=== PATIENT | female | born 1940 | race Caucasian/White ===

== ENCOUNTER 2016-05-18 11:29 | Inpatient (IN) | payer OTHER ==
[~2016-05-18] VITALS: Ht 152.4 cm; Wt 52.6 kg
--- NOTE | 2016-05-18 11:49 | NUR ---
74 Y/O FEMALE C/O SHORTNESS OF BREATH SINCE MONDAY; NO RELIEF WITH INHALERS USED AT HOME. PT REPORTS "TERRIBLE HACKING COUGH" WITH "A LOT OF PHLEGM". STATES PHLEGM IS CLEAR. PREFERS TO BE SITTING STRAIGHT UP ON BED. SAT 92% RA, PLACED ON 2L WITH INCREASED TO 99% HR 114-120 - STATES SHE JUST USED HER PROAIR PRIOR TO COMING TO ED. DENIES CHANGES IN APPETITE. DENIES FEVERS.
[2016-05-18] MEDS ORDERED: SPIRIVA RESPIMAT4 GM INH (11:50)
[2016-05-18] MEDS ORDERED: PROAIR HFA8.5 GM INH (11:51)
[2016-05-18] MEDS ORDERED: LISINOPRIL20 M1 PO (11:51)
[2016-05-18 12:05] LABS: ABSOLUTE BASOPHIL COUNT 0 /CUMM (0.0-0.2); ABSOLUTE EOSINOPHIL COUNT 0.3 /CUMM (0.0-0.7); ABSOLUTE GRANULOCYTE CT 3.9 /CUMM (1.4-6.5); ABSOLUTE LYMPH COUNT 0.8 /CUMM (1.2-3.4); ABSOLUTE MONOCYTE COUNT 0.3 /CUMM (0.10-0.60); BASOPHIL % 0.9 % (0.0-2.0); EOSINOPHIL % 5.4 % (0-5); HEMATOCRIT 43.4 % (37-47); MEAN CORPUSCULAR HGB 28.8 PG (27.0-31.0); MEAN CORPUSCULAR VOLUME 87.1 FL (81.0-99.0); MEAN PLATELET VOLUME 7.1 FL (7.4-10.4); PLATELET COUNT 341 /CUMM (130-400); RBC DISTRIBUTION WIDTH 12.4 % (11.5-14.5); RED BLOOD CELL CT 4.99 /CUMM (4.20-5.40); WHITE BLOOD CELL COUNT 5.4 /CUMM (4.8-10.8)
--- NOTE | 2016-05-18 12:37 | NUR ---
DR CARLTON INTO EVAL MED WITH SOLU MEDROL PER JUN. QUICK FLU SENT
--- NOTE | 2016-05-18 12:45 | NUR ---
RESP THERAPIST MATIAS AT BEDSIDE AT THIS TIME.
--- NOTE | 2016-05-18 13:23 | NUR ---
PT TO RAD VIA STRETCHER AT THIS TIME
--- NOTE | 2016-05-18 13:59 | NUR ---
BACK FROM RADIOLOGY RT CALLED FOR ALBUTEROL TX
--- NOTE | 2016-05-18 13:59 | ED DYSPNEA/ASTHMA COMPLAINT ---
History of Present Illness General Chief Complaint: Dyspnea (COPD, CHF, Other) Stated Complaint: SOB Source: patient, family, old records Exam Limitations: no limitations Vital Signs & Intake/Output Vital Signs & Intake/Output Vital Signs Date Time Temp Pulse Resp B/P Pulse O2 O2 Flow FiO2 Ox Delivery Rate 05/18 1510 123 18 118/70 95 Nasal 2.0L Cannula 05/18 1438 133 20 140/89 95 Nasal 2.0L Cannula 05/18 1420 95 Nasal 2.0L Cannula 05/18 1240 95 Nasal 2.0L Cannula 05/18 1149 92 Room Air 05/18 1144 96.7 114 22 177/90 92 Room Air Allergies Coded Allergies: No Known Allergies (05/18/16) Reconcile Medications Albuterol Sulfate (Proair Hfa) 90 MCG HFA.AER.AD 2 PUFF INH DAILY NEEDED SOB (Reported) Lisinopril 20 MG TABLET 20 MG PO DAILY HTN (Reported) Tiotropium [place] (Spiriva Respimat) 2.5 MCG/ACTUATION MIST.INHAL 2 PUF INH DAILY SOB (Reported) Triage Note: 74 Y/O FEMALE C/O SHORTNESS OF BREATH SINCE MONDAY; NO RELIEF WITH INHALERS USED AT HOME. PT REPORTS "TERRIBLE HACKING COUGH" WITH "A LOT OF PHLEGM". STATES PHLEGM IS CLEAR. PREFERS TO BE SITTING STRAIGHT UP ON BED. SAT 92% RA, PLACED ON 2L WITH INCREASED TO 99% HR 114-120 - STATES SHE JUST USED HER PROAIR PRIOR TO COMING TO ED. DENIES CHANGES IN APPETITE. DENIES FEVERS. Triage Nurses Notes Reviewed? yes Onset: 3 weeks Duration: day(s): (5), continues in ED, getting worse Timing: recent history Severity: severe Activities at Onset: activity Prior Episodes/Possible Cause: occasional episodes Modifying Factors: Improves With: rest. Worsens With: movement. Associated Symptoms: cough, lightheadedness, wheezing, weakness LMP (ages 10-50): post menopausal : No Patient currently breastfeeds: No HPI: Three weeks prior to admission patient complains of cough shortness of breath placed on antibiotics with improvement started on Breo. 5 days prior to admission patient developed recurrent productive cough of clear sputum with progressive shortness of breath dyspnea on exertion unable to perform normal activities of daily life. She denies fever chills chest pain headache dysuria rash bleeding nausea vomiting diarrhea. Past History Travel History Traveled to [place] past 21 day No Medical History Any Pertinent Medical History? 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 No Review of Systems Review of Systems Constitutional: Reports: see HPI, malaise, weakness. EENTM: Reports: no symptoms. Respiratory: Reports: see HPI, cough, short of breath. Cardiovascular: Reports: no symptoms. GI: Reports: no symptoms. Genitourinary: Reports: no symptoms. Musculoskeletal: Reports: no symptoms. Skin: Reports: no symptoms. Neurological/Psychological: Reports: no symptoms. Hematologic/Endocrine: Reports: no symptoms. Immunologic/Allergic: Reports: no symptoms. All Other Systems: Reviewed and Negative Physical Exam Physical Exam General Appearance: well developed/nourished, alert, awake, anxious, moderate distress, thin Head: atraumatic, normal appearance Eyes: Bilateral: normal appearance, PERRL, EOMI. Ears, Nose, Throat: normal pharynx, normal ENT inspection Neck: normal inspection, supple, full range of motion, no midline tenderness Respiratory: chest non-tender, quiet respiration, accessory muscle use, wheezing Cardiovascular: regular rate/rhythm, normal peripheral pulses, norml femoral pulses equa Peripheral Pulses: 4+ carotid (R), 4+ carotid (L) Gastrointestinal: normal bowel sounds, soft, non-tender, no organomegaly Extremities: normal inspection, normal capillary refill Neurologic/Psych: no motor/sensory deficits, awake, alert, oriented x 3, normal gait, normal mood/affect Skin: intact, normal color, warm/dry Lymphatic: no anterior cervical roly Core Measures ACS in differential dx? No Severe Sepsis Present: No Septic Shock Present: No Progress Differential Diagnosis: asthma, bronchitis, CHF, COPD, pneumonia Plan of Care: Orders Procedure Date/time Status Regular Diet 05/19 D Active Patient Data 05/18 1445 Active OXYGEN SETUP (GEN) 05/18 1438 Active Saline Lock 05/18 1438 Active Admit to inpatient 05/18 1438 Active Vital Signs 05/18 1438 Active Activity/Ambulation 05/18 1438 Active Code Status 05/18 1438 Active AEROSOL (GEN) 05/18 1420 Complete AEROSOL (GEN) 05/18 1239 Complete Add-on Test (ER Only) 05/18 1222 Active RAPID VIRAL INFLUENZA A 05/18 1222 Complete TROPONIN LEVEL 05/18 1152 Complete MAGNESIUM 05/18 1152 Complete B-TYPE NATRIURETIC PEP (BNP) 05/18 1152 Complete COMPREHENSIVE METABOLIC PANEL 05/18 1151 Complete CBC WITHOUT DIFFERENTIAL 05/18 1151 Complete Intake & Output 05/18 1149 Active EKG 05/18 1130 Active Laboratory Tests 05/18/16 1152: Anion Gap 9, Estimated GFR > 60, BUN/Creatinine Ratio 21.7, Glucose 109 H, Calcium 9.6, Magnesium 2.2, Total Bilirubin 0.6, AST 23, ALT 23, Alkaline Phosphatase 82, Troponin I < 0.01, Cgy-E-Cwrziqyckrt Pept 70.4, Total Protein 7.8, Albumin 4.5, Globulin 3.3, Albumin/Globulin Ratio 1.4, CBC w Diff NO MAN DIFF REQ, RBC 4.99, MCV 87.1, MCH 28.8, RDW 12.4, MPV 7.1 L, Gran % 73.0, Lymphocytes % 15.5 L, Monocytes % 5.2, Eosinophils % 5.4 H, Basophils % 0.9, Absolute Granulocytes 3.9, Absolute Lymphocytes 0.8 L, Absolute Monocytes 0.3, Absolute Eosinophils 0.3, Absolute Basophils 0, PUBS MCHC 33.0 Diagnostic Imaging: Viewed by Me: Radiology Read. Discussed w/RAD: Radiology Read. CXR Impression: no acute abnormality, no infiltrates Initial ED EKG: normal axis, normal intervals, normal QRS complex, normal sinus rhythm, no ST T wave changes Rhythm Strip: normal sinus rhythm Comments: Patient unable to ambulate without oxygen desaturation with recurrent coughing and shortness of breath Departure Departure Time of Disposition: 1500 Disposition: STILL A PATIENT Condition: Stable Clinical Impression Primary Impression: Decompensated COPD with exacerbation (chronic obstructive pulmonary disease ) Referrals: MINAL ACEVEDO,JOSE LUIS Valentin (PCP/Family) Departure Forms: Customer Survey General Discharge Information Admission Note Spoke With: TYLER BRADY MD Documentation of Exam: Documentation of any treatments & extenuating circumstances including Concerns Regarding Discharge (functional status, medication knowledge or non-compliance, living conditions, etc.) that warrant an admission rather than observation: Supplemental oxygen serial beta agonist nebs pulmonary evaluation medication adjustment continuing care discharge planning Critical Care Note Critical Care Note Critical Care Time: non-applicable
--- NOTE | 2016-05-18 14:18 | NUR ---
MD CARLTON INTO RE EVAL
--- NOTE | 2016-05-18 14:20 | RADIOLOGY REPORT ---
EXAMINATION: XR CHEST CLINICAL INFORMATION: Cough for one week in a 75-year-old female patient. COMPARISON: None. TECHNIQUE: PA and lateral views of the chest were obtained. FINDINGS: Flattened hemidiaphragms and increase in the retrosternal airspace would indicate that this patient has COPD. The heart is not enlarged. Pulmonary vascularity is normal. Definite emphysematous changes involve both upper lobes worse on the right than left. There is no pleural effusion. No consolidation or atelectasis is seen. There is mild bilateral apical pleural thickening. The regional skeletal structures are normal. IMPRESSION: Emphysema. No pneumonia.
--- NOTE | 2016-05-18 14:36 | NUR ---
PT AMBULATORY INTO HALLWAY FROM ROOM 12 TO POD 2 DOC BOX. SAT 90% RA DECREASED TO 89%. PT DENIES FEELING SOB HOWEVER APPEARED SOB. ONCE BACK IN ROOM, PREFERRING TO TRIPOD AT EDGE OF BED. PT COUGHING. OXYGEN REPLACED AND PT IMPROVED AFTER A FEW MINUTES. MD CARLTON IN ROOM DISCUSSING POSSIBLE ADMISSION TO HOSPITAL
--- NOTE | 2016-05-18 14:43 | NUR ---
LUNCH ORDERED PER PT REQUEST (BEEF BARELY SOUP AND BROWNIE) DIET ORDER IN. SPOKE WITH TIM.
--- NOTE | 2016-05-18 15:02 | NUR ---
PT REQUESTING TO USE BATHROOM. DECLINES COMMODE IN ROOM TAKEN TO BATHROOM VIA W/C AND THEN BACK TO ROOM. SAT 90% WHEN O2 REPLACED. SLOWLY IMPROVING PT DENIES COMPLAINTS.
--- NOTE | 2016-05-18 16:24 | History & Physical ---
MEREDITH GARCIA 05/18/16 1618: General Information and HPI MD Statement: I have seen and personally examined DYLAN RIVER and documented this H&P. The patient is a 75 year old F who presented with a patient stated chief complaint of [cough]. Source of Information: patient, old records Exam Limitations: no limitations History of Present Illness: 75 year old lady with PMH of COPD/emphesyma, intermittent right sided sciatica ( on advil), with chief complaint of coughing and shortness of breath on exertion for about 4 days. She reports having very severe coughing, white phlegm production and shortness of breath on exertion since Monday without any fever, chills, chest pain, headache, dizziness, nausea, vomiting, changes in urinary or bowel habits. She denies any recent travel, sick contacts, change in her medication. Patient received flu shot this year. Patient also tried mucinex and Robitussin to alleiviate her cough with moderate success. Patient desaturated to 89% on room air in ED. Patient is a former smoker who quit more than 20 years ago. Allergies/Medications Allergies: Coded Allergies: No Known Allergies (05/18/16) Home Med list Albuterol Sulfate (Proair Hfa) 90 MCG HFA.AER.AD 2 PUFF INH DAILY NEEDED SOB (Reported) Lisinopril 20 MG TABLET 20 MG PO DAILY HTN (Reported) Tiotropium [place] (Spiriva Respimat) 2.5 MCG/ACTUATION MIST.INHAL 2 PUF INH DAILY SOB (Reported) Compliance With Home Meds: GOOD Past History Travel History Traveled to [place] past 21 day No Medical History Neurological: NONE EENT: NONE Cardiovascular: hypertension Respiratory: emphysema Gastrointestinal: NONE Hepatic: NONE Renal: NONE Musculoskeletal: NONE Psychiatric: NONE Endocrine: NONE Blood Disorders: NONE Cancer(s): 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 Exam & Diagnostic Data Last 24 Hrs of Vital Signs/I&O Vital Signs Date Time Temp Pulse Resp B/P Pulse O2 O2 Flow FiO2 Ox Delivery Rate 05/18 1510 123 18 118/70 95 Nasal 2.0L Cannula 05/18 1438 133 20 140/89 95 Nasal 2.0L Cannula 05/18 1420 95 Nasal 2.0L Cannula 05/18 1240 95 Nasal 2.0L Cannula 05/18 1149 92 Room Air 05/18 1144 96.7 114 22 177/90 92 Room Air Intake & Output 05/18 1600 05/18 0800 05/18 0000 Intake Total Output Total Balance Patient 116 lb Weight Physical Exam General Appearance Alert, Oriented X3, Cooperative, No Acute Distress Cardiovascular Normal S1, Normal S2, tachycardia Lungs decreased breath sounds with exp wheezing Abdomen Normal Bowel Sounds, Soft, No Tenderness Neurological Normal Gait, Normal Speech, Strength at 5/5 X4 Ext Extremities No Clubbing, No Cyanosis, No Edema Diagnostic Data EKG Results 100, sinus tachy, no comparison ekg, no acute st t changes Assessment/Plan Assessment: 75 year old lady with PMH of COPD/emphesyma, intermittent right sided sciatica ( on advil), with chief complaint of coughing and shortness of breath on exertion for about 4 days. She reports having very severe coughing, white phlegm production and shortness of breath on exertion since Monday without any fever, chills, chest pain, headache, dizziness, nausea, vomiting, changes in urinary or bowel habits. She denies any recent travel, sick contacts, change Vital signs on admission showed tachycardia, stable BP, 95% O2 saturation on 2 L oxygen. BEP, CBC were unremarkable, rapid flu was negative. CXR: Emphysema no pneumonia Assessment and plan COPD exacerbation * Admit the patient to general floor * Keep O2 saturation over 92% * TRC nebs * IV Solu-Medrol 40 mg every 8 hours * IV azithromycin 500 mg dailyfor 3-5 days * Check urine Legionella and strep, sputum culture * No blood culture for now * Tylenol for pain * Pulmonology consult was placed with Ap Goins MD Tachycardia and hypertension * Continue lisinopril * EKG showed sinus tachycardia(possible due to albuterol treatment), we will check another EKG * If patient still remains tachycardic, we can evaluate with the d-dimer and CTA to rule out PE DVT prophylaxis mechanical and Lovenox, full code, Tylenol for pain, heart healthy diet As Ranked By This Provider Problem List: 1. Decompensated COPD with exacerbation (chronic obstructive pulmonary disease ) Core Measures/Miscellaneous Acute Coronary Syndrome ACS Diagnosis: No Cerebrovascular Accident CVA/TIA Diagnosis: No Congestive Heart Failure CHF Diagnosis: No Venous Thromboembolism VTE Risk Factors: Age > 40 VTE Prophylaxis Ordered Inpt: Mech & Pharm No Mech VTE prophylaxis d/t: No contraindications No VTE Pharm Prophylaxis d/t: No contraindications VTE Diagnosis: No VTE Type: NONE VTE Confirmed by (Test): NONE Severe Sepsis Severe Sepsis Present: No Septic Shock Septic Shock Present: No Miscellaneous Documentation Attending Case Discussed With: KERRY GALAVIZ MD Primary Care Physician: JOSE LUIS FONTAINE MD Patient sees these Specialists dr goins Level of Patient Care: General Medicine TYLER BRADY MD 05/18/16 2103: Attending MD Review Statement Attending Statement Attending MD Statement: examined this patient, discuss w/resident/PA/OPHTHALMIC SURGICAL ASSISTANT, agreed w/resident/PA/OPHTHALMIC SURGICAL ASSISTANT, discussed with family, reviewed EMR data (avail), reviewed images, amended to note Attending Assessment/Plan: The patient is a 75 yo female with h/o COPD & HTN presents in the [facility] with c/o 4 day h/o cough and dyspnea. Cough is productive of clear sputum. No fever, chills, chest pain, or other significant symptoms. States may have begun with some nasal congestion (?allergies). In the ED the patient felt better post aerosol and IV Medrol. Physical Exam: VS: T 96.7, P 114, BP 177/90-118/70, R 22, PO 92% RA/95% 2L HEENT: eyes- PERRLA, EOMI akua- moist mucosa, no lesions Chest: diffuse severely diminished breath sounds with mild expiratory wheezing Cor: tachy, reg, nl S1, S2 w/o murm Abd: BS+, soft, NT, - masses or HSM Ext: no edema, pulses 2+ Neuro: alert & oriented x 3, non-focal Labs/Tests- as above Impression/Plan: #COPD Exacerbation- 4 day h/o symptoms. No fever/sputum to suggest infection. Patient suspects household allergies as trigger. Plan: Admit to medical floor. Close respiratory monitoring- nasal oxygen. Aerosol/IV Solumedrol/Zithromax as per COPD pathway. Pulmonary Consult- Dr. Goins. #HTN- BP initially elevated and decreased post treatment. Plan: Continue Lisinopril. Follow BP. #Tachycardia- sinus tach on EKG. Most likely secondary to dyspnea and albuterol side effect (increase in HR post 2 aerosol Rx). Plan: CTPA as per pulmonary note. Will follow.
--- NOTE | 2016-05-18 17:15 | Admission Certification ---
Admission Certification Certification Statement - As attending physician, I certify that at the time of - admission, based on clinical presentation, severity of - symptoms, need for further diagnostic testing and - therapeutic interventions, and risk of adverse outcomes - without in-hospital treatment, in my clinical assessment, - this patient requires an acute hospital stay for a minimum - of two nights or longer. I have also considered psychsocial - factors such as support system, advanced age, financial - issues, cognitive issues, and failed out-patient treatments, - past re-admission history, safety of patient, and lack of - compliance as applicable. Specific rationale supporting this admission is: The patient presents with dyspnea and acute COPD exacerbation. Requires admission for IV solumedrol, aerosol, Zithromax. Pulmonary consultation Dr. Mccallum. Oxygen support and close respiratory monitoring.
--- NOTE | 2016-05-18 18:26 | NUR ---
IV DRESSING CHANGED, BIOPATCH APPLIED AROUND INSERTION SITE FOR COMFORT. CONTINUES TO FLUSH WELL AND +BLOOD RETURN
--- NOTE | 2016-05-18 18:52 | Cons- Pulmonary ---
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 She is not on chronic steroids and never been intubated She reports having very severe coughing, white phlegm production and shortness of breath on exertion since Monday without any fever, chills, chest pain, headache, dizziness, nausea, vomiting, changes in urinary or bowel habits. She denies any recent travel, sick contacts, change in her medication. Patient received flu shot this year. Patient also tried mucinex and Robitussin to alleiviate her cough with moderate success. Patient desaturated to 89% on room air in ED. Patient is a former smoker who quit more than 20 years ago. Allergies/Medications Allergies: Coded Allergies: No Known Allergies (05/18/16) Home Med List: Albuterol Sulfate (Proair Hfa) 90 MCG HFA.AER.AD 2 PUFF INH DAILY NEEDED SOB (Reported) Lisinopril 20 MG TABLET 20 MG PO DAILY HTN (Reported) Tiotropium [place] (Spiriva Respimat) 2.5 MCG/ACTUATION MIST.INHAL 2 PUF INH DAILY SOB (Reported) Review of Systems Review of Systems Constitutional: Reports: see HPI. 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 Surgical History Surgical History: non-contributory Psychosocial History Smoking Status: Former Smoker ETOH Use: occasional use Illicit Drug Use: denies illicit drug use Exam & Diagnostic Data Last 24 Hrs of Vital Signs/I&O Vital Signs Date Time Temp Pulse Resp B/P Pulse O2 O2 Flow FiO2 Ox Delivery Rate 05/18 1742 117 18 133/59 94 Nasal 2.0L Cannula 05/18 1510 123 18 118/70 95 Nasal 2.0L Cannula 05/18 1438 133 20 140/89 95 Nasal 2.0L Cannula 05/18 1420 95 Nasal 2.0L Cannula 05/18 1240 95 Nasal 2.0L Cannula 05/18 1149 92 Room Air 05/18 1144 96.7 114 22 177/90 92 Room Air Intake & Output 05/18 1600 05/18 0800 05/18 0000 Intake Total Output Total Balance Patient 116 lb Weight Last 48 Hrs of Labs/Carlos: Laboratory Tests 05/18/16 1152: Anion Gap 9, Estimated GFR > 60, BUN/Creatinine Ratio 21.7, Glucose 109 H, Calcium 9.6, Magnesium 2.2, Total Bilirubin 0.6, AST 23, ALT 23, Alkaline Phosphatase 82, Troponin I < 0.01, Xmh-[id number]-Qfwbwlyjmlo Pept 70.4, Total Protein 7.8, Albumin 4.5, Globulin 3.3, Albumin/Globulin Ratio 1.4, CBC w Diff NO MAN DIFF REQ, RBC 4.99, MCV 87.1, MCH 28.8, RDW 12.4, MPV 7.1 L, Gran % 73.0, Lymphocytes % 15.5 L, Monocytes % 5.2, Eosinophils % 5.4 H, Basophils % 0.9, Absolute Granulocytes 3.9, Absolute Lymphocytes 0.8 L, Absolute Monocytes 0.3, Absolute Eosinophils 0.3, Absolute Basophils 0, PUBS MCHC 33.0 Assessment/Plan Impression/Plan: Physical Exam General Appearance Alert, Oriented X3, Cooperative, No Acute Distress Cardiovascular Normal S1, Normal S2, tachycardia Lungs decreased breath sounds with exp wheezing, improved since she recevied nebs Abdomen Normal Bowel Sounds, Soft, No Tenderness Neurological Normal Gait, Normal Speech, Strength at 5/5 X4 Ext Extremities No Clubbing, No Cyanosis, No Edema Significant data Chest x-ray unremarkable. Bone density done recently showed osteopenia. Blood work was unremarkable. Baseline bicarbonate is 29. White count was 5.4 with no significant left shift. IMPRESSION This is a lady with advanced emphysema with COPD, cachexia with FEV1 less than 50%, on and off, sciatica, hypertension, osteopenia, now comes in with increasing cough, wheezing, yellow and green sputum production. Issues include * Acute COPD exacerbation. * As patient's exam is unremarkable. Rule out other causes of shortness of breath including pulmonary embolism - patient would benefit from a CTA * COPD cachexia. * Hypertension. * Chronic low back pain. * Significant osteopenia. RECOMMENDATION * Start her on by mouth prednisone 40 mg from tomorrow. * Switch antibiotics to by mouth ceftin 500 bid * Sputum culture. * Please order a CTA of the chest to rule out PE and to help evaluate the lung and to rule out malignancy. * Check vitamin D, total level. We will follow closely Consult Acknowledgment - Thank you for your consult request.
--- NOTE | 2016-05-18 19:30 | NUR ---
PT STATES IV SITE #1 LAC IS NOW PAINFUL AGAIN. IV SITE APPEARS SLIGHTLY INFILTRATED AND IV UNABLE TO FLUSH. IV REMOVED, PT STATES PAIN IS NOW BETTER BUT STILL PRESENT. ICE PACK APPLIED TO AREA. NEW IV INSERTED INTO RIGHT FOREARM. PT STATES IV SITE #2 IS NOT PAINFUL OR IRRITATING AT THIS TIME
--- NOTE | 2016-05-18 20:01 | NUR ---
BED ASSIGNED [phone]
--- NOTE | 2016-05-18 20:23 | NUR ---
PT TAKEN TO CT VIA WHEELCHAIR. TRANSPORT BOOKED FROM CT TO [facility]
--- NOTE | 2016-05-18 21:03 | CT SCAN REPORT ---
EXAMINATION: CT ANGIOGRAM OF THE CHEST WITH AND WITHOUT CONTRAST (CT PULMONARY ANGIOGRAM FOR PE) CLINICAL INFORMATION: Shortness of breath. Evaluate for pulmonary embolism. COMPARISON: No pertinent prior studies are available for comparison. TECHNIQUE: Prior to contrast administration, noncontrast localization images were obtained. Subsequently, multidetector volumetric imaging was performed from the thoracic inlet to below the diaphragms following the administration of 95 mL Optiray 350 intravenous contrast. No contrast reaction reported. Sagittal, coronal, and MIP oblique sagittal reformatted images were obtained on the CT workstation, uploaded to PACS, and reviewed. Total exam dose-length product 231 mGy-cm. FINDINGS: QUALITY OF STUDY/CONTRAST BOLUS: Adequate contrast opacification of the pulmonary arterial vasculature. PULMONARY ARTERIES: No evidence of pulmonary embolism to the level of the subsegmental pulmonary arteries. No large central pulmonary emboli. THORACIC AORTA: Normal caliber of the thoracic aorta without aneurysm or dissection. LUNG: Evaluation of the lung parenchyma is notable for severe bilateral centrilobular emphysema, with a bilateral upper lobe predominance. Mucus impaction is identified within several bronchioles within the bilateral upper lobes as well as the right lower lobe. No suspicious pulmonary nodules or masses are identified. There is biapical pleural parenchymal scarring and thickening. The central airways are patent, without endobronchial obstructing lesions. PLEURA: No pleural effusion or pneumothorax. MEDIASTINUM: Normal heart size, without significant pericardial effusion. Subcentimeter mediastinal lymph nodes, visualized measuring up to 0.7 cm in short axis dimension within the aortopulmonary window. No significant hilar or axillary adenopathy. No evidence of septal bowing or right heart strain. CHEST WALL/AXILLA: No axillary or internal mammary lymphadenopathy. OSSEOUS STRUCTURES: No acute osseous abnormality. Normal alignment of the imaged thoracolumbar spine. Partially visualized moderate degenerative changes of the lower thoracic spine. UPPER ABDOMEN: No acute findings within the upper abdomen. Incidental note is made of a small nodule is adjacent to the hepatic dome measuring 1.0 x 1.5 cm. No reflux of contrast into the hepatic veins to suggest elevated right heart pressures. IMPRESSION: 1. Adequate contrast opacification of the pulmonary arterial vasculature, without evidence of pulmonary embolism. 2. Severe bilateral centrilobular emphysema, with a bilateral upper lobe predominance. Mucus impaction is identified within several bronchioles within the bilateral upper lobes as well as the right lower lobe. No airspace consolidation to suggest infection. VTE: No evidence of pulmonary embolism.
[2016-05-18 22:12] VITALS: BP 150/78
--- NOTE | 2016-05-19 05:58 | PN- Housestaff ---
SOPHIE CHATMAN 05/19/16 0557: Subjective Follow-up For: 1. COPD exacerbation Complaints: no complaints Subjective: Ms Lynn has been comfortable. She complains of cough, which is productive. No fever overnight, and vitals were stable. She was seen by Dr. Mccallum last night. During the day, blood pressure remained on the lower side, and she was given normal saline. Review of Systems Constitutional: Reports: see HPI. Objective Last 24 Hrs of Vital Signs/I&O Vital Signs Date Time Temp Pulse Resp B/P Pulse O2 O2 Flow FiO2 Ox Delivery Rate 05/19 0245 95 05/19 0000 96 Nasal 3.0L Cannula 05/18 2213 Nasal 3.0L Cannula 05/18 2211 97.9 131 20 150/78 96 Nasal 3.0L Cannula 05/18 2012 97.2 105 24 127/61 93 Nasal Cannula 05/18 1742 117 18 133/59 94 Nasal 2.0L Cannula 05/18 1510 123 18 118/70 95 Nasal 2.0L Cannula 05/18 1438 133 20 140/89 95 Nasal 2.0L Cannula 05/18 1420 95 Nasal 2.0L Cannula 05/18 1240 95 Nasal 2.0L Cannula 05/18 1149 92 Room Air 05/18 1144 96.7 114 22 177/90 92 Room Air Intake & Output 05/19 0800 05/19 0000 05/18 1600 Intake Total 120 Output Total Balance 120 Intake, Oral 120 Patient 116 lb 116 lb Weight Physical Exam General Appearance: No Acute Distress Skin: No Breakdown HEENT: PERRLA, EOMI Neck: Supple, No JVD, No thryomegaly Lymphatic: Cervical nl Cardiovascular: Regular Rate, Normal S1, Normal S2 Lungs: Low air entry b/l expiratory wheezes Abdomen: Normal Bowel Sounds, Soft, No Tenderness, No Hepatospenomegaly Neurological: Normal Speech, Strength at 5/5 X4 Ext, Normal Tone, Sensation Intact, Cranial Nerves 3-12 NL Extremities: No Clubbing, No Cyanosis, No Edema Current Medications: Current Medications Sig/Denice Start time Last Medication Dose Route Stop Time Status Admin Acetaminophen 650 MG Q6P PRN 05/18 1630 AC PO Albuterol Sulfate 3 ML ONCE ONE 05/18 1245 DC 05/18 INH 05/18 1246 1419 Albuterol Sulfate 3 ML ONCE ONE 05/18 1230 DC 05/18 INH 05/18 1231 1238 Azithromycin 500 MG DAILY 05/18 1630 DC 05/18 Dextrose/Water 250 ML IV 1717 Cefuroxime Sodium 500 MG Q12 05/180 AC 05/18 PO 2155 Enoxaparin Sodium 40 MG DAILY 05/19 1000 AC SC Guaifenesin 10 ML Q4P PRN 05/18 1630 AC 05/18 PO 2144 Ipratropium Warren 2.5 ML ONCE ONE 05/18 1230 DC 05/18 INH 05/18 1231 1238 Lactobacillus 1 CAP ONCE ONE 05/18 2199 DC Acidophilus PO 05/18 220 Lisinopril 20 MG DAILY 05/19 1000 AC PO Methylprednisolone 0 .STK-MED ONE 05/19 1234 DC .ROUTE Methylprednisolone 40 MG Q8 05/19 0600 DC IV Methylprednisolone 125 MG ONCE ONE 05/18 1230 DC 05/18 IV 05/18 1231 1237 Prednisone 40 MG ONCE ONE 05/19 1000 AC PO 05/19 1001 Last 24 Hrs of Lab/Carlos Results Last 24 Hrs of Labs/Mics: Laboratory Tests 05/18/16 1855: D-Dimer Cancelled 05/18/16 1152: Anion Gap 9, Estimated GFR > 60, BUN/Creatinine Ratio 21.7, Glucose 109 H, Calcium 9.6, Magnesium 2.2, Total Bilirubin 0.6, AST 23, ALT 23, Alkaline Phosphatase 82, Troponin I < 0.01, Xza-M-Mptntldkkgf Pept 70.4, Total Protein 7.8, Albumin 4.5, Globulin 3.3, Albumin/Globulin Ratio 1.4, 25-OH Vitamin D Total 5.3 L, CBC w Diff NO MAN DIFF REQ, RBC 4.99, MCV 87.1, MCH 28.8, RDW 12.4 , MPV 7.1 L, Gran % 73.0, Lymphocytes % 15.5 L, Monocytes % 5.2, Eosinophils % 5.4 H, Basophils % 0.9, Absolute Granulocytes 3.9, Absolute Lymphocytes 0.8 L, Absolute Monocytes 0.3, Absolute Eosinophils 0.3, Absolute Basophils 0, PUBS MCHC 33.0 Microbiology 05/18 1626 URINE ROUT: Legionella Antigen - COLB 05/18 1626 URINE ROUT: Streptococcus pneumoniae Antigen (M - COLB 05/18 1626 LOWER RESP: Respiratory Culture - COLB 05/18 1626 LOWER RESP: Gram Stain - COLB Assessment/Plan Assessment: She is an older woman w/ a PMH of COPD(not on home oxygen) is being evaluated for shortness of breath and cough. At the time of admission, temperature 96.7, pulse rate 114-113, respiratory rate 18, blood pressure 140/89, 92% nasal cannula on 2 L. Lab findings indicated WBC 5.4, hemoglobin 14.3, hematocrit 43.4, platelet count 341, chest x-ray showed emphysema with no evidence of pneumonia. CT abdomen- No evidence of pulmonary embolism.Mucus impaction is identified within several bronchioles within the bilateral upper lobes as well as the right lower lobe. Differential diagnoses: #1 COPD exacerbation Below is the problem list and plan: #1 shortness of breath, cough-the patient has been started on IV Solu-Medrol. Changed to by mouth prednisone in the a.m. Patient has been started on the unit AT 500 mg by mouth twice a day. Ap Mccallum MD advising. TR nebs. Oxygen as tolerated. Mucomyst. Often is seen for cough. #2 abnormal blood pressure-lisinopril has been discontinued. Restarting the a.m., after blood pressure is more stable. NS 1000ml 1. Reassess. Reason unclear at this time. #3 history of C. difficile-since the patient is on antibiotic, watch closely. Probiotic every day, although daytime is not medically. #4 low vitamin D- replenished with vitamin D. Continue the dose of 1000 international units vitamin D. #5 tachycardia-reason is unclear at this time. Continue to monitor closely. Cardiology evaluation if continues to remain elevated. CT negative for PE. Problem List: 1. Decompensated COPD with exacerbation (chronic obstructive pulmonary disease ) Pain Ratin Pain Location: back Pain Goal: Pain 4 or less Pain Plan: tylenol prb Tomorrow's Labs & Rationales: No labs necessary KINGSTON BOWERS MD 05/19/16 1555: Attending MD Review Statement Attending Statement Attending MD Statement: examined this patient, discuss w/resident/PA/SYSTEM DEVELOPMENT MANAGER, agreed w/resident/PA/SYSTEM DEVELOPMENT MANAGER, reviewed EMR data (avail) Attending Assessment/Plan: Continue Solumedrol taper, nebulizers, follow pulmoanry recommendations. If improving may consider discharge tomorrow.
[2016-05-19 06:38] VITALS: BP 130/70
[2016-05-19 07:50] LABS: ABSOLUTE BASOPHIL COUNT 0 /CUMM (0.0-0.2); ABSOLUTE EOSINOPHIL COUNT 0 /CUMM (0.0-0.7); ABSOLUTE GRANULOCYTE CT 5.5 /CUMM (1.4-6.5); ABSOLUTE LYMPH COUNT 0.9 /CUMM (1.2-3.4); ABSOLUTE MONOCYTE COUNT 0.5 /CUMM (0.10-0.60); BASOPHIL % 0.2 % (0.0-2.0); EOSINOPHIL % 0.1 % (0-5); HEMATOCRIT 40.8 % (37-47); MEAN CORPUSCULAR HGB 29.1 PG (27.0-31.0); MEAN CORPUSCULAR HGB CONC 33.4 G/DL (33.0-37.0); MEAN CORPUSCULAR VOLUME 87.2 FL (81.0-99.0); MEAN PLATELET VOLUME 7.7 FL (7.4-10.4); PLATELET COUNT 336 /CUMM (130-400); RBC DISTRIBUTION WIDTH 12.7 % (11.5-14.5); RED BLOOD CELL CT 4.67 /CUMM (4.20-5.40)
[2016-05-19 10:22] VITALS: BP 94/50
--- NOTE | 2016-05-19 10:31 | PN- Pulmonary ---
Subjective HPI/Critical Care Issues: Ms Lynn has been comfortable. She complains of cough, which is productive. No fever overnight, and vitals were stable. Review of Systems Constitutional: Reports: see HPI. Objective Current Medications: Current Medications Sig/Denice Start time Last Medication Dose Route Stop Time Status Admin Acetaminophen 650 MG Q6P PRN 05/18 1630 AC PO Albuterol Sulfate 3 ML Q4H PRN 05/19 1030 AC 05/19 INH 1018 Albuterol Sulfate 3 ML ONCE ONE 05/18 1245 DC 05/18 INH 05/18 1246 1419 Albuterol Sulfate 3 ML ONCE ONE 05/18 1230 DC 05/18 INH 05/18 1231 1238 Azithromycin 500 MG DAILY 05/18 1630 DC 05/18 Dextrose/Water 250 ML IV 1717 Cefuroxime Sodium 500 MG Q12 05/18 2200 AC 05/19 PO 1011 Cholecalciferol 1,000 IU DAILY 05/19 1000 AC 05/19 PO 1011 Enoxaparin Sodium 40 MG DAILY 05/19 1000 AC 05/19 SC 1013 Ergocalciferol 50,000 IU ONCE ONE 05/19 1000 DC PO 05/19 1001 Guaifenesin 10 ML Q4P PRN 05/18 1630 AC 05/19 PO 0627 Ipratropium Velpen 2.5 ML ONCE ONE 05/18 1230 DC 05/18 INH 05/18 1231 1238 Lactobacillus 1 CAP ONCE ONE 05/18 2200 DC 05/19 Acidophilus PO 05/18 220 0627 Lisinopril 20 MG DAILY 05/19 1000 AC PO Methylprednisolone 0 .STK-MED ONE 05/19 1234 DC .ROUTE Methylprednisolone 40 MG Q12 05/19 1000 AC 05/19 IV 1012 Methylprednisolone 40 MG Q8 05/19 0600 DC IV Methylprednisolone 125 MG ONCE ONE 05/18 1230 DC 05/18 IV 05/18 1231 1237 Prednisone 40 MG ONCE ONE 05/19 1000 CAN PO 05/19 1001 Vital Signs & I&O Last 24 Hrs of Vitals and I&O: Vital Signs Date Time Temp Pulse Resp B/P Pulse O2 O2 Flow FiO2 Ox Delivery Rate 05/19 1022 102 94/50 05/19 1021 94 Nasal 2.0L Cannula 05/19 0936 Nasal 3.0L Cannula 05/19 0638 97.8 111 20 130/70 92 Nasal 3.0L Cannula 05/19 0245 95 05/19 0000 96 Nasal 3.0L Cannula 05/18 2214 Nasal 3.0L Cannula 05/18 221 97.9 131 20 150/78 96 Nasal 3.0L Cannula 05/18 2012 97.2 105 24 127/61 93 Nasal Cannula 05/18 1742 117 18 133/59 94 Nasal 2.0L Cannula 05/18 1510 123 18 118/70 95 Nasal 2.0L Cannula 05/18 1438 133 20 140/89 95 Nasal 2.0L Cannula 05/18 1420 95 Nasal 2.0L Cannula 05/18 1240 95 Nasal 2.0L Cannula 05/18 1149 92 Room Air 05/18 1144 96.7 114 22 177/90 92 Room Air Intake & Output 05/19 1600 05/19 0800 05/19 0000 Intake Total 120 120 Output Total 300 Balance -300 120 120 Intake, Oral 120 120 Output, Urine 300 Patient 116 lb Weight Impression/Plan Impression/Plan Impression/Plan: Physical Exam General Appearance Alert, Oriented X3, Cooperative, No Acute Distress Cardiovascular Normal S1, Normal S2, tachycardia Lungs decreased breath sounds with exp wheezing, improved since she recevied nebs Abdomen Normal Bowel Sounds, Soft, No Tenderness Neurological Normal Gait, Normal Speech, Strength at 5/5 X4 Ext Extremities No Clubbing, No Cyanosis, No Edema Significant data CT CHEST IMPRESSION: 1. Adequate contrast opacification of the pulmonary arterial vasculature, without evidence of pulmonary embolism. 2. Severe bilateral centrilobular emphysema, with a bilateral upper lobe predominance. Mucus impaction is identified within several bronchioles within the bilateral upper lobes as well as the right lower lobe. No airspace consolidation to suggest infection. VTE: No evidence of pulmonary embolism. DICTATED BY: NATHANIEL ACEVEDO,ALANIS DATE/TIME DICTATED:05/18/162040 Chest x-ray unremarkable. Bone density done recently showed osteopenia. Blood work was unremarkable. Baseline bicarbonate is 29. White count was 5.4 with no significant left shift. IMPRESSION This is a lady with advanced emphysema with COPD, cachexia with FEV1 less than 50%, on and off, sciatica, hypertension, osteopenia, now comes in with increasing cough, wheezing, yellow and green sputum production. Issues include * Acute COPD exacerbation. with mucoid impaction of most of her airways * COPD cachexia. * Hypertension. * Chronic low back pain. * Significant osteopenia. RECOMMENDATION * Start her on by mouth prednisone 40 mg from tomorrow. * Switch antibiotics to by mouth ceftin 500 bid * Sputum culture. * Order mucomyst bid through neb for three doses only if tolerate will follow closely
[2016-05-19 12:43] VITALS: BP 92/50
[2016-05-19 14:43] VITALS: BP 102/60
--- NOTE | 2016-05-19 16:56 | Patient Discharge Instructions ---
Discharge Instructions General Discharge Information You were seen/treated for: 1 COPD exacerbation Watch for these problems: #1 shortness of breath, chest pain, fever #2 lightheadedness or dizziness. Special Instructions: #1 please follow up with primary care provider within 1-2 weeks of discharge. #2 please follow up with tafe registrar within 1-2 weeks of discharge. #3 please take your medications as prescribed #4 Please talk your PCP about low vitamin D levels, and discuss about continuaiton of Vitamin D 13719 IU dose once weekly, for 8 wks. #5. Please let your PCP know, if you develop any diarrhea. Acute Coronary Syndrome Inclusion Criteria At DC or during hospital stay patient has or had the following: ACS DIAGNOSIS No Discharge Core Measures Meds if any: Prescribed or Continued at Discharge Meds if any: NOT Prescribed or Continued at Discharge Congestive Heart Failure Inclusion Criteria At DC or during hospital stay patient has or had the following: CHF DIAGNOSIS No Discharge Core Measures Meds if any: Prescribed or Continued at Discharge Meds if any: NOT Prescribed or Continued at Discharge Cerebrovascular accident Inclusion Criteria At DC or during hospital stay patient has or had the following: CVA/TIA Diagnosis No Discharge Core Measures Meds if any: Prescribed or Continued at Discharge Meds if any: NOT Prescribed or Continued at Discharge Venous thromboembolism Inclusion Criteria VTE Diagnosis No VTE Type NONE VTE Confirmed by (Test) NONE Discharge Core Measures - Per Current guidelines, there needs to be overlap - treatment for the first 5 days of Warfarin therapy. - If discharged on Warfarin prior to 5 days of - overlap therapy, the patient will need to be - assessed for post discharge needs including - *Post discharge parental anticoagulation - *Warfarin and/or parental anticoagulation education - *Follow up date to check INR post discharge At least 5 days overlap therapy as Inpatient No Meds if any: Prescribed or Continued at Discharge Note: Overlap Therapy is Warfarin and Anticoagulant Meds if any: NOT Prescribed or Continued at Discharge
[2016-05-19] MEDS ORDERED: CEFUROXIME250 M1 PO (16:58)
[2016-05-19 21:40] VITALS: BP 102/58
[2016-05-20 06:37] VITALS: BP 110/62
--- NOTE | 2016-05-20 07:18 | PN- Housestaff ---
Subjective Follow-up For: 1. COPD EXACERBATION Subjective: Ms Lynn was compared to this morning. The cough improved compared to yesterday. Vitals were stable overnight. She was afebrile overnight. Currently oxygen saturation in the range of 93-96% on 1 L oxygen. The nurse attempted at tapering oxygen, and oxygen saturation dropped from 93% to 90% on room air; and the patient was symptomatic. Review of Systems Constitutional: Reports: see HPI. Objective Last 24 Hrs of Vital Signs/I&O Vital Signs Date Time Temp Pulse Resp B/P Pulse O2 O2 Flow FiO2 Ox Delivery Rate 05/20 0637 97.5 96 20 110/62 95 05/20 0000 95 Nasal 1.0L Cannula 05/19 2140 97.7 74 20 102/58 95 Nasal Cannula 05/19 1856 94 Nasal 1.0L Cannula 05/19 1600 96 Nasal 2.0L Cannula 05/19 1443 97.8 110 18 102/60 95 Nasal 2.0L Cannula 05/19 1243 92/50 05/19 1022 102 94/50 05/19 1021 94 Nasal 2.0L Cannula 05/19 1000 94/50 05/19 0936 Nasal 3.0L Cannula 05/19 0800 Nasal 2.0L Cannula Intake & Output 05/20 0800 05/20 0000 05/19 1600 Intake Total 740 740 800 Output Total 300 Balance 740 740 500 Intake, IV 500 500 Intake, Oral 240 240 800 Output, Urine 300 Physical Exam General Appearance: No Acute Distress Other Physical Findings: General Exam: AAOx3, No acute distress, Skin: No rashes, no breakdown HEENT: PERRLA, EOMI Neck: Supple, No JVD No cervical lymphadenopathy CVS: Reg Rate, Normal S1,S2, No MGR Resp: Normal air entry, bilateral wheezes. Abdomen: Soft, No tenderness, Normal Bowel Sounds Neuro: Normal Speech, Strength 5/5 b/l x 4 extremities, Sensation intact, CN III -XII NL, Reflexes 2+ Extremities: No cyanosis, pedal edema Current Medications: Current Medications Sig/Denice Start time Last Medication Dose Route Stop Time Status Admin Acetaminophen 650 MG Q6P PRN 05/18 1630 AC PO Acetylcysteine 2 ML BID 05/19 2199 AC 05/19 INH 05/20 2200 1856 Albuterol Sulfate 3 ML BID 05/19 2199 AC 05/19 INH 1856 Albuterol Sulfate 3 ML Q4H PRN 05/19 1030 AC 05/19 INH 1018 Cefuroxime Sodium 500 MG Q12 05/18 2200 AC 05/19 PO 2130 Cholecalciferol 1,000 IU DAILY 05/19 1000 AC 05/19 PO 1011 Enoxaparin Sodium 40 MG DAILY 05/19 1000 AC 05/19 SC 1013 Ergocalciferol 50,000 IU ONCE ONE 05/19 1000 DC 05/19 PO 05/19 1001 1208 Guaifenesin 10 ML .STK-MED ONE 05/19 1205 DC PO 05/19 1206 Guaifenesin 10 ML Q4P PRN 05/18 1630 AC 05/19 PO 1208 Guaifenesin/Codeine 10 ML ONCE ONE 05/19 2245 DC 05/19 Phosphate PO 05/19 2246 2255 Lactobacillus 1 CAP DAILY 05/20 1000 AC Acidophilus PO Lisinopril 20 MG DAILY 05/19 1000 DC PO Methylprednisolone 0 .STK-MED ONE 05/19 1234 DC .ROUTE Methylprednisolone 40 MG Q12 05/19 1000 DC 05/19 IV 2130 Patient Medication 1 ED .STK-MED ONE 05/19 1336 DC Teaching ED 05/19 1337 Prednisone 40 MG DAILY 05/20 1000 UNVr PO Prednisone 40 MG ONCE ONE 05/19 1000 CAN PO 05/19 1001 Sodium Chloride 1,000 ML ONCE ONE 05/19 1315 DC 05/19 IV 05/19 2314 1407 Last 24 Hrs of Lab/Carlos Results Last 24 Hrs of Labs/Mics: Microbiology 05/19 919 URINE ROUT: Legionella Antigen - COMP 05/19 919 URINE ROUT: Streptococcus pneumoniae Antigen (M - COMP 05/19 919 LOWER RESP: Respiratory Culture - RES 05/19 919 LOWER RESP: Gram Stain - RES Assessment/Plan Assessment: She is an older woman w/ a PMH of COPD(not on home oxygen) is being evaluated for shortness of breath and cough. Differential diagnoses: #1 COPD exacerbation Below is the problem list and plan: #1 shortness of breath, currently on by mouth prednisone. Cefuroxime 500 mg by mouth twice a day D2 . Ap Mccallum MD advising. TRC nebs. Oxygen as tolerated. Mucomyst. Guafenasin as needed. Acetylcysteine-mucolytic. Ambulatory sats to be obtained, to ascertain, if she would require any home oxygen. #2 abnormal blood pressure-Since the BP was low, lisinopril was held yesterday. Currently stable. Continue home dose of antibiotics. Restarted Lisinopril 20 mg daily. #3 history of C. difficile-since the patient is on antibiotic, watch closely. Probiotic every day, although the data is in adequate, and for probiotic use and recurrence of C. difficile. #4 low vitamin D- replenished with vitamin D. Continue the dose of 1000 international units vitamin D. #5 Tachycardia-reason is unclear at this time. Continue to monitor closely. Cardiology evaluation if continues to remain elevated. CT negative for PE. Problem List: 1. Decompensated COPD with exacerbation (chronic obstructive pulmonary disease ) Pain Ratin Pain Location: None Pain Goal: Pain 4 or less Pain Plan: Tylenol when necessary Tomorrow's Labs & Rationales: no labs necessary
[2016-05-20] MEDS ORDERED: CEFUROXIME250 M1 PO (08:48)
[2016-05-20] MEDS ORDERED: PREDNISONE10 M2 PO ×2 (08:48→10:26)
[2016-05-20] MEDS ORDERED: ALBUTEROL2.5 MG/0.5 INH/SOL ×2 (08:49→13:13)
[2016-05-20] MEDS ORDERED: ALBUTEROL1.25 MG/1 INH/SOL (08:50)
[2016-05-20] MEDS ORDERED: CEFUROXIME500 MG PO (10:25)
--- NOTE | 2016-05-20 12:52 | PN- Pulmonary ---
Subjective HPI/Critical Care Issues: Ms Lynn was compared to this morning. The cough improved compared to yesterday. Vitals were stable overnight. She was afebrile overnight. Currently oxygen saturation in the range of 93-96% on 1 L oxygen. The nurse attempted at tapering oxygen, and oxygen saturation dropped from 93% to 90% on room air; and the patient was symptomatic. Review of Systems Constitutional: Reports: see HPI. Objective Current Medications: Current Medications Sig/Denice Start time Last Medication Dose Route Stop Time Status Admin Acetaminophen 650 MG Q6P PRN 05/18 1630 AC PO Acetylcysteine 2 ML BID 05/19 2200 AC 05/20 INH 05/20 2201 1053 Albuterol Sulfate 3 ML BID 05/19 2200 AC 05/20 INH 1053 Albuterol Sulfate 3 ML Q4H PRN 05/19 1030 AC 05/19 INH 1018 Cefuroxime Sodium 500 MG Q12 05/18 2200 AC 05/20 PO 0931 Cholecalciferol 1,000 IU DAILY 05/19 1000 AC 05/20 PO 0931 Enoxaparin Sodium 40 MG DAILY 05/19 1000 AC 05/19 SC 1013 Guaifenesin 10 ML Q4P PRN 05/18 1630 AC 05/19 PO 1208 Guaifenesin/Codeine 10 ML ONCE ONE 05/19 2245 DC 05/19 Phosphate PO 05/19 2246 2255 Lactobacillus 1 CAP DAILY 05/20 1000 AC 05/20 Acidophilus PO 0931 Lisinopril 20 MG DAILY 05/20 1100 AC 05/20 PO 1133 Lisinopril 20 MG DAILY 05/19 1000 DC PO Methylprednisolone 40 MG Q12 05/19 1000 DC 05/19 IV 2130 Patient Medication 1 ED .STK-MED ONE 05/19 1336 DC Teaching ED 05/19 1337 Prednisone 40 MG DAILY 05/20 1000 AC 05/20 PO 0934 Sodium Chloride 1,000 ML ONCE ONE 05/19 1315 DC 05/19 IV 05/19 2314 1407 Vital Signs & I&O Last 24 Hrs of Vitals and I&O: Vital Signs Date Time Temp Pulse Resp B/P Pulse O2 O2 Flow FiO2 Ox Delivery Rate 05/20 1133 125 110/62 05/20 0800 Nasal 1.0L Cannula 05/20 0637 97.5 96 20 110/62 95 05/20 0000 95 Nasal 1.0L Cannula 05/19 2140 97.7 74 20 102/58 95 Nasal Cannula 05/19 1856 94 Nasal 1.0L Cannula 05/19 1600 96 Nasal 2.0L Cannula 05/19 1443 97.8 110 18 102/60 95 Nasal 2.0L Cannula Intake & Output 05/20 1600 05/20 0800 05/20 0000 Intake Total 740 740 Output Total Balance 740 740 Intake, IV 500 500 Intake, Oral 240 240 Impression/Plan Impression/Plan Impression/Plan: Physical Exam General Appearance Alert, Oriented X3, Cooperative, No Acute Distress Cardiovascular Normal S1, Normal S2, tachycardia Lungs decreased breath sounds with exp wheezing, improved since she recevied nebs Abdomen Normal Bowel Sounds, Soft, No Tenderness Neurological Normal Gait, Normal Speech, Strength at 5/5 X4 Ext Extremities No Clubbing, No Cyanosis, No Edema Significant data CT CHEST IMPRESSION: 1. Adequate contrast opacification of the pulmonary arterial vasculature, without evidence of pulmonary embolism. 2. Severe bilateral centrilobular emphysema, with a bilateral upper lobe predominance. Mucus impaction is identified within several bronchioles within the bilateral upper lobes as well as the right lower lobe. No airspace consolidation to suggest infection. VTE: No evidence of pulmonary embolism. DICTATED BY: NATHANIEL ACEVEDO,ALANIS DATE/TIME DICTATED:05/18/162040 Chest x-ray unremarkable. Bone density done recently showed osteopenia. Blood work was unremarkable. Baseline bicarbonate is 29. White count was 5.4 with no significant left shift. IMPRESSION This is a lady with advanced emphysema with COPD, cachexia with FEV1 less than 50%, on and off, sciatica, hypertension, osteopenia, now comes in with increasing cough, wheezing, yellow and green sputum production. Issues include * Acute COPD exacerbation. with mucoid impaction of most of her airways improving * COPD cachexia. * Hypertension. * Chronic low back pain. * Significant osteopenia. RECOMMENDATION * Prednisone 40 mg for five days * Ceftin 500 bid * Wean oxygen OK to dc soon with oxygen if she needs it Pt would need a nebulizer machine with albuterol 2.5 vials tid prn DC on spiriva, symbicort 160 2 puff bid, and proair 2 puff q4 prn will follow closely
--- NOTE | 2016-05-20 12:57 | NUR ---
WHEN SITTING ON RA, PT REMAINED 90-93%. WHEN AMBULATING DOWN THE BRUNNER AND BACK TO ROOM ON RA, PT DROPPED BETWEEN 87-89%. PT DENIES CHEST PAIN AND DIZZINESS. DID STATES SOME SHORT OF BREATH ON EXERTION BUT FELT BETTER THAN PREVIOUS TIMES AMBULATING. PT STATED "I TEND TO HAVE TROUBLE BREATHING WHEN I GET NERVOUS OR ANXIOUS. KNOWING I NEED OXYGEN MAKES ME NERVOUS WHICH IS PROBABLY WHY MY NUMBERS ARE DROPPING". WILL ATTEMPT AGAIN AT A LATER TIME. 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
[2016-05-20] MEDS ORDERED: SYMBICORT 16010.2 GM INH (13:13)
[2016-05-20] MEDS ORDERED: PREDNISONE20 M1 PO (13:16)
[2016-05-20 14:10] VITALS: BP 130/60
--- NOTE | 2016-05-20 15:03 | Discharge Summary ---
Visit Information Visit Dates Admission Date: 05/18/16 Discharge Date: 05/20/2016 Hospital Course Course Attending Physician: KINGSTON BOWERS MD Primary Care Physician: JOSE LUIS FONTAINE MD Consulting Request: Consulting Specialty: Pulmonary Disease Hospital Course: Ms Lynn is a 75 yr old woman w/ a PMH of COPD-FEV1 less than 50% (not on home oxygen) came in to [facility] for evaluation of worsening shortness of breath and cough. At the time of admission, T 96.7, NV range 114-113, respiratory rate 18, blood pressure 140/89, 92% nasal cannula on 2 L. Lab findings indicated WBC 5.4, hemoglobin 14.3, hematocrit 43.4, platelet count 341. Chest x-ray showed emphysema with no evidence of pneumonia. And, lower respiratory cultures-revealed growth of mixed pauline. Strep pneumo urinary antigen and legionella urinary antigen-negative. CT abdomen showed no evidence of pulmonary embolism. Mucus impaction was identified within several bronchioles within the bilateral upper lobes as well as the right lower lobe. Differential diagnoses: #1 COPD exacerbation. Below is the problem list and plan: #1 shortness of breath, cough-the patient was started on IV Solu-Medrol, which was transitioned to by mouth prednisone subsequently. Also was treated with, cefuroxime 500 milligrams by mouth twice a day. During the stay in the hospital , she required 3 L of oxygen initially which was tapered down to 1 L , while oxygen saturation ranged in between 93-95%. Upon ambulation, her oxygen saturation dropped to around 87-88% after which, an arrangement was made for her to be discharged on home oxygen. Also was treated with short-acting beta agonist, acetylcysteine (inhalation). She was discharged home with the recommendation to start Symbicort, and long-acting anticholinergic inhaler. Since she was started on an antibiotic, she was advised to report any episodes of diarrhea as soon as possible. Has a history of C. difficile in the past. Probiotic as an outpatient. Dr. Marcelle Mccallum MD was advising. #2 low vitamin D- vitamin D 5.3, she was given one-time dose of vitamin D 50,000 international units. She was discharged with the recommendation to discuss with the primary care provider for continuation of vitamin D x weekly dose for a total of 8 weeks and reassess accordingly. #3 tachycardia-she remained tachycardic during the stay in the hospital. Reason unclear. CTA chest did not reveal any evidence of venous thromboembolism. If she remained tachycardic, in the next few weeks, she might require cardiology evaluation and/or thyroid function. Allergies: Coded Allergies: No Known Allergies (05/18/16) Pertinent Lab Results: RAD - XRY-CHEST XRAY, PA AND LATERAL 05/18/16 / 1415 Emphysema. No pneumonia. CAT - CTA CHEST-PULMONARY EMBOLISM 05/18/16-191 1. Adequate contrast opacification of the pulmonary arterial vasculature, without evidence of pulmonary embolism. 2. Severe bilateral centrilobular emphysema, with a bilateral upper lobe predominance. Mucus impaction is identified within several bronchioles within the bilateral upper lobes as well as the right lower lobe. No airspace consolidation to suggest infection. VTE: No evidence of pulmonary embolism. SOURCE: LOWER RESP ENTR: 05/19/16-[address]: MINAL ACEVEDO,JOSE LUIS Valentin [facility]: [facility] ORDERED: LOWER RESPIRATO Procedure Result > GRAM STAIN Final 05/19/16-1156 WHITE BLOOD CELLS MANY GRAM POSITIVE COCCI FEW > LOWER RESPIRATORY CULTURE Preliminary 05/20/16-0909 Mixed pauline after 1 day -- Disposition Summary Disposition Principal Diagnosis: COPD exacerbation Additional Diagnosis: Hypertension Discharge Disposition: home or self care Discharge Instructions General Discharge Information Code Status: Full Code Patient's Diet: Heart healthy diet Patient's Activity: As tolerated Follow-Up Instructions/Appts: #1 please follow up with her primary care provider within the week of discharge. #2 please follow up with her electrical and instrumentation manager within the week of discharge. #3 please discuss with your electrical and instrumentation manager/primary care provider about continuation of oxygen. #4 please take your medications as prescribed. Medications at Discharge Discharge Medications: Continue taking these medications: Tiotropium [place] (Spiriva Respimat) 2.5 MCG/ACTUATION MIST.INHAL 2 Puff Inhale through mouth DAILY Qty = 12 Comments: NOT GIVEN Lisinopril (Lisinopril) 20 MG TABLET 20 Milligram ORAL DAILY Qty = 90 Comments: Last Taken: 05/20/16 Time: 1100 Albuterol Sulfate (Proair Hfa) 90 MCG HFA.AER.AD 2 PUFF Inhale through mouth EVERY 4-6 HOURS NEEDED as needed for COPD Qty = 8 Comments: NOT GIVEN Start taking the following new medications: Cefuroxime Axetil (Cefuroxime) 500 MG TABLET 1 Tablet ORAL TWICE DAILY Days = 4 No Refills Comments: Last Taken: 05/20/16 Time: 0930 Albuterol Sulfate (Albuterol Sulfate) 2.5 MG/0.5 ML VIAL.NEB 1 Vial Inhale Solution THREE TIMES DAILY as needed for COPD Qty = 60 No Refills Comments: Last Taken: 05/20/16 Time: 1000 Budesonide/Formoterol Fumarate (Symbicort 160-4.5 Mcg Inhaler) 160 MCG-4.5 MCG/ ACTUATION HFA.AER.AD 2 Puff Inhale through mouth TWICE DAILY Qty = 1 No Refills Comments: NOT GIVEN Prednisone (Prednisone) 20 MG TABLET 2 Tablet ORAL DAILY Days = 4 No Refills Comments: Last Taken: 05/20/16 Time: 0930 Copies To: MINAL ACEVEDO,JOSE LUIS Valentin; KEYANNA ACEVEDO,MARCELLE Allen Attending MD Review Statement Documenting Attending: ELISSA ACEVEDO,KINGSTON
--- NOTE | 2016-05-20 15:39 | NUR ---
AT REST ON RA, PT 93%. WHEN AMBULATING IN HALLWAY ON RA, DROPPED TO 87%. AT REST ON 1LNC, 94-96%. ON 1LNC WHEN AMBULATING, DROPPED TO 91%. NOTIFIED PROFESSOR OF INDUSTRIAL TECHNOLOGY AND STAFF TOXICOLOGIST.
== END 2016-05-20 16:10 | DRG 191 ==
LOC: ENRESERVDT → ENRESERVTM → ERH 11:29 → ENPENDDIS 14:38 → 2NA 14:38 → ERHI 14:38 → 2NA 20:27
PROVIDERS: Emergency Medicine; Internal Medicine; ADMIT Internal Medicine
DX: J44.1 Chronic obstructive pulmonary disease with (acute) exacerbation (principal); R64 Cachexia; Z68.22 Body mass index [BMI] 22.0-22.9, adult; M85.80 Other specified disorders of bone density and structure, unspecified site; I10 Essential (primary) hypertension
CPT/HCPCS: 2NASP; 36415; 82436; 87070; 87449; 87450; 87804; 87804-59; 93005; 93010; 96374; J0456; J1650; J2920; J2930; J7060; J7608

== ENCOUNTER 2016-08-16 20:02 | Inpatient (IN) | payer OTHER ==
[~2016-08-16] VITALS: Ht 152.4 cm; Wt 53.5 kg
[~2016-08-16 20:02] MED LIST: ALBUTEROL1.25 MG/1 INH/SOL; ALBUTEROL2.5 MG/0.5 INH/SOL; CEFUROXIME250 M1 PO; CEFUROXIME500 MG PO; LISINOPRIL20 M1 PO; PREDNISONE10 M2 PO; PREDNISONE20 M1 PO; PROAIR HFA8.5 GM INH; SPIRIVA RESPIMAT4 GM INH; SYMBICORT 16010.2 GM INH
--- NOTE | 2016-08-16 20:16 | NUR ---
PT TO TRIAGE WITH C/O DISPNEA AND PRODUCTIVE COUGH SINCE MONDAY. PT SEEN HER PCP AND WAS ON PREDNISONE AND ANTIBIOTIC SINCE. PT USES O2 AT NIGHT AT HOME, AND FOR LAST FEW DAYS PT HAS BEEN USING O2 DURING DAY DUE TO SOB. O2SAT 95% ON 02 NC 1L IN TRIAGE. PT AFEBRILE. HX OF EMPHYSEMA,HTN.
--- NOTE | 2016-08-16 20:30 | NUR ---
AT BEDSIDE TO EVAL PT AT THIS TIME.
--- NOTE | 2016-08-16 20:41 | ED DYSPNEA/ASTHMA COMPLAINT ---
History of Present Illness General Chief Complaint: Dyspnea (COPD, CHF, Other) Stated Complaint: DIFF BREATHING PER PT SPO2 95% AT SEROLOGY TECHNICIAN Source: patient, family, old records Exam Limitations: no limitations Vital Signs & Intake/Output Vital Signs & Intake/Output Vital Signs Date Time Temp Pulse Resp B/P B/P Pulse O2 O2 Flow FiO2 Mean Ox Delivery Rate 08/17 2115 95 Nasal 2.5L Cannula 08/16 2113 95 Nasal 2.0L Cannula 08/16 2014 98.9 108 18 125/78 95 Nasal 1.0L Cannula Allergies Coded Allergies: cefuroxime (BLOTCHES BUT ALSO TOOK WITH PREDNISONE UNSURE WHICH ONE 08/16/16) CAUSED THE REACTION prednisone (BLOTCHES ALSO TOOK WITH CEFUROXIME, UNSURE WHICH CAUSED REAC ) Reconcile Medications Albuterol Sulfate (Proair Hfa) 90 MCG HFA.AER.AD 2 PUFF INH Q4-6 PRN PRN COPD (Reported) Albuterol Sulfate 2.5 MG/0.5 ML VIAL.NEB 1 Vial INH/HINA TID PRN COPD Budesonide/Formoterol Fumarate (Symbicort 160-4.5 Mcg Inhaler) 160 MCG-4.5 MCG/ ACTUATION HFA.AER.AD 2 PUF INH BID copd Calcium Carbonate/Vitamin D3 (Caltrate 600 + D Soft Chew Tab) (Unknown Strength) TAB.CHEW (Unknown Dose) PO DAILY SUPPLEMENT (Reported) Cefuroxime Axetil (Cefuroxime) 250 MG TABLET 1 TAB PO BID ANTIBIOTIC ( Reported) Cholecalciferol (Vitamin D3) (Vitamin D) 2,000 UNIT TABLET 1 TAB PO DAILY SUPPLEMENT (Reported) Lactobacillus Acidophilus (Probiotic) (Unknown Strength) CAPSULE (Unknown Dose ) PO DAILY PROBIOTIC (Reported) Lisinopril 20 MG TABLET 20 MG PO DAILY HTN (Reported) Prednisone 20 MG TABLET 1 TAB PO BID STEROID (Reported) Tiotropium [place] (Spiriva Respimat) 2.5 MCG/ACTUATION MIST.INHAL 2 PUF INH DAILY SOB (Reported) Triage Note: PT TO TRIAGE WITH C/O DISPNEA AND PRODUCTIVE COUGH SINCE MONDAY. PT SEEN HER PCP AND WAS ON PREDNISONE AND ANTIBIOTIC SINCE. PT USES O2 AT NIGHT AT HOME, AND FOR LAST FEW DAYS PT HAS BEEN USING O2 DURING DAY DUE TO SOB. O2SAT 95% ON NC 1L IN TRIAGE. PT AFEBRILE. HX OF EMPHYSEMA,HTN. Triage Nurses Notes Reviewed? yes HPI: Patient has COPD and uses oxygen at night. Starting on Monday she started having an increasing cough with green sputum as well as chills and increasing difficulty breathing. Patient began using her oxygen all day and started prednisone as well as cefuroxime. On Monday she noticed that she broke out in a painful rash across her chest after taking the cefuroxime. The rash lasted approximately one hour and then one way. Same thing happened again Monday night and then with yesterday morning's dose. Patient finally called her primary care physician who told her to stop the cefuroxime. Since then patient has been having increasing difficulty breathing and dyspnea on exertion. Patient denies any orthopnea. She states that she gets chest tightness when she gets short of breath. She continues to have chills and anorexia. No fevers. Patient has failed outpatient antibiotics and steroids. Past History Travel History Traveled to [place] past 21 day No Medical History Any Pertinent Medical History? 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 No Review of Systems Review of Systems Constitutional: Reports: no symptoms. EENTM: Reports: no symptoms. Respiratory: Reports: see HPI, cough, short of breath, sputum production, wheezing. Cardiovascular: Reports: see HPI, chest pain. GI: Reports: no symptoms. Genitourinary: Reports: no symptoms. Musculoskeletal: Reports: no symptoms. Skin: Reports: see HPI, rash. Neurological/Psychological: Reports: no symptoms. Hematologic/Endocrine: Reports: no symptoms. Immunologic/Allergic: Reports: no symptoms. All Other Systems: Reviewed and Negative Physical Exam Physical Exam General Appearance: well developed/nourished, alert, awake, anxious, moderate distress Head: atraumatic, normal appearance Eyes: Bilateral: PERRL, EOMI. Ears, Nose, Throat: normal pharynx, normal ENT inspection, hearing grossly normal Neck: normal inspection, supple, full range of motion Respiratory: decreased breath sounds, rhonchi, wheezing, respiratory distress Cardiovascular: regular rate/rhythm, normal peripheral pulses Gastrointestinal: normal bowel sounds, soft, non-tender Extremities: normal inspection, normal capillary refill, normal range of motion, no edema Neurologic/Psych: no motor/sensory deficits, awake, alert, oriented x 3, normal mood/affect Skin: intact, normal color, warm/dry Lymphatic: no anterior cervical roly Core Measures ACS in differential dx? No Severe Sepsis Present: No Septic Shock Present: No Progress Differential Diagnosis: bronchitis, COPD, pulmonary embolism, pneumonia, pneumothorax Plan of Care: Orders Procedure Date/time Status Telemetry/Hide Inspector And Sorter 08/17 2039 Active BLOOD CULTURE 08/17 2039 Active TROPONIN LEVEL 08/17 2039 Complete COMPREHENSIVE METABOLIC PANEL 08/17 2039 Complete CBC WITHOUT DIFFERENTIAL 08/17 2039 Complete EKG 08/17 2039 Active Laboratory Tests 08/16/16 2100: Anion Gap 14, Estimated GFR > 60, BUN/Creatinine Ratio 24.3, Glucose 108 H, Calcium 9.8, Total Bilirubin 0.5, AST 35, ALT 42, Alkaline Phosphatase 69, Troponin I < 0.01, Total Protein 7.6, Albumin 4.4, Globulin 3.2, Albumin/ Globulin Ratio 1.4, CBC w Diff NO MAN DIFF REQ, RBC 5.04, MCV 87.2, MCH 28.6, RDW 13.1, MPV 7.8, Gran % 51.5, Lymphocytes % 34.4, Monocytes % 11.7 H, Eosinophils % 0.6, Basophils % 1.8, Absolute Granulocytes 3.8, Absolute Lymphocytes 2.6, Absolute Monocytes 0.9 H, Absolute Eosinophils 0, Absolute Basophils 0.1, PUBS MCHC 32.8 L Microbiology 08/16 2104 BLOOD: Blood Culture - RECD 08/16 2104 BLOOD: Blood Culture - RECD Diagnostic Imaging: Viewed by Me: Radiology Read. Discussed w/RAD: Radiology Read. CXR Impression: PATIENT: DYLAN RIVER PRESENT AGE: 75 PATIENT ACCOUNT NO: [id number] : 42 LOCATION: [facility] ORDERING PHYSICIAN: RAOUL JUAREZ MD SERVICE DATE: 08/16/16 EXAM TYPE: RAD - XRY- PORTABLE CHEST XRAY EXAMINATION: XR PORTABLE CHEST CLINICAL INFORMATION: Shortness of breath. COMPARISON: Chest x-ray 05/18/[address] chest 05/18/2016 TECHNIQUE: Portable frontal view of the chest was obtained. 9:29 PM FINDINGS: Severe emphysematous hyperinflation of lungs. No acute infiltrate. No pulmonary vascular congestion or pleural effusion. No pneumothorax. Heart size is normal. Cardiac and mediastinal contours are normal. IMPRESSION: Marked emphysematous changes of lung. No acute abnormality of the chest. DICTATED BY: JOSE LUIS MONTES DE OCA MD DATE/TIME DICTATED:08/16/162146 TURNING MACHINE SET UP OPERATOR:CODY DATE/TIME TRANSCRIBED:08/16/162146 CONFIDENTIAL, DO NOT COPY WITHOUT APPROPRIATE AUTHORIZATION. <Electronically signed in Other Vendor System> SIGNED BY: JOSE LUIS MONTES DE OCA MD 08/16/162152 Initial ED EKG: SINUS TACHYCARDIA WITH NONSPECIFIC st-t CHANGES Prior EKG: unchanged Rhythm Strip: sinus tachycardia Departure Departure Disposition: STILL A PATIENT Condition: Guarded Clinical Impression Primary Impression: COPD exacerbation ) Referrals: JOSE LUIS FONTAINE MD (PCP/Family) Departure Forms: Customer Survey General Discharge Information Admission Note Spoke With: FLO MAN MD Documentation of Exam: Documentation of any treatments & extenuating circumstances including Concerns Regarding Discharge (functional status, medication knowledge or non-compliance, living conditions, etc.) that warrant an admission rather than observation: [ Patient has failed outpatient treatment. Patient will be admitted for IV antibiotics, IV steroids and pulmonary consultation. Patient is having increased oxygen demand.] Critical Care Note Critical Care Note Critical Care Time: non-applicable
--- NOTE | 2016-08-16 21:02 | NUR ---
RESP CALLED FOR TX
--- NOTE | 2016-08-16 21:08 | NUR ---
BLOOD CULTURE #1 DONE
--- NOTE | 2016-08-16 21:15 | NUR ---
IV ESTABLISHED #22 IN RFA. SOLUMEDROL GIVEN PER EMAR. PT TOLERATED WELL. RESP AT BEDSIDE FOR TX.
--- NOTE | 2016-08-16 21:17 | NUR ---
LABS AND BLOOD CULTURES WALKED OVER TO LAB BY [facility] JOVANNA SINCE TUBE SYSTEM IS DOWN.
[2016-08-16 21:24] LABS: ABSOLUTE BASOPHIL COUNT 0.1 /CUMM (0.0-0.2); ABSOLUTE EOSINOPHIL COUNT 0 /CUMM (0.0-0.7); ABSOLUTE GRANULOCYTE CT 3.8 /CUMM (1.4-6.5); ABSOLUTE LYMPH COUNT 2.6 /CUMM (1.2-3.4); ABSOLUTE MONOCYTE COUNT 0.9 /CUMM (0.10-0.60); BASOPHIL % 1.8 % (0.0-2.0); EOSINOPHIL % 0.6 % (0-5); GRANULOCYTE % 51.5 % (42.2-75.2); MEAN CORPUSCULAR HGB 28.6 PG (27.0-31.0); MEAN CORPUSCULAR HGB CONC 32.8 G/DL (33.0-37.0); MEAN CORPUSCULAR VOLUME 87.2 FL (81.0-99.0); MEAN PLATELET VOLUME 7.8 FL (7.4-10.4); PLATELET COUNT 399 /CUMM (130-400); RBC DISTRIBUTION WIDTH 13.1 % (11.5-14.5); RED BLOOD CELL CT 5.04 /CUMM (4.20-5.40); WHITE BLOOD CELL COUNT 7.4 /CUMM (4.8-10.8)
--- NOTE | 2016-08-16 21:29 | NUR ---
PORTABLE CXRAY BEING DONE AT BEDSIDE AT THIS TIME.
[2016-08-16] MEDS ORDERED: CEFUROXIME250 M1 PO (21:32)
[2016-08-16] MEDS ORDERED: PREDNISONE20 M1 PO (21:33)
[2016-08-16] MEDS ORDERED: CALTRATE 600 +1 EAC1 PO (21:36)
[2016-08-16] MEDS ORDERED: PROBIOTIC1 EACH PO (21:36)
[2016-08-16] MEDS ORDERED: VITAMIN D2000 UNI1 PO (21:36)
--- NOTE | 2016-08-16 21:53 | RADIOLOGY REPORT ---
EXAMINATION: XR PORTABLE CHEST CLINICAL INFORMATION: Shortness of breath. COMPARISON: Chest x-ray 05/18/[address] chest 05/18/2016 TECHNIQUE: Portable frontal view of the chest was obtained. 9:29 PM FINDINGS: Severe emphysematous hyperinflation of lungs. No acute infiltrate. No pulmonary vascular congestion or pleural effusion. No pneumothorax. Heart size is normal. Cardiac and mediastinal contours are normal. IMPRESSION: Marked emphysematous changes of lung. No acute abnormality of the chest.
--- NOTE | 2016-08-16 22:45 | NUR ---
CLEOCIN 600MG/4ML IN 50ML D5W STARTED, RUNNING AT 108ML/HR
--- NOTE | 2016-08-16 22:50 | NUR ---
HOUSE STAFF AT BEDSIDE
--- NOTE | 2016-08-16 23:03 | NUR ---
PT HAS BED ASSIGNMENT 211-1
--- NOTE | 2016-08-16 23:18 | NUR ---
REPORT GIVEN TO SELMA CROCKETT 2NB
--- NOTE | 2016-08-16 23:26 | History & Physical ---
ANNIA CAMILO 08/16/16 6175: General Information and HPI MD Statement: I have seen and personally examined DYLAN RIVER and documented this H&P. The patient is a 75 year old F who presented with a patient stated chief complaint of shortness of breath. Source of Information: patient Exam Limitations: no limitations History of Present Illness: This is a 75-year-old lady with past medical history significant for COPD on home oxygen during nighttime 1 L, former smoker quitted 20 years ago, hypertension, C. difficile, chronic back pain, severe osteopenia Presented to the [facility] emergency department with chief complaint of shortness of breath for 5 days. Patient reported ongoing shortness of breath, cough, green colored sputum production, chills for a week. Patient states that she contacted her primary care doctor with wheezing and increased dyspnea, cough on Monday, she was prescribed prednisone and cefuroxime. She used cefuroxime for twice however she breaks out into a minor rash on her chest which alleviates by itself within 1 hour. She couldn't get much relief from steroids or antibiotics. Also states she normally uses 1 L oxygen while sleeping however since Monday she has felt the need to use oxygen all the time. she denied any fever at home. Denies any orthopnea, paroxysmal nocturnal dyspnea. She states that her son was sick at home. She denies any travel history. She denies any fevers, chest pain, racing of heart, nausea, vomiting, abdominal pain, headache, weakness or sensory changes. Off note she quitted smoking 20 years ago. She denies any alcohol intake. Denies illicit drug abuse. Allergies/Medications Allergies: Coded Allergies: cefuroxime (BLOTCHES BUT ALSO TOOK WITH PREDNISONE UNSURE WHICH ONE 08/16/16) CAUSED THE REACTION prednisone (BLOTCHES ALSO TOOK WITH CEFUROXIME, UNSURE WHICH CAUSED REAC ) Home Med list Albuterol Sulfate (Proair Hfa) 90 MCG HFA.AER.AD 2 PUFF INH Q4-6 PRN PRN COPD (Reported) Albuterol Sulfate 2.5 MG/0.5 ML VIAL.NEB 1 Vial INH/HINA TID PRN COPD Budesonide/Formoterol Fumarate (Symbicort 160-4.5 Mcg Inhaler) 160 MCG-4.5 MCG/ ACTUATION HFA.AER.AD 2 PUF INH BID copd Calcium Carbonate/Vitamin D3 (Caltrate 600 + D Soft Chew Tab) (Unknown Strength) TAB.CHEW (Unknown Dose) PO DAILY SUPPLEMENT (Reported) Cholecalciferol (Vitamin D3) (Vitamin D) 2,000 UNIT TABLET 1 TAB PO DAILY SUPPLEMENT (Reported) Lactobacillus Acidophilus (Probiotic) (Unknown Strength) CAPSULE (Unknown Dose ) PO DAILY PROBIOTIC (Reported) Lisinopril 20 MG TABLET 20 MG PO DAILY HTN (Reported) Tiotropium [place] (Spiriva Respimat) 2.5 MCG/ACTUATION MIST.INHAL 2 PUF INH DAILY SOB (Reported) Compliance With Home Meds: GOOD Past History Travel History Traveled to [place] past 21 day No Medical History Neurological: NONE EENT: NONE Cardiovascular: hypertension Respiratory: emphysema Gastrointestinal: C DIFF Hepatic: NONE Renal: NONE Musculoskeletal: NONE Psychiatric: NONE Endocrine: NONE Blood Disorders: NONE Cancer(s): NONE ORNAMENT 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 Denies: fever, malaise, weakness, unexplained weight loss. EENTM: Denies: no symptoms. Cardiovascular: Denies: chest pain, edema, orthopena, palpitations, peripheral edema, syncope. Respiratory: Reports: cough, short of breath, sputum production, wheezing. Denies: hemoptysis, orthopnea. GI: Denies: abdominal pain, constipation, diarrhea, nausea, bloody stool, vomiting. Genitourinary: Denies: frequency, urgency. Musculoskeletal: Reports: back pain. Denies: joint pain. Neurological/Psychological: Denies: anxiety, confusion, depressed, dementia, emotional problems, headache, numbness, tingling, tremors. Exam & Diagnostic Data Last 24 Hrs of Vital Signs/I&O Vital Signs Date Time Temp Pulse Resp B/P B/P Pulse O2 O2 Flow FiO2 Mean Ox Delivery Rate 08/17 0100 93 Nasal 3.0L Cannula 08/17 0014 97.9 107 20 134/60 94 Nasal 2.0L Cannula 08/17 0000 93 Nasal 3.0L Cannula 08/160 96.7 101 20 114/60 93 Nasal 2.0L Cannula 08/17 2115 95 Nasal 2.5L Cannula 08/16 2113 95 Nasal 2.0L Cannula 08/16 2014 98.9 108 18 125/78 95 Nasal 1.0L Cannula Intake & Output 08/17 0800 08/17 0000 08/16 1600 Intake Total 0 Output Total Balance 0 Intake, Oral 0 Patient 53.524 kg 53.524 kg Weight Weight Reported by Patient Reported by Patient Measurement Method Physical Exam General Appearance Alert, Oriented X3, Cooperative, No Acute Distress Skin No Rashes, No Breakdown HEENT Atraumatic, PERRLA, EOMI, Mucous Membr. moist/pink Neck Supple, No JVD Lymphatic Axillary nl, Cervical nl Cardiovascular Regular Rate, Normal S1, Normal S2, No Murmurs Lungs dec air entry, wheezes Abdomen Normal Bowel Sounds, Soft, No Tenderness, No Hepatospenomegaly Neurological Normal Speech, Strength at 5/5 X4 Ext, Normal Tone, Sensation Intact, Cranial Nerves 3-12 NL, Reflexes 2+ Extremities No Clubbing, No Cyanosis, No Edema Vascular Normal Pulses, Pulses Symmetrical Last 24 Hrs of Labs/Carlos: Laboratory Tests 08/16/16 2100: Anion Gap 14, Estimated GFR > 60, BUN/Creatinine Ratio 24.3, Glucose 108 H, Calcium 9.8, Total Bilirubin 0.5, AST 35, ALT 42, Alkaline Phosphatase 69, Troponin I < 0.01, Total Protein 7.6, Albumin 4.4, Globulin 3.2, Albumin/ Globulin Ratio 1.4, CBC w Diff NO MAN DIFF REQ, RBC 5.04, MCV 87.2, MCH 28.6, RDW 13.1, MPV 7.8, Gran % 51.5, Lymphocytes % 34.4, Monocytes % 11.7 H, Eosinophils % 0.6, Basophils % 1.8, Absolute Granulocytes 3.8, Absolute Lymphocytes 2.6, Absolute Monocytes 0.9 H, Absolute Eosinophils 0, Absolute Basophils 0.1, PUBS MCHC 32.8 L Microbiology 08/17 0115 NASOPHARYN: Influenza Virus A & B Rapid Smear - COMP 08/16 2356 URINE ROUT: Legionella Antigen - ORD 08/16 2356 URINE ROUT: Streptococcus pneumoniae Antigen (M - ORD 08/16 2356 URINE ROUT: Urine Culture - ORD 08/16 2356 LOWER RESP: Respiratory Culture - ORD 08/16 2356 LOWER RESP: Gram Stain - ORD 08/16 2104 BLOOD: Blood Culture - RECD 08/16 2104 BLOOD: Blood Culture - RECD Assessment/Plan Assessment: This is a 75-year-old lady with past medical history significant for COPD on home oxygen during nighttime 1 L, former smoker quitted 20 years ago, hypertension, C. difficile, chronic back pain, severe osteopenia Presented to the [facility] emergency department with chief complaint of shortness of breath for 5 days. Patient reported ongoing shortness of breath, cough, green colored sputum production, chills for a week. Patient states that she contacted her primary care doctor with wheezing and increased dyspnea, cough on Monday, she was prescribed prednisone and cefuroxime. She used cefuroxime for twice however she breaks out into a minor rash on her chest which alleviates by itself within 1 hour. She couldn't get much relief from steroids or antibiotics. Vitals on admission-afebrile, heart rate 108, respiratory rate 18, blood pressure 125/78, saturating at 95 on 1 L. Pertinent labs on admission-CBC and BEP with normal. Chest x-ray shows marked emphysematous changes, and no acute abnormalities EKG, rate 115, TN 160, QRS 86, QTC 426, sinus tachycardia, right axis deviation Problem list 1. COPD exacerbation 2. Tachycardia 3. Hypertension 4. Chronic back pain 5. Severe osteopenia COPD exacerbation Patient presented with worsening cough, green colored sputum production, difficulty breathing, increased use of oxygen.. She couldn't improve outpatient treatment with steroids. She received cefuroxime as an outpatient however she couldn't use it because of rash. Chest x-ray suggestive of marked emphysematous changes from COPD. Afebrile with normal WBC count. wheezes and chest tightness were noticed on examination * Admitted to general medical floor for further management of COPD * Monitor vitals closely every shift * Maintain oxygen saturation above 90% * Provide supplemental oxygen if necessary * Pancultures * Start IV Solu-Medrol 40 mg every 8 hours * IV azithromycin for 5 days * Total respiratory care * Continue nebulizer and inhaler therapy * consult retail advertising executive the morning sinus tachycardia EKG showed sinus tachycardia, rate 115, regular, no acute ST-T wave changes. We'll monitor closely for now Hypertension Continue lisinopril Chronic back pain Tylenol for mild pain Ibuprofen for moderate pain Percocet for severe pain Full code Heart healthy diet DVT prophylaxis subcutaneous heparin Pain pathway As Ranked By This Provider Problem List: 1. Decompensated COPD with exacerbation (chronic obstructive pulmonary disease ) Core Measures/Miscellaneous Acute Coronary Syndrome ACS Diagnosis: No Cerebrovascular Accident CVA/TIA Diagnosis: No Congestive Heart Failure CHF Diagnosis: No Venous Thromboembolism VTE Risk Factors: Acute medical illness, Age > 40 No [facility] VTE prophylaxis d/t: No contraindications No VTE Pharm Prophylaxis d/t: No contraindications VTE Diagnosis: No VTE Type: NONE VTE Confirmed by (Test): NONE Severe Sepsis Severe Sepsis Present: No Septic Shock Septic Shock Present: No Miscellaneous Documentation Attending Case Discussed With: FLO MAN MD Primary Care Physician: JOSE LUIS FONTAINE MD Patient sees these Specialists retail advertising executive Level of Patient Care: General Medicine MARIAN MARY MD 08/16/16 2352: Resident Review Statement Resident Statement: examined this patient, discussed with internal controls analyst Other Findings: This is a 75-year-old lady whose medical issues include hypertension, nocturnal oxygen use secondary to COPD, former smoker over 20 years ago presents to the emergency room with a chief complaint of dyspnea. Patient states that she contacted her retail advertising executive Dr. Mccallum with a complaint of wheezing and increased dyspnea and cough on Monday who prescribed prednisone and cefuroxime. Every time she uses a cefuroxime she breaks out into a minor rash which alleviates by itself within an hour. Patient also states that she normally uses 2 L oxygen while sleeping however since Monday she has felt the need to use the oxygen at all times. She also complains of some yellowish sputum however no fevers or chills; complains of severe dyspnea. At present she is comfortably resting in her hospital bed and is free of dyspnea chest pain or any other symptoms. She states that her son was sick at home and she may have caught something from him. Physical exam- vital signs are stable, heart, neuro, abdominal exam is benign, lung exam is positive for diffuse wheezing bilaterally, decreased air entry, rhonchi Chest x-ray shows marked emphysematous changes, and no acute abnormalities Labs are stable EKG, rate 115, TN 160, QRS 86, QTC 426, sinus tachycardia, right axis deviation Assessment- 1. COPD exacerbation 2. Tachycardia, likely albuterol induced 3. Hypertension Plan- - general medicine admission - Vitals per protocol - Panculture - IV Solu-Medrol 40 every 8 - IV azithromycin for 5 days - Pulmonary consult in the morning - TRC evaluation, continue nebulizer and inhaler therapy - Pain pathway - DVT prophylaxis with subcutaneous heparin - Heart healthy diet - Full code MAGDA ACEVEDO, [facility] 08/17/16 0606: Attending MD Review Statement Attending Statement Attending MD Statement: examined this patient, discuss w/resident/PA/DOUGHNUT ICER, agreed w/resident/PA/DOUGHNUT ICER Attending Assessment/Plan: 75 yo F with h/o COPD (FEV1 < 50%) on nocturnal 1L O2, HTN, osteopenia, low back pain, last admitted for COPD exacerbation Apr 2016, follows with Dr. Mccallum, presents for evaluation worsening ALEXANDER, cough productive of yellow phlegm and chills. She was prescribed Cefuroxime and prednisone by her PCP on Monday, however developed erythema to her chest/ hands unclear if this was secondary to cefuroxime or prednisone so she stopped taking both meds on Monday. She has been using her O2 RTC with increased use of inhalers. She is an ex-smoker, quit 20 yrs ago, never intubated. Sick contacts (Son). Vitals: afebrile, tachycardic, BP 125/78, sats 95% on 2.5L. Chest b/l diffuse expiratory wheeze++, reduced air entry, rhonchi+. Labs unremarkable. CXR: marked emphysematous changes of lung. EKG: Sinus tachycardia. 1. Acute on chronic hypoxic respiratory failure, COPD exacerbation, failed outpatient therapy. GM admit, TRC nebs, sputum culture, IV steroids, IV azithromycin, Pulm consult. Maintain O2 sats > 92%. Add mucinex BID. 2. Tachycardia on unclear etiology (was present during most recent admission). Check TSH and free T4. ?Albuterol induced. PE seems less likely. DVT ppx Lovenox. Full code.
--- NOTE | 2016-08-16 23:50 | Admission Certification ---
Admission Certification Certification Statement - As attending physician, I certify that at the time of - admission, based on clinical presentation, severity of - symptoms, need for further diagnostic testing and - therapeutic interventions, and risk of adverse outcomes - without in-hospital treatment, in my clinical assessment, - this patient requires an acute hospital stay for a minimum - of two nights or longer. I have also considered psychsocial - factors such as support system, advanced age, financial - issues, cognitive issues, and failed out-patient treatments, - past re-admission history, safety of patient, and lack of - compliance as applicable. Specific rationale supporting this admission is: Acute on chronic hypoxic respiratory failure, COPD exacerbation, failed outpatient therapy.
[2016-08-17 00:14] VITALS: BP 134/60
[2016-08-17 06:52] VITALS: BP 122/86
--- NOTE | 2016-08-17 10:43 | PN- Housestaff ---
MARQUISE ACEVEDO,LIANA 08/17/16 1043: Subjective Follow-up For: COPD exacerbation Subjective: Saw patient at bedside this a.m. She was ambulating freely throughout the room with nasal cannula. A stated she felt much better than yesterday. Patient stated that she wanted to leave today, however given her pulmonary exam she will likely require 1 more day of IV steroids. Review of Systems Constitutional: Denies: chills, fever, weakness. EENTM: Reports: no symptoms. Cardiovascular: Reports: no symptoms. Respiratory: Reports: no symptoms. Gastrointestinal: Reports: no symptoms. Genitourinary: Reports: no symptoms. Musculoskeletal: Reports: no symptoms. Skin: Reports: no symptoms. Objective Last 24 Hrs of Vital Signs/I&O Vital Signs Date Time Temp Pulse Resp B/P B/P Pulse O2 O2 Flow FiO2 Mean Ox Delivery Rate 08/17 1402 Nasal 3.0L Cannula 08/17 1401 96 Nasal 3.0L Cannula 08/17 0940 112 130/58 08/17 0800 Nasal 3.0L Cannula 08/17 0652 98.1 111 20 122/86 96 Nasal 2.0L Cannula 08/17 0100 93 Nasal 3.0L Cannula 08/17 0014 97.9 107 20 134/60 94 Nasal 2.0L Cannula 08/17 0000 93 Nasal 3.0L Cannula 08/16 2300 96.7 101 20 114/60 93 Nasal 2.0L Cannula 08/166 95 Nasal 2.5L Cannula 08/16 2113 95 Nasal 2.0L Cannula 08/16 2014 98.9 108 18 125/78 95 Nasal 1.0L Cannula Intake & Output 08/17 1600 08/17 0800 08/17 0000 Intake Total 100 0 Output Total 200 Balance -100 0 Intake, Oral 100 0 Output, Urine 200 Patient 53.524 kg 53.524 kg Weight Weight Reported by Patient Reported by Patient Measurement Method Physical Exam General Appearance: Alert, Oriented X3, Cooperative, No Acute Distress Skin: No Significant Lesion HEENT: Atraumatic, PERRLA, EOMI, Mucous Membr. moist/pink Neck: Supple Cardiovascular: Normal S1, Normal S2, No Murmurs, tachycardic Lungs: patient has bilateral decreased breath sounds. Cannot appreciate any wheezes. No crackles. Abdomen: Soft, No Tenderness Current Medications: Current Medications Sig/Denice Start time Last Medication Dose Route Stop Time Status Admin Acetaminophen 650 MG Q6P PRN 08/16 234 AC PO Albuterol Sulfate 3 ML Q6 08/17 1357 AC INH Albuterol Sulfate 2 PUF Q4-6 PRN PRN 08/16 2345 AC INH Albuterol Sulfate 3 ML ONCE ONE 08/16 2044 DC 08/16 INH 08/16 Azithromycin 500 MG DAILY 08/17 1000 AC 08/17 Sodium Chloride 250 ML IV 0933 Budesonide/ 2 PUF BID 08/16 2356 AC 08/17 Formoterol Fumarate INH 0933 Clindamycin 600 MG ONCE ONE 08/16 2044 DC 08/16 Dextrose/Water 50 ML IV 08/16 2113 224 Guaifenesin 600 MG Q12 08/17 1000 AC 08/17 PO 0934 Heparin Sodium 5,000 UNIT Q8 08/17 0600 AC (Porcine) SC Ibuprofen 600 MG Q6P PRN 08/16 234 AC PO Ipratropium [place] 2.5 ML Q6P PRN 08/17 1400 AC INH Ipratropium [place] 2.5 ML ONCE ONE 08/16 2044 DC 08/16 INH 08/16 2045 210 Lactobacillus 1 CAP BID 08/17 1021 AC Acidophilus PO Lisinopril 20 MG DAILY 08/17 1000 AC 08/17 PO 0940 Methylprednisolone 40 MG Q12 08/17 1000 AC 08/17 IV 08/22 1001 0933 Methylprednisolone 40 MG Q8 08/17 0600 DC 08/17 IV 08/20 2201 0545 Methylprednisolone 0 .STK-MED ONE 08/16 2106 DC .ROUTE Methylprednisolone 125 MG ONCE ONE 08/16 2044 DC 08/16 IV 08/16 2045 211 Oxycodone/ 1 TAB Q6P PRN 08/16 2345 AC Acetaminophen PO Patient Medication 1 ED .STK-MED ONE 08/17 1409 DC Teaching ED 08/17 1410 Tiotropium [place] 1 PUF DAILY 08/17 1000 AC 08/17 INH 0934 Last 24 Hrs of Lab/Carlos Results Last 24 Hrs of Labs/Mics: Laboratory Tests 08/17/16 0640: TSH 0.486, Free T4 1.58 08/17/16 0635: Urine Color YEL, Urine Clarity CLEAR, Urine pH 7.0, Ur Specific [place] 1.020, Urine Protein NEG, Urine Ketones NEG, Urine Nitrite NEG, Urine Bilirubin NEG, Urine Urobilinogen 0.2, Ur Leukocyte Esterase NEG, Ur Microscopic EXAM NOT REQUIRED, Urine Hemoglobin NEG, Urine Glucose NEG 08/16/16 2100: Anion Gap 14, Estimated GFR > 60, BUN/Creatinine Ratio 24.3, Glucose 108 H, Calcium 9.8, Total Bilirubin 0.5, AST 35, ALT 42, Alkaline Phosphatase 69, Troponin I < 0.01, Total Protein 7.6, Albumin 4.4, Globulin 3.2, Albumin/ Globulin Ratio 1.4, CBC w Diff NO MAN DIFF REQ, RBC 5.04, MCV 87.2, MCH 28.6, RDW 13.1, MPV 7.8, Gran % 51.5, Lymphocytes % 34.4, Monocytes % 11.7 H, Eosinophils % 0.6, Basophils % 1.8, Absolute Granulocytes 3.8, Absolute Lymphocytes 2.6, Absolute Monocytes 0.9 H, Absolute Eosinophils 0, Absolute Basophils 0.1, PUBS MCHC 32.8 L Microbiology 08/17 634 URINE ROUT: Legionella Antigen - RES 08/17 634 URINE ROUT: Streptococcus pneumoniae Antigen (M - RES 08/17 634 URINE ROUT: Urine Culture - RES 08/17 011 NASOPHARYN: Influenza Virus A & B Rapid Smear - COMP 08/16 2356 LOWER RESP: Respiratory Culture - COLB 08/16 2356 LOWER RESP: Gram Stain - COLB 08/16 2104 BLOOD: Blood Culture - RES 08/16 2104 BLOOD: Blood Culture - RES Assessment/Plan Assessment: This is a 75-year-old female with past medical history significant for COPD on nocturnal home oxygen of 1 L, former smoker, quit 20 years ago, hypertension, osteopenia, remote history of C. difficile, who comes in for chief complaint of shortness of breath. During admission, vital significant for tachycardia (108), respiratory rate of 18, BP 125/78, saturating 95 on 1 L O2. Chest x-ray shows marked emphysematous changes, and no acute abnormalities EKG, rate 115, UT 160, QRS 86, QTC 426, sinus tachycardia, right axis deviation PLAN 1. COPD exacerbation: She sees Dr. Mccallum on the outpatient basis. She states that she was placed on cefuroxime and steroid taper on Monday. However secondary to the rash she discontinued both medications by Monday. Her shortness of breath continued to get worse now with green colored sputum and increased use of oxygen. Currently requires 1 L nasal cannula at all time. Admission chest x-ray suggestive of chronic of emphysematous changes. She is afebrile with normal WBC count. This AM her pulmonary exam is notably much improved with decreased wheezes but with notably decreased air movment. * Maintain oxygen saturation above 92% * F/U Pancultures * Start IV Solu-Medrol 40 mg every 12 hrs * Con't azithromycin for 5 days. * Total respiratory care * F/U coconut cooker on outpt basis. 2. sinus tachycardia: Chronic and stable. EKG showed sinus tachycardia, rate 115 , regular, no acute ST-T wave changes. She is noted to have similar presentation during previous hospitalization. Pt states that her baseline is around 100 or 100 bpm at home. Thyroid Function tests within normal limits. * We'll monitor closely for now 3. Hypertension: Chronic and stable. * Continue lisinopril 4. Chronic back pain: Chronic and stable. * Tylenol for mild pain * Ibuprofen for moderate pain * Percocet for severe pain Full code Heart healthy diet DVT prophylaxis subcutaneous heparin Pain pathway Problem List: 1. Decompensated COPD with exacerbation (chronic obstructive pulmonary disease ) Pain Ratin Pain Location: none Pain Goal: Remain pain free Pain Plan: none Tomorrow's Labs & Rationales: cbc DVT/Prophylaxis: pharmacological MICHAEL WELLS 08/17/16 1208: Attending MD Review Statement Attending Statement Attending MD Statement: examined this patient, discuss w/resident/PA/COLLAR STAY FUSER TENDER, agreed w/resident/PA/COLLAR STAY FUSER TENDER, discussed with family, reviewed EMR data (avail), discussed with nursing, discussed with case mgmt, reviewed images, amended to note Attending Assessment/Plan: Acute on chronic hypoxic respiratory failure, COPD exacerbation, failed outpatient therapy. GM admit, TRC nebs, sputum culture, IV steroids, IV azithromycin, Maintain O2 sats > 92%. Patient clinically improved but still using accessory muscles+, requiring increased oxygen supplementation, monitor closely. f/u o/p coconut cooker. Dr Mccallum.
--- NOTE | 2016-08-17 10:47 | NUR ---
NSG NOTE: PATIENT PRESENTS SOB AFTER AMBULATING TO BATHRROM; ALSO EXPERIENCED NAUSEA BUT HAS SUBSIDED; O2 SAT 96% ON 3LNC; PATIENT REMAINS ON 3L; TEXT PAGED DR. CHEATHAM #[id number] TO MAKE AWARE; WILL CONT TO MONITOR
[2016-08-17] MEDS ORDERED: PREDNISONE10 M2 PO (14:56)
[2016-08-17] MEDS ORDERED: ZITHROMAX250 M2 PO (14:57)
--- NOTE | 2016-08-17 14:58 | Patient Discharge Instructions ---
Discharge Instructions General Discharge Information You were seen/treated for: COPD EXACERBATION Special Instructions: PLEASE F/U WITH YOUR PCP IN 1 WEEK OF DISCHARGE Acute Coronary Syndrome Inclusion Criteria At DC or during hospital stay patient has or had the following: ACS DIAGNOSIS No Discharge Core Measures Meds if any: Prescribed or Continued at Discharge Meds if any: NOT Prescribed or Continued at Discharge Congestive Heart Failure Inclusion Criteria At DC or during hospital stay patient has or had the following: CHF DIAGNOSIS No Discharge Core Measures Meds if any: Prescribed or Continued at Discharge Meds if any: NOT Prescribed or Continued at Discharge Cerebrovascular accident Inclusion Criteria At DC or during hospital stay patient has or had the following: CVA/TIA Diagnosis No Discharge Core Measures Meds if any: Prescribed or Continued at Discharge Meds if any: NOT Prescribed or Continued at Discharge Venous thromboembolism Inclusion Criteria VTE Diagnosis No VTE Type NONE VTE Confirmed by (Test) NONE Discharge Core Measures - Per Current guidelines, there needs to be overlap - treatment for the first 5 days of Warfarin therapy. - If discharged on Warfarin prior to 5 days of - overlap therapy, the patient will need to be - assessed for post discharge needs including - *Post discharge parental anticoagulation - *Warfarin and/or parental anticoagulation education - *Follow up date to check INR post discharge At least 5 days overlap therapy as Inpatient No Meds if any: Prescribed or Continued at Discharge Note: Overlap Therapy is Warfarin and Anticoagulant Meds if any: NOT Prescribed or Continued at Discharge
[2016-08-17 15:09] VITALS: BP 134/60
[2016-08-17 22:24] VITALS: BP 102/60
[2016-08-18 06:25] VITALS: BP 118/64
[2016-08-18 08:44] LABS: ABSOLUTE BASOPHIL COUNT 0 /CUMM (0.0-0.2); ABSOLUTE EOSINOPHIL COUNT 0 /CUMM (0.0-0.7); ABSOLUTE GRANULOCYTE CT 6.2 /CUMM (1.4-6.5); ABSOLUTE MONOCYTE COUNT 0.4 /CUMM (0.10-0.60); BASOPHIL % 0 % (0.0-2.0); EOSINOPHIL % 0 % (0-5); MEAN CORPUSCULAR HGB 28.9 PG (27.0-31.0); RBC DISTRIBUTION WIDTH 13.1 % (11.5-14.5); RED BLOOD CELL CT 4.24 /CUMM (4.20-5.40); WHITE BLOOD CELL COUNT 7.4 /CUMM (4.8-10.8)
--- NOTE | 2016-08-18 09:02 | PN- Housestaff ---
MARQUISE ACEVEDO,LIANA 08/18/16 0853: Subjective Follow-up For: COPD exacerbation Subjective: saw pt at bedside this am. She stated that she did felt very well. She was on 1L NC. She stated she felt at baseline adn wanted to be dc. Review of Systems Constitutional: Denies: chills, fever, weakness. EENTM: Reports: no symptoms. Cardiovascular: Denies: chest pain, palpitations. Respiratory: Denies: cough, short of breath, sputum production. Gastrointestinal: Denies: diarrhea. Genitourinary: Reports: no symptoms. Musculoskeletal: Reports: no symptoms. Objective Last 24 Hrs of Vital Signs/I&O Vital Signs Date Time Temp Pulse Resp B/P B/P Pulse O2 O2 Flow FiO2 Mean Ox Delivery Rate 08/18 0625 97.7 94 18 118/64 96 Nasal 3.0L Cannula 08/18 0000 Nasal 3.0L Cannula 08/17 2224 98.3 94 20 102/60 96 Nasal 3.0L Cannula 08/17 1600 95 Nasal 3.0L Cannula 08/17 1509 97.2 114 20 134/60 96 Nasal 3.0L Cannula 08/17 1402 Nasal 3.0L Cannula 08/17 1401 96 Nasal 3.0L Cannula 08/17 0940 112 130/58 Intake & Output 08/18 1600 08/18 0800 08/18 0000 Intake Total 240 600 Output Total Balance 240 600 Intake, Oral 240 600 Physical Exam General Appearance: Alert, Oriented X3, Cooperative, No Acute Distress Skin: No Significant Lesion HEENT: Atraumatic, PERRLA, EOMI, Mucous Membr. moist/pink Neck: Supple Cardiovascular: Regular Rate, Normal S1, Normal S2, No Murmurs Lungs: decreased air movement, no wheezes or rhonchi Abdomen: Soft, No Tenderness Neurological: Normal Speech Current Medications: Current Medications Sig/Denice Start time Last Medication Dose Route Stop Time Status Admin Acetaminophen 650 MG Q6P PRN 08/16 2345 AC PO Albuterol Sulfate 3 ML Q6 08/17 1357 AC INH Albuterol Sulfate 2 PUF Q4-6 PRN PRN 08/16 2345 AC INH Azithromycin 500 MG DAILY 08/17 1000 AC 08/17 Sodium Chloride 250 ML IV 0933 Budesonide/ 2 PUF BID 08/16 2356 AC 08/17 Formoterol Fumarate INH 2133 Guaifenesin 600 MG Q12 08/17 1000 AC 08/17 PO 2133 Heparin Sodium 5,000 UNIT Q8 08/17 0600 AC (Porcine) SC Ibuprofen 600 MG Q6P PRN 08/16 2345 AC PO Ipratropium [place] 2.5 ML Q6 08/17 1800 AC INH Ipratropium [place] 2.5 ML Q6P PRN 08/17 1400 DC INH Lactobacillus 1 CAP BID 08/17 1021 AC 08/17 Acidophilus PO 213 Lisinopril 20 MG DAILY 08/17 1000 AC 08/17 PO 0940 Methylprednisolone 40 MG Q12 08/17 1000 DC 08/17 IV 08/22 1001 2133 Oxycodone/ 1 TAB Q6P PRN 08/16 2345 AC Acetaminophen PO Patient Medication 1 ED .STK-MED ONE 08/17 1409 DC Teaching ED 08/17 1410 Prednisone 40 MG DAILY 08/18 1000 AC PO Tiotropium [place] 1 PUF DAILY 08/17 1000 AC 08/17 INH 0934 Last 24 Hrs of Lab/Carlos Results Last 24 Hrs of Labs/Mics: Laboratory Tests 08/18/16 0615: CBC w Diff Pending, WBC Pending, RBC Pending, Hgb Pending, Hct Pending, MCV Pending, MCH Pending, RDW Pending, Plt Count Pending, MPV Pending, PUBS MCHC Pending Microbiology 08/17 1250 LOWER RESP: Respiratory Culture - RES 08/17 1250 LOWER RESP: Gram Stain - RES Assessment/Plan Assessment: This is a 75-year-old female with past medical history significant for COPD on nocturnal home oxygen of 1 L, former smoker, quit 20 years ago, hypertension, osteopenia, remote history of C. difficile, who comes in for chief complaint of shortness of breath. During admission, vital significant for tachycardia (108), respiratory rate of 18, BP 125/78, saturating 95 on 1 L O2. PLAN 1. COPD exacerbation: She sees Dr. Mccallum on the outpatient basis. She is still currently on 1 L nasal cannula at all time. She is afebrile with normal WBC count. This AM her pulmonary exam is improved with no wheezes but she still has decreased air movment, but better than yesterday. * Maintain oxygen saturation above 92%--> Removed her off NC today satting 94; respiratory exam worse than yesterday. Will con't monitor one more day. * F/U Pancultures-NGTD * Will switch from IV Solu-Medrol 40 mg every 12--> PO steroid taper starting today * Con't azithromycin for 5 days. * Total respiratory care * F/U residence counselor on outpt basis. 2. Sinus tachycardia: Chronic and stable. She is noted to have similar presentation during previous hospitalization. Pt states that her baseline is around 100 or 100 bpm at home. Thyroid Function tests within normal limits. * We'll monitor closely for now 3. Hypertension: Chronic and stable. * Continue lisinopril 4. Chronic back pain: Chronic and stable. * Tylenol for mild pain * Ibuprofen for moderate pain * Percocet for severe pain Full code Heart healthy diet DVT prophylaxis subcutaneous heparin Pain pathway Problem List: 1. Decompensated COPD with exacerbation (chronic obstructive pulmonary disease ) Pain Ratin Pain Location: NONE Pain Goal: Pain 4 or less Pain Plan: none Tomorrow's Labs & Rationales: NONE MICHAEL WELLS 08/18/16 1334: Attending MD Review Statement Attending Statement Attending MD Statement: examined this patient, discuss w/resident/PA/PHOTOGRAPHY COORDINATOR, agreed w/resident/PA/PHOTOGRAPHY COORDINATOR, discussed with family, reviewed EMR data (avail), discussed with nursing, discussed with case mgmt, reviewed images, amended to note Attending Assessment/Plan: Acute on chronic hypoxic respiratory failure, COPD exacerbation, failed outpatient therapy. GM admit, TRC nebs, sputum culture, taper to steroids, c/w azithromycin, Maintain O2 sats > 92%. Patient clinically improved, Patient stable for discharge. f/u o/p residence counselor. Dr Mccallum.
[2016-08-18 09:25] LABS: ABSOLUTE LYMPH COUNT 0.8 /CUMM (1.2-3.4); MEAN CORPUSCULAR HGB CONC 33.1 G/DL (33.0-37.0); MEAN CORPUSCULAR VOLUME 87.4 FL (81.0-99.0); MEAN PLATELET VOLUME 7.5 FL (7.4-10.4); PLATELET COUNT 331 /CUMM (130-400)
[2016-08-18 09:39] LABS: GRANULOCYTE % 83.5 % (42.2-75.2); HEMATOCRIT 37.1 % (37-47)
[2016-08-18 09:42] VITALS: BP 132/76
--- NOTE | 2016-08-22 14:50 | Discharge Summary ---
Visit Information Visit Dates Admission Date: 08/16/16 Discharge Date: 08/18/16 Hospital Course Course Attending Physician: PRISCILLA ACEVEDO,MICHAEL Primary Care Physician: MINAL ACEVEDO,JOSE LUIS Valentin Hospital Course: This is a 75-year-old female with past medical history significant for COPD on nocturnal home oxygen of 1 L, former smoker, quit 20 years ago, hypertension, osteopenia, remote history of C. difficile, who comes in for chief complaint of shortness of breath. During admission, vital significant for tachycardia (108), respiratory rate of 18, BP 125/78, saturating 95 on 1 L O2. PLAN 1. COPD exacerbation: She sees Dr. Mccallum on the outpatient basis. She is still currently on 1 L nasal cannula at all time. She is afebrile with normal WBC count. Pt's pulm exam was improved on discharge but she still required 1l home o2 at ALL time which is different from her usual nocturnal need. * F/U Pancultures-NGTD * PO steroid taper * Con't azithromycin for 5 days. * F/U contact worker lithography on outpt basis. 2. Sinus tachycardia: Chronic and stable. She is noted to have similar presentation during previous hospitalization. Pt states that her baseline is around 100 or 100 bpm at home. * Thyroid Function tests within normal limits. * Con't monitor out pt and consider cardiology input on outpatient basis 3. Hypertension: Chronic and stable. * Continue lisinopril 4. Chronic back pain: Chronic and stable. * Tylenol for mild pain * Ibuprofen for moderate pain * Percocet for severe pain Full code Heart healthy diet DVT prophylaxis subcutaneous heparin Allergies: Coded Allergies: cefuroxime (BLOTCHES BUT ALSO TOOK WITH PREDNISONE UNSURE WHICH ONE 08/16/16) CAUSED THE REACTION Disposition Summary Disposition Principal Diagnosis: COPD exacerbation Additional Diagnosis: Tachycardia Discharge Disposition: home or self care Discharge Instructions General Discharge Information Code Status: Full Code Patient's Diet: as tolerated Patient's Activity: as tolerated Follow-Up Instructions/Appts: see above Medications at Discharge Discharge Medications: Continue taking these medications: Tiotropium [place] (Spiriva Respimat) 2.5 MCG/ACTUATION MIST.INHAL 2 Puff Inhale through mouth DAILY Qty = 12 Comments: Last Taken: 08/18/16 Time: 930 AM Lisinopril (Lisinopril) 20 MG TABLET 20 Milligram ORAL DAILY Qty = 90 Comments: Last Taken: 08/18/16 Time: 930 AM Albuterol Sulfate (Proair Hfa) 90 MCG HFA.AER.AD 2 PUFF Inhale through mouth EVERY 4-6 HOURS NEEDED as needed for COPD Qty = 8 Comments: NOT GIVEN Albuterol Sulfate (Albuterol Sulfate) 2.5 MG/0.5 ML VIAL.NEB 1 Vial Inhale Solution THREE TIMES DAILY as needed for COPD Qty = 60 Comments: Last Taken: 05/20/16 Time: 1000 Budesonide/Formoterol Fumarate (Symbicort 160-4.5 Mcg Inhaler) 160 MCG-4.5 MCG/ ACTUATION HFA.AER.AD 2 Puff Inhale through mouth TWICE DAILY Qty = 1 Comments: Last Taken: 08/18/16 Time: 930 AM Cholecalciferol (Vitamin D3) (Vitamin D) 2,000 UNIT TABLET 1 Tablet ORAL DAILY Comments: NOT GIVEN IN HOSPITAL Calcium Carbonate/Vitamin D3 (Caltrate 600 + D Soft Chew Tab) (Unknown Strength) TAB.CHEW Unknown Dose ORAL DAILY Comments: NOT GIVEN IN HOSPITAL Lactobacillus Acidophilus (Probiotic) (Unknown Strength) CAPSULE 1 Capsule ORAL DAILY Qty = 30 Comments: Last Taken: 08/18/16 Time: 930 AM Start taking the following new medications: Prednisone (Prednisone) 10 MG TABLET 40 Milligram ORAL DAILY Qty = 5 No Refills Comments: Last Taken: 08/18/16 Time: 930 AM Azithromycin (Zithromax) 250 MG TABLET 250 Milligram ORAL DAILY Qty = 3 No Refills Instructions: 2 the first day followed by 1 for days 2-5 Comments: Last Taken: 08/18/16 Time: 1200 Copies To: MINAL ACEVEDO,JOSE LUIS Valentin
== END 2016-08-18 13:52 | DRG 190 ==
LOC: ERH 20:02 → 2NB 21:59 → ERHI 21:59 → ENRESERV 22:54 → 2NB 23:43 → ENPENDDIS 08-18 10:42 → 2NB 08-18 13:52
PROVIDERS: Emergency Medicine; Student in an Organized Health Care Education/Training Program; ADMIT Student in an Organized Health Care Education/Training Program
DX: J44.1 Chronic obstructive pulmonary disease with (acute) exacerbation (principal); J96.21 Acute and chronic respiratory failure with hypoxia; Z99.81 Dependence on supplemental oxygen; Z87.891 Personal history of nicotine dependence; I10 Essential (primary) hypertension; M85.80 Other specified disorders of bone density and structure, unspecified site; R00.0 Tachycardia, unspecified
CPT/HCPCS: 2NBP; 81003; 87040; 87070; 87086; 87449; 87450; 87804; 87804-59; 93005; 93010; 96374; J0456; J1644; J2920; J2930; J3490; J7040

== ENCOUNTER 2016-08-22 22:43 | Emergency (ER) | payer OTHER ==
[~2016-08-22] VITALS: Ht 152.4 cm; Wt 52.6 kg
[~2016-08-22 22:43] MED LIST changes: +CALTRATE 600 +1 EAC1 PO; +PROBIOTIC1 EACH PO; +VITAMIN D2000 UNI1 PO; +ZITHROMAX250 M2 PO
--- NOTE | 2016-08-22 22:52 | ED NECK/BACK PAIN COMPLAINT ---
History of Present Illness General Chief Complaint: General Adult Stated Complaint: BACK PAIN Source: patient, family, old records Exam Limitations: no limitations Vital Signs & Intake/Output Vital Signs & Intake/Output Vital Signs Date Time Temp Pulse Resp B/P B/P Pulse O2 O2 Flow FiO2 Mean Ox Delivery Rate 08/23 0127 98.7 89 18 109/54 98 Room Air 08/22 2314 100.4 103 20 119/54 93 Room Air ED Intake and Output 08/23 0000 08/22 1200 Intake Total Output Total Balance Patient 116 lb Weight Allergies Coded Allergies: cefuroxime (BLOTCHES BUT ALSO TOOK WITH PREDNISONE UNSURE WHICH ONE 08/16/16) CAUSED THE REACTION Reconcile Medications Albuterol Sulfate (Proair Hfa) 90 MCG HFA.AER.AD 2 PUFF INH Q4-6 PRN PRN COPD (Reported) Albuterol Sulfate 2.5 MG/0.5 ML VIAL.NEB 1 Vial INH/HINA TID PRN COPD Budesonide/Formoterol Fumarate (Symbicort 160-4.5 Mcg Inhaler) 160 MCG-4.5 MCG/ ACTUATION HFA.AER.AD 2 PUF INH BID copd Calcium Carbonate/Vitamin D3 (Caltrate 600 + D Soft Chew Tab) (Unknown Strength) TAB.CHEW (Unknown Dose) PO DAILY SUPPLEMENT (Reported) Cholecalciferol (Vitamin D3) (Vitamin D) 2,000 UNIT TABLET 1 TAB PO DAILY SUPPLEMENT (Reported) Hydrocodone/Acetaminophen (Vicodin 5-300 MG Tablet) 5 MG-300 MG TABLET 1 TAB PO BID PAIN TEN...[id number] Lactobacillus Acidophilus (Probiotic) (Unknown Strength) CAPSULE 1 CAP PO DAILY PROBIOTIC (Reported) Lisinopril 20 MG TABLET 20 MG PO DAILY HTN (Reported) Prednisone 10 MG TABLET 40 MG PO DAILY COPD Tiotropium [place] (Spiriva Respimat) 2.5 MCG/ACTUATION MIST.INHAL 2 PUF INH DAILY SOB (Reported) Triage Nurses Notes Reviewed? yes Onset: Gradual Duration: hour(s): Timing: recent history Quality/Severity: moderate Location: lumbar spine Radiation: none Context: "I felt really tight back pain and now it's getting better." Method of Injury: unknown Loss of Consciousness: no loss of consciousness Modifying Factors: rest Associated Symptoms: nausea, increased bowel movements. HPI: 75 yo woman h/o copd, recently hospitalized for exacerbation, presents with lower back pain, nausea, and increased bowel movements. "It wasn' t diarrhea really... but I did go 8 times today." She notes that she completed her antibiotics yesterday. She notes, "My back pain really grabbed me... like a tightness really low down on my back... but now it is feeling better." She notes mild nausea, without vomiting, fever, chills. She is otherwise well, without dysuria, chest pain, dyspnea. Past History Travel History Traveled to [place] past 21 day No Medical History Any Pertinent Medical History? see below for history Neurological: NONE EENT: NONE Cardiovascular: hypertension Respiratory: COPD, emphysema Gastrointestinal: colitis, C DIFF Hepatic: NONE Renal: NONE Musculoskeletal: NONE Psychiatric: NONE Endocrine: NONE Blood Disorders: NONE Cancer(s): NONE DIGITAL COMMUNICATIONS MANAGER/Reproductive: NONE History of MRSA: No History of VRE: No History of CDIFF: No Influenza Vaccine: 01/23/16 Surgical History Surgical History: none Psychosocial History Who do you live with Son Services at Home Oxygen What is your primary language German Family History Hx Contributory? No Review of Systems Review of Systems Constitutional: Reports: no symptoms. Eyes: Reports: no symptoms. Ears, Nose, Throat, Mouth: Reports: no symptoms. Respiratory: Reports: no symptoms. Cardiovascular: Reports: no symptoms. Gastrointestinal/Abdominal: Reports: no symptoms. Musculoskeletal: Reports: no symptoms. Skin: Reports: no symptoms. Neurological/Psychological: Reports: no symptoms. All Other Systems: Reviewed and Negative Physical Exam Physical Exam General Appearance: well developed/nourished, mild distress Head: atraumatic Eyes: Bilateral: normal appearance. Ears, Nose, Throat, Mouth: hearing grossly normal Neck: normal inspection, supple, full range of motion, normal alignment Respiratory: normal breath sounds Cardiovascular: regular rate/rhythm Gastrointestinal: soft, rlq tenderness to palpation Back: normal inspection Extremities: normal range of motion Neurologic/Psych: awake, alert, oriented x 3, normal mood/affect Skin: intact, normal color, warm/dry Comments: light touch, strength, dtr's are intact in bilateral lower extremities. Progress Differential Diagnosis: herniated disc, myofascial strain, ureterolithiasis, appy, uti Plan of Care: Orders Procedure Date/time Status TROPONIN LEVEL 08/23 2307 Complete COMPREHENSIVE METABOLIC PANEL 08/23 2307 Complete CBC WITHOUT DIFFERENTIAL 08/23 2307 Complete EKG 08/23 2307 Active Laboratory Tests 08/23/16 0007: Anion Gap 10, Estimated GFR > 60, BUN/Creatinine Ratio 24.3, Glucose 106 H, Calcium 8.7, Total Bilirubin 0.5, AST 26, ALT 41, Alkaline Phosphatase 57, Troponin I < 0.01, Total Protein 6.3, Albumin 3.6, Globulin 2.7, Albumin/ Globulin Ratio 1.3, CBC w Diff MAN DIFF ORDERED, RBC 4.45, MCV 84.9, MCH 28.6, RDW 12.7, MPV 6.6 L, Gran % 94.3 H, Lymphocytes % 4.6 L, Monocytes % 0.9 L, Eosinophils % 0, Basophils % 0.2, Absolute Granulocytes 11.0 H, Segmented Neutrophils 83 H, Band Neutrophils 7 H, Absolute Lymphocytes 0.5 L, Lymphocytes 6 L, Monocytes 4, Absolute Monocytes 0.1 L, Absolute Eosinophils 0 , Absolute Basophils 0, Platelet Estimate ADEQUATE, Normocytic RBCs VERIFIED, Normochromic RBCs VERIFIED, PUBS MCHC 33.7 Diagnostic Imaging: Viewed by Me: CT Scan. Discussed w/RAD: CT Scan. Radiology Impression: abd/pelvic ct... no acute changes... djd Comments: PATIENT: DYLAN RIVER PRESENT AGE: 75 PATIENT ACCOUNT NO: [id number] : 42 LOCATION: [facility] ORDERING PHYSICIAN: DUONG CORDERO MD SERVICE DATE: 08/22/16 EXAM TYPE: CAT - CT ABD & PELVIS W/O IV CONTRAS EXAMINATION: CT ABDOMEN AND PELVIS WITHOUT CONTRAST CLINICAL INFORMATION: Lower back pain, right lower quadrant pain COMPARISON: None TECHNIQUE: Multidetector volumetric imaging was performed from the superior aspect of the liver through the pubic symphysis. Sagittal and coronal reformatted images were obtained on the technologist's workstation. DLP: 287.38 mGy-cm FINDINGS: LUNG BASES: The visualized lung bases demonstrate mild atelectasis. LIVER, GALLBLADDER, AND BILIARY TREE: The liver is normal in size, shape, and attenuation. No focal hepatic lesion or significant biliary ductal dilatation is present. The gallbladder is unremarkable with no evidence of radiopaque gallstones, gallbladder wall thickening, or obvious pericholecystic inflammatory changes. PANCREAS: Unremarkable. SPLEEN: Unremarkable. ADRENAL GLANDS: Unremarkable. KIDNEYS AND URETERS: The kidneys are normal in size, shape, and attenuation. No hydronephrosis, hydroureter, or calculi seen. No perinephric stranding. BLADDER: Unremarkable. GASTROINTESTINAL TRACT: The small and large bowel are unremarkable. The appendix is not discretely visualized; no inflammatory changes are seen in its expected location to suggest appendicitis. ABDOMINAL WALL: No significant hernia is appreciated. LYMPH NODES: Normal. VASCULAR: There is atherosclerotic calcification along the aorta. PELVIC VISCERA: There is a left adnexal cyst measuring 4.3 x 2.8 cm. OSSEOUS STRUCTURES: Moderate changes are noted in the lumbar spine with disc space narrowing which is most severe at L2-L3. Additional degenerative changes include endplate osteophyte formation and facet arthropathy. There is grade 1 anterolisthesis of L4 on L5. IMPRESSION: 1. Moderate degenerative changes of the lumbar spine. 2. Left adnexal cyst measuring 4.3 x 2.8 cm. This may be further evaluated with follow-up pelvic ultrasound. 3. No hydronephrosis or renal/ureteral calculi identified. 4. Appendix not visualized. DICTATED BY: ISRA FERNANDEZ MD DATE/TIME DICTATED:08/23/1633 AUTO BODY REPAIRER FIBERGLASS:CODY DATE/TIME TRANSCRIBED:08/23/1633 CONFIDENTIAL, DO NOT COPY WITHOUT APPROPRIATE AUTHORIZATION. <Electronically signed in Other Vendor System> SIGNED BY: ISRA FERNANDEZ MD 08/23/16 0045 Departure Departure Disposition: HOME OR SELF CARE Condition: Stable Clinical Impression Primary Impression: Back pain ) Secondary Impressions: Abdominal pain Referrals: MINAL ACEVEDO,JOSE LUIS Valentin (PCP/Family) Departure Forms: Customer Survey General Discharge Information Prescriptions: Current Visit Scripts Hydrocodone/Acetaminophen (Vicodin 5-300 MG Tablet) 1 TAB PO BID #10 TAB TEN...[id number] Comments discussed results at length... pt safe for discharge with close follow up advised.
[2016-08-23 00:17] LABS: ABSOLUTE BASOPHIL COUNT 0 /CUMM (0.0-0.2); ABSOLUTE EOSINOPHIL COUNT 0 /CUMM (0.0-0.7); ABSOLUTE LYMPH COUNT 0.5 /CUMM (1.2-3.4); ABSOLUTE MONOCYTE COUNT 0.1 /CUMM (0.10-0.60); BASOPHIL % 0.2 % (0.0-2.0); EOSINOPHIL % 0 % (0-5); GRANULOCYTE % 94.3 % (42.2-75.2); HEMATOCRIT 37.7 % (37-47); MEAN CORPUSCULAR HGB 28.6 PG (27.0-31.0); MEAN CORPUSCULAR HGB CONC 33.7 G/DL (33.0-37.0); MEAN CORPUSCULAR VOLUME 84.9 FL (81.0-99.0); MEAN PLATELET VOLUME 6.6 FL (7.4-10.4); PLATELET COUNT 269 /CUMM (130-400); RBC DISTRIBUTION WIDTH 12.7 % (11.5-14.5); RED BLOOD CELL CT 4.45 /CUMM (4.20-5.40)
[2016-08-23 00:18] LABS: WHITE BLOOD CELL COUNT 11.7 /CUMM (4.8-10.8)
--- NOTE | 2016-08-23 00:45 | CT SCAN REPORT ---
EXAMINATION: CT ABDOMEN AND PELVIS WITHOUT CONTRAST CLINICAL INFORMATION: Lower back pain, right lower quadrant pain COMPARISON: None TECHNIQUE: Multidetector volumetric imaging was performed from the superior aspect of the liver through the pubic symphysis. Sagittal and coronal reformatted images were obtained on the technologist's workstation. DLP: 287.38 mGy-cm FINDINGS: LUNG BASES: The visualized lung bases demonstrate mild atelectasis. LIVER, GALLBLADDER, AND BILIARY TREE: The liver is normal in size, shape, and attenuation. No focal hepatic lesion or significant biliary ductal dilatation is present. The gallbladder is unremarkable with no evidence of radiopaque gallstones, gallbladder wall thickening, or obvious pericholecystic inflammatory changes. PANCREAS: Unremarkable. SPLEEN: Unremarkable. ADRENAL GLANDS: Unremarkable. KIDNEYS AND URETERS: The kidneys are normal in size, shape, and attenuation. No hydronephrosis, hydroureter, or calculi seen. No perinephric stranding. BLADDER: Unremarkable. GASTROINTESTINAL TRACT: The small and large bowel are unremarkable. The appendix is not discretely visualized; no inflammatory changes are seen in its expected location to suggest appendicitis. ABDOMINAL WALL: No significant hernia is appreciated. LYMPH NODES: Normal. VASCULAR: There is atherosclerotic calcification along the aorta. PELVIC VISCERA: There is a left adnexal cyst measuring 4.3 x 2.8 cm. OSSEOUS STRUCTURES: Moderate changes are noted in the lumbar spine with disc space narrowing which is most severe at L2-L3. Additional degenerative changes include endplate osteophyte formation and facet arthropathy. There is grade 1 anterolisthesis of L4 on L5. IMPRESSION: 1. Moderate degenerative changes of the lumbar spine. 2. Left adnexal cyst measuring 4.3 x 2.8 cm. This may be further evaluated with follow-up pelvic ultrasound. 3. No hydronephrosis or renal/ureteral calculi identified. 4. Appendix not visualized.
[2016-08-23] MEDS ORDERED: VICODIN 5-3001 EACH PO (01:14)
[2016-08-23 01:27] VITALS: BP 109/54
== END 2016-08-23 01:28 ==
LOC: ERH 22:43
PROVIDERS: Pediatrics
DX: M54.5 Low back pain (principal); R10.9 Unspecified abdominal pain
CPT/HCPCS: 74176; 93005; 93010; 96372; J1885

== ENCOUNTER 2016-08-28 12:15 | Inpatient (IN) | payer OTHER ==
[~2016-08-28] VITALS: Ht 152.4 cm; Wt 49.9 kg
[~2016-08-28 12:15] MED LIST changes: +VICODIN 5-3001 EACH PO
--- NOTE | 2016-08-28 12:22 | NUR ---
TRIAGE: 75 Y/O FEMALE PRESENTS WITH FAMLIY VIA WHEELCHAIR ON SUPPLEMENTAL OXYGEN FROM HOME C/O POOR PO INTAKE, WEAKNESS, HYPOTENSION. BP IN TRIAGE 83/54. SPO2 ON 1L O2 93%. APPEARS TIRED IN TRIAGE.
--- NOTE | 2016-08-28 12:27 | ED GENERAL ADULT ---
History of Present Illness General Chief Complaint: General Adult Stated Complaint: POOR PO INTAKE, LOW BP, WEAK, Source: patient Exam Limitations: no limitations Vital Signs & Intake/Output Vital Signs & Intake/Output Vital Signs Date Time Temp Pulse Resp B/P B/P Pulse O2 O2 Flow FiO2 Mean Ox Delivery Rate 08/31 0000 Nasal 2.0L Cannula 08/30 2249 98.2 99 18 108/55 96 Nasal 2.0L Cannula 08/30 1416 98.9 104 20 114/54 96 Nasal 2.0L Cannula 08/30 1008 Nasal 2.0L Cannula 08/30 0800 Nasal 2.0L Cannula ED Intake and Output 08/31 0000 08/30 1200 Intake Total 900 10 Output Total 1 Balance 899 10 Intake, IV 10 Intake, Oral 900 Number 2 1 Bowel Movements Output, Urine 1 Allergies Coded Allergies: cefuroxime (BLOTCHES BUT ALSO TOOK WITH PREDNISONE UNSURE WHICH ONE 08/16/16) CAUSED THE REACTION Triage Note: TRIAGE: 75 Y/O FEMALE PRESENTS WITH FAMLIY VIA WHEELCHAIR ON SUPPLEMENTAL OXYGEN FROM HOME C/O POOR PO INTAKE, WEAKNESS, HYPOTENSION. BP IN TRIAGE 83/54. SPO2 ON 1L O2 93%. APPEARS TIRED IN TRIAGE. Triage Nurses Notes Reviewed? yes Onset: 5 days Duration: getting worse Associated Symptoms: weakness HPI: 75-year-old female with a history of hypertension, COPD, C. difficile colitis presenting with hypotension per home readings, weakness, poor po intake 5 days. Denies fevers, cough, sputum, URI symptoms, abdominal pain, vomiting, diarrhea, dysuria, headache, lightheadedness, dizziness. Spoke to PMD who instructed patient to discontinue her lisinopril, last dose was given yesterday morning. Recently seen in the ED week ago for back pain, discharged home with Vicodin, reports that back pain has since resolved. (DAVID PADGETT,JAMIE) Reconcile Medications Albuterol Sulfate (Proair Hfa) 90 MCG HFA.AER.AD 2 PUFF INH Q4-6 PRN PRN COPD (Reported) Albuterol Sulfate 2.5 MG/0.5 ML VIAL.NEB 1 Vial INH/HINA TID PRN COPD Budesonide/Formoterol Fumarate (Symbicort 160-4.5 Mcg Inhaler) 160 MCG-4.5 MCG/ ACTUATION HFA.AER.AD 2 PUF INH BID copd Calcium Carbonate/Vitamin D3 (Caltrate 600 + D Soft Chew Tab) (Unknown Strength) TAB.CHEW (Unknown Dose) PO DAILY SUPPLEMENT (Reported) Cholecalciferol (Vitamin D3) (Vitamin D) 2,000 UNIT TABLET 1 TAB PO DAILY SUPPLEMENT (Reported) Hydrocodone/Acetaminophen (Vicodin 5-300 MG Tablet) 5 MG-300 MG TABLET 1 TAB PO BID PAIN TEN...[id number] Lactobacillus Acidophilus (Probiotic) (Unknown Strength) CAPSULE 1 CAP PO DAILY PROBIOTIC (Reported) Lisinopril 20 MG TABLET 1 TAB PO DAILY HIGH BLOOD PRESSURE (Reported) Tiotropium [place] (Spiriva Respimat) 2.5 MCG/ACTUATION MIST.INHAL 2 PUF INH DAILY SOB (Reported) (BIANKA ACEVEDO,ANDREAS) Past History Travel History Traveled to [place] past 21 day No Medical History Any Pertinent Medical History? 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 No (DAVID PADGETT,JAMIE) Review of Systems Review of Systems Constitutional: Reports: malaise, weakness. Denies: chills, fever. EENTM: Denies: nasal congestion, throat pain. Respiratory: Denies: cough, short of breath, sputum production. Cardiovascular: Denies: chest pain, palpitations. GI: Denies: abdominal pain, constipation, diarrhea, nausea, bloody stool, vomiting. Genitourinary: Denies: dysuria, frequency, hematuria, urgency. Musculoskeletal: Denies: joint pain, muscle pain. Skin: Denies: rash. Neurological/Psychological: Reports: weakness. Denies: headache. Hematologic/Endocrine: Denies: bruising, bleeding, polyuria. Immunologic/Allergic: Reports: no symptoms. (DAVID PADGETT,JAMIE) Physical Exam Physical Exam General Appearance: no apparent distress, comfortable Head: atraumatic Respiratory: lungs clear Cardiovascular: tachycardia Gastrointestinal: soft, guarding, tenderness, abd diffusely tender to palpation Rectal: normal rectal tone, heme negative stool Neurologic/Psych: no motor/sensory deficits, alert, oriented x 3, certified nursing attendant II-XII nml as tested Skin: intact, normal color, warm/dry Core Measures ACS in differential dx? No CVA/TIA Diagnosis: No Severe Sepsis Present: No Septic Shock Present: No (DAVID PADGETT,JAMIE) Progress Differential Diagnoses I considered the following diagnoses in my evaluation of the patient: [Pneumonia versus UTI versus colitis versus keratitis versus biliary versus appendicitis versus perforated viscus versus sepsis] Plan of Care: Orders Procedure Date/time Status HEPATIC FUNCTION PANEL 08/31 599 Active CORTISOL AM 08/31 599 Active CBC WITHOUT DIFFERENTIAL 08/31 06 Active BASIC ELECTROLYTES PLUS BUN&CR 08/31 06 Active Anticipated Discharge 08/31 UNK Active LYME TITRE 08/30 1455 Active LOWER RESPIRATORY CULTURE 08/30 1200 Active Therapeutic Exercise 08/30 UNK Complete Gait Training 08/30 UNK Complete Lab Add-on Test 08/30 UNK Active OXYGEN SETUP CHG 08/29 UNK Complete OXYGEN 08/29 UNK Complete OXYGEN TRANSPORT 08/29 UNK Complete Current Medications Sig/Denice Start time Last Medication Dose Stop Time Status Admin Ondansetron HCl 4 MG Q6P PRN 08/30 2045 AC (Zofran) Sodium Chloride 1,000 ML Q20H 08/30 1530 AC 08/30 (Normal Saline 0.9%) 1532 Calcium/Vitamin D 1 TAB DAILY 08/29 1000 AC 08/30 (Caltrate 600 + D) 1013 Cholecalciferol 1,000 IU DAILY 08/29 1000 AC 08/29 (Vitamin D) 0943 Lactobacillus 1 CAP DAILY 08/29 1000 AC 08/29 Acidophilus 0943 (Probiotic) Tiotropium [place] 1 PUF DAILY 08/29 1000 AC 08/30 (Spiriva) 1013 Albuterol Sulfate 2 PUF Q4-6 PRN PRN 08/28 2245 AC (Ventolin) Albuterol Sulfate 3 ML Q6P PRN 08/28 2245 AC (Proventil) Budesonide/ 2 PUF BID 08/28 2237 AC 08/30 Formoterol Fumarate 1012 (Symbicort) Tramadol HCl 50 MG Q6P PRN 08/28 2200 AC (Ultram) Acetaminophen 650 MG Q12P PRN 08/28 2145 AC 08/29 (Tylenol) 0812 Lidocaine 1 PAT DAILY NEEDED PRN 08/28 214 AC (Lidoderm) Laboratory Tests 08/31/16 0650: Sodium Pending, Potassium Pending, Chloride Pending, Carbon Dioxide Pending, Anion Gap Pending, BUN Pending, Creatinine Pending, BUN/Creatinine Ratio Pending , Total Bilirubin Pending, Direct Bilirubin Pending, AST Pending, ALT Pending, Alkaline Phosphatase Pending, Total Protein Pending, Albumin Pending, Cortisol AM Sample Pending, CBC w Diff Pending, WBC Pending, RBC Pending, Hgb Pending, Hct Pending, MCV Pending, MCH Pending, RDW Pending, Plt Count Pending, MPV Pending, PUBS MCHC Pending 08/30/16 1548: Lyme Disease Antibody Pending Microbiology 08/30 1230 LOWER RESP: Respiratory Culture - RES 08/30 1230 LOWER RESP: Gram Stain - RES Labs remarkable for a new thrombocytopenia to 17, no evidence of bleeding on history or exam. Rectal exam there was brown guaiac-negative stool. CT scan abdomen and pelvis was unremarkable. BP and heart rate responsive to IV fluid, likely secondary to dehydration from poor po intake. Low concern for sepsis with lactate within normal limits. Will admit to medicine for serial platelet levels and supportive care of weakness. Chest x-ray and urine still pending. (JAMIE HERNANDEZ PA-C) Initial ED EKG: sinus tachycardia (JAMIE HERNANDEZ PA-C) Departure Departure Disposition: STILL A PATIENT Condition: Stable Clinical Impression Primary Impression: Weakness Secondary Impressions: Thrombocytopenia Referrals: MINAL ACEVEDO,JOSE LUIS Valentin (PCP/Family) Departure Forms: Customer Survey General Discharge Information Admission Note Spoke With: FLO MAN MD Documentation of Exam: Documentation of any treatments & extenuating circumstances including Concerns Regarding Discharge (functional status, medication knowledge or non-compliance, living conditions, etc.) that warrant an admission rather than observation: [ Serial platelet levels, IV fluids] (JAMIE HERNANDEZ PA-C) Admission Note Documentation of Exam: Documentation of any treatments & extenuating circumstances including Concerns Regarding Discharge (functional status, medication knowledge or non-compliance, living conditions, etc.) that warrant an admission rather than observation: 08/29/16 3:34 pm I have reviewed the emergency department care and the above treatment and I agree with the PAs evaluation and management. (FREDDY TIWARI,HOSSEIN [place]) PA/REGULATORY AFFAIRS PORTFOLIO LEADER Co-Sign Statement Statement: ED Attending supervision documentation- x I saw and evaluated the patient. I have also reviewed all the pertinent lab results and diagnostic results. I agree with the findings and the plan of care as documented in the PA's/REGULATORY AFFAIRS PORTFOLIO LEADER's documentation. [] I have reviewed the ED Record and agree with the PA's/REGULATORY AFFAIRS PORTFOLIO LEADER's documentation. [] Additions or exceptions (if any) to the PAs/REGULATORY AFFAIRS PORTFOLIO LEADER's note and plan are summarized below: [] (BIANKA ACEVEDO,ANDREAS) Critical Care Note Critical Care Note Critical Care Time: non-applicable (DAVID PADGETT,JAMIE) Lymphocytes % 17.4 L, Monocytes % 4.8, Eosinophils % 0.1, Basophils % 0.3, Absolute Granulocytes 7.2 H, Absolute Lymphocytes 1.6, Absolute Monocytes 0.4, Absolute Eosinophils 0, Absolute Basophils 0, PUBS MCHC 34.1 08/29/16 0630: Anion Gap 10, Estimated GFR > 60, BUN/Creatinine Ratio 28.6 H, Total Bilirubin 0.6, Direct Bilirubin 0.4, AST 79 H, ALT 70 H, Alkaline Phosphatase 172 H, Total Protein 4.2 L, Albumin 2.0 L, PT 11.0, INR 1.05, APTT 26, CBC w Diff MAN DIFF ORDERED, RBC 4.01 L, MCV 85.1, MCH 28.5, RDW 13.6, MPV 10.6 H, Gran % 77.5 H, Lymphocytes % 15.7 L, Monocytes % 6.5, Eosinophils % 0.1, Basophils % 0.2, Absolute Granulocytes 7.0 H, Segmented Neutrophils 78 H, Band Neutrophils 3, Absolute Lymphocytes 1.4, Lymphocytes 16 L, Monocytes 3, Absolute Monocytes 0.6, Absolute Eosinophils 0, Absolute Basophils 0, Platelet Estimate DECREASED, Anisocytosis 1+, PUBS MCHC 33.4 08/28/16 2156: CBC w Diff NO MAN DIFF REQ, RBC 4.11 L, MCV 85.6, MCH 28.7, RDW 13.6, MPV 12.2 H, Gran % 78.3 H, Lymphocytes % 18.1 L, Monocytes % 3.4, Eosinophils % 0.1, Basophils % 0.1, Absolute Granulocytes 5.7, Absolute Lymphocytes 1.3, Absolute Monocytes 0.2, Absolute Eosinophils 0, Absolute Basophils 0, PUBS MCHC 33.5 08/28/16 1638: Urine Osmolality 367, Ur Random Creatinine 25.6, Ur Random Sodium 52, Ur Random Potassium 22.6, Fraction Sodium Excret 1.4 H 08/28/16 1636: Urine Color YEL, Urine Clarity CLEAR, Urine pH 6.0, Ur Specific [place] <= 1.005 , Urine Protein TRACE H, Urine Ketones TRACE H, Urine Nitrite NEG, Urine Bilirubin NEG, Urine Urobilinogen 0.2, Ur Leukocyte Esterase NEG, Ur Microscopic SEDIMENT EXAMINED, Urine RBC 5-10 H, Ur Epithelial Cells FEW, Urine Bacteria FEW H, Urine Hemoglobin MOD H, Urine Glucose NEG 08/28/16 1540: Lactic Acid Cancelled 08/28/16 1537: Lactic Acid Cancelled Microbiology 08/29 0709 LOWER RESP: Respiratory Culture - COLB 08/29 0709 LOWER RESP: Gram Stain - COLB 08/28 2259 BLOOD: Blood Culture - RES 08/28 2156 BLOOD: Blood Culture - RES 08/28 1636 URINE ROUT: Urine Culture - RES Labs remarkable for a new thrombocytopenia to 17, no evidence of bleeding on history or exam. Rectal exam there was brown guaiac-negative stool. CT scan abdomen and pelvis was unremarkable. BP and heart rate responsive to IV fluid, likely secondary to dehydration from poor po intake. Low concern for sepsis with lactate within normal limits. Will admit to medicine for serial platelet levels and supportive care of weakness. Chest x-ray and urine still pending. (DAVID PADGETT,JAMIE) Initial ED EKG: sinus tachycardia (DAVID PADGETT,JAMIE) Departure Departure Disposition: STILL A PATIENT Condition: Stable Clinical Impression Primary Impression: Weakness Secondary Impressions: Thrombocytopenia Referrals: MINAL ACEVEDO,JOSE LUIS Valentin (PCP/Family) Departure Forms: Customer Survey General Discharge Information Admission Note Spoke With: FLO MAN MD Documentation of Exam: Documentation of any treatments & extenuating circumstances including Concerns Regarding Discharge (functional status, medication knowledge or non-compliance, living conditions, etc.) that warrant an admission rather than observation: [ Serial platelet levels, IV fluids] (DAVID PADGETT,JAMIE) Admission Note Documentation of Exam: Documentation of any treatments & extenuating circumstances including Concerns Regarding Discharge (functional status, medication knowledge or non-compliance, living conditions, etc.) that warrant an admission rather than observation: 08/29/16 3:34 pm I have reviewed the emergency department care and the above treatment and I agree with the PAs evaluation and management. (HOSSEIN HAYES DO) Critical Care Note Critical Care Note Critical Care Time: non-applicable (DAVID PADGETT,JAMIE)
--- NOTE | 2016-08-28 12:59 | NUR ---
APPRECIATE TRIAGE NOTE, SINUS TACHYCARDIA ON MONITOR. IV STARTED NS INFUSING. HAS CONGESTED COUGH. LABS DRAWN AND SENT (1SST, 1 PURPLE, 1 BLUE, 1 CRAWFORD).
[2016-08-28 13:04] LABS: ABSOLUTE BASOPHIL COUNT 0 /CUMM (0.0-0.2); ABSOLUTE EOSINOPHIL COUNT 0 /CUMM (0.0-0.7); ABSOLUTE GRANULOCYTE CT 6.5 /CUMM (1.4-6.5); ABSOLUTE LYMPH COUNT 0.9 /CUMM (1.2-3.4); ABSOLUTE MONOCYTE COUNT 0.3 /CUMM (0.10-0.60); BASOPHIL % 0.1 % (0.0-2.0); EOSINOPHIL % 0 % (0-5); GRANULOCYTE % 84.4 % (42.2-75.2); MEAN CORPUSCULAR HGB 28.7 PG (27.0-31.0); MEAN CORPUSCULAR HGB CONC 34.1 G/DL (33.0-37.0); MEAN CORPUSCULAR VOLUME 84.2 FL (81.0-99.0); MEAN PLATELET VOLUME 9.9 FL (7.4-10.4); RBC DISTRIBUTION WIDTH 13.9 % (11.5-14.5); WHITE BLOOD CELL COUNT 7.7 /CUMM (4.8-10.8)
[2016-08-28 13:23] LABS: PLATELET COUNT 17 /CUMM (130-400)
--- NOTE | 2016-08-28 13:23 | NUR ---
CRITICAL TEST RESULTS [id number] [place] 75 F TESTS AND RESULTS: PLATELETT COUNT 17 Results received and read back by: COOKIE HARRINGTON Results received date and time: 08/28/16 1323 The following provider was notified of the results, and read the results back: DR CARLTON 1323 Notified date and time: 08/28/[address] CARLTON
--- NOTE | 2016-08-28 13:54 | NUR ---
TO CT SCAN.
--- NOTE | 2016-08-28 15:23 | CT SCAN REPORT ---
EXAMINATION: CT ABDOMEN AND PELVIS WITH CONTRAST CLINICAL INFORMATION: Abdominal pain and guarding COMPARISON: CT abdomen pelvis from 08/22/2016 CTA of the chest 05/18/2016 TECHNIQUE: Multidetector volumetric imaging was performed of the abdomen and pelvis before and after the IV administration of 95 mL of Optiray 320 intravenous contrast. Sagittal and coronal reformatted images were obtained on the technologist's workstation. DLP: 245 mGy-cm FINDINGS: LUNG BASES: There is some linear areas of subsegmental atelectasis or scarring at the right lung base. LIVER, GALLBLADDER, AND BILIARY TREE: There is a small cyst in the right lobe of the liver measuring less than 1 cm. A 1.5 cm exophytic nodule abutting the posterior liver capsule near the dome of the diaphragm on the right is similar in appearance to that seen on the 05/18/2016 and 08/22/2016 studies. It is similar in attenuation to the liver parenchyma. No other focal liver lesions are identified. Size and attenuation of the liver is unchanged from the most recent prior exam. There is no intrahepatic biliary ductal dilatation The gallbladder is normal in appearance with no evidence of radiopaque gallstones, gallbladder wall thickening, or obvious pericholecystic inflammatory changes. Common bile duct is mildly prominent measuring between 0.7 and 0.8 cm in diameter. This is at the upper limits of normal to borderline enlarged for a patient this age. The appearance is unchanged from the most recent prior study. No stone or mass is seen in the region of the distal common bile duct. PANCREAS: Pancreatic duct is at the upper limits of normal measuring approximately 0.25 cm in diameter. No pancreatic mass or stone is seen. No peripancreatic inflammatory changes appreciated. The appearance is not significantly changed from the most recent prior study. SPLEEN: Spleen is normal in size and attenuation with no focal findings. There is an accessory splenule at the lower pole. ADRENAL GLANDS: Normal KIDNEYS AND URETERS: Both kidneys show symmetric enhancement. There is no hydronephrosis or hydroureter. There is no renal mass or stone. BLADDER: The urinary bladder is incompletely distended and unremarkable in appearance GASTROINTESTINAL TRACT: There is no evidence for large or small bowel obstruction or acute inflammation. Appendix not seen. No new findings compared to the prior study ABDOMINAL WALL: There is diastases of the rectus muscle in the midline with mild protrusion of gas-filled bowel. No incarcerated hernia LYMPH NODES: No bulky adenopathy is appreciated in the abdomen or pelvis VASCULAR: The abdominal aorta and inferior vena cava are normal in caliber. There is some calcification in the abdominal aorta. No aneurysm is seen. PELVIC VISCERA: Uterus is normal in appearance. There is a thin-walled cyst in the left adnexal region which measures approximately 4.7 x 3.0 x 3.8 cm in size. This is nonsignificantly changed in overall size and appearance compared to the most recent prior exam. Right ovary is unremarkable in appearance. No new masses are seen in the pelvis. There is no free fluid. OSSEOUS STRUCTURES: No acute bony abnormality is seen. Multilevel degenerative disc disease is seen in the lumbar spine with grade 2 spondylolisthesis of L4 and L5 unchanged. IMPRESSION: CT scan of the abdomen and pelvis has not significantly changed from the most recent prior study. 1. Borderline enlarged common bile duct measuring close to 0.8 cm in diameter with no obstructing stone or mass appreciated. The pancreatic duct is top normal in size and unchanged. No pancreatic mass is seen. No intrahepatic biliary ductal dilatation is seen. Findings have been stable since 05/18/2016. Correlate with patient's clinical findings and laboratory values. 2. Subcentimeter low-attenuation lesion in the right lobe of the liver may represent a cyst. 3. 1.5 cm isoattenuating nodule abutting the posterior capsule of the right lobe of the liver near the dome of the diaphragm is unchanged. 4. A 4.7 x 3.0 x 3.8 cm cyst in the left adnexal region is unchanged since 08/22/2016. Follow-up with pelvic ultrasound as previously recommended. 5. Diastases of the rectus muscles with mild protrusion of gas-filled bowel in the midline. No incarcerated hernia.
--- NOTE | 2016-08-28 16:40 | NUR ---
URINE TRIO SENT BY THIS [facility].
--- NOTE | 2016-08-28 18:51 | NUR ---
LAB CALLED, WILL RUN BLUE TOP TUBE THAT THEY HAVE
[2016-08-28 19:03] LABS: PT 10.9 SEC (9.4-12.5)
--- NOTE | 2016-08-28 19:06 | NUR ---
PT ASSIGNED TO ROOM 219 BED 2
--- NOTE | 2016-08-28 20:00 | NUR ---
REPORT GIVEN TO FLOOR RN. PT PENDING TRANSFER
--- NOTE | 2016-08-28 20:17 | NUR ---
AT THIS TIME PT ADMITTED TO ROOM 219-02 FROM THE ER, PT A/0X3, ON 2LNC, DENIES CP, DENIES SOB, DENIES ANY PAIN OR DISCOMFORT, SKIN INTACT, BLE WEAKNESS, ORIENTED TO ROOM AND CALL SANDERS, BED IN LOCKED AND LOWEST POSITION, WILL CONT TO MONITOR
[2016-08-28 20:36] VITALS: BP 98/50
--- NOTE | 2016-08-28 20:52 | RADIOLOGY REPORT ---
EXAMINATION: XR PORTABLE CHEST CLINICAL INFORMATION: Weakness. COMPARISON: Portable chest x-ray 08/16/2016. TECHNIQUE: Portable frontal view of the chest was obtained. FINDINGS: Single AP view of the chest demonstrates pulmonary hyperinflation and relative lucency within the bilateral lung apices, corresponding to the patient's known severe pulmonary emphysema. No focal airspace consolidation is identified and there are no pleural effusions or pneumothoraces. Cardiac and mediastinal contours are stable. Soft tissues appear unremarkable. No acute osseous abnormality. IMPRESSION: Severe pulmonary emphysema. No focal airspace consolidation to suggest infection.
--- NOTE | 2016-08-28 21:52 | Admission Certification ---
Admission Certification Certification Statement - As attending physician, I certify that at the time of - admission, based on clinical presentation, severity of - symptoms, need for further diagnostic testing and - therapeutic interventions, and risk of adverse outcomes - without in-hospital treatment, in my clinical assessment, - this patient requires an acute hospital stay for a minimum - of two nights or longer. I have also considered psychsocial - factors such as support system, advanced age, financial - issues, cognitive issues, and failed out-patient treatments, - past re-admission history, safety of patient, and lack of - compliance as applicable. Specific rationale supporting this admission is: Weakness, acute thrombocytopenia, transaminitis.
[2016-08-28 22:10] LABS: ABSOLUTE BASOPHIL COUNT 0 /CUMM (0.0-0.2); ABSOLUTE EOSINOPHIL COUNT 0 /CUMM (0.0-0.7); ABSOLUTE GRANULOCYTE CT 5.7 /CUMM (1.4-6.5); ABSOLUTE LYMPH COUNT 1.3 /CUMM (1.2-3.4); ABSOLUTE MONOCYTE COUNT 0.2 /CUMM (0.10-0.60); BASOPHIL % 0.1 % (0.0-2.0); EOSINOPHIL % 0.1 % (0-5); GRANULOCYTE % 78.3 % (42.2-75.2); HEMATOCRIT 35.2 % (37-47); MEAN CORPUSCULAR HGB 28.7 PG (27.0-31.0); MEAN CORPUSCULAR HGB CONC 33.5 G/DL (33.0-37.0); MEAN CORPUSCULAR VOLUME 85.6 FL (81.0-99.0); MEAN PLATELET VOLUME 12.2 FL (7.4-10.4); RBC DISTRIBUTION WIDTH 13.6 % (11.5-14.5); RED BLOOD CELL CT 4.11 /CUMM (4.20-5.40); WHITE BLOOD CELL COUNT 7.3 /CUMM (4.8-10.8)
[2016-08-28 22:25] VITALS: BP 122/62
[2016-08-28 22:58] LABS: PLATELET COUNT 35 /CUMM (130-400)
--- NOTE | 2016-08-29 01:10 | History & Physical ---
ANNIA CAMILO 08/29/16 0109: General Information and HPI MD Statement: I have seen and personally examined DYLAN RIVER and documented this H&P. The patient is a 75 year old F who presented with a patient stated chief complaint of generalized weakness and poor appetite for one week. Source of Information: patient Exam Limitations: no limitations History of Present Illness: This is a 75-year-old female with past medical history significant for COPD on home oxygen 1 L at nighttime, hypertension, low back pain, smoker quit 20 years ago, osteopenia, sinus tachycardia of unclear etiology presented to the [facility] emergency department with chief complaint of generalized weakness and low appetite for one week. She was discharged from [facility] emergency department on August 18 after being treated for back pain and she was given Vicodin. She took Vicodin for a couple of days and then she took Motrin 2 tablets every 4 hours for 4 days for her back pain after which pain came down. Patient reports generalized weakness and low appetite for one week. Her blood pressure was running low around 80s and her daughter spoke with primary care physician who advised her to hold lisinopril. Patient denied any lightheadedness or dizziness. Denied any syncopal events. Denied any vision changes. She has history of COPD who is on oxygen 1 L at nighttime. Recently for the past 1 week she has to use oxygen even during daytime. She does report cough and yellow colored sputum production. However denied any chest pain, racing of heart, fever, chills, any sick contacts or travel history. Patient denies any chest pain, racing of heart, orthopnea, paroxysmal nocturnal dyspnea, nausea, vomiting, abdominal pain, change in bladder or bowel habits, headache, weakness or sensory changes, numbness or tingling sensation, vision or gait abnormalities. Quit smoking 20 years ago. Denied any alcohol abuse denied any illicit drug abuse. Allergies/Medications Allergies: Coded Allergies: cefuroxime (BLOTCHES BUT ALSO TOOK WITH PREDNISONE UNSURE WHICH ONE 08/16/16) CAUSED THE REACTION Home Med list Albuterol Sulfate (Proair Hfa) 90 MCG HFA.AER.AD 2 PUFF INH Q4-6 PRN PRN COPD (Reported) Albuterol Sulfate 2.5 MG/0.5 ML VIAL.NEB 1 Vial INH/HINA TID PRN COPD Budesonide/Formoterol Fumarate (Symbicort 160-4.5 Mcg Inhaler) 160 MCG-4.5 MCG/ ACTUATION HFA.AER.AD 2 PUF INH BID copd Calcium Carbonate/Vitamin D3 (Caltrate 600 + D Soft Chew Tab) (Unknown Strength) TAB.CHEW (Unknown Dose) PO DAILY SUPPLEMENT (Reported) Cholecalciferol (Vitamin D3) (Vitamin D) 2,000 UNIT TABLET 1 TAB PO DAILY SUPPLEMENT (Reported) Hydrocodone/Acetaminophen (Vicodin 5-300 MG Tablet) 5 MG-300 MG TABLET 1 TAB PO BID PAIN TEN...[id number] Lactobacillus Acidophilus (Probiotic) (Unknown Strength) CAPSULE 1 CAP PO DAILY PROBIOTIC (Reported) Lisinopril 20 MG TABLET 20 MG PO DAILY HTN (Reported) Tiotropium [place] (Spiriva Respimat) 2.5 MCG/ACTUATION MIST.INHAL 2 PUF INH DAILY SOB (Reported) Compliance With Home Meds: GOOD Past History Travel History Traveled to [place] past 21 day No Medical History Blood Transfusion Hx: No Neurological: NONE EENT: NONE Cardiovascular: hypertension Respiratory: COPD, emphysema Gastrointestinal: colitis, C DIFF Hepatic: NONE Renal: NONE Musculoskeletal: NONE Psychiatric: NONE Endocrine: NONE Blood Disorders: NONE Cancer(s): NONE PARTS LISTER/Reproductive: NONE History of MRSA: No History of VRE: No History of CDIFF: No Isolation History: Standard Surgical History Surgical History: non-contributory Past Family/Social History Psychosocial History Where do you live? Home Services at Home: Oxygen Smoking Status: Former Smoker ETOH Use: denies use Illicit Drug Use: denies illicit drug use Review of Systems Review of Systems Constitutional: Reports: weakness. Denies: chills, diaphoresis, fever, malaise, unexplained weight loss. EENTM: Denies: see HPI. Cardiovascular: Denies: chest pain, edema, orthopena, palpitations, peripheral edema, syncope. Respiratory: Reports: cough, short of breath, sputum production, wheezing. Denies: hemoptysis, orthopnea, stridor. GI: Denies: abdominal pain, bloating, constipation, diarrhea, distention, melena, nausea. Genitourinary: Denies: dysuria, frequency, urgency. Musculoskeletal: Reports: back pain. Skin: Denies: see HPI. Neurological/Psychological: Denies: anxiety, ataxia, confusion, depressed, dementia, emotional problems, headache, numbness, tingling, tremors. Exam & Diagnostic Data Last 24 Hrs of Vital Signs/I&O Vital Signs Date Time Temp Pulse Resp B/P B/P Pulse O2 O2 Flow FiO2 Mean Ox Delivery Rate 08/29 0640 97.7 88 20 104/52 95 08/28 2225 98.0 84 20 122/62 96 Nasal 2.0L Cannula 08/28 2036 98.1 98 20 98/50 92 Nasal 2.0L Cannula 08/28 2016 Nasal 2.0L Cannula 08/28 2000 98.9 89 18 118/68 94 Nasal 2.0L Cannula 08/28 1921 98.9 08/28 1619 99.9 99 19 115/62 93 Nasal 2.0L Cannula 08/28 1605 99.9 08/28 1341 98 118/58 08/28 1220 99.1 121 18 83/54 93 Nasal 1.0L Cannula Intake & Output 08/29 0800 08/29 0000 08/28 1600 Intake Total 841 889 1031 Output Total 500 200 Balance 728 982 0171 Intake, IV 465 734 5680 Intake, Oral 200 Output, Urine 500 200 Patient 49.895 kg 52.617 kg Weight Weight Reported by Patient Reported by Patient Measurement Method Physical Exam General Appearance Alert, Oriented X3, Cooperative, No Acute Distress Skin No Rashes, No Breakdown HEENT Atraumatic, PERRLA, EOMI, Mucous Membr. moist/pink Neck Supple, No JVD Lymphatic Cervical nl Cardiovascular Normal S1, Normal S2, No Murmurs Lungs crackles, dec air entry Abdomen Normal Bowel Sounds, Soft, No Tenderness Neurological Strength at 5/5 X4 Ext, Sensation Intact, Cranial Nerves 3-12 NL, Reflexes 2+ Extremities No Clubbing, No Cyanosis, No Edema Last 24 Hrs of Labs/Carlos: Laboratory Tests 08/29/16 0630: Sodium Pending, Potassium Pending, Chloride Pending, Carbon Dioxide Pending, Anion Gap Pending, BUN Pending, Creatinine Pending, BUN/Creatinine Ratio Pending , Total Bilirubin Pending, Direct Bilirubin Pending, AST Pending, ALT Pending, Alkaline Phosphatase Pending, Total Protein Pending, Albumin Pending, PT Pending , INR Pending, APTT Pending, CBC w Diff Pending, WBC Pending, RBC Pending, Hgb Pending, Hct Pending, MCV Pending, MCH Pending, RDW Pending, Plt Count Pending, MPV Pending, PUBS [facility] Pending 08/28/16 2156: CBC w Diff NO MAN DIFF REQ, RBC 4.11 L, MCV 85.6, MCH 28.7, RDW 13.6, MPV 12.2 H, Gran % 78.3 H, Lymphocytes % 18.1 L, Monocytes % 3.4, Eosinophils % 0.1, Basophils % 0.1, Absolute Granulocytes 5.7, Absolute Lymphocytes 1.3, Absolute Monocytes 0.2, Absolute Eosinophils 0, Absolute Basophils 0, [facility] 33.5 08/28/16 1638: Urine Osmolality 367, Ur Random Creatinine 25.6, Ur Random Sodium 52, Ur Random Potassium 22.6, Fraction Sodium Excret 1.4 H 08/28/16 1636: Urine Color YEL, Urine Clarity CLEAR, Urine pH 6.0, Ur Specific [place] <= 1.005 , Urine Protein TRACE H, Urine Ketones TRACE H, Urine Nitrite NEG, Urine Bilirubin NEG, Urine Urobilinogen 0.2, Ur Leukocyte Esterase NEG, Ur Microscopic SEDIMENT EXAMINED, Urine RBC 5-10 H, Ur Epithelial Cells FEW, Urine Bacteria FEW H, Urine Hemoglobin MOD H, Urine Glucose NEG 08/28/16 1540: Lactic Acid Cancelled 08/28/16 1537: Lactic Acid Cancelled 08/28/16 1250: Lactic Acid 1.5 08/28/16 1250: Anion Gap 12, Estimated GFR > 60, BUN/Creatinine Ratio 32.2 H, Glucose 97, Serum Osmolality 269 L, Calcium 7.9 L, Total Bilirubin 0.9, AST 91 H, ALT 81 H, Alkaline Phosphatase 233 H, Creatine Kinase 297 H, Total Protein 5.2 L, Albumin 2.6 L, Globulin 2.6, Albumin/Globulin Ratio 1.0 L, Lipase 34, Vitamin B12 > 1000 H, 25-OH Vitamin D Total 24.2 L, Folate 15.5, PT 10.9, INR 1.04, CBC w Diff MAN DIFF ORDERED, RBC 4.40, MCV 84.2, MCH 28.7, RDW 13.9, MPV 9.9, Gran % 84.4 H, Lymphocytes % 12.1 L, Monocytes % 3.4, Eosinophils % 0, Basophils % 0.1, Absolute Granulocytes 6.5, Segmented Neutrophils 75, Band Neutrophils 8 H, Absolute Lymphocytes 0.9 L, Lymphocytes 11 L, Monocytes 5, Absolute Monocytes 0.3, Absolute Eosinophils 0, Basophils 1, Absolute Basophils 0, Normocytic RBCs VERIFIED, Normochromic RBCs VERIFIED, PUBS MCHC 34.1, Hepatitis A IgM Ab NONREACTIVE, Hep Bs Antigen NONREACTIVE, Hep B Core IgM Ab Conf NONREACTIVE, Hepatitis C Antibody NONREACTIVE, HIV 1&2 Ab Western Blot NONREACTIVE 08/28/16 1239: Lipase Cancelled Microbiology 08/29 708 LOWER RESP: Respiratory Culture - ORD 08/29 708 LOWER RESP: Gram Stain - ORD 08/28 2259 BLOOD: Blood Culture - RECD 08/28 2156 BLOOD: Blood Culture - RECD 08/28 1636 URINE ROUT: Urine Culture - RECD Assessment/Plan Assessment: This is a 75-year-old female with past medical history significant for COPD on home oxygen 1 L at nighttime, hypertension, low back pain, smoker quit 20 years ago, osteopenia, sinus tachycardia of unclear etiology presented to the [facility] emergency department with chief complaint of generalized weakness and low appetite for one week. She was discharged from [facility] emergency department on after being treated for back pain and she was given Vicodin. She took Vicodin for a couple of days and then she took Motrin 2 tablets every 4 hours for 4 days for her back pain after which pain came down. she was discharged from [facility] on August 18 after treated for COPD exacerbation. Vitals on admission-afebrile, heart rate 89, respiratory rate 18, blood pressure 83/54, saturating at 94% on 2 L. Labs on admission- Platelets 17,000 Hyponatremia 127. Urine is clear. LFTs-91, 81, 233. EKG showed sinus tachycardia with a left anterior fascicular branch block. ct Scan abdomen IMPRESSION: CT scan of the abdomen and pelvis has not significantly changed from the most recent prior study. 1. Borderline enlarged common bile duct measuring close to 0.8 cm in diameter with no obstructing stone or mass appreciated. The pancreatic duct is top normal in size and unchanged. No pancreatic mass is seen. No intrahepatic biliary ductal dilatation is seen. Findings have been stable since 05/18/2016. Correlate with patient's clinical findings and laboratory values. 2. Subcentimeter low-attenuation lesion in the right lobe of the liver may represent a cyst. 3. 1.5 cm isoattenuating nodule abutting the posterior capsule of the right lobe of the liver near the dome of the diaphragm is unchanged. 4. A 4.7 x 3.0 x 3.8 cm cyst in the left adnexal region is unchanged since 08/22/2016. Follow-up with pelvic ultrasound as previously recommended. 5. Diastases of the rectus muscles with mild protrusion of gas-filled bowel in the midline. No incarcerated hernia. Chest x-ray Severe emphysematous changes of lungs Problem list 1. Thrombocytopenia 2. Hyponatremia 3. Transaminitis 4. Generalized weakness 5. Bandemia and hypotension 6. Chronic back pain 7. Osteopenia 8. COPD Thrombocytopenia Patient presented with generalized weakness and poor appetite for one week. Labs on admission showed low platelet count 17,000 on admission. Patient denies any signs of bleeding, denies hematuria, denies any ecchymosis, petichia. * Platelet count was 331 on August 18. * New thrombocytopenia of unclear etiology * Admitted to general floor for further management * Possibly drug induced versus HIT, last dose of subcutaneous heparin was on August 18 during last admission * Check coagulation studies * Will check hepatitis panel * Will check HIV * Spoke with on-call radio repairer domestic-advised to transfuse platelets if platelet count drops below 10,000 or if it is signs of bleeding overnight. * Hematology consult in the morning * Will follow-up CBC in the morning Hyponatremia * Sodium 127 on admission * Most possibly from hypotension, dehydration, poor oral intake * Hypovolemic hyponatremia * Will provide gentle hydration IV fluid normal saline 75 mL per hour * Will check serum osmolality * Will check urine osmolality and urine lites * Repeat BEP in the morning Transaminitis * LFTs elevated on admission * 91, 81, 233. * Patient denies any abdominal pain * Bilirubin was normal * Will follow-up HIV and hep panel * Will follow-up right upper quadrant ultrasound * Provide gentle IV hydration * Recheck LFTs in the morning * CT abd/pelvis: CBD 0.8 cm, no obstructing stone, no pancreatic mass or intraphepatic biliary dilatation, liver cysts. Generalized weakness * Most possibly from dehydration and hypotension * Patient does complain of low appetite for 1-2 weeks duration * Will get nutrition consult * PTOT consult bandemia and hypotension Patient presented with generalized weakness and low appetite. Complains of low oral intake and dehydration. She is afebrile on admission however 8 bands were noticed on labs. Blood pressure 83/54 on admission improved to 118/68 after fluid resuscitation. * Fulfilled SIRS criteria on admission * However the obvious source was not found * Urine and chest x-ray was clear * We will continue to monitor for any fever, leukocytosis * Will provide gentle IV hydration to monitor blood pressures * We'll hold off antibiotics for now * Consider CT angiogram to rule out pulmonary embolism * His follow-up pancultures Chronic low back pain She was discharged from [facility] emergency department on after being treated for back pain and she was given Vicodin. She took Vicodin for a couple of days and then she took Motrin 2 tablets every 4 hours for 4 days for her back pain after which pain came down. * Pain subsided at the time of admission * PT evaluation * Follow-up vitamin D levels * Follow-up B12 * Continue vitamin D and calcium supplements COPD Patient has COPD who uses 1 L oxygen at nighttime. However she does report ongoing cough associated with sputum production. She has to use oxygen even during daytime because of difficulty breathing. * Patient was discharged from [facility] on 08/18/2016 after being treated for COPD exacerbation * She completed steroids and antibiotic course 4 days ago. * Will provide supplemental oxygen * Total respiratory care * Vitals every shift * Albuterol * Symbicort * No plan of steroid tapering now history of hypertension Lisinopril on hold because of hypotension on admission DVT prophylaxis-alps Full code Pain pathway Regular diet As Ranked By This Provider Problem List: 1. Back pain ) 2. Weakness 3. Thrombocytopenia 4. Decompensated COPD with exacerbation (chronic obstructive pulmonary disease ) Core Measures/Miscellaneous Acute Coronary Syndrome ACS Diagnosis: No Cerebrovascular Accident CVA/TIA Diagnosis: No Congestive Heart Failure CHF Diagnosis: No Venous Thromboembolism VTE Risk Factors: Age > 40 [facility] prophylaxis d/t: No contraindications No VTE Pharm Prophylaxis d/t: No contraindications VTE Diagnosis: No VTE Type: NONE VTE Confirmed by (Test): NONE Severe Sepsis Severe Sepsis Present: No Septic Shock Septic Shock Present: No Miscellaneous Documentation Attending Case Discussed With: FLO MAN MD Primary Care Physician: JOSE LUIS FONTAINE MD Patient sees these Specialists lung Level of Patient Care: General Medicine ОЛЕГ PATTERSON 08/29/16 0625: Resident Review Statement Resident Statement: examined this patient, discussed with internal control consultant, agreed with internal control consultant Other Findings: Ms. River is a 75 -year-old female with significant past medical history of severe COPD [FEV1 less than 50%] on nocturnal oxygen, 1 L, hypertension, osteopenia was recently discharged on August 18 for treatment of acute on chronic respiratory failure secondary to COPD exacerbation. She recently visited the emergency department last Monday with complaints of back pain, for which she was discharged with Vicodin. She again presents today with complaints of back pain as well as weakness. She notes that she has not felt well over the last few days, and initially attributed to Vicodin use which she stopped. She continued to feel poorly and states that her daughter who is a nurse, measured the patient's blood pressure throughout the week and noted that it was low, 80 systolic today. In addition to her weakness, she also complains of some increased dyspnea. She states that at baseline she was on 1 L only at night however her O2 requirements had increased to 1 L [id number]. She also states that she has an increased frequency of her productive cough which is productive of white sputum. Aside from these complaints she has no acute complaints. The remainder of the review of systems as dictated above. Vitals on the emergency department, Tmax 99.9, tachycardic to the low 100s, with initial blood pressure in the 80s over 50s [which corrected after repeat measurement]. She was saturating 95% on 2 L of oxygen via nasal cannula. Physical exam as dictated above with focus on decreased upper and lower extremity strength, 3-5 and 2-3/5 bilaterally respectively. Labs were significant for H&H 12.6/37, white blood cell count 7.7 with 8 bands, platelets 17. Other significant labs include sodium 127, chloride 92, BUNs/ creatinine 29/0.9. AST/LTS 91/81 with alkaline phosphatase 233. CXR showed chronic changes of severe pulmonary emphysema with no acute changes. CT abd/pelvis as dictated above with CBD 0.8 cm, no obstructing stone/ intraphepatic biliary dilatation/liver abnormalities EKG: Sinus tachycardia. Problem list/assessment and plan We will admit the patient to for treatment of the following issues: Thrombocytopenia * Platelet dropped from 269 in 08/23 to 17 on admission. * Patient was recently discharged and was on lovenox for DVT ppx. She does have previous exposure during previous admission. * We must of course consider HIT as a cause for her acute platelet drop. * We will first repeat CBC and smear to confirm thrombocytopenia. * Although she does have a platelet drop more than 50%, her yannick is <20,000 therefore giving her a 4Ts Score for HIT of 3 (platelet yannick 10-19 (+1) and clear onset of timing (+2)). She scores a 0 for thrombosis or other sequelae. * We did speak with the oncall radio repairer domestic, and as the patient does not have any sequelae at the moment, we will hold off on argatroban or bivalirudin. * We will place the patient on bleeding precautions and use ALPS for DVT ppx. NO heparin products at all. Transfuse platelets if platelet count drops <10,000 * Drug induced thrombocytopenia must also be considered given her recent ibuprofen use. * No NSAIDs for now and we will trend CBC Hyponatremia * Total body water = 0.6 x 50 = 30 kg * Na deficit = TBW x (goal Na - current Na) = 30 x (140 - 127) = 390 mmol * Most likely hypovolemic hyponatremia given the clinical findings. * We will add on plasma osm and urine lytes and urine osm. * We will gently hydrate woth NS @75cc/h and remeasure BEP in the am. * Patient denies polydipsia - if she does have hypunatremia 2/2 to polydypsia, urine osmolarity is expected to be less than 100. If this is the case consider restricting fluids. If it is greater than 100 we will consider SIADH, as well as hypothyroidism or adrenal insufficiency. * Goal is to correct Na at a rate of 0.5 mEq/L/h with care not to rapidly correct for risk of central pontine myelinolysis Severe emphysema * The patient is now on [id number] oxygen therapy, increase from her baseline 1 L nocturnally. * She recently finished a prednisone taper and azithromycin, and as her chest x- ray does not show any acute process, we will continue O2 therapy with a goal saturation of greater than 92%. * This may be a progression of her severe emphysema. * We will add Mucinex 600 mg twice a day in addition to her TRC/nebs. * Consider CTA in the am if she is still tachycardic and requiring increased O2 requirements Transaminitis * Patient has new mild bump in AST/ALT with some RUQ tenderness. * We will evaluate with RUQ U/S FULL CODE No heparin at all for now. ALPS for dvt ppx regular diet pain path MAGDA ACEVEDO, [facility] 08/29/16 0644: Attending MD Review Statement Attending Statement Attending MD Statement: examined this patient, discuss w/resident/PA/SENIOR EDITOR, agreed w/resident/PA/SENIOR EDITOR Attending Assessment/Plan: 75 yo F ex-smoker (quit 20 yrs ago), has a h/o COPD (FEV1 < 50%) on nocturnal 1L O2, HTN, osteopenia, chronic low back pain, sinus tachycardia of unclear etiology, discharged on August 18 after being treated for COPD exacerbation, subsequently seen in ER on August 22 for back pain and was prescribed Vicodin. She took Vicodin for 2 days, and then switched to Motrin (2 tabs Q4) for the past 4 days with which pain seems better. For the past 1 week, c/o poor appetite, weakness; BP has been running low (SBP 80-90's) so daughter held off her lisinopril after discussion with PCP. Patient states, she has been using oxygen all through day and night as she felt better with it. Cough++ with minimal white phlegm, ALEXANDER+. Diffuse abdominal discomfort but no nausea, vomiting, diarrhea or urinary symptoms. Vitals: Tmax 99.9, tachycardic 90-110's, BP 83/54 --> 118/58, sats 95% on 2L. Exam: awake, lethargic, cachectic, dry mucous membranes, no pallor or icterus, Chest b/l reduced air entry, crackles left base, Neuro: power 3/5 both LE, 5/5 both UE, otherwise unremarkable. Labs: WBC 7.7, H/H 12.6/37, Plt 17, bands 8, INR 1.04, Na 127, BUN 29, lactic acid 1.5, AST 91, ALT 81, Alk phos 233, CK 297, Albumin 2.6. UA neg. CT abd/pelvis: CBD 0.8 cm, no obstructing stone, no pancreatic mass or intraphepatic biliary dilatation, liver cysts. CXR: severe pulmonary emphysema, no consolidation. EKG: Sinus tachycardia. 1. Weakness, hypotension likely due to dehydration and poor PO intake. GM admit, IV fluids, nutrition consult. PT eval. 2. Bandemia, hypotension without a clear source of infection ?viral. CXR and UA neg. Panculture and hold off antibiotics. She has been using oxgen more than often, and has a persistent cough. Consider CT chest w/o contrast or CTA chest ( would rule out PE as well) in AM. Were unable to give her double dose of contrast overnight, as she had received contrast for CT abd/pelvis done by ER. 3. New thrombocytopenia, unclear etiology. Possibly drug induced (most recent were prednisone, azithro, vicodin and motrin) vs. HIT. Last dose of heparin was on August 18. No acute bleeding events. She does have an ecchymotic patch to left forearm and reports easy bruising. Check PT, PTT, INR and peripheral smear. Check HIV, hep panel. Transfuse platelets only if plt count <10,000. Hematology consult. Check B12, folic acid. No clear source of infection. 4. Transaminitis. IV hydration and recheck LFTs in AM. Check Hep panel and HIV. RUQ ultrasound in AM. 5. Hyponatremia. Work up with serum and urine osmolality, urine lytes. Gentle hydration and recheck sodium levels. 6. Back pain chronic. Check vit D levels and B12. PT eval. Pain management. DVT ppx Alps. Full code.
[2016-08-29 06:40] VITALS: BP 104/52
--- NOTE | 2016-08-29 07:45 | PN- Housestaff ---
BETO CENTENO 08/29/16 0745: Subjective Follow-up For: Fatigue and weakness Hyponatremia Thrombocytopenia Hypokalemia Chronic back pain Complaints: WEAKNESS Subjective: Patient was seen and examined this morning. She was sitting comfortably on chair but admits that she had weakness for couple of days and her appetite is very cold and she is a feels better after IV fluids. She denied any bleeding. She admits that she easily bruises but that is not new for her. She was recently been treated for COPD exacerbation with azithromycin and also she had taken ibuprofen for back pain. Her vital signs remained her vital signs remained stable with normal temperature, pulse 94, respiratory rate 20, blood pressure 114/56 and she was saturating 94% on room 2 L of nasal cannula through oxygen. Patient was seen by heme on and also pulmonology today Review of Systems Constitutional: Reports: malaise, weakness. Denies: chills. EENTM: Denies: blurred vision, double vision. Cardiovascular: Denies: chest pain, orthopena. Respiratory: Denies: hemoptysis, orthopnea. Gastrointestinal: Denies: bloating, constipation. Objective Last 24 Hrs of Vital Signs/I&O Vital Signs Date Time Temp Pulse Resp B/P B/P Pulse O2 O2 Flow FiO2 Mean Ox Delivery Rate 08/29 1453 97.4 94 20 114/56 94 Nasal 2.0L Cannula 08/29 0800 94 Nasal 2.0L Cannula 08/29 0640 97.7 88 20 104/52 95 08/28 2225 98.0 84 20 122/62 96 Nasal 2.0L Cannula 08/28 2036 98.1 98 20 98/50 92 Nasal 2.0L Cannula 08/28 2016 Nasal 2.0L Cannula 08/28 2000 98.9 89 18 118/68 94 Nasal 2.0L Cannula 08/28 1921 98.9 08/28 1619 99.9 99 19 115/62 93 Nasal 2.0L Cannula 08/28 1605 99.9 Intake & Output 08/29 1600 08/29 0800 08/29 0000 Intake Total 720 800 350 Output Total 500 200 Balance 720 300 150 Intake, IV 800 150 Intake, Oral 720 200 Number 1 Bowel Movements Output, Urine 500 200 Patient 110 lb Weight Weight Reported by Patient Measurement Method Physical Exam General Appearance: Alert, Oriented X3, Cooperative, No Acute Distress Skin: No Breakdown Cardiovascular: Regular Rate, Normal S1, Normal S2, No Murmurs Lungs: Normal Air Movement Current Medications: Current Medications Sig/Denice Start time Last Medication Dose Route Stop Time Status Admin Acetaminophen 650 MG Q12P PRN 08/28 2145 AC 08/29 PO 0812 Acetaminophen 0 .STK-MED ONE 08/28 1606 DC PO Acetaminophen 650 MG ONCE ONE 08/28 1515 DC 08/28 PO 08/28 1516 1605 Albuterol Sulfate 2 PUF Q4-6 PRN PRN 08/28 2245 AC INH Albuterol Sulfate 3 ML Q6P PRN 08/28 2245 AC INH Budesonide/ 2 PUF BID 08/28 2237 AC 08/29 Formoterol Fumarate INH 0943 Calcium/Vitamin D 1 TAB DAILY 08/29 1000 AC 08/29 PO 0943 Cholecalciferol 1,000 IU DAILY 08/29 1000 AC 08/29 PO 0943 Lactobacillus 1 CAP DAILY 08/29 1000 AC 08/29 Acidophilus PO 0943 Lidocaine 1 PAT DAILY NEEDED PRN 08/28 2145 AC EXT Nicotine 0 .STK-MED ONE 08/28 1634 SC TOP Patient Medication 1 ED .STK-MED ONE 08/29 1405 DC Teaching ED 08/29 1406 Potassium Chloride 60 MEQ ONCE ONE 08/29 1430 DC 08/29 PO 08/29 1431 1451 Potassium Chloride 10 MEQ Q1H 08/29 1430 AC 08/29 IV 08/29 1531 1452 Sodium Chloride 1,000 ML Q10H 08/28 2130 DC 08/29 IV 08/29 1729 0657 Tiotropium Sterling 1 PUF DAILY 08/29 1000 AC 08/29 INH 0943 Tramadol HCl 50 MG Q6P PRN 08/28 2200 AC PO Last 24 Hrs of Lab/Carlos Results Last 24 Hrs of Labs/Mics: Laboratory Tests 08/29/16 1200: Anion Gap 9, Estimated GFR > 60, BUN/Creatinine Ratio 28.6 H, CBC w Diff NO MAN DIFF REQ, RBC 4.15 L, MCV 85.6, MCH 29.2, RDW 13.6, MPV 10.1, Gran % 77.4 H, Lymphocytes % 17.4 L, Monocytes % 4.8, Eosinophils % 0.1, Basophils % 0.3, Absolute Granulocytes 7.2 H, Absolute Lymphocytes 1.6, Absolute Monocytes 0.4, Absolute Eosinophils 0, Absolute Basophils 0, [email or web address] MCHC 34.1 08/29/16 0630: Anion Gap 10, Estimated GFR > 60, BUN/Creatinine Ratio 28.6 H, Total Bilirubin 0.6, Direct Bilirubin 0.4, AST 79 H, ALT 70 H, Alkaline Phosphatase 172 H, Total Protein 4.2 L, Albumin 2.0 L, PT 11.0, INR 1.05, APTT 26, CBC w Diff MAN DIFF ORDERED, RBC 4.01 L, MCV 85.1, MCH 28.5, RDW 13.6, MPV 10.6 H, Gran % 77.5 H, Lymphocytes % 15.7 L, Monocytes % 6.5, Eosinophils % 0.1, Basophils % 0.2, Absolute Granulocytes 7.0 H, Segmented Neutrophils 78 H, Band Neutrophils 3, Absolute Lymphocytes 1.4, Lymphocytes 16 L, Monocytes 3, Absolute Monocytes 0.6, Absolute Eosinophils 0, Absolute Basophils 0, Platelet Estimate DECREASED, Anisocytosis 1+, [facility] 33.4 08/28/16 2156: CBC w Diff NO MAN DIFF REQ, RBC 4.11 L, MCV 85.6, MCH 28.7, RDW 13.6, MPV 12.2 H, Gran % 78.3 H, Lymphocytes % 18.1 L, Monocytes % 3.4, Eosinophils % 0.1, Basophils % 0.1, Absolute Granulocytes 5.7, Absolute Lymphocytes 1.3, Absolute Monocytes 0.2, Absolute Eosinophils 0, Absolute Basophils 0, [facility] 33.5 08/28/16 1638: Urine Osmolality 367, Ur Random Creatinine 25.6, Ur Random Sodium 52, Ur Random Potassium 22.6, Fraction Sodium Excret 1.4 H 08/28/16 1636: Urine Color YEL, Urine Clarity CLEAR, Urine pH 6.0, Ur Specific Graham <= 1.005 , Urine Protein TRACE H, Urine Ketones TRACE H, Urine Nitrite NEG, Urine Bilirubin NEG, Urine Urobilinogen 0.2, Ur Leukocyte Esterase NEG, Ur Microscopic SEDIMENT EXAMINED, Urine RBC 5-10 H, Ur Epithelial Cells FEW, Urine Bacteria FEW H, Urine Hemoglobin MOD H, Urine Glucose NEG 08/28/16 1540: Lactic Acid Cancelled 08/28/16 1537: Lactic Acid Cancelled Microbiology 05/08 0709 LOWER RESP: Respiratory Culture - COLB 08/29 0709 LOWER RESP: Gram Stain - COLB 08/28 9529 BLOOD: Blood Culture - RES 08/28 2156 BLOOD: Blood Culture - RES 08/28 1636 URINE ROUT: Urine Culture - RES Assessment/Plan Assessment: Patient is 75 year old female with past medical history significant for COPD on nocturnal monitor oxygen, hypertension, osteopenia chronic back pain came with chief complaint of worsening weakness and poor intake. Found to have very low platelet count 17 on admission. Patient was admitted on general medical floor and following issues were addressed Thrombocytopenia Patient presented with generalized weakness and poor appetite for one week. Labs on admission showed low platelet count 17,000 on admission. Patient denies any signs of bleeding, denies hematuria, denies any ecchymosis, petichia. * Platelet count was 331 on August 18. Came down to 17 on admission and repeat was 35. * New thrombocytopenia of unclear etiology. Patient was seen by heme oncology and as her differentials are most likely viral in origin etiology versus HIT.It could be due to drug induced as she had recent ibuprofen as well as azithromycin. Her 4 T score is 3-4 which is intermediate likelihood of HHT. We will watch closely for any signs of bleeding and also we will monitor her CBC for platelet count if at any point she would bleed or her platelet count came down to less than 10,000 or less than 20,000 with fever we will transfuse her with * Will follow-up CBC in the morning or if she start bleeding at any point. Hyponatremia * Sodium 127 on admission and repeat was 132. * Most possibly from hypotension, dehydration, poor oral intake * Hypovolemic hyponatremia * Will provide gentle hydration IV fluid normal saline 75 mL per hour * Repeat BEP in the morning Transaminitis * LFTs elevated on admission * 91, 81, 233. * Patient denies any abdominal pain * Bilirubin was normal * * HIV and hep panel came back normal * Will follow-up right upper quadrant ultrasound and also pelvic ultrasound was ordered for look for adnexal mass * Provide gentle IV hydration * Will Recheck LFTs in the morning * CT abd/pelvis: CBD 0.8 cm, no obstructing stone, no pancreatic mass or intraphepatic biliary dilatation, liver cysts. Generalized weakness * Most possibly from dehydration and hypotension * Patient does complain of low appetite for 1-2 weeks duration * Will get nutrition consult * PTOT consult bandemia and hypotension Patient presented with generalized weakness and low appetite. Complains of low oral intake and dehydration. She is afebrile on admission however 8 bands were noticed on labs. Blood pressure 83/54 on admission improved to 118/68 after fluid resuscitation. * Fulfilled SIRS criteria on admission * However the obvious source was not found * Urine and chest x-ray was clear * We will continue to monitor for any fever, leukocytosis * Will provide gentle IV hydration to monitor blood pressures * We'll hold off antibiotics for now Chronic low back pain She was discharged from [facility] emergency department on after being treated for back pain and she was given Vicodin. She took Vicodin for a couple of days and then she took Motrin 2 tablets every 4 hours for 4 days for her back pain after which pain came down. * Pain subsided at the time of admission * PT evaluation * Follow-up vitamin D levels came back low to 24.2 and patient will be started on vitamin D supplements * Follow-up B12 came back normal * Continue vitamin D and calcium supplements COPD Patient has COPD who uses 1 L oxygen at nighttime. However she does report ongoing cough associated with sputum production. She has to use oxygen even during daytime because of difficulty breathing. * Patient was discharged from [facility] on 08/18/2016 after being treated for COPD exacerbation * She completed steroids and antibiotic course 4 days ago. * Will provide supplemental oxygen * Total respiratory care * Vitals every shift * Albuterol * Symbicort * No plan of steroid tapering now * Patient was seen by Dr. Mccallum and we will continue her conservative management with TRC and nebulizations history of hypertension Lisinopril on hold because of hypotension on admission we will restart 8 months her blood pressure remained stable DVT prophylaxis-alps Full code Pain pathway Regular diet Problem List: 1. Abdominal pain 2. Weakness 3. 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 No productive cough, fever, chills, chest pain, abdominal pain, diarrhea, dysuria. No evidence of bleeding aside from some mild left arm bruising. Platelets have remained stable. Labs otherwise normal. Exam benign. Only new medications were Prednisone and Azithromycin in late July and Vicodin for back pain on 08/22, has also been taking NSAIDs for back pain. 1. Thrombocytopenia 2. Fatigue 3. Generalized weakness 4. COPD 5. Shortness of breath Plan - Continue on general medicine - Follow pulmonary and hematology recommendations - Monitor platelets - Transfuse platelets only if <10,000 or if evidence of bleeding - Neuro checks, if altered obtain CT head - TRC/nebulizer treatments - Continue home medications - ALPS for DVT PPx
[2016-08-29 08:06] LABS: ABSOLUTE BASOPHIL COUNT 0 /CUMM (0.0-0.2); ABSOLUTE EOSINOPHIL COUNT 0 /CUMM (0.0-0.7); ABSOLUTE LYMPH COUNT 1.4 /CUMM (1.2-3.4); BASOPHIL % 0.2 % (0.0-2.0); EOSINOPHIL % 0.1 % (0-5); MEAN CORPUSCULAR VOLUME 85.1 FL (81.0-99.0)
[2016-08-29 08:16] LABS: PTT 26 SEC (25-37)
[2016-08-29 08:21] LABS: ABSOLUTE MONOCYTE COUNT 0.6 /CUMM (0.10-0.60); GRANULOCYTE % 77.5 % (42.2-75.2); HEMATOCRIT 34.1 % (37-47); MEAN CORPUSCULAR HGB 28.5 PG (27.0-31.0); MEAN CORPUSCULAR HGB CONC 33.4 G/DL (33.0-37.0); MEAN PLATELET VOLUME 10.6 FL (7.4-10.4); RBC DISTRIBUTION WIDTH 13.6 % (11.5-14.5); RED BLOOD CELL CT 4.01 /CUMM (4.20-5.40); WHITE BLOOD CELL COUNT 9.1 /CUMM (4.8-10.8)
[2016-08-29 09:59] LABS: PLATELET COUNT 28 /CUMM (130-400)
--- NOTE | 2016-08-29 11:40 | Cons- Hematology ---
General Information and HPI Consulting Request Date of Consult: 08/29/16 Requested By: MAGDA ACEVEDO,FLO Reason for Consult: thrombocytopenia Source of Information: patient, old records Exam Limitations: no limitations History of Present Illness: Ms. Lynn is a 75-year-old female with COPD on 1L NC oxygen, HTN, and osteopenia who presented to the hospital with weakness and fatigue. She was recently hospitalized for COPD exacerbation from 08/16 to 08/18. She was discharged on 3 days of azithromycin and prednisone. Since that time, she came back to the hospital on 08/22 for back pain. She was discharged on Vicodin. Since that time, she continues to have fatigue and weakness. She started taking Advil as it helped her more. She was noted to have low blood pressure also. She has decreased oral intake. She has no fever or chills. She denies any nausea or vomiting. She denies any abdominal pain. Her breathing is stable with her COPD. She denies any sick contact. On presentation to the ED, She had no fever with Tmax 99.9. She was noted to have platelet count of 17,000. She has no bleeding. She does not some bruising in the left arm. Allergies/Medications Allergies: Coded Allergies: cefuroxime (BLOTCHES BUT ALSO TOOK WITH PREDNISONE UNSURE WHICH ONE 08/16/16) CAUSED THE REACTION Home Med List: Albuterol Sulfate (Proair Hfa) 90 MCG HFA.AER.AD 2 PUFF INH Q4-6 PRN PRN COPD (Reported) Albuterol Sulfate 2.5 MG/0.5 ML VIAL.NEB 1 Vial INH/HINA TID PRN COPD Budesonide/Formoterol Fumarate (Symbicort 160-4.5 Mcg Inhaler) 160 MCG-4.5 MCG/ ACTUATION HFA.AER.AD 2 PUF INH BID copd Calcium Carbonate/Vitamin D3 (Caltrate 600 + D Soft Chew Tab) (Unknown Strength) TAB.CHEW (Unknown Dose) PO DAILY SUPPLEMENT (Reported) Cholecalciferol (Vitamin D3) (Vitamin D) 2,000 UNIT TABLET 1 TAB PO DAILY SUPPLEMENT (Reported) Hydrocodone/Acetaminophen (Vicodin 5-300 MG Tablet) 5 MG-300 MG TABLET 1 TAB PO BID PAIN TEN...[id number] Lactobacillus Acidophilus (Probiotic) (Unknown Strength) CAPSULE 1 CAP PO DAILY PROBIOTIC (Reported) Lisinopril 20 MG TABLET 20 MG PO DAILY HTN (Reported) Tiotropium [place] (Spiriva Respimat) 2.5 MCG/ACTUATION MIST.INHAL 2 PUF INH DAILY SOB (Reported) Current Medications: Current Medications Sig/Denice Start time Last Medication Dose Route Stop Time Status Admin Acetaminophen 650 MG Q12P PRN 08/28 2145 AC 05 PO 0812 Acetaminophen 0 .STK-MED ONE 08/28 1606 DC PO Acetaminophen 650 MG ONCE ONE 08/28 1515 DC 05 PO 08/28 1516 1605 Albuterol Sulfate 2 PUF Q4-6 PRN PRN 08/28 2245 AC INH Albuterol Sulfate 3 ML Q6P PRN 08/28 2245 AC INH Budesonide/ 2 PUF BID 08/28 2237 AC 08/29 Formoterol Fumarate INH 0943 Calcium/Vitamin D 1 TAB DAILY 08/29 1000 AC 08/29 PO 0943 Cholecalciferol 1,000 IU DAILY 08/29 1000 AC 08/29 PO 0943 Lactobacillus 1 CAP DAILY 08/29 1000 AC 08/29 Acidophilus PO 0943 Lidocaine 1 PAT DAILY NEEDED PRN 08/28 2145 AC EXT Nicotine 0 .STK-MED ONE 08/28 1634 DC TOP Sodium Chloride 1,000 ML Q10H 08/28 2130 DC 08/29 IV 08/29 1729 0657 Sodium Chloride 500 ML BOLUS ONE 08/28 1245 DC / IV 08/28 1344 1339 Tiotropium [place] 1 PUF DAILY 08/29 1000 AC 08/29 INH 0943 Tramadol HCl 50 MG Q6P PRN 08/28 2200 AC PO Review of Systems Review of Systems Constitutional: Reports: fever, malaise, weakness, unexplained weight loss. Denies: chills. Cardiovascular: Denies: chest pain. Respiratory: Reports: cough, short of breath. Denies: hemoptysis. GI: Denies: diarrhea. Genitourinary: Denies: dysuria. Musculoskeletal: Reports: back pain. Neurological/Psychological: Reports: weakness. Hematologic/Endocrine: Reports: bruising. Denies: bleeding. 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 Home Services at Home: Oxygen Smoking Status: Former Smoker ETOH Use: denies use Illicit Drug Use: denies illicit drug use Exam & Diagnostic Data Vital Signs and I&O Vital Signs Date Time Temp Pulse Resp B/P B/P Pulse O2 O2 Flow FiO2 Mean Ox Delivery Rate 08/30 639 97.7 88 20 104/52 95 08/28 2225 98.0 84 20 122/62 96 Nasal 2.0L Cannula 08/28 2036 98.1 98 20 98/50 92 Nasal 2.0L Cannula 08/28 2017 Nasal 2.0L Cannula 08/28 2001 98.9 89 18 118/68 94 Nasal 2.0L Cannula 08/28 1921 98.9 08/28 1619 99.9 99 19 115/62 93 Nasal 2.0L Cannula 08/28 1605 99.9 08/28 1341 98 118/58 08/28 1220 99.1 121 18 83/54 93 Nasal 1.0L Cannula Intake & Output 08/29 1600 08/29 0800 05/ 0000 Intake Total 800 350 Output Total 500 200 Balance 300 150 Intake, IV 800 150 Intake, Oral 200 Output, Urine 500 200 Patient 49.895 kg Weight Weight Reported by Patient Measurement Method Physical Exam General Appearance: alert, awake, comfortable Head: atraumatic, normal appearance Eyes: Bilateral: PERRL. Ears, Nose, Throat: normal pharynx, dry mucosa Neck: normal inspection Respiratory: normal breath sounds, chest non-tender, quiet respiration, decreased breath sounds Cardiovascular: regular rate/rhythm Gastrointestinal: normal bowel sounds, soft, non-tender, no organomegaly Neurologic/Psych: awake, alert, oriented x 3 Skin: ecchymosis (LUE) Last 48 Hours of Lab Results: Laboratory Tests 08/29 08/28 0630 2156 Chemistry Sodium (137 - 145 mmol/L) 132 L Potassium (3.5 - 5.1 mmol/L) 3.1 L Chloride (98 - 107 mmol/L) 101 Carbon Dioxide (22 - 30 mmol/L) 21 L Anion Gap (5 - 16) 10 BUN (7 - 17 mg/dL) 20 H Creatinine (0.5 - 1.0 mg/dL) 0.7 Estimated GFR (>60 ml/min) > 60 BUN/Creatinine Ratio (7 - 25 %) 28.6 H Total Bilirubin (0.2 - 1.3 mg/dL) 0.6 Direct Bilirubin (< 0.4 mg/dL) 0.4 AST (14 - 36 U/L) 79 H ALT (9 - 52 U/L) 70 H Alkaline Phosphatase (<127 U/L) 172 H Total Protein (6.3 - 8.2 g/dL) 4.2 L Albumin (3.5 - 5.0 g/dL) 2.0 L Coagulation PT (9.4 - 12.5 SEC) 11.0 INR (0.90 - 1.19) 1.05 APTT (25 - 37 SEC) 26 Hematology CBC w Diff MAN DIFF ORDERED NO MAN DIFF REQ WBC (4.8 - 10.8 /CUMM) 9.1 7.3 RBC (4.20 - 5.40 /CUMM) 4.01 L 4.11 L Hgb (12.0 - 16.0 G/DL) 11.4 L 11.8 L Hct (37 - 47 %) 34.1 L 35.2 L MCV (81.0 - 99.0 FL) 85.1 85.6 MCH (27.0 - 31.0 PG) 28.5 28.7 RDW (11.5 - 14.5 %) 13.6 13.6 Plt Count (130 - 400 /CUMM) 28 *L 35 L MPV (7.4 - 10.4 FL) 10.6 H 12.2 H Gran % (42.2 - 75.2 %) 77.5 H 78.3 H Lymphocytes % (20.5 - 51.1 %) 15.7 L 18.1 L Monocytes % (1.7 - 9.3 %) 6.5 3.4 Eosinophils % (0 - 5 %) 0.1 0.1 Basophils % (0.0 - 2.0 %) 0.2 0.1 Absolute Granulocytes (1.4 - 6.5 /CUMM) 7.0 H 5.7 Segmented Neutrophils (42.2 - 75.2 %) 78 H Band Neutrophils (0.0 - 5.0 %) 3 Absolute Lymphocytes (1.2 - 3.4 /CUMM) 1.4 1.3 Lymphocytes (20.5 - 51.1 %) 16 L Monocytes (1.7 - 9.3 %) 3 Absolute Monocytes (0.10 - 0.60 /CUMM) 0.6 0.2 Absolute Eosinophils (0.0 - 0.7 /CUMM) 0 0 Absolute Basophils (0.0 - 0.2 /CUMM) 0 0 Platelet Estimate (ADEQUATE) DECREASED Anisocytosis 1+ PUBS MCHC (33.0 - 37.0 G/DL) 33.4 33.5 08/28 08/28 08/28 1638 1636 1540 Chemistry Lactic Acid Cancelled Urines Urine Color (YEL,AMB,STR) YEL Urine Clarity (CLEAR) CLEAR Urine pH (5.0 - 8.0) 6.0 Ur Specific [place] (1.001 - 1.035) <= 1.005 Urine Protein (NEG,<30 MG/DL) TRACE H Urine Ketones (NEG) TRACE H Urine Nitrite (NEG) NEG Urine Bilirubin (NEG) NEG Urine Urobilinogen (0.1 - 1.0 EU/dl) 0.2 Ur Leukocyte Esterase (NEG) NEG Ur Microscopic SEDIMENT EXAMINED Urine RBC (0 - 5 /HPF) 5-10 H Ur Epithelial Cells (NONE,FEW) FEW Urine Bacteria (NEG/NONE) FEW H Urine Hemoglobin (NEG) MOD H Urine Osmolality (300 - 1000 MOSM/KG) 367 Ur Random Creatinine (mg/dL) 25.6 Ur Random Sodium (30 - 90 mmol/L) 52 Ur Random Potassium (mmol/L) 22.6 Fraction Sodium Excret (<1% %) 1.4 H Urine Glucose (N MG/DL) NEG 08/28 08/28 08/28 1537 1250 1250 Chemistry Sodium (137 - 145 mmol/L) 127 L Potassium (3.5 - 5.1 mmol/L) 3.8 Chloride (98 - 107 mmol/L) 92 L Carbon Dioxide (22 - 30 mmol/L) 23 Anion Gap (5 - 16) 12 BUN (7 - 17 mg/dL) 29 H Creatinine (0.5 - 1.0 mg/dL) 0.9 Estimated GFR (>60 ml/min) > 60 BUN/Creatinine Ratio (7 - 25 %) 32.2 H Glucose (65 - 99 mg/dL) 97 Serum Osmolality (285 - 295 MOSM/KG) 269 L Lactic Acid (0.7 - 2.1 mmol/L) Cancelled 1.5 Calcium (8.4 - 10.2 mg/dL) 7.9 L Total Bilirubin (0.2 - 1.3 mg/dL) 0.9 AST (14 - 36 U/L) 91 H ALT (9 - 52 U/L) 81 H Alkaline Phosphatase (<127 U/L) 233 H Creatine Kinase (30 - 135 U/L) 297 H Total Protein (6.3 - 8.2 g/dL) 5.2 L Albumin (3.5 - 5.0 g/dL) 2.6 L Globulin (1.9 - 4.2 gm/dL) 2.6 Albumin/Globulin Ratio (1.1 - 2.2 %) 1.0 L Lipase (23 - 300 U/L) 34 Vitamin B12 (239 - 931 pg/mL) > 1000 H 25-OH Vitamin D Total (30 - 100 ng/ml) 24.2 L Folate (2.76 - 20.0 ng/mL) 15.5 Coagulation PT (9.4 - 12.5 SEC) 10.9 INR (0.90 - 1.19) 1.04 Hematology CBC w Diff MAN DIFF ORDERED WBC (4.8 - 10.8 /CUMM) 7.7 RBC (4.20 - 5.40 /CUMM) 4.40 Hgb (12.0 - 16.0 G/DL) 12.6 Hct (37 - 47 %) 37.0 MCV (81.0 - 99.0 FL) 84.2 MCH (27.0 - 31.0 PG) 28.7 RDW (11.5 - 14.5 %) 13.9 Plt Count (130 - 400 /CUMM) 17 *L MPV (7.4 - 10.4 FL) 9.9 Gran % (42.2 - 75.2 %) 84.4 H Lymphocytes % (20.5 - 51.1 %) 12.1 L Monocytes % (1.7 - 9.3 %) 3.4 Eosinophils % (0 - 5 %) 0 Basophils % (0.0 - 2.0 %) 0.1 Absolute Granulocytes (1.4 - 6.5 /CUMM) 6.5 Segmented Neutrophils (42.2 - 75.2 %) 75 Band Neutrophils (0.0 - 5.0 %) 8 H Absolute Lymphocytes (1.2 - 3.4 /CUMM) 0.9 L Lymphocytes (20.5 - 51.1 %) 11 L Monocytes (1.7 - 9.3 %) 5 Absolute Monocytes (0.10 - 0.60 /CUMM) 0.3 Absolute Eosinophils (0.0 - 0.7 /CUMM) 0 Basophils (0.0 - 2.0 %) 1 Absolute Basophils (0.0 - 0.2 /CUMM) 0 Normocytic RBCs VERIFIED Normochromic RBCs VERIFIED PUBS MCHC (33.0 - 37.0 G/DL) 34.1 Serology Hepatitis A IgM Ab (NONREACTIVE) NONREACTIVE Hep Bs Antigen (NONREACTIVE) NONREACTIVE Hep B Core IgM Ab Conf (NONREACTIVE) NONREACTIVE Hepatitis C Antibody (NONREACTIVE) NONREACTIVE HIV 1&2 Ab Western Blot (NONREACTIVE) NONREACTIVE 08/28 1239 Chemistry Lipase Cancelled Imaging/Other Studies: CT abdomen/pelvis 08/28/2016: CT scan of the abdomen and pelvis has not significantly changed from the most recent prior study. 1. Borderline enlarged common bile duct measuring close to 0.8 cm in diameter with no obstructing stone or mass appreciated. The pancreatic duct is top normal in size and unchanged. No pancreatic mass is seen. No intrahepatic biliary ductal dilatation is seen. Findings have been stable since 05/18/2016. Correlate with patient's clinical findings and laboratory values. 2. Subcentimeter low-attenuation lesion in the right lobe of the liver may represent a cyst. 3. 1.5 cm isoattenuating nodule abutting the posterior capsule of the right lobe of the liver near the dome of the diaphragm is unchanged. 4. A 4.7 x 3.0 x 3.8 cm cyst in the left adnexal region is unchanged since 08/22. Follow-up with pelvic ultrasound as previously recommended. 5. Diastases of the rectus muscles with mild protrusion of gas-filled bowel in the midline. No incarcerated hernia. CXR 08/28/2016: Severe pulmonary emphysema. No focal airspace consolidation to suggest infection. Assessment/Plan Assessment: Ms. Lynn is a 75-year-old female with oxygen dependent COPD on 1L NC who presents to the hospital with hypotension, fatigue, and weakness. She was recently admitted to the hospital from 08/16 to 08/18 for COPD exacerbation. She was seen in the ED again on 08/22 for back pain. She was discharged on Vicodin. She presents now with new thrombocytopenia. Her platelet was 331,000 on 08/18 and 269,000 on 07/24. She has not had any new bleeding. She does have some bruising on the left arm. She has not been on any new medication except for azithromycin with last dose on 08/22. She received heparin during the 08/16-08/18 admission. Prior to this, he last admission was in April 2016. Per peripheral smear revealed giant platelets. This suggest a consumptive peripheral process. Given her history, differentials includes HIT, drug-induced , and infectious. Her fatigue, weakness, and hypotension are concerning for potential infectious etiology including viral syndrome. Drug-induced is also possible given exposure to ibuprofen and azithromycin. Her platelet count seem to have already dropped to 269,000 at the end of her azithromcyin therapy. It would be rare to have drug-induced thrombocytopenia from these two medications. HIT is also a possibility. She was exposed to heparin back in April and again in July. Platelet count seems to drop >10 days out from last dose of heparin. Her 4T score is around [address] her at intermediate likelihood of HIT. She has no signs or symptoms thrombophilia. ITP is also in the differential. This is less likely at the moment. If it continues to decrease, other option would be empiric steroid. For now, CBC can be monitored. Heparin should be avoided for now. She should have viral study done. Recommendations: 1. Monitor CBC 2. Infectious work up including viral studies 3. Avoid heparin product 4. Transfuse if platelet count <10,000 or <20,000 with fever Problem List: 1. Thrombocytopenia 2. Weakness 3. Abdominal pain 4. Decompensated COPD with exacerbation (chronic obstructive pulmonary disease ) Other Findings/Comments: Please call [phone] with any questions or concerns. Consult Acknowledgment - Thank you for your consult request.
--- NOTE | 2016-08-29 13:55 | Cons- Pulmonary ---
General Information and HPI Consulting Request Date of Consult: 08/29/16 Requested By: PT and ed History of Present Illness: Ms. Lynn is a 75-year-old female with COPD on 1L [place] oxygen, HTN, and osteopenia who presented to the hospital with weakness and fatigue. She was recently hospitalized for COPD exacerbation from 08/16 to 08/18. She was discharged on 3 days of azithromycin and prednisone. Since that time, she came back to the hospital on 08/22 for back pain. She was discharged on Vicodin. Since that time, she continues to have fatigue and weakness. She started taking Advil as it helped her more. She was noted to have low blood pressure also. She has decreased oral intake. She has no fever or chills. She denies any nausea or vomiting. She denies any abdominal pain. Her breathing is stable with her COPD. She denies any sick contact. On presentation to the ED, She had no fever with Tmax 99.9. She was noted to have platelet count of 17,000. She has no bleeding. She does not some bruising in the left arm. She has history of COPD who is on oxygen 1 L at nighttime. Recently for the past 1 week she has to use oxygen even during daytime. She does report cough and yellow colored sputum production. However denied any chest pain, racing of heart, fever, chills, any sick contacts or travel history. Patient denies any chest pain, racing of heart, orthopnea, paroxysmal nocturnal dyspnea, nausea, vomiting, abdominal pain, change in bladder or bowel habits, headache, weakness or sensory changes, numbness or tingling sensation, vision or gait abnormalities. Quit smoking 20 years ago. Denied any alcohol abuse denied any illicit drug abuse. Allergies/Medications Allergies: Coded Allergies: cefuroxime (BLOTCHES BUT ALSO TOOK WITH PREDNISONE UNSURE WHICH ONE 08/16/16) CAUSED THE REACTION Home Med List: Albuterol Sulfate (Proair Hfa) 90 MCG HFA.AER.AD 2 PUFF INH Q4-6 PRN PRN COPD (Reported) Albuterol Sulfate 2.5 MG/0.5 ML VIAL.NEB 1 Vial INH/HINA TID PRN COPD Budesonide/Formoterol Fumarate (Symbicort 160-4.5 Mcg Inhaler) 160 MCG-4.5 MCG/ ACTUATION HFA.AER.AD 2 PUF INH BID copd Calcium Carbonate/Vitamin D3 (Caltrate 600 + D Soft Chew Tab) (Unknown Strength) TAB.CHEW (Unknown Dose) PO DAILY SUPPLEMENT (Reported) Cholecalciferol (Vitamin D3) (Vitamin D) 2,000 UNIT TABLET 1 TAB PO DAILY SUPPLEMENT (Reported) Hydrocodone/Acetaminophen (Vicodin 5-300 MG Tablet) 5 MG-300 MG TABLET 1 TAB PO BID PAIN TEN...[id number] Lactobacillus Acidophilus (Probiotic) (Unknown Strength) CAPSULE 1 CAP PO DAILY PROBIOTIC (Reported) Lisinopril 20 MG TABLET 20 MG PO DAILY HTN (Reported) Tiotropium [place] (Spiriva Respimat) 2.5 MCG/ACTUATION MIST.INHAL 2 PUF INH DAILY SOB (Reported) Review of Systems Comments Reports: weakness. Denies: chills, diaphoresis, fever, malaise, unexplained weight loss. EENTM: Denies: see HPI. Cardiovascular: Denies: chest pain, edema, orthopena, palpitations, peripheral edema, syncope. Respiratory: Reports: cough, short of breath, sputum production, wheezing. Denies: hemoptysis, orthopnea, stridor. GI: Denies: abdominal pain, bloating, constipation, diarrhea, distention, melena, nausea. Genitourinary: Denies: dysuria, frequency, urgency. Musculoskeletal: Reports: back pain. Skin: Denies: see HPI. Neurological/Psychological: Denies: anxiety, ataxia, confusion, depressed, dementia, emotional problems, headache, numbness, tingling, tremors. 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 Home Services at Home: Oxygen Smoking Status: Former Smoker ETOH Use: denies use Illicit Drug Use: denies illicit drug use Exam & Diagnostic Data Last 24 Hrs of Vital Signs/I&O Vital Signs Date Time Temp Pulse Resp B/P B/P Pulse O2 O2 Flow FiO2 Mean Ox Delivery Rate 08/29 0800 94 Nasal 2.0L Cannula 08/29 0640 97.7 88 20 104/52 95 08/28 2225 98.0 84 20 122/62 96 Nasal 2.0L Cannula 08/29 2035 98.1 98 20 98/50 92 Nasal 2.0L Cannula 08/28 2016 Nasal 2.0L Cannula 08/28 2000 98.9 89 18 118/68 94 Nasal 2.0L Cannula 08/28 1921 98.9 08/28 1619 99.9 99 19 115/62 93 Nasal 2.0L Cannula 08/28 1605 99.9 Intake & Output 08/29 1600 08/29 0800 05 0000 Intake Total 800 350 Output Total 500 200 Balance 300 150 Intake, IV 800 150 Intake, Oral 200 Output, Urine 500 200 Patient 110 lb Weight Weight Reported by Patient Measurement Method Last 48 Hrs of Labs/Carlos: Laboratory Tests 08/29/16 1200: Sodium Pending, Potassium Pending, Chloride Pending, Carbon Dioxide Pending, Anion Gap Pending, BUN Pending, Creatinine Pending, BUN/Creatinine Ratio Pending , CBC w Diff Pending, WBC Pending, RBC Pending, Hgb Pending, Hct Pending, MCV Pending, MCH Pending, RDW Pending, Plt Count Pending, MPV Pending, PUBS MCHC Pending 08/29/16 0630: Anion Gap 10, Estimated GFR > 60, BUN/Creatinine Ratio 28.6 H, Total Bilirubin 0.6, Direct Bilirubin 0.4, AST 79 H, ALT 70 H, Alkaline Phosphatase 172 H, Total Protein 4.2 L, Albumin 2.0 L, PT 11.0, INR 1.05, APTT 26, CBC w Diff MAN DIFF ORDERED, RBC 4.01 L, MCV 85.1, MCH 28.5, RDW 13.6, MPV 10.6 H, Gran % 77.5 H, Lymphocytes % 15.7 L, Monocytes % 6.5, Eosinophils % 0.1, Basophils % 0.2, Absolute Granulocytes 7.0 H, Segmented Neutrophils 78 H, Band Neutrophils 3, Absolute Lymphocytes 1.4, Lymphocytes 16 L, Monocytes 3, Absolute Monocytes 0.6, Absolute Eosinophils 0, Absolute Basophils 0, Platelet Estimate DECREASED, Anisocytosis 1+, PUBS MCHC 33.4 08/28/16 2156: CBC w Diff NO MAN DIFF REQ, RBC 4.11 L, MCV 85.6, MCH 28.7, RDW 13.6, MPV 12.2 H, Gran % 78.3 H, Lymphocytes % 18.1 L, Monocytes % 3.4, Eosinophils % 0.1, Basophils % 0.1, Absolute Granulocytes 5.7, Absolute Lymphocytes 1.3, Absolute Monocytes 0.2, Absolute Eosinophils 0, Absolute Basophils 0, PUBS MCHC 33.5 08/28/16 1638: Urine Osmolality 367, Ur Random Creatinine 25.6, Ur Random Sodium 52, Ur Random Potassium 22.6, Fraction Sodium Excret 1.4 H 08/28/16 1636: Urine Color YEL, Urine Clarity CLEAR, Urine pH 6.0, Ur Specific [place] <= 1.005 , Urine Protein TRACE H, Urine Ketones TRACE H, Urine Nitrite NEG, Urine Bilirubin NEG, Urine Urobilinogen 0.2, Ur Leukocyte Esterase NEG, Ur Microscopic SEDIMENT EXAMINED, Urine RBC 5-10 H, Ur Epithelial Cells FEW, Urine Bacteria FEW H, Urine Hemoglobin MOD H, Urine Glucose NEG 08/28/16 1540: Lactic Acid Cancelled 08/28/16 1537: Lactic Acid Cancelled 08/28/16 1250: Lactic Acid 1.5 08/28/16 1250: Anion Gap 12, Estimated GFR > 60, BUN/Creatinine Ratio 32.2 H, Glucose 97, Serum Osmolality 269 L, Calcium 7.9 L, Total Bilirubin 0.9, AST 91 H, ALT 81 H, Alkaline Phosphatase 233 H, Creatine Kinase 297 H, Total Protein 5.2 L, Albumin 2.6 L, Globulin 2.6, Albumin/Globulin Ratio 1.0 L, Lipase 34, Vitamin B12 > 1000 H, 25-OH Vitamin D Total 24.2 L, Folate 15.5, PT 10.9, INR 1.04, CBC w Diff MAN DIFF ORDERED, RBC 4.40, MCV 84.2, MCH 28.7, RDW 13.9, MPV 9.9, Gran % 84.4 H, Lymphocytes % 12.1 L, Monocytes % 3.4, Eosinophils % 0, Basophils % 0.1, Absolute Granulocytes 6.5, Segmented Neutrophils 75, Band Neutrophils 8 H, Absolute Lymphocytes 0.9 L, Lymphocytes 11 L, Monocytes 5, Absolute Monocytes 0.3, Absolute Eosinophils 0, Basophils 1, Absolute Basophils 0, Normocytic RBCs VERIFIED, Normochromic RBCs VERIFIED, PUBS MCHC 34.1, Hepatitis A IgM Ab NONREACTIVE, Hep Bs Antigen NONREACTIVE, Hep B Core IgM Ab Conf NONREACTIVE, Hepatitis C Antibody NONREACTIVE, HIV 1&2 Ab Western Blot NONREACTIVE 08/28/16 1239: Lipase Cancelled Assessment/Plan Impression/Plan: This is a lady with advanced emphysema with COPD, cachexia with FEV1 less than 50%, on and off, sciatica, hypertension, osteopenia, now comes in with increasing Fatigue with sig thrombocytopenia She has had sig worsening lba recently Issues include * PRofound fatigue and thrombocytopenia and sig hyponatremia due to viral illness vs other reactive process from meds * Advanced copd with chronic mucoid impaction of most of her airways improving in the past few weeks. REcent copd exacerbation with good improvement uptill recently (was seen last monday in my office and she was at her baseline) * COPD cachexia. * Hypertension/ with sig pain and Chronic low back pain / Significant osteopenia. * Adenexal lesion in the ct * Enlarged cbd with elevated lft with normal bili * REC cont current bronchodilator regimen Check random cortisol level Heme note reveiewed Watch sodium Cont to follow lft WIll follow prn Consult Acknowledgment - Thank you for your consult request.
[2016-08-29 14:05] LABS: ABSOLUTE BASOPHIL COUNT 0 /CUMM (0.0-0.2); ABSOLUTE EOSINOPHIL COUNT 0 /CUMM (0.0-0.7); ABSOLUTE GRANULOCYTE CT 7.2 /CUMM (1.4-6.5); ABSOLUTE LYMPH COUNT 1.6 /CUMM (1.2-3.4); ABSOLUTE MONOCYTE COUNT 0.4 /CUMM (0.10-0.60); BASOPHIL % 0.3 % (0.0-2.0); EOSINOPHIL % 0.1 % (0-5); GRANULOCYTE % 77.4 % (42.2-75.2); HEMATOCRIT 35.5 % (37-47); MEAN CORPUSCULAR HGB 29.2 PG (27.0-31.0); MEAN CORPUSCULAR HGB CONC 34.1 G/DL (33.0-37.0); MEAN CORPUSCULAR VOLUME 85.6 FL (81.0-99.0); MEAN PLATELET VOLUME 10.1 FL (7.4-10.4); RBC DISTRIBUTION WIDTH 13.6 % (11.5-14.5); RED BLOOD CELL CT 4.15 /CUMM (4.20-5.40); WHITE BLOOD CELL COUNT 9.3 /CUMM (4.8-10.8)
[2016-08-29 14:17] LABS: PLATELET COUNT 32 /CUMM (130-400)
[2016-08-29 14:53] VITALS: BP 114/56
--- NOTE | 2016-08-29 17:48 | ULTRASOUND REPORT ---
EXAMINATION: US ABDOMEN LIMITED CLINICAL INFORMATION: Right upper quadrant abdominal pain. Known liver lesion with new transaminitis. COMPARISON: CT abdomen and pelvis with contrast 08/28/2016. TECHNIQUE: Real-time imaging of the right upper quadrant abdominal viscera. FINDINGS: PANCREAS: The visualized portions of the pancreas appear unremarkable. LIVER: Evaluation of the liver parenchyma demonstrates a 0.7 x 0.7 x 0.7 cm hypoechoic lesion within the right hepatic lobe, favored to represent a small hepatic cyst. The liver demonstrates normal size, contour and echogenicity. No intrahepatic biliary duct dilatation. GALLBLADDER: Unremarkable. The gallbladder is physiologically distended without evidence of stones, sludge, polyps, wall thickening or pericholecystic fluid. COMMON BILE DUCT: Mildly dilated, measuring 0.6 cm in diameter. RIGHT KIDNEY: Unremarkable. No hydronephrosis. No renal calculi or focal parenchymal lesions. The kidney measures 10.7 cm in maximum dimension. FREE FLUID: None. IMPRESSION: 1. No cholelithiasis or secondary signs of acute cholecystitis. Persistent mild prominence of the common bile duct, which is visualized measuring up to 0.6 cm in diameter. If there is a clinical concern for choledocholithiasis, consider correlation with MRCP of the abdomen. 2. A 0.7 cm hypoechoic lesion within the right hepatic lobe is favored to correspond to a small hepatic cyst.
--- NOTE | 2016-08-29 18:09 | ULTRASOUND REPORT ---
EXAMINATION: US PELVIC MASS DIAGNOSIS CLINICAL INFORMATION: Left adnexal mass/cyst. COMPARISON: Multiple priors, most recent CT abdomen and pelvis dated 08/28/2016. TECHNIQUE: Transabdominal images of the pelvic structures were obtained. Study is limited secondary to patient's body habitus and lack of transvaginal imaging. FINDINGS: UTERUS: The uterus is retroverted measuring approximately 8.1 x 4.4 x 4.6 cm. No definite myometrial mass is identified. The endometrium is poorly visualized. The cervical length is approximately 1.8 cm. ADNEXA: The right and left ovaries were not identified. The previously seen cystic structure within the left adnexa appears partially visualized but not well evaluated on this examination. FREE FLUID: No significant pelvic free fluid. IMPRESSION: 1. Limited examination secondary to patient body habitus and lack of transvaginal imaging. 2. The previously identified left adnexal cystic structure is only partially visualized on this examination and not well evaluated. An MR pelvis could help further evaluate if clinically indicated. 3. Right and left ovaries were not identified. Grossly unremarkable ultrasound examination of the uterus.
[2016-08-29 22:58] VITALS: BP 118/54
[2016-08-30 05:56] VITALS: BP 110/56
[2016-08-30 08:03] LABS: ABSOLUTE BASOPHIL COUNT 0 /CUMM (0.0-0.2); ABSOLUTE EOSINOPHIL COUNT 0 /CUMM (0.0-0.7); ABSOLUTE LYMPH COUNT 1.9 /CUMM (1.2-3.4); ABSOLUTE MONOCYTE COUNT 0.5 /CUMM (0.10-0.60); BASOPHIL % 0.3 % (0.0-2.0); EOSINOPHIL % 0.2 % (0-5); GRANULOCYTE % 78.2 % (42.2-75.2); HEMATOCRIT 33.5 % (37-47); MEAN CORPUSCULAR HGB 28.7 PG (27.0-31.0); MEAN CORPUSCULAR HGB CONC 33.5 G/DL (33.0-37.0); MEAN CORPUSCULAR VOLUME 85.7 FL (81.0-99.0); RBC DISTRIBUTION WIDTH 13.9 % (11.5-14.5); RED BLOOD CELL CT 3.91 /CUMM (4.20-5.40); WHITE BLOOD CELL COUNT 11.5 /CUMM (4.8-10.8)
--- NOTE | 2016-08-30 08:14 | PN- Housestaff ---
BETO CENTENO 08/30/16 0813: Subjective Follow-up For: Fatigue and weakness Hyponatremia Thrombocytopenia Hypokalemia Chronic back pain Complaints: wekness and fatigue Subjective: Patient was seen and examined this morning. She was sitting on chair and looked tired. She still complaining of mild weakness and tiredness. She remained afebrile with temperature 98.9, pulse 104, respiratory rate 20, blood pressure 114/54 and she is saturating 96% on 2 L per nasal cannula and we will try to wean off her oxygen. Review of Systems Constitutional: Reports: malaise, weakness. Cardiovascular: Denies: chest pain, edema. Respiratory: Denies: hemoptysis, orthopnea. Gastrointestinal: Denies: abdominal pain, bloating, constipation. Musculoskeletal: Reports: see HPI. Objective Last 24 Hrs of Vital Signs/I&O Vital Signs Date Time Temp Pulse Resp B/P B/P Pulse O2 O2 Flow FiO2 Mean Ox Delivery Rate 08/30 1416 98.9 104 20 114/54 96 Nasal 2.0L Cannula 08/30 1008 Nasal 2.0L Cannula 08/30 0800 Nasal 2.0L Cannula 08/30 0556 98.2 97 20 110/56 95 Nasal 2.0L Cannula 08/30 0000 Nasal 2.0L Cannula 08/29 2258 97.2 93 20 118/54 95 Nasal 2.0L Cannula 08/29 1648 Nasal 2.0L Cannula Intake & Output 08/30 1600 08/30 0800 08/30 0000 Intake Total 900 10 240 Output Total 150 Balance 900 10 90 Intake, IV 10 Intake, Oral 900 240 Number 2 1 Bowel Movements Output, Urine 150 Patient 110 lb Weight Physical Exam General Appearance: Alert, Oriented X3, Cooperative Cardiovascular: Regular Rate, Normal S1, Normal S2 Lungs: Normal Air Movement Current Medications: Current Medications Sig/Denice Start time Last Medication Dose Route Stop Time Status Admin Acetaminophen 650 MG Q12P PRN 08/28 2145 AC 08/29 PO 0812 Albuterol Sulfate 2 PUF Q4-6 PRN PRN 08/28 224 AC INH Albuterol Sulfate 3 ML Q6P PRN 08/28 2245 AC INH Budesonide/ 2 PUF BID 08/28 2237 AC 08/30 Formoterol Fumarate INH 1012 Calcium/Vitamin D 1 TAB DAILY 08/29 1000 AC 08/30 PO 1013 Cholecalciferol 1,000 IU DAILY 08/29 1000 AC 08/29 PO 0943 Lactobacillus 1 CAP DAILY 08/29 1000 AC 08/29 Acidophilus PO 0943 Lidocaine 1 PAT DAILY NEEDED PRN 08/28 2145 AC EXT Potassium Chloride 10 MEQ Q1H 08/29 1430 DC 08/29 IV 08/29 1531 1740 Tiotropium [place] 1 PUF DAILY 08/29 1000 AC 08/30 INH 1013 Tramadol HCl 50 MG Q6P PRN 08/28 2200 AC PO Last 24 Hrs of Lab/Carlos Results Last 24 Hrs of Labs/Mics: Laboratory Tests 08/30/16 0610: Anion Gap 6, Estimated GFR > 60, BUN/Creatinine Ratio 28.3 H, CBC w Diff MAN DIFF ORDERED, RBC 3.91 L, MCV 85.7, MCH 28.7, RDW 13.9, MPV 10.0, Gran % 78.2 H, Lymphocytes % 16.9 L, Monocytes % 4.4, Eosinophils % 0.2, Basophils % 0.3, Absolute Granulocytes 9.0 H, Segmented Neutrophils Pending, Absolute Lymphocytes 1.9, Absolute Monocytes 0.5, Absolute Eosinophils 0, Absolute Basophils 0, PUBS MCHC 33.5 08/29/16 2000: Anion Gap 6, Estimated GFR > 60, BUN/Creatinine Ratio 31.7 H Microbiology 08/30 1230 LOWER RESP: Respiratory Culture - RES 08/30 1229 LOWER RESP: Gram Stain - RES Assessment/Plan Assessment: Patient is 75 year old female with past medical history significant for COPD on nocturnal monitor oxygen, hypertension, osteopenia chronic back pain came with chief complaint of worsening weakness and poor intake. Found to have very low platelet count 17 on admission. Patient was admitted on general medical floor and following issues were addressed Thrombocytopenia Patient presented with generalized weakness and poor appetite for one week. Labs on admission showed low platelet count 17,000 on admission. Patient denies any signs of bleeding, denies hematuria, denies any ecchymosis, petichia. * Platelet count was 331 on August 18. Came down to 17 on admission and repeat was 35. And today her platelet count is 43 * New thrombocytopenia of unclear etiology. Patient was seen by heme oncology and as her differentials are most likely viral in origin etiology versus HIT.It could be due to drug induced as she had recent ibuprofen as well as azithromycin. Her 4 T score is 3-4 which is intermediate likelihood of HHT. We will watch closely for any signs of bleeding and also we will monitor her CBC for platelet count if at any point she would bleed or her platelet count came down to less than 10,000 or less than 20,000 with fever we will transfuse her with * Will follow-up CBC in the morning or if she start bleeding at any point. * If she remained stable will be discharged to [facility] tomorrow * We will send Lyme titers to rule out tickborne illness * Repeat peripheral smear is ordered Hyponatremia * Sodium 127 on admission and repeat was 132. We will watch electrolytes closely * Most possibly from hypotension, dehydration, poor oral intake * Hypovolemic hyponatremia * Will provide gentle hydration IV fluid normal saline 75 mL per hour * Repeat BEP in the morning Transaminitis * LFTs elevated on admission * 91, 81, 233. And improved to 79, 70, 172 * Patient denies any abdominal pain * Bilirubin was normal * HIV and hep panel came back normal * Abdominal ultrasound was unremarkable and pelvic ultrasound did not visualize adnexal mass accurately and we will pursue MRI as outpatient * Provide gentle IV hydration * Will Recheck LFTs in the morning * CT abd/pelvis: CBD 0.8 cm, no obstructing stone, no pancreatic mass or intraphepatic biliary dilatation, liver cysts. Generalized weakness * Most possibly from dehydration and hypotension * Patient does complain of low appetite for 1-2 weeks duration * Will get nutrition consult * PTOT consult bandemia and hypotension Patient presented with generalized weakness and low appetite. Complains of low oral intake and dehydration. She is afebrile on admission however 8 bands were noticed on labs. Blood pressure 83/54 on admission improved to 118/68 after fluid resuscitation. * Fulfilled SIRS criteria on admission * However the obvious source was not found * Urine and chest x-ray was clear * We will continue to monitor for any fever, leukocytosis * Will provide gentle IV hydration to monitor blood pressures and electrolytes Chronic low back pain She was discharged from [facility] emergency department on after being treated for back pain and she was given Vicodin. She took Vicodin for a couple of days and then she took Motrin 2 tablets every 4 hours for 4 days for her back pain after which pain came down. * Pain subsided at the time of admission * PT evaluation * Follow-up vitamin D levels came back low to 24.2 and patient will be started on vitamin D supplements * Follow-up B12 came back normal * Continue vitamin D and calcium supplements COPD Patient has COPD who uses 1 L oxygen at nighttime. However she does report ongoing cough associated with sputum production. She has to use oxygen even during daytime because of difficulty breathing. * Patient was discharged from [facility] on 08/18/2016 after being treated for COPD exacerbation * She completed steroids and antibiotic course 4 days ago. * Will provide supplemental oxygen * Total respiratory care * Vitals every shift * Albuterol * Symbicort * No plan of steroid tapering now * Patient was seen by Dr. Mccallum and we will continue her conservative management with TRC and nebulizations history of hypertension Lisinopril on hold because of hypotension on admission we will restart on discharge if her blood pressure remained stable DVT prophylaxis-alps Full code Pain pathway Regular diet Problem List: 1. Thrombocytopenia 2. Weakness Pain Ratin Pain Location: Not applicable Pain Goal: Remain pain free Pain Plan: Tylenol Tomorrow's Labs & Rationales: CBC Basic electrolyte panel LFTs KINGSTON BOWERS MD 08/30/16 1403: Attending MD Review Statement Attending Statement Attending MD Statement: examined this patient, discuss w/resident/PA/[employer], agreed w/resident/PA/ELE[employer] SCI[employer] TE[employer]ER, reviewed EMR data (avail) Attending Assessment/Plan: 75F PMH COPD on 1L PRN home oxygen, HTN, recent admission for COPD exacerbation here with fatigue, generalized weakness, and shortness of breath, found to have a platelet count of 17,000. No productive cough, fever, chills, chest pain, abdominal pain, diarrhea, dysuria. No evidence of bleeding aside from some mild left arm bruising. Platelets have remained stable. Labs otherwise normal. Exam benign. Only new medications were Prednisone and Azithromycin in late July and Vicodin for back pain on 08/22, has also been taking NSAIDs for back pain. Patient still fatigued, otherwise well, no bleeding. Platelets improved slightly to 45. 1. Thrombocytopenia 2. Fatigue 3. Generalized weakness 4. COPD 5. Shortness of breath Plan - Continue on general medicine - Follow pulmonary and hematology recommendations - Monitor platelets - Transfuse platelets only if <10,000 or if evidence of bleeding - Neuro checks, if altered obtain CT head - TRC/nebulizer treatments - Continue home medications - ALPS for DVT PPx - Anticipated discharge tomorrow to [facility]. Please send CMR for review. No labs tomorrow.
[2016-08-30 09:38] LABS: PLATELET COUNT 43 /CUMM (130-400)
--- NOTE | 2016-08-30 11:11 | PN- Hematology ---
Subjective Subjective: She continues to feel weak and tired. She has not had any fever or chills. She has no new pain. She denies any bleeding. Review of Systems: Constitutional: Reports: weakness. Denies: chills. Cardiovascular: Denies: chest pain. Respiratory: Reports: cough, short of breath. Denies: hemoptysis. GI: Denies: diarrhea. Genitourinary: Denies: dysuria. Musculoskeletal: Reports: back pain. Neurological/Psychological: Reports: weakness. Hematologic/Endocrine: Reports: bruising. Denies: bleeding. All Other Systems: Reviewed and Negative Objective Vital Signs and I&Os Vital Signs Date Time Temp Pulse Resp B/P B/P Pulse O2 O2 Flow FiO2 Mean Ox Delivery Rate 08/30 1008 Nasal 2.0L Cannula 08/30 0800 Nasal 2.0L Cannula 08/30 0556 98.2 97 20 110/56 95 Nasal 2.0L Cannula 08/30 0000 Nasal 2.0L Cannula 08/29 2258 97.2 93 20 118/54 95 Nasal 2.0L Cannula 08/29 1648 Nasal 2.0L Cannula 08/29 1453 97.4 94 20 114/56 94 Nasal 2.0L Cannula Intake & Output 08/30 1600 08/30 0800 / 0000 / 1600 08/29 0800 05/ 0000 Intake Total 10 240 720 800 350 Output Total 150 500 200 Balance 10 90 720 300 150 Intake, IV 10 800 150 Intake, Oral 240 720 200 Number 1 1 Bowel Movements Output, Urine 150 500 200 Patient 49.895 kg 49.895 kg Weight Weight Reported by Patient Measurement Method Physical Exam: General Appearance: alert, awake, comfortable, thin female. Head: atraumatic, normal appearance Ears, Nose, Throat: normal pharynx, dry mucosa Neck: normal inspection Respiratory: normal breath sounds, chest non-tender, quiet respiration, decreased breath sounds Cardiovascular: regular rate/rhythm Gastrointestinal: normal bowel sounds, soft, non-tender, no organomegaly Neurologic/Psych: awake, alert, oriented x 3 Skin: ecchymosis (LUE) Current Medications: Current Medications Sig/Denice Start time Last Medication Dose Route Stop Time Status Admin Acetaminophen 650 MG Q12P PRN 08/28 2145 AC 08/29 PO 0812 Albuterol Sulfate 2 PUF Q4-6 PRN PRN 08/28 2245 AC INH Albuterol Sulfate 3 ML Q6P PRN 08/28 2245 AC INH Budesonide/ 2 PUF BID 08/28 2237 AC 08/30 Formoterol Fumarate INH 1012 Calcium/Vitamin D 1 TAB DAILY 08/29 1000 AC 08/30 PO 1013 Cholecalciferol 1,000 IU DAILY 08/29 1000 AC 08/29 PO 0943 Lactobacillus 1 CAP DAILY 08/29 1000 AC 08/29 Acidophilus PO 0943 Lidocaine 1 PAT DAILY NEEDED PRN 08/28 2145 AC EXT Patient Medication 1 ED .STK-MED ONE 08/29 1405 DC Teaching ED 08/29 1406 Potassium Chloride 60 MEQ ONCE ONE 08/29 1430 DC 08/29 PO 08/29 1431 1451 Potassium Chloride 10 MEQ Q1H 08/29 1430 DC 08/29 IV 08/29 1531 1740 Tiotropium [place] 1 PUF DAILY 08/29 1000 AC 08/30 INH 1013 Tramadol HCl 50 MG Q6P PRN 08/28 2200 AC PO Results Last 24 Hours of Lab Results: Laboratory Tests 08/30 08/29 0610 1999 Chemistry Sodium (137 - 145 mmol/L) 133 L 130 L Potassium (3.5 - 5.1 mmol/L) 3.9 3.6 Chloride (98 - 107 mmol/L) 101 98 Carbon Dioxide (22 - 30 mmol/L) 26 25 Anion Gap (5 - 16) 6 6 BUN (7 - 17 mg/dL) 17 19 H Creatinine (0.5 - 1.0 mg/dL) 0.6 0.6 Estimated GFR (>60 ml/min) > 60 > 60 BUN/Creatinine Ratio (7 - 25 %) 28.3 H 31.7 H Hematology CBC w Diff NO MAN DIFF REQ WBC (4.8 - 10.8 /CUMM) 11.5 H RBC (4.20 - 5.40 /CUMM) 3.91 L Hgb (12.0 - 16.0 G/DL) 11.2 L Hct (37 - 47 %) 33.5 L MCV (81.0 - 99.0 FL) 85.7 MCH (27.0 - 31.0 PG) 28.7 RDW (11.5 - 14.5 %) 13.9 Plt Count (130 - 400 /CUMM) 43 L MPV (7.4 - 10.4 FL) 10.0 Gran % (42.2 - 75.2 %) 78.2 H Lymphocytes % (20.5 - 51.1 %) 16.9 L Monocytes % (1.7 - 9.3 %) 4.4 Eosinophils % (0 - 5 %) 0.2 Basophils % (0.0 - 2.0 %) 0.3 Absolute Granulocytes (1.4 - 6.5 /CUMM) 9.0 H Absolute Lymphocytes (1.2 - 3.4 /CUMM) 1.9 Absolute Monocytes (0.10 - 0.60 /CUMM) 0.5 Absolute Eosinophils (0.0 - 0.7 /CUMM) 0 Absolute Basophils (0.0 - 0.2 /CUMM) 0 PUBS MCHC (33.0 - 37.0 G/DL) 33.5 05/08 1200 Chemistry Sodium (137 - 145 mmol/L) 135 L Potassium (3.5 - 5.1 mmol/L) 2.9 *L Chloride (98 - 107 mmol/L) 99 Carbon Dioxide (22 - 30 mmol/L) 26 Anion Gap (5 - 16) 9 BUN (7 - 17 mg/dL) 20 H Creatinine (0.5 - 1.0 mg/dL) 0.7 Estimated GFR (>60 ml/min) > 60 BUN/Creatinine Ratio (7 - 25 %) 28.6 H Hematology CBC w Diff NO MAN DIFF REQ WBC (4.8 - 10.8 /CUMM) 9.3 RBC (4.20 - 5.40 /CUMM) 4.15 L Hgb (12.0 - 16.0 G/DL) 12.1 Hct (37 - 47 %) 35.5 L MCV (81.0 - 99.0 FL) 85.6 MCH (27.0 - 31.0 PG) 29.2 RDW (11.5 - 14.5 %) 13.6 Plt Count (130 - 400 /CUMM) 32 L MPV (7.4 - 10.4 FL) 10.1 Gran % (42.2 - 75.2 %) 77.4 H Lymphocytes % (20.5 - 51.1 %) 17.4 L Monocytes % (1.7 - 9.3 %) 4.8 Eosinophils % (0 - 5 %) 0.1 Basophils % (0.0 - 2.0 %) 0.3 Absolute Granulocytes (1.4 - 6.5 /CUMM) 7.2 H Absolute Lymphocytes (1.2 - 3.4 /CUMM) 1.6 Absolute Monocytes (0.10 - 0.60 /CUMM) 0.4 Absolute Eosinophils (0.0 - 0.7 /CUMM) 0 Absolute Basophils (0.0 - 0.2 /CUMM) 0 PUBS MCHC (33.0 - 37.0 G/DL) 34.1 Recent Imaging Studies: Pelvis Ultrasound 08/29/2016: 1. Limited examination secondary to patient body habitus and lack of transvaginal imaging. 2. The previously identified left adnexal cystic structure is only partially visualized on this examination and not well evaluated. An MR pelvis could help further evaluate if clinically indicated. 3. Right and left ovaries were not identified. Grossly unremarkable ultrasound examination of the uterus. Abdominal US 08/29/2016: 1. No cholelithiasis or secondary signs of acute cholecystitis. Persistent mild prominence of the common bile duct, which is visualized measuring up to 0.6 cm in diameter. If there is a clinical concern for choledocholithiasis, consider correlation with MRCP of the abdomen. 2. A 0.7 cm hypoechoic lesion within the right hepatic lobe is favored to correspond to a small hepatic cyst. Assessment/Plan Assessment/Recommendations: Ms. Lynn is a 75-yo female with COPD on 1L NC who presented to hospital with fatigue and hypotension. She is improving but still have fatigue. During admission, she was noted to have thrombocytopenia with platelet count of 17,000. This has increased to 43,000 this morning. Etiology is unclear at the moment. She has normal platelet count on 08/23. Peripheral blood smear demonstrated giant platelets. Differentials include HIT, drug-induced, and infectious etiology. Viral syndrome is possible along with tick-borne illness. Drug-induced with exposure to ibuprofen and azithromycin. It would be rare to have drug-induced thrombocytopenia from these two medications. HIT is also a possibility. She was exposed to heparin back in April and again in July. Her 4T score is approximately [address] her at intermediate likelihood of HIT. She has no skin toxicity or thrombosis. ITP is also in the differential. This is less likely at the moment. Platelet is improved today. The process may be self- limited. She can be continued to be monitored. In addition, she has an adnexal mass which is concerning. Pelvic ultrasound was difficult. She may need to have MRI of the pelvis done to evaluate mass. Recommendations: 1. Monitor CBC daily 2. Infectious work up including viral studies and tick-borne disease 3. Avoid heparin product for now 4. Transfuse if platelet count <10,000 or <20,000 with fever 5. Consider MRI pelvis for adnexal cyst/mass Please call [phone] with any questions or concerns. Problem List: 1. Thrombocytopenia 2. Weakness 3. Abdominal pain
--- NOTE | 2016-08-30 11:21 | PN- Pulmonary ---
Subjective HPI/Critical Care Issues: She continues to feel weak and tired. She has not had any fever or chills. She has no new pain. She denies any bleeding. Review of Systems: Constitutional: Reports: weakness. Denies: chills. Cardiovascular: Denies: chest pain. Respiratory: Reports: cough, short of breath. Denies: hemoptysis. GI: Denies: diarrhea. Genitourinary: Denies: dysuria. Musculoskeletal: Reports: back pain. Neurological/Psychological: Reports: weakness. Hematologic/Endocrine: Reports: bruising. Denies: bleeding. All Other Systems: Reviewed and Negative Objective Current Medications: Current Medications Sig/Denice Start time Last Medication Dose Route Stop Time Status Admin Acetaminophen 650 MG Q12P PRN 08/28 2145 AC 08/29 PO 0812 Albuterol Sulfate 2 PUF Q4-6 PRN PRN 08/28 2245 AC INH Albuterol Sulfate 3 ML Q6P PRN 08/28 2245 AC INH Budesonide/ 2 PUF BID 08/28 2237 AC 08/30 Formoterol Fumarate INH 1012 Calcium/Vitamin D 1 TAB DAILY 08/29 1000 AC 08/30 PO 1013 Cholecalciferol 1,000 IU DAILY 08/29 1000 AC 08/29 PO 0943 Lactobacillus 1 CAP DAILY 08/29 1000 AC 08/29 Acidophilus PO 0943 Lidocaine 1 PAT DAILY NEEDED PRN 08/28 2145 AC EXT Patient Medication 1 ED .STK-MED ONE 08/29 1405 DC Teaching ED 08/29 1406 Potassium Chloride 60 MEQ ONCE ONE 08/29 1430 DC / PO 08/29 1431 1451 Potassium Chloride 10 MEQ Q1H 08/29 1430 DC 08/29 IV 08/29 1531 1740 Tiotropium [place] 1 PUF DAILY 08/29 1000 AC 08/30 INH 1013 Tramadol HCl 50 MG Q6P PRN 08/28 2200 AC PO Laboratory Tests 08/30 08/29 0610 1999 Chemistry Sodium (137 - 145 mmol/L) 133 L 130 L Potassium (3.5 - 5.1 mmol/L) 3.9 3.6 Chloride (98 - 107 mmol/L) 101 98 Carbon Dioxide (22 - 30 mmol/L) 26 25 Anion Gap (5 - 16) 6 6 BUN (7 - 17 mg/dL) 17 19 H Creatinine (0.5 - 1.0 mg/dL) 0.6 0.6 Estimated GFR (>60 ml/min) > 60 > 60 BUN/Creatinine Ratio (7 - 25 %) 28.3 H 31.7 H Hematology CBC w Diff NO MAN DIFF REQ WBC (4.8 - 10.8 /CUMM) 11.5 H RBC (4.20 - 5.40 /CUMM) 3.91 L Hgb (12.0 - 16.0 G/DL) 11.2 L Hct (37 - 47 %) 33.5 L MCV (81.0 - 99.0 FL) 85.7 MCH (27.0 - 31.0 PG) 28.7 RDW (11.5 - 14.5 %) 13.9 Plt Count (130 - 400 /CUMM) 43 L MPV (7.4 - 10.4 FL) 10.0 Gran % (42.2 - 75.2 %) 78.2 H Lymphocytes % (20.5 - 51.1 %) 16.9 L Monocytes % (1.7 - 9.3 %) 4.4 Eosinophils % (0 - 5 %) 0.2 Basophils % (0.0 - 2.0 %) 0.3 Absolute Granulocytes (1.4 - 6.5 /CUMM) 9.0 H Absolute Lymphocytes (1.2 - 3.4 /CUMM) 1.9 Absolute Monocytes (0.10 - 0.60 /CUMM) 0.5 Absolute Eosinophils (0.0 - 0.7 /CUMM) 0 Absolute Basophils (0.0 - 0.2 /CUMM) 0 PUBS MCHC (33.0 - 37.0 G/DL) 33.5 05/08 05/08 1200 0630 Chemistry Sodium (137 - 145 mmol/L) 135 L 132 L Potassium (3.5 - 5.1 mmol/L) 2.9 *L 3.1 L Chloride (98 - 107 mmol/L) 99 101 Carbon Dioxide (22 - 30 mmol/L) 26 21 L Anion Gap (5 - 16) 9 10 BUN (7 - 17 mg/dL) 20 H 20 H Creatinine (0.5 - 1.0 mg/dL) 0.7 0.7 Estimated GFR (>60 ml/min) > 60 > 60 BUN/Creatinine Ratio (7 - 25 %) 28.6 H 28.6 H Total Bilirubin (0.2 - 1.3 mg/dL) 0.6 Direct Bilirubin (< 0.4 mg/dL) 0.4 AST (14 - 36 U/L) 79 H ALT (9 - 52 U/L) 70 H Alkaline Phosphatase (<127 U/L) 172 H Total Protein (6.3 - 8.2 g/dL) 4.2 L Albumin (3.5 - 5.0 g/dL) 2.0 L Coagulation PT (9.4 - 12.5 SEC) 11.0 INR (0.90 - 1.19) 1.05 APTT (25 - 37 SEC) 26 Hematology CBC w Diff NO MAN DIFF REQ MAN DIFF ORDERED WBC (4.8 - 10.8 /CUMM) 9.3 9.1 RBC (4.20 - 5.40 /CUMM) 4.15 L 4.01 L Hgb (12.0 - 16.0 G/DL) 12.1 11.4 L Hct (37 - 47 %) 35.5 L 34.1 L MCV (81.0 - 99.0 FL) 85.6 85.1 MCH (27.0 - 31.0 PG) 29.2 28.5 RDW (11.5 - 14.5 %) 13.6 13.6 Plt Count (130 - 400 /CUMM) 32 L 28 *L MPV (7.4 - 10.4 FL) 10.1 10.6 H Gran % (42.2 - 75.2 %) 77.4 H 77.5 H Lymphocytes % (20.5 - 51.1 %) 17.4 L 15.7 L Monocytes % (1.7 - 9.3 %) 4.8 6.5 Eosinophils % (0 - 5 %) 0.1 0.1 Basophils % (0.0 - 2.0 %) 0.3 0.2 Absolute Granulocytes (1.4 - 6.5 /CUMM) 7.2 H 7.0 H Segmented Neutrophils (42.2 - 75.2 %) 78 H Band Neutrophils (0.0 - 5.0 %) 3 Absolute Lymphocytes (1.2 - 3.4 /CUMM) 1.6 1.4 Lymphocytes (20.5 - 51.1 %) 16 L Monocytes (1.7 - 9.3 %) 3 Absolute Monocytes (0.10 - 0.60 /CUMM) 0.4 0.6 Absolute Eosinophils (0.0 - 0.7 /CUMM) 0 0 Absolute Basophils (0.0 - 0.2 /CUMM) 0 0 Platelet Estimate (ADEQUATE) DECREASED Anisocytosis 1+ PUBS MCHC (33.0 - 37.0 G/DL) 34.1 33.4 08/28 08/28 2156 1638 Hematology CBC w Diff NO MAN DIFF REQ WBC (4.8 - 10.8 /CUMM) 7.3 RBC (4.20 - 5.40 /CUMM) 4.11 L Hgb (12.0 - 16.0 G/DL) 11.8 L Hct (37 - 47 %) 35.2 L MCV (81.0 - 99.0 FL) 85.6 MCH (27.0 - 31.0 PG) 28.7 RDW (11.5 - 14.5 %) 13.6 Plt Count (130 - 400 /CUMM) 35 L MPV (7.4 - 10.4 FL) 12.2 H Gran % (42.2 - 75.2 %) 78.3 H Lymphocytes % (20.5 - 51.1 %) 18.1 L Monocytes % (1.7 - 9.3 %) 3.4 Eosinophils % (0 - 5 %) 0.1 Basophils % (0.0 - 2.0 %) 0.1 Absolute Granulocytes (1.4 - 6.5 /CUMM) 5.7 Absolute Lymphocytes (1.2 - 3.4 /CUMM) 1.3 Absolute Monocytes (0.10 - 0.60 /CUMM) 0.2 Absolute Eosinophils (0.0 - 0.7 /CUMM) 0 Absolute Basophils (0.0 - 0.2 /CUMM) 0 PUBS MCHC (33.0 - 37.0 G/DL) 33.5 Urines Urine Osmolality (300 - 1000 MOSM/KG) 367 Ur Random Creatinine (mg/dL) 25.6 Ur Random Sodium (30 - 90 mmol/L) 52 Ur Random Potassium (mmol/L) 22.6 Fraction Sodium Excret (<1% %) 1.4 H 08/28 08/28 1636 1540 Chemistry Lactic Acid Cancelled Urines Urine Color (YEL,AMB,STR) YEL Urine Clarity (CLEAR) CLEAR Urine pH (5.0 - 8.0) 6.0 Ur Specific [place] (1.001 - 1.035) <= 1.005 Urine Protein (NEG,<30 MG/DL) TRACE H Urine Ketones (NEG) TRACE H Urine Nitrite (NEG) NEG Urine Bilirubin (NEG) NEG Urine Urobilinogen (0.1 - 1.0 EU/dl) 0.2 Ur Leukocyte Esterase (NEG) NEG Ur Microscopic SEDIMENT EXAMINED Urine RBC (0 - 5 /HPF) 5-10 H Ur Epithelial Cells (NONE,FEW) FEW Urine Bacteria (NEG/NONE) FEW H Urine Hemoglobin (NEG) MOD H Urine Glucose (N MG/DL) NEG 08/28 08/28 08/28 1537 1250 1250 Chemistry Sodium (137 - 145 mmol/L) 127 L Potassium (3.5 - 5.1 mmol/L) 3.8 Chloride (98 - 107 mmol/L) 92 L Carbon Dioxide (22 - 30 mmol/L) 23 Anion Gap (5 - 16) 12 BUN (7 - 17 mg/dL) 29 H Creatinine (0.5 - 1.0 mg/dL) 0.9 Estimated GFR (>60 ml/min) > 60 BUN/Creatinine Ratio (7 - 25 %) 32.2 H Glucose (65 - 99 mg/dL) 97 Serum Osmolality (285 - 295 MOSM/KG) 269 L Lactic Acid (0.7 - 2.1 mmol/L) Cancelled 1.5 Calcium (8.4 - 10.2 mg/dL) 7.9 L Total Bilirubin (0.2 - 1.3 mg/dL) 0.9 AST (14 - 36 U/L) 91 H ALT (9 - 52 U/L) 81 H Alkaline Phosphatase (<127 U/L) 233 H Creatine Kinase (30 - 135 U/L) 297 H Total Protein (6.3 - 8.2 g/dL) 5.2 L Albumin (3.5 - 5.0 g/dL) 2.6 L Globulin (1.9 - 4.2 gm/dL) 2.6 Albumin/Globulin Ratio (1.1 - 2.2 %) 1.0 L Lipase (23 - 300 U/L) 34 Vitamin B12 (239 - 931 pg/mL) > 1000 H 25-OH Vitamin D Total (30 - 100 ng/ml) 24.2 L Folate (2.76 - 20.0 ng/mL) 15.5 Coagulation PT (9.4 - 12.5 SEC) 10.9 INR (0.90 - 1.19) 1.04 Hematology CBC w Diff MAN DIFF ORDERED WBC (4.8 - 10.8 /CUMM) 7.7 RBC (4.20 - 5.40 /CUMM) 4.40 Hgb (12.0 - 16.0 G/DL) 12.6 Hct (37 - 47 %) 37.0 MCV (81.0 - 99.0 FL) 84.2 MCH (27.0 - 31.0 PG) 28.7 RDW (11.5 - 14.5 %) 13.9 Plt Count (130 - 400 /CUMM) 17 *L MPV (7.4 - 10.4 FL) 9.9 Gran % (42.2 - 75.2 %) 84.4 H Lymphocytes % (20.5 - 51.1 %) 12.1 L Monocytes % (1.7 - 9.3 %) 3.4 Eosinophils % (0 - 5 %) 0 Basophils % (0.0 - 2.0 %) 0.1 Absolute Granulocytes (1.4 - 6.5 /CUMM) 6.5 Segmented Neutrophils (42.2 - 75.2 %) 75 Band Neutrophils (0.0 - 5.0 %) 8 H Absolute Lymphocytes (1.2 - 3.4 /CUMM) 0.9 L Lymphocytes (20.5 - 51.1 %) 11 L Monocytes (1.7 - 9.3 %) 5 Absolute Monocytes (0.10 - 0.60 /CUMM) 0.3 Absolute Eosinophils (0.0 - 0.7 /CUMM) 0 Basophils (0.0 - 2.0 %) 1 Absolute Basophils (0.0 - 0.2 /CUMM) 0 Normocytic RBCs VERIFIED Normochromic RBCs VERIFIED PUBS MCHC (33.0 - 37.0 G/DL) 34.1 Serology Hepatitis A IgM Ab (NONREACTIVE) NONREACTIVE Hep Bs Antigen (NONREACTIVE) NONREACTIVE Hep B Core IgM Ab Conf (NONREACTIVE) NONREACTIVE Hepatitis C Antibody (NONREACTIVE) NONREACTIVE HIV 1&2 Ab Western Blot (NONREACTIVE) NONREACTIVE 08/28 1239 Chemistry Lipase Cancelled Microbiology Date/Time Procedure - Status Source Growth 08/29 708 Respiratory Culture - COLB LOWER RESP 08/29 07 Gram Stain - COLB LOWER RESP 08/28 2259 Blood Culture - RES BLOOD 08/28 2156 Blood Culture - RES BLOOD 08/28 1636 Urine Culture - COMP URINE ROUT Vital Signs & I&O Last 24 Hrs of Vitals and I&O: Vital Signs Date Time Temp Pulse Resp B/P B/P Pulse O2 O2 Flow FiO2 Mean Ox Delivery Rate 08/30 1008 Nasal 2.0L Cannula 08/30 08 Nasal 2.0L Cannula 08/30 0556 98.2 97 20 110/56 95 Nasal 2.0L Cannula 08/30 0000 Nasal 2.0L Cannula 08/29 2258 97.2 93 20 118/54 95 Nasal 2.0L Cannula 08/29 1648 Nasal 2.0L Cannula 08/29 1453 97.4 94 20 114/56 94 Nasal 2.0L Cannula Intake & Output 08/30 1600 08/30 0800 08/30 0000 Intake Total 10 240 Output Total 150 Balance 10 90 Intake, IV 10 Intake, Oral 240 Number 1 Bowel Movements Output, Urine 150 Patient 110 lb Weight Impression/Plan Impression/Plan Impression/Plan: Physical Exam: General Appearance: alert, awake, comfortable, thin female. Head: atraumatic, normal appearance Ears, Nose, Throat: normal pharynx, dry mucosa Neck: normal inspection Respiratory: normal breath sounds, chest non-tender, quiet respiration, decreased breath sounds Cardiovascular: regular rate/rhythm Gastrointestinal: normal bowel sounds, soft, non-tender, no organomegaly Neurologic/Psych: awake, alert, oriented x 3 Skin: ecchymosis (LUE) This is a lady with advanced emphysema with COPD, cachexia with FEV1 less than 50%, on and off, sciatica, hypertension, osteopenia, now comes in with increasing Fatigue with sig thrombocytopenia She has had sig worsening lba recently Issues include * PRofound fatigue and thrombocytopenia and sig hyponatremia due to viral illness vs other reactive process from meds * Advanced copd with chronic mucoid impaction of most of her airways improving in the past few weeks. REcent copd exacerbation with good improvement uptill recently (was seen last monday in my office and she was at her baseline) * COPD cachexia. * Hypertension/ with sig pain and Chronic low back pain / Significant osteopenia. * Adenexal lesion in the ct * Enlarged cbd with elevated lft with normal bili * REC cont current bronchodilator regimen Check random cortisol level from am Heme note reveiewed Watch sodium Cont to follow lft in am (improved today) WIll follow prn
--- NOTE | 2016-08-30 12:46 | NUR ---
NURSING NOTE: PATIENT CALLED THIS RN IN AND NOTED THE PATIENT HAVING A BLOODY NOSE. PATIENT INSTRUCTED TO PINCH BRIDGE OF NOSE FOR 5 MINUTES AND RE-CHECK FOR BLEEDING. HUMIDIFIER ATTACHED TO OXYGEN AT THIS TIME TI HELP PREVENT FURTHER NOSE BLEEDS. RESIDENT 011 NOTIFIED. BLEEDING STOPPED AFTER APPROX. 2 MINUTES. NO NEW ORDERS AT THIS TIME. WILL CONTINUE TO MONITOR.
[2016-08-30 14:16] VITALS: BP 114/54
[2016-08-30] MEDS ORDERED: LISINOPRIL20 M1 PO (14:42)
--- NOTE | 2016-08-30 14:53 | Patient Discharge Instructions ---
Discharge Instructions General Discharge Information You were seen/treated for: Generalized weakness Low platelet count Special Instructions: Please follow-up with your primary care physician in one week of discharge Please repeat CBC on 09/02/2016 and again next week to follow-up on platelet count Please follow-up with hematology/oncology as outpatient Please watch for any signs of bleeding Please follow-up with your primary care physician for adnexal mass and pursuing further for MRI of pelvis and report back to emergency room in case of any significant bleeding Diet Continue normal diet: Yes Activity Additional ACTIVITY Info: As tolerated with assistance Acute Coronary Syndrome Inclusion Criteria At DC or during hospital stay patient has or had the following: ACS DIAGNOSIS No Discharge Core Measures Meds if any: Prescribed or Continued at Discharge Meds if any: NOT Prescribed or Continued at Discharge Congestive Heart Failure Inclusion Criteria At DC or during hospital stay patient has or had the following: CHF DIAGNOSIS No Discharge Core Measures Meds if any: Prescribed or Continued at Discharge Meds if any: NOT Prescribed or Continued at Discharge Cerebrovascular accident Inclusion Criteria At DC or during hospital stay patient has or had the following: CVA/TIA Diagnosis No Discharge Core Measures Meds if any: Prescribed or Continued at Discharge Meds if any: NOT Prescribed or Continued at Discharge Venous thromboembolism Inclusion Criteria VTE Diagnosis No VTE Type NONE VTE Confirmed by (Test) NONE Discharge Core Measures - Per Current guidelines, there needs to be overlap - treatment for the first 5 days of Warfarin therapy. - If discharged on Warfarin prior to 5 days of - overlap therapy, the patient will need to be - assessed for post discharge needs including - *Post discharge parental anticoagulation - *Warfarin and/or parental anticoagulation education - *Follow up date to check INR post discharge At least 5 days overlap therapy as Inpatient No Meds if any: Prescribed or Continued at Discharge Note: Overlap Therapy is Warfarin and Anticoagulant Meds if any: NOT Prescribed or Continued at Discharge
--- NOTE | 2016-08-30 17:47 | Discharge Summary ---
See Addendum Visit Information Visit Dates Admission Date: 08/28/16 Discharge Date: 08/31/2016 Hospital Course Course Attending Physician: Dr. Bowers Primary Care Physician: JOSE LUIS FONTAINE MD Hospital Course: Patient is 75-year-old female with past medical history significant for COPD on 1 L nasal cannula oxygen, hypertension and osteopenia presented to emergency room with chief complaint of weakness and fatigue. Patient was recently been hospitalized for COPD exacerbation from 425 05/28/2026 and was discharged on azithromycin and prednisone. Later she had ER visit on 51 for back pain and was discharged on Vicodin. On admission to the emergency room she had no fever with MAXIMUM TEMPERATURE of 99.9. Of note patient was found to have very low platelet count 17,000 and admission without any evidence of bleeding. On examination mild bruising on left arm was noted that was present since last admission. But patient admits that she had easy bruising in the past. She was admitted on general medical floor and following issues were addressed Thrombocytopenia Patient presented with generalized weakness and poor appetite for one week. Labs on admission showed low platelet count 17,000 on admission. Oncology/ hematology was consulted and patient was seen by Dr. Rivera. And initial thought was as she dropped her platelets from 2 69,000 on August 23 it suggest a consumptive peripheral process. Given her history, differentials includes HIT, drug-induced , and infectious. Her fatigue, weakness, and hypotension are concerning for potential infectious etiology including viral syndrome. Drug-induced is also possible given exposure to ibuprofen and azithromycin. Her platelet count seem to have already dropped to 269,000 at the end of her azithromcyin therapy. It would be rare to have drug-induced thrombocytopenia from these two medications. HIT is also a possibility. She was exposed to heparin back in April and again in July. Platelet count seems to drop >10 days out from last dose of heparin. Her 4T score is around [address] her at intermediate likelihood of HIT. She has no signs or symptoms thrombophilia. ITP is also in the differential. This is less likely at the moment. Patient was not exposed to any heparin products during this hospital stay. HIV and hepatitis panel was checked that came back negative. Later on Lyme titer was also sent. Patient was watched carefully for any bleeding and regular platelet/CBC was checked and her platelet count which initially increased to 35 later on decreased to 28 but slowly came back to 32 and 43 next day. Patient was evaluated by physical therapy and Plan is to discharge patient to [facility] and CBC would be monitored twice weekly. Patient is instructed to follow-up by hematology as outpatient Hyponatremia * On admission her sodium was 127 that was progressively went up and her electrolyte panel were monitored daily Hyphosphatemia/hypomagenesemia: * Phosphate 2.3. Will repleted with Neutra-Phos * Magnesium 1.5. We'll repleted with IV magnesium Malnutrition: * Albumin 6.4L, albumin 2.0 * Nutrition Recommendations for ensure clear TID PRN Transaminitis * LFTs elevated on admission and progressively came down and LFTs were monitored on a regular basis Hypotension, Generalized fatigue in the setting of poor oral intake: * Noted to be likely secondary to dehydration in the setting of poor oral intake. Noticeable improvement with normal saline hydration * TFTs within normal limits * A.m. cortisol was checked in the setting of recent prednisone taper which came back at 18.2 WNL Chronic low back pain Patient was given acetaminophen by mouth as needed for pain and patient worked with physical therapy COPD Pulmonology consultation was placed. Patient was provided with supplemental oxygen. Patient was given bronchodilator, TRC and nebulization. history of hypertension * Lisinopril on hold because of hypotension * Please reassess blood pressure readings after discharge and restart medication as tolerated DVT prophylaxis-alps Full code Pain pathway Regular diet Complications: none Allergies: Coded Allergies: cefuroxime (BLOTCHES BUT ALSO TOOK WITH PREDNISONE UNSURE WHICH ONE 08/16/16) CAUSED THE REACTION Significant Procedures: SERVICE DATE: 08/29/16-170 EXAM TYPE: US - US-PELVIC MASS DIAG EXAMINATION: US PELVIC MASS DIAGNOSIS CLINICAL INFORMATION: Left adnexal mass/cyst. COMPARISON: Multiple priors, most recent CT abdomen and pelvis dated 08/28/2016. TECHNIQUE: Transabdominal images of the pelvic structures were obtained. Study is limited secondary to patient's body habitus and lack of transvaginal imaging. FINDINGS: UTERUS: The uterus is retroverted measuring approximately 8.1 x 4.4 x 4.6 cm. No definite myometrial mass is identified. The endometrium is poorly visualized. The cervical length is approximately 1.8 cm. ADNEXA: The right and left ovaries were not identified. The previously seen cystic structure within the left adnexa appears partially visualized but not well evaluated on this examination. FREE FLUID: No significant pelvic free fluid. IMPRESSION: 1. Limited examination secondary to patient body habitus and lack of transvaginal imaging. 2. The previously identified left adnexal cystic structure is only partially visualized on this examination and not well evaluated. An MR pelvis could help further evaluate if clinically indicated. 3. Right and left ovaries were not identified. Grossly unremarkable ultrasound examination of the uterus. Pertinent Lab Results: SERVICE DATE: 08/29/16 EXAM TYPE: US - US-LIMITED ABDOMEN EXAMINATION: US ABDOMEN LIMITED CLINICAL INFORMATION: Right upper quadrant abdominal pain. Known liver lesion with new transaminitis. COMPARISON: CT abdomen and pelvis with contrast 08/28/2016. TECHNIQUE: Real-time imaging of the right upper quadrant abdominal viscera. FINDINGS: PANCREAS: The visualized portions of the pancreas appear unremarkable. LIVER: Evaluation of the liver parenchyma demonstrates a 0.7 x 0.7 x 0.7 cm hypoechoic lesion within the right hepatic lobe, favored to represent a small hepatic cyst. The liver demonstrates normal size, contour and echogenicity. No intrahepatic biliary duct dilatation. GALLBLADDER: Unremarkable. The gallbladder is physiologically distended without evidence of stones, sludge, polyps, wall thickening or pericholecystic fluid. COMMON BILE DUCT: Mildly dilated, measuring 0.6 cm in diameter. RIGHT KIDNEY: Unremarkable. No hydronephrosis. No renal calculi or focal parenchymal lesions. The kidney measures 10.7 cm in maximum dimension. FREE FLUID: None. IMPRESSION: 1. No cholelithiasis or secondary signs of acute cholecystitis. Persistent mild prominence of the common bile duct, which is visualized measuring up to 0.6 cm in diameter. If there is a clinical concern for choledocholithiasis, consider correlation with MRCP of the abdomen. 2. A 0.7 cm hypoechoic lesion within the right hepatic lobe is favored to correspond to a small hepatic cyst. Disposition Summary Disposition Principal Diagnosis: Thrombocytopenia Additional Diagnosis: Generalized weakness SIRS criteria Hypomagnesemia Hypophosphatemia Hypotension Malnutrition Discharge Disposition: SNF Discharge Instructions General Discharge Information Code Status: Full Code Patient's Diet: Regular diet Patient's Activity: As tolerated with assistance Follow-Up Instructions/Appts: Please follow-up with your primary care physician in one week of discharge Please repeat CBC on 09/02/2016 and again next week to follow-up on platelet count Please follow-up with hematology/oncology as outpatient Please watch for any signs of bleeding Please follow-up with your primary care physician for adnexal mass and pursuing further for MRI of pelvis Report back to emergency room in case of any significant bleeding. CT findings showed: There is a thin-walled cyst in the left adnexal region which measures approximately 4.7 x 3.0 x 3.8 cm in size. This will require outpatient follow-up with possible MRI and hematology workup as needed. Medications at Discharge Discharge Medications: Stop taking the following medications: Lisinopril (Lisinopril) 20 MG TABLET ORAL DAILY Days = 30 Continue taking these medications: Tiotropium [place] (Spiriva Respimat) 2.5 MCG/ACTUATION MIST.INHAL 2 Puff Inhale through mouth DAILY Qty = 12 Comments: Last Taken: 08/31/16 Time: 0800 Albuterol Sulfate (Proair Hfa) 90 MCG HFA.AER.AD 2 PUFF Inhale through mouth EVERY 4-6 HOURS NEEDED as needed for COPD Qty = 8 Comments: NOT GIVEN IN HOSPITAL Albuterol Sulfate (Albuterol Sulfate) 2.5 MG/0.5 ML VIAL.NEB 1 Vial Inhale Solution THREE TIMES DAILY as needed for COPD Qty = 60 Comments: NOT GIVEN IN HOSPITAL Budesonide/Formoterol Fumarate (Symbicort 160-4.5 Mcg Inhaler) 160 MCG-4.5 MCG/ ACTUATION HFA.AER.AD 2 Puff Inhale through mouth TWICE DAILY Qty = 1 Comments: Last Taken: 08/31/16 Time: 0800 Cholecalciferol (Vitamin D3) (Vitamin D) 2,000 UNIT TABLET 1 Tablet ORAL DAILY Comments: NOT GIVEN IN HOSPITAL Calcium Carbonate/Vitamin D3 (Caltrate 600 + D Soft Chew Tab) (Unknown Strength) TAB.CHEW Unknown Dose ORAL DAILY Comments: Last Taken: 08/31/16 Time: 0800 Lactobacillus Acidophilus (Probiotic) (Unknown Strength) CAPSULE 1 Capsule ORAL DAILY Qty = 30 Comments: Last Taken: 08/31/16 Time: 0800 Hydrocodone/Acetaminophen (Vicodin 5-300 MG Tablet) 5 MG-300 MG TABLET 1 Tablet ORAL TWICE DAILY Qty = 10 Instructions: [place]..[id number] Comments: NOT GIVEN IN HOSPITAL Copies To: MINAL ACEVEDO,JOSE LUIS Valentin; KEYANNA ACEVEDO,MARCELLE Allen; UMANG ACEVEDO,PATRICE Attending Review Statement Documenting Attending: KINGSTON BOWERS MD Documenting Attending: KINGSTON BOWERS MD
[2016-08-30 22:49] VITALS: BP 108/55
--- NOTE | 2016-08-31 06:51 | PN- Housestaff ---
INA ROSARIO 08/31/16 0650: Subjective Follow-up For: Generalized fatigue Early satiety Lumbar cytopenia Hyponatremia Hypokalemia Malnutrition Complaints: feeling weak, intermittent loose stools, poor appetite Tele-Events Since Last Visit: Not on telemetry Subjective: Interval history: This morning Mrs Lynn reports that she feels slightly better than she did 24 hours ago. She reports still feeling weak, low appetite and occasional loose stools. She denies any chest pain, palpitations, worsening shortness of breath, fevers or chills. Review of Systems Constitutional: Reports: see HPI. EENTM: Reports: no symptoms. Cardiovascular: Reports: no symptoms. Respiratory: Reports: see HPI. Gastrointestinal: Reports: see HPI. Musculoskeletal: Reports: see HPI. Objective Last 24 Hrs of Vital Signs/I&O Vital Signs Date Time Temp Pulse Resp B/P B/P Pulse O2 O2 Flow FiO2 Mean Ox Delivery Rate 08/31 0800 Nasal 2.0L Cannula 08/31 0700 97.6 117 20 99/56 94 Nasal 2.0L Cannula 08/31 0000 Nasal 2.0L Cannula 08/30 2249 98.2 99 18 108/55 96 Nasal 2.0L Cannula 08/30 1416 98.9 104 20 114/54 96 Nasal 2.0L Cannula Intake & Output 08/31 1600 08/31 0800 08/31 0000 Intake Total 400 Output Total 1 Balance 400 -1 Intake, IV 400 Output, Urine 1 Physical Exam General Appearance: Alert, Cooperative, No Acute Distress, Cachectic appearing Skin: No Breakdown HEENT: EOMI, Mucous Membr. moist/pink Cardiovascular: Regular Rate, Normal S1, Normal S2, tachycardia Lungs: Clear to Auscultation, Normal Air Movement Abdomen: Normal Bowel Sounds, Soft, No Tenderness Neurological: Normal Speech, Normal Tone Extremities: No Edema, Normal Pulses Vascular: Normal Pulses Current Medications: Current Medications Sig/Denice Start time Last Medication Dose Route Stop Time Status Admin Acetaminophen 650 MG Q12P PRN 08/28 2145 AC 08/29 PO 0812 Albuterol Sulfate 2 PUF Q4-6 PRN PRN 08/28 2245 AC INH Albuterol Sulfate 3 ML Q6P PRN 08/28 2245 AC INH Budesonide/ 2 PUF BID 08/28 2237 AC 08/31 Formoterol Fumarate INH 0816 Calcium/Vitamin D 1 TAB DAILY 08/29 1000 AC 08/31 PO 0815 Cholecalciferol 1,000 IU DAILY 08/29 1000 AC 08/31 PO 0816 Lactobacillus 1 CAP DAILY 08/29 1000 AC 08/31 Acidophilus PO 0815 Lidocaine 1 PAT DAILY NEEDED PRN 08/28 2145 AC EXT Ondansetron HCl 4 MG Q6P PRN 08/30 2045 AC IV Sodium Chloride 1,000 ML Q20H 08/30 1530 AC 08/31 IV 1033 Tiotropium [place] 1 PUF DAILY 08/29 1000 AC 08/31 INH 0816 Tramadol HCl 50 MG Q6P PRN 08/28 2200 AC PO Last 24 Hrs of Lab/Carlos Results Last 24 Hrs of Labs/Mics: Laboratory Tests 08/31/16 0650: Anion Gap 5, Estimated GFR > 60, BUN/Creatinine Ratio 23.3, Total Bilirubin 0.6, Direct Bilirubin 0.3, AST 32, ALT 56 H, Alkaline Phosphatase 128 H, Total Protein 4.2 L, Albumin 2.0 L, Cortisol AM Sample 18.2, CBC w Diff NO MAN DIFF REQ, RBC 3.82 L, MCV 86.6, MCH 28.5, RDW 14.3, MPV 10.7 H, Gran % 80.3 H, Lymphocytes % 14.0 L, Monocytes % 5.2, Eosinophils % 0.2, Basophils % 0.3, Absolute Granulocytes 9.8 H, Absolute Lymphocytes 1.7, Absolute Monocytes 0.6, Absolute Eosinophils 0, Absolute Basophils 0, PUBS MCHC 32.9 L 08/30/16 1548: Lyme Disease Antibody 0.37 Microbiology 08/30 1230 LOWER RESP: Respiratory Culture - RES 08/30 1230 LOWER RESP: Gram Stain - RES Assessment/Plan Assessment: Patient is 75 year old female with past medical history significant for COPD on nocturnal monitor oxygen, hypertension, osteopenia chronic back pain came with chief complaint of worsening weakness and poor intake. Found to have very low platelet count 17 on admission. Patient was admitted on general medical floor and following issues were addressed SIRS criteria: * New onset tachycardia, leukocytosis 12.2 * Continue to monitor blood cultures. Holding off antibiotics at this time as no clear source of underlying infection is present Hypotension, Generalized fatigue in the setting of poor oral intake: * BP 99/56 this morning while on normal saline at 50 mL an hour * Slight improvement during the day and blood pressure. Will continue with gentle hydration, encourage PO intake * We'll check an EKG and troponin 1 to rule out ACS * TFTs within normal limits * A.m. cortisol was checked in the setting of recent prednisone taper which came back at 18.2 WNL Thrombocytopenia * Patient presented with generalized weakness and poor appetite for one week. Labs on admission showed low platelet count 17,000 on admission. Patient denies any signs of bleeding, denies hematuria, denies any ecchymosis, petichia. * Platelet count of 331 K on 08/18/16 Noted to be 17 on admissionInterval improvement over the past 72 hours: 76K this morning * DX: Viral vs drug induced vs HIT * Patient was on cefuroxime as recently as May * Her 4 T score is 3-4 which is intermediate likelihood of HHT * Hematology on board: Recommendations at this time for continued monitoring and if platelets drop to less than 10,000 or evidence of bleeding, plan for transfusion * We will send Lyme titers to rule out tickborne illness * Repeat peripheral smear is ordered Hyphosphatemia/hypomagenesemia: * Phosphate 2.3. Will replete with Neutra-Phos and recheck in the a.m. * Magnesium 1.5. We'll replete with IV magnesium in the setting of loose bowel movements and recheck in the a.m. Malnutrition: * Albumin 6.4L, albumin 2.0 * Nutrition Recommendations for ensure clear TID PRN Hyponatremia * Normal urine osmolality, low serum osmolality 269 * Patient appears euvolemic status hypovolemic at this time * Currently on NS at 50 mL an hour * Most possibly from hypotension, dehydration, poor oral intake Transaminitis * LFTs elevated on admission * 91, 81, 233. And improved to 79, 70, 172 * Patient denies any abdominal pain * Bilirubin was normal * HIV and hep panel came back normal * Abdominal ultrasound was unremarkable and pelvic ultrasound did not visualize adnexal mass accurately and we will pursue MRI as outpatient * Provide gentle IV hydration * Will Recheck LFTs in the morning * CT abd/pelvis: CBD 0.8 cm, no obstructing stone, no pancreatic mass or intraphepatic biliary dilatation, liver cysts. Chronic low back pain She was discharged from [facility] emergency department on after being treated for back pain and she was given Vicodin. She took Vicodin for a couple of days and then she took Motrin 2 tablets every 4 hours for 4 days for her back pain after which pain came down. * Vitamin D level 24.2 * Continue vitamin D and calcium supplements COPD Patient has COPD who uses 1 L oxygen at nighttime. Initially presented with mild productive cough and daytime requirements for oxygen . Recent discharge from [place] on 08/18/16 for COPD exacerbation and completed a short course of antibiotics and prednisone taper * Plan to discharge the patient to [place] for physical and pulmonary rehabilitation * Nebulizer therapy when necessary * Patient was seen by Dr. Mccallum and we will continue her conservative management with TRC and nebulizations history of hypertension * Lisinopril on hold because of hypotension on admission we will restart on discharge if her blood pressure remained stable DVT prophylaxis-alps Full code Pain pathway Regular diet * Problem List: 1. Thrombocytopenia 2. Weakness 3. Malnutrition 4. Hyponatremia 5. Hypophosphatemia 6. Hypomagnesemia Pain Ratin Pain Location: NA Pain Goal: Pain 4 or less Pain Plan: PAin pathway Tomorrow's Labs & Rationales: NA. Stable for discharge DVT/Prophylaxis: mechanical Discharge Plan Discharge Disposition: STR/NH Stable for Discharge? Yes Anticipated Discharge (Day): today If Discharged Today/In 24 Hrs: enter ant[facility] discharge ord, W-/discharge paper done, DC summary done, CMR done KINGSTON BOWERS MD 08/31/16 1055: Attending Review Statement Attending Statement Attending MD Statement: examined this patient, discuss w/resident/PA/PORCELAIN BUILDUP ASSISTANT, agreed w/resident/PA/PORCELAIN BUILDUP ASSISTANT, reviewed EMR data (avail) Attending Assessment/Plan: 75F PMH COPD on 1L PRN home oxygen, HTN, recent admission for COPD exacerbation here with fatigue, generalized weakness, and shortness of breath, found to have a platelet count of 17,000. No productive cough, fever, chills, chest pain, abdominal pain, diarrhea, dysuria. No evidence of bleeding aside from some mild left arm bruising. Platelets have remained stable. Labs otherwise normal. Exam benign. Only new medications were Prednisone and Azithromycin in late July and Vicodin for back pain on 08/22, has also been taking NSAIDs for back pain. Patient still fatigued, otherwise well, no bleeding. Platelets improved to 76 today. 1. Thrombocytopenia 2. Fatigue 3. Generalized weakness 4. COPD 5. Shortness of breath Plan - Stable for discharge to STR - Follow pulmonary and hematology recommendations - Continue home medications - Would advise patient to abstain from NSAIDs or Azithromycin until she can be further evaluated by PCP or hematology for thrombocytopenia - Outpatient pelvic MRI per hematology recommendations - May follow up viral workup as an outpatient Patient still fatigued, otherwise well, no bleeding. Platelets improved to 76 today. 1. Thrombocytopenia 2. Fatigue 3. Generalized weakness 4. COPD 5. Shortness of breath Plan - Stable for discharge to STR - Follow pulmonary and hematology recommendations - Continue home medications - Would advise patient to abstain from NSAIDs or Azithromycin until she can be further evaluated by PCP or hematology for thrombocytopenia - Outpatient pelvic MRI per hematology recommendations - May follow up viral workup as an outpatient further evaluated by PCP or hematology for thrombocytopenia - Outpatient pelvic MRI per hematology recommendations - May follow up viral workup as an outpatient further evaluated by PCP or hematology for thrombocytopenia
[2016-08-31 07:00] VITALS: BP 99/56
[2016-08-31 07:57] LABS: ABSOLUTE BASOPHIL COUNT 0 /CUMM (0.0-0.2); ABSOLUTE EOSINOPHIL COUNT 0 /CUMM (0.0-0.7); BASOPHIL % 0.3 % (0.0-2.0); EOSINOPHIL % 0.2 % (0-5)
[2016-08-31 08:26] LABS: ABSOLUTE GRANULOCYTE CT 9.8 /CUMM (1.4-6.5); ABSOLUTE LYMPH COUNT 1.7 /CUMM (1.2-3.4); ABSOLUTE MONOCYTE COUNT 0.6 /CUMM (0.10-0.60); GRANULOCYTE % 80.3 % (42.2-75.2); HEMATOCRIT 33.1 % (37-47); MEAN CORPUSCULAR HGB 28.5 PG (27.0-31.0); MEAN CORPUSCULAR HGB CONC 32.9 G/DL (33.0-37.0); MEAN CORPUSCULAR VOLUME 86.6 FL (81.0-99.0); MEAN PLATELET VOLUME 10.7 FL (7.4-10.4); RBC DISTRIBUTION WIDTH 14.3 % (11.5-14.5); RED BLOOD CELL CT 3.82 /CUMM (4.20-5.40); WHITE BLOOD CELL COUNT 12.2 /CUMM (4.8-10.8)
[2016-08-31 09:14] LABS: PLATELET COUNT 76 /CUMM (130-400)
--- NOTE | 2016-08-31 09:45 | PN- Hematology ---
Subjective Subjective: She continues to feel weak with lack of appetite. She does not want to eat anything. She denies any pain. She has no fever or chills. She has no nausea or vomiting. She reports some diarrhea of loose stool. Review of Systems: Constitutional: Reports: weakness. Denies: chills. Cardiovascular: Denies: chest pain. Respiratory: Reports: cough, short of breath. Denies: hemoptysis. GI: Denies: diarrhea. Genitourinary: Denies: dysuria. Musculoskeletal: Reports: back pain. Neurological/Psychological: Reports: weakness. Hematologic/Endocrine: Denies: bleeding. All Other Systems: Reviewed and Negative Objective Vital Signs and I&Os Vital Signs Date Time Temp Pulse Resp B/P B/P Pulse O2 O2 Flow FiO2 Mean Ox Delivery Rate 08/31 07 97.6 117 20 99/56 94 Nasal 2.0L Cannula 08/31 0000 Nasal 2.0L Cannula 08/30 2249 98.2 99 18 108/55 96 Nasal 2.0L Cannula 08/30 1416 98.9 104 20 114/54 96 Nasal 2.0L Cannula 08/30 1008 Nasal 2.0L Cannula Intake & Output 08/31 1600 08/31 0800 08/31 0000 / 1600 08/30 0800 08/30 0000 Intake Total 400 900 10 240 Output Total 1 150 Balance 400 -1 900 10 90 Intake, IV 400 10 Intake, Oral 900 240 Number 2 1 Bowel Movements Output, Urine 1 150 Patient 49.895 kg Weight Physical Exam: General Appearance: alert, awake, comfortable, thin female. Head: atraumatic, normal appearance Ears, Nose, Throat: normal pharynx, dry mucosa Neck: normal inspection Respiratory: normal breath sounds, chest non-tender, quiet respiration, decreased breath sounds Cardiovascular: regular rate/rhythm Gastrointestinal: normal bowel sounds, soft, non-tender, no organomegaly Neurologic/Psych: awake, alert, oriented x 3 Skin: ecchymosis (LUE) Current Medications: Current Medications Sig/Denice Start time Last Medication Dose Route Stop Time Status Admin Acetaminophen 650 MG Q12P PRN 08/28 2145 AC / PO 0812 Albuterol Sulfate 2 PUF Q4-6 PRN PRN 08/28 2245 AC INH Albuterol Sulfate 3 ML Q6P PRN 08/28 2245 AC INH Budesonide/ 2 PUF BID 08/28 2237 AC 08/31 Formoterol Fumarate INH 0816 Calcium/Vitamin D 1 TAB DAILY 08/29 1000 AC 08/31 PO 0815 Cholecalciferol 1,000 IU DAILY 08/29 1000 AC 08/31 PO 0816 Lactobacillus 1 CAP DAILY 08/29 1000 AC 08/31 Acidophilus PO 0815 Lidocaine 1 PAT DAILY NEEDED PRN 08/28 2145 AC EXT Ondansetron HCl 4 MG Q6P PRN 08/30 2045 AC IV Sodium Chloride 1,000 ML Q20H 08/30 1530 AC 08/30 IV 1532 Tiotropium [place] 1 PUF DAILY 08/29 1000 AC 08/31 INH 0816 Tramadol HCl 50 MG Q6P PRN 08/28 2200 AC PO Results Last 24 Hours of Lab Results: Laboratory Tests 08/31 08/30 0650 1548 Chemistry Sodium (137 - 145 mmol/L) 131 L Potassium (3.5 - 5.1 mmol/L) 3.9 Chloride (98 - 107 mmol/L) 99 Carbon Dioxide (22 - 30 mmol/L) 27 Anion Gap (5 - 16) 5 BUN (7 - 17 mg/dL) 14 Creatinine (0.5 - 1.0 mg/dL) 0.6 Estimated GFR (>60 ml/min) > 60 BUN/Creatinine Ratio (7 - 25 %) 23.3 Total Bilirubin (0.2 - 1.3 mg/dL) 0.6 Direct Bilirubin (< 0.4 mg/dL) 0.3 AST (14 - 36 U/L) 32 ALT (9 - 52 U/L) 56 H Alkaline Phosphatase (<127 U/L) 128 H Total Protein (6.3 - 8.2 g/dL) 4.2 L Albumin (3.5 - 5.0 g/dL) 2.0 L Cortisol AM Sample (4.46 - 22.7 ug/dL) 18.2 Hematology CBC w Diff NO MAN DIFF REQ WBC (4.8 - 10.8 /CUMM) 12.2 H RBC (4.20 - 5.40 /CUMM) 3.82 L Hgb (12.0 - 16.0 G/DL) 10.9 L Hct (37 - 47 %) 33.1 L MCV (81.0 - 99.0 FL) 86.6 MCH (27.0 - 31.0 PG) 28.5 RDW (11.5 - 14.5 %) 14.3 Plt Count (130 - 400 /CUMM) 76 L MPV (7.4 - 10.4 FL) 10.7 H Gran % (42.2 - 75.2 %) 80.3 H Lymphocytes % (20.5 - 51.1 %) 14.0 L Monocytes % (1.7 - 9.3 %) 5.2 Eosinophils % (0 - 5 %) 0.2 Basophils % (0.0 - 2.0 %) 0.3 Absolute Granulocytes (1.4 - 6.5 /CUMM) 9.8 H Absolute Lymphocytes (1.2 - 3.4 /CUMM) 1.7 Absolute Monocytes (0.10 - 0.60 /CUMM) 0.6 Absolute Eosinophils (0.0 - 0.7 /CUMM) 0 Absolute Basophils (0.0 - 0.2 /CUMM) 0 PUBS MCHC (33.0 - 37.0 G/DL) 32.9 L Serology Lyme Disease Antibody Pending Assessment/Plan Assessment/Recommendations: Ms. Lynn is a 75-yo female with COPD on 1L NC who presented to hospital with fatigue and hypotension. She is improving but still have fatigue. During admission, she was noted to have thrombocytopenia with platelet count of 17,000. This has increased to 43,000 this morning. Etiology is unclear at the moment. She has normal platelet count on 08/23. Peripheral blood smear demonstrated giant platelets. Differentials include HIT, drug-induced, and infectious etiology. Viral syndrome is possible along with tick-borne illness. Platelet is improving slowly. It is at 76,000 today. She also is noted to have an pelvic adnexal cyst /mass. This may be workup by MRI. This is reasonable given persistent weakness or decrease appetite. Recommendations: 1. Monitor CBC daily 2. Follow up infectious work up 3. Avoid heparin product for now 4. Consider MRI pelvis for adnexal cyst/mass work up given persistent fatigue Please call [phone] with any questions or concerns. Problem List: 1. Thrombocytopenia 2. Weakness 3. Abdominal pain
[2016-08-31 12:20] VITALS: BP 99/56
[2016-08-31 13:12] VITALS: BP 108/52
--- NOTE | 2016-08-31 13:36 | PN- Pulmonary ---
Subjective HPI/Critical Care Issues: She continues to feel weak with lack of appetite. She does not want to eat anything. She denies any pain. She has no fever or chills. She has no nausea or vomiting. She reports some diarrhea of loose stool. Review of Systems: Constitutional: Reports: weakness. Denies: chills. Cardiovascular: Denies: chest pain. Respiratory: Reports: cough, short of breath. Denies: hemoptysis. GI: Denies: diarrhea. Genitourinary: Denies: dysuria. Musculoskeletal: Reports: back pain. Neurological/Psychological: Reports: weakness. Hematologic/Endocrine: Denies: bleeding. All Other Systems: Reviewed and Negative Objective Current Medications: Current Medications Sig/Denice Start time Last Medication Dose Route Stop Time Status Admin Acetaminophen 650 MG Q12P PRN 08/28 2145 AC 08/29 PO 0812 Albuterol Sulfate 2 PUF Q4-6 PRN PRN 08/28 2245 AC INH Albuterol Sulfate 3 ML Q6P PRN 08/28 2245 AC INH Budesonide/ 2 PUF BID 08/28 2237 AC 08/31 Formoterol Fumarate INH 0816 Calcium/Vitamin D 1 TAB DAILY 08/29 1000 AC 08/31 PO 0815 Cholecalciferol 1,000 IU DAILY 08/29 1000 AC 08/31 PO 0816 Lactobacillus 1 CAP DAILY 08/29 1000 AC 08/31 Acidophilus PO 0815 Lidocaine 1 PAT DAILY NEEDED PRN 08/28 2145 AC EXT Magnesium Sulfate 1 GM Q2H 08/31 1315 AC Dextrose/Water 100 ML IV 08/31 1714 Ondansetron HCl 4 MG Q6P PRN 08/30 2045 AC IV Sodium Chloride 1,000 ML Q20H / 1530 AC /10 IV 1033 Tiotropium [place] 1 PUF DAILY 08/29 1000 AC 08/31 INH 0816 Tramadol HCl 50 MG Q6P PRN 08/28 2200 AC PO Vital Signs & I&O Last 24 Hrs of Vitals and I&O: Vital Signs Date Time Temp Pulse Resp B/P B/P Pulse O2 O2 Flow FiO2 Mean Ox Delivery Rate 08/31 1312 98.2 105 20 108/52 93 Nasal 2.0L Cannula 08/31 1220 97.6 117 20 99/56 / 0800 Nasal 2.0L Cannula 08/31 0700 97.6 117 20 99/56 94 Nasal 2.0L Cannula 08/31 0000 Nasal 2.0L Cannula 08/30 2249 98.2 99 18 108/55 96 Nasal 2.0L Cannula 08/30 1416 98.9 104 20 114/54 96 Nasal 2.0L Cannula Intake & Output 08/31 1600 08/31 0800 05 0000 Intake Total 400 Output Total 1 Balance 400 -1 Intake, IV 400 Output, Urine 1 Impression/Plan Impression/Plan Impression/Plan: Physical Exam: General Appearance: alert, awake, comfortable, thin female. Head: atraumatic, normal appearance Ears, Nose, Throat: normal pharynx, dry mucosa Neck: normal inspection Respiratory: normal breath sounds, chest non-tender, quiet respiration, decreased breath sounds Cardiovascular: regular rate/rhythm Gastrointestinal: normal bowel sounds, soft, non-tender, no organomegaly Neurologic/Psych: awake, alert, oriented x 3 Skin: ecchymosis (LUE) This is a lady with advanced emphysema with COPD, cachexia with FEV1 less than 50%, on and off, sciatica, hypertension, osteopenia, now comes in with increasing Fatigue with sig thrombocytopenia She has had sig worsening lba recently Issues include * PRofound fatigue and thrombocytopenia and sig hyponatremia due to viral illness vs other reactive process from meds * Advanced copd with chronic mucoid impaction of most of her airways improving in the past few weeks. REcent copd exacerbation with good improvement uptill recently (was seen last monday in my office and she was at her baseline) * COPD cachexia. * Hypertension/ with sig pain and Chronic low back pain / Significant osteopenia. * Adenexal lesion in the ct * Enlarged cbd with elevated lft with normal bili REC cont current bronchodilator regimen Heme note reveiewed Watch sodium, may need fluid restriction WIll follow prn
[2016-08-31 15:04] VITALS: BP 110/58
--- NOTE | 2016-08-31 15:34 | NUR ---
PER MD INA ROSARIO ADMINISTER IV MAG SULFATE OVER ONE HOUR PER BAG. WILL CONTINUE TO MONITOR.
--- NOTE | 2016-08-31 16:43 | NUR ---
Consult received for low albumin, poor PO intake, thank you for consult. Discussed with Dr Salazar. Visited with pt, doesn't feel hungry, trying to eat when she can and drink. Will offer hartman ensure clear TID as discussed with pt and f/u for tolerance.
== END 2016-08-31 17:45 | DRG 813 ==
LOC: ERH 12:15 → 2NB 15:29 → ERHI 15:29 → 2NB 15:29 → ENRESERV 19:01 → 2NB 20:13 → ENPENDDIS 08-31 14:24 → 2NB 08-31 17:45
PROVIDERS: Internal Medicine; Internal Medicine Cardiovascular Disease; Physician Assistant; ADMIT Student in an Organized Health Care Education/Training Program
DX: D69.6 Thrombocytopenia, unspecified (principal); E46 Unspecified protein-calorie malnutrition; I95.9 Hypotension, unspecified; R64 Cachexia; J44.9 Chronic obstructive pulmonary disease, unspecified; E87.1 Hypo-osmolality and hyponatremia; E86.0 Dehydration; I10 Essential (primary) hypertension; Z68.21 Body mass index [BMI] 21.0-21.9, adult; R74.0 Nonspecific elevation of levels of transaminase and lactic acid dehydrogenase [LDH]
CPT/HCPCS: 2NSBP; 84133; 84300; 86618; 36415; 74177; 81001; 82436; 82570; 87040; 87070; 87071; 87086; 87389; 93005; 93010; 97110-GO; 97116-GO; 97161-GP; 97530-GO; J2405; J3490; J7040

== ENCOUNTER 2016-09-13 10:15 | Inpatient (IN) | payer OTHER ==
[~2016-09-13] VITALS: Ht 152.4 cm; Wt 52.6 kg
[2016-09-13 10:36] LABS: ABSOLUTE BASOPHIL COUNT 0 /CUMM (0.0-0.2); ABSOLUTE EOSINOPHIL COUNT 0 /CUMM (0.0-0.7)
[2016-09-13 10:39] LABS: ABSOLUTE GRANULOCYTE CT 21.1 /CUMM (1.4-6.5); ABSOLUTE LYMPH COUNT 1.3 /CUMM (1.2-3.4); ABSOLUTE MONOCYTE COUNT 1.6 /CUMM (0.10-0.60); BASOPHIL % 0.2 % (0.0-2.0); EOSINOPHIL % 0.1 % (0-5); GRANULOCYTE % 87.4 % (42.2-75.2); HEMATOCRIT 35.3 % (37-47); MEAN CORPUSCULAR HGB 27.6 PG (27.0-31.0); MEAN CORPUSCULAR HGB CONC 32.8 G/DL (33.0-37.0); MEAN CORPUSCULAR VOLUME 84.2 FL (81.0-99.0); MEAN PLATELET VOLUME 7.4 FL (7.4-10.4); PLATELET COUNT 371 /CUMM (130-400); RBC DISTRIBUTION WIDTH 13.4 % (11.5-14.5); RED BLOOD CELL CT 4.19 /CUMM (4.20-5.40); WHITE BLOOD CELL COUNT 24.1 /CUMM (4.8-10.8)
--- NOTE | 2016-09-13 10:48 | ED GI/GU/ABDOMINAL COMPLAINT ---
History of Present Illness General Chief Complaint: Nausea, Vomiting, Diarrhea Stated Complaint: FEELS BLOATED, NAUSEA Source: patient, EMS, PCP, W10 Exam Limitations: no limitations Vital Signs & Intake/Output Vital Signs & Intake/Output Vital Signs Date Time Temp Pulse Resp B/P B/P Pulse O2 O2 Flow FiO2 Mean Ox Delivery Rate 09/14 1435 98.2 98 20 108/62 92 Room Air 09/14 0932 20 92 Room Air 09/14 0918 97.9 90 20 104/50 95 Nasal 1.0L Cannula 09/14 0800 98 100/50 09/14 0800 95 Nasal 1.0L Cannula 09/14 0758 93 Nasal 1.0L Cannula 09/14 0742 98.5 102 20 99/43 92 Nasal 2.0L Cannula 09/14 0000 95 Nasal 2.0L Cannula 09/13 2309 97.9 93 18 98/50 95 Nasal 2.0L Cannula 09/13 2027 Nasal 2.0L Cannula 09/13 1805 97.9 107 20 92/50 95 Nasal 2.0L Cannula 09/13 1750 Nasal 2.0L Cannula 09/13 1649 98.0 88 16 100/52 96 Nasal 2.0L Cannula ED Intake and Output 09/14 0000 09/13 1200 Intake Total 300 1000 Output Total 500 Balance -200 1000 Intake, IV 300 1000 Intake, Oral 0 Output, Urine 500 Patient 109 lb 108 lb Weight Weight Reported by Patient Measurement Method Allergies Coded Allergies: cefuroxime (BLOTCHES BUT ALSO TOOK WITH PREDNISONE UNSURE WHICH ONE 08/16/16) CAUSED THE REACTION prednisone (UNKNOWN 09/13/16) Reconcile Medications Albuterol Sulfate 2.5 MG/0.5 ML VIAL.NEB 1 Vial INH/HINA TID PRN COPD Budesonide/Formoterol Fumarate (Symbicort 160-4.5 Mcg Inhaler) 160 MCG-4.5 MCG/ ACTUATION HFA.AER.AD 2 PUF INH BID copd Calcium Carbonate/Vitamin D3 (Caltrate 600 + D Soft Chew Tab) 600 MG-800 TAB.CHEW 1 TAB PO DAILY SUPPLEMENT (Reported) Cholecalciferol (Vitamin D3) (Vitamin D) 2,000 UNIT TABLET 1 TAB PO DAILY SUPPLEMENT (Reported) Lactobacillus Acidophilus (Acidophilus) 1 EACH CAPSULE 1 CAP PO DAILY probiotic (Reported) Metoprolol Succ XL (Toprol XL) 25 MG TAB 1 TAB PO DAILY HEART (Reported) Nystatin 100,000 UNIT/ML ORAL.SUSP 15 ML PO DAILY antifungal (Reported) Tiotropium [place] (Spiriva Respimat) 2.5 MCG/ACTUATION MIST.INHAL 2 PUF INH DAILY SOB (Reported) Triage Note: 76 YO FEMALE BIBA FROM SNF. PT STATES SHE HAS BEEN FEELING BLOATED AND HAVING DIRRHEA. DENIES ABD PAIN. PT WEARS OXYGEN AT BASELINE 2L. STATES SHE HAS BEEN NAUSEOUS BUT HAS NOT VOMITING. DENIES NAUSEA AT THIS TIME. ABD SOFT. Triage Nurses Notes Reviewed? yes ? N Is pt currently ? No Onset: Gradual Duration: day(s): (10) Timing: recent history Quality/Severity: mild, moderate Location: generalized abdomen Radiation: ABX USE Associated Symptoms: DIARRHEA, WEAKNESS, POOR PO INTAKE HPI: This is a very pleasant 76-year-old female history of O2 dependent COPD who was hospitalized at the beginning of month for COPD presents from longterm for chief complaint of abdominal pain and diarrhea for the past 10 days. Patient reports a 9 pound weight loss. She's had 2-3 stool episodes per day. Denies any blood in stool. Today her doctor Gregg saw her in the longterm sent her here for evaluation. She has not had any stool for the last 2 days as they recently started Imodium. According to Dr. Sam the C. difficile stool culture was sent but is pending. ABC done last week was normal. Patient claims of abdominal pain and nausea. Poor appetite although she did have one chocolate chip cookie this morning. No episodes of vomiting. Denies any fever or chills. History of C. difficile colitis many years ago and states that that episode was more severe. Past History Travel History Traveled to [place] past 21 day No Medical History Any Pertinent Medical History? 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 No Review of Systems Review of Systems Constitutional: Reports: malaise, weakness. Denies: chills, fever. EENTM: Reports: no symptoms. Respiratory: Denies: short of breath. Cardiovascular: Denies: chest pain. GI: Reports: see HPI (CRAMPING), diarrhea, nausea. Genitourinary: Denies: discharge, dysuria. Musculoskeletal: Reports: no symptoms. Skin: Reports: no symptoms. Neurological/Psychological: Reports: no symptoms. Hematologic/Endocrine: Denies: bleeding. Immunologic/Allergic: Denies: splenectomy. All Other Systems: Reviewed and Negative Physical Exam Physical Exam General Appearance: cachetic, mild distress, moderate distress, thin Head: atraumatic, normal appearance Eyes: Bilateral: other (SUNKEN EYES). Ears, Nose, Throat, Mouth: hearing grossly normal Neck: normal inspection, supple, full range of motion Respiratory: normal breath sounds, chest non-tender, no respiratory distress Cardiovascular: tachycardia Peripheral Pulses: 2+ radial (R), 2+ radial (L) Gastrointestinal: normal bowel sounds, soft, tenderness (LOWER ABDOMEN) Back: normal inspection, normal range of motion Neurologic/Psych: no motor/sensory deficits, awake, alert, oriented x 3 Skin: intact, normal color, warm/dry Core Measures ACS in differential dx? No Severe Sepsis Present: No Septic Shock Present: No Progress Differential Diagnosis: ischemic bowel, inflamm bowel dis, perforated viscous, SBO, colitis, C. difficile, dehydration, RANDALL Plan of Care: Orders Procedure Date/time Status CBC WITHOUT DIFFERENTIAL 09/15 0600 Active BASIC ELECTROLYTES PLUS BUN&CR 09/15 0600 Active Nothing by Mouth 09/14 B Active Weight 09/14 1436 Active FingerStick- Glucose 09/14 1436 Active CBC WITHOUT DIFFERENTIAL 09/14 0600 Complete BASIC ELECTROLYTES PLUS BUN&CR 09/14 0600 Complete TPN 2 in 1 Std Electrolytes 09/14 UNK Active Periph. Inserted Central Cath 09/14 UNK Active NUTRITIONAL CONSULT 09/14 UNK Active RT: Evaluation 09/13 2025 Active CULTURE,URINE 09/13 1909 Active BLOOD CULTURE 09/13 1909 Active Vital Signs 09/13 1905 Complete Teach/Educate 09/13 1905 Active Pain Treatment and Response 09/13 1905 Active Nutritional Intake, Monitor 09/13 1905 Active Isolation 09/13 1905 Active Intake & Output 09/13 1905 Active Patient Care Conference 09/13 190 Active Activity/Ambulation 09/13 190 Active LACTIC ACID 09/13 1849 Complete Add-on Test (ER Only) 09/13 1712 Active Pathway - chart 09/13 1558 Active Code Status 09/13 1551 Active TRC EVALUATION (GEN) 09/13 1525 Complete OXYGEN SETUP (GEN) 09/13 1525 Complete Pathway - chart 09/13 1525 Active House Staff 09/13 1525 Active Patient Data 09/13 1525 Active LACTIC ACID 09/13 1024 Complete OXYGEN SETUP CHG 09/13 UNK Complete AEROSOL CHG 09/13 UNK Complete OXYGEN 09/13 UNK Complete OXYGEN TRANSPORT 09/13 UNK Complete THERAPIST ORDERS 09/13 UNK Complete VTE Mechanical Prophylaxis 09/13 UNK Active Vital Signs 09/13 UNK Complete MISTAKE 09/13 UNK Active Intake & Output 09/13 UNK Complete PHARMACY COMMUNICATION FORM 09/13 UNK Active Current Medications Sig/Denice Start time Last Medication Dose Stop Time Status Admin Fat Emulsion 150 ML Q24H 09/14 1900 AC Intravenous 09/15 1859 (Intralipid 20% 500ML) Total Parenteral 1 UNIT ONE 09/14 1900 AC Nutrition 09/15 1859 (TPN) Albuterol Sulfate 3 ML EVERY 4 HRS/AWAKE 09/14 0800 AC 09/14 (Proventil) 0747 Diphenhydramine HCl 50 MG Q6P PRN 09/13 2129 AC 09/13 (Benadryl) 9 Epinephrine 0.15 MG ONCE PRN 09/13 2014 AC (Adrenalin 1:1000) Vancomycin HCl 125 MG Q6H 09/13 2000 AC 09/14 0815 Pantoprazole Sodium 40 MG DAILY 09/13 191 AC 09/14 (Protonix) 0815 Potassium Chloride 20 MEQ .Q10H 09/13 1815 AC 09/14 (KCl 20MEQ in D5W NS 0542 1000ML) Dextrose/Sodium 1,000 ML Chloride (D5-Normal Saline) Vancomycin HCl 500 MG Q6 09/13 181 CAN (Vancomycin) Sucralfate 1 GM Q8 09/13 1800 AC 09/14 (Carafate Suspension) 1440 Metronidazole 500 MG IQ8 09/13 1600 AC 09/14 (Flagyl) 0914 N/A 1 UNIT (No Carrier) Laboratory Tests 09/14/16 0637: Anion Gap 6, Estimated GFR > 60, BUN/Creatinine Ratio 22.0, CBC w Diff MAN DIFF ORDERED, RBC 3.34 L, MCV 83.5, MCH 27.6, RDW 13.4, MPV 7.9, Gran % 84.6 H, Lymphocytes % 10.9 L, Monocytes % 3.9, Eosinophils % 0.2, Basophils % 0.4, Absolute Granulocytes 14.9 H, Segmented Neutrophils 78 H, Band Neutrophils 3, Absolute Lymphocytes 1.9, Lymphocytes 5 L, Monocytes 9, Absolute Monocytes 0.7 H, Absolute Eosinophils 0, Absolute Basophils 0.1, Metamyelocytes 4 H, Myelocytes 1 H, Platelet Estimate VERIFIED BY SMEAR, Normocytic RBCs VERIFIED, Normochromic RBCs VERIFIED, PUBS MCHC 33.0 09/13/162119: Urine Color YEL, Urine Clarity CLEAR, Urine pH 7.0, Ur Specific Foley <= 1.005 , Urine Protein TRACE H, Urine Ketones NEG, Urine Nitrite NEG, Urine Bilirubin NEG, Urine Urobilinogen 0.2, Ur Leukocyte Esterase NEG, Ur Microscopic SEDIMENT EXAMINED, Urine RBC RARE, Urine WBC RARE, Ur Epithelial Cells RARE, Urine Bacteria RARE H, Urine Hemoglobin TRACE-INTACT, Urine Glucose NEG 09/13/16 1845: Lactic Acid 1.1 09/13/16 1549: Lactic Acid Cancelled Microbiology 09/14 2119 URINE ROUT: Urine Culture - RES 09/13 2029 BLOOD: Blood Culture - RES 09/14 2019 BLOOD: Blood Culture - RES 09/13 191 STOOL: Stool Culture - CAN Cancelled: SPECIMEN NOT RECEIVED IN LABORATORY 1:51 PM SURGERY PAGED. 2:30 PM OR REPAGED. 3:12PM DR SANFORD REPAGED. STILL IN OR. D/W HOSPITALIST - PATIENT ADMITTED TO MEDICAL SERVICE. CT REVIEWED WITH DR SANCHEZ - HE FEELS FILMS DEMONSTRATE DIVERTICULUM, UNSURE IF IT IS RUPTURED. NO SURGICAL INTERVENTION AT THIS POINT. DISCUSSED AGAIN WITH DR BRADY IN THE ED. 5:29 PM D/W DR SANFORD NO SURGICAL INTERVENTION KEEP NPO, CARAFATE SUGGEST ABX (CHEY ACEVEDO,JOHNNY) Diagnostic Imaging: Viewed by Me: CT Scan. Discussed w/RAD: CT Scan. Radiology Impression: PATIENT: DYLAN RIVER PRESENT AGE: 76 PATIENT ACCOUNT NO: [id number] : 42 LOCATION: [facility] ORDERING PHYSICIAN: JOHNNY GUERRIER MD SERVICE DATE: 09/13/16 EXAM TYPE: CAT - CT ABD & PELVIS W IV CONTRAST EXAMINATION: CT ABDOMEN AND PELVIS WITH CONTRAST CLINICAL INFORMATION: 76-year-old female with abdominal pain and diarrhea. COMPARISON: CT exams of the abdomen and pelvis on 08/22/2016 and 08/28/2016. Ultrasound of the right upper quadrant on 08/29/2016. TECHNIQUE: Multidetector volumetric imaging was performed of the abdomen and pelvis before and after the IV administration of unspecified mL of Optiray 320 intravenous contrast. Sagittal and coronal reformatted images were obtained on the technologist's workstation. DLP: 244 mGy-cm FINDINGS: FILENET ADMIN: No sign of intestinal obstruction. LUNG BASES: A nodular area of focal atelectasis is located in the posterior medial aspect of the left posterior costophrenic sulcus. This was not present on August 22. LIVER, GALLBLADDER, AND BILIARY TREE: The liver is normal in size, shape, and attenuation. No focal hepatic lesion or biliary ductal dilatation is present. The gallbladder is unremarkable with no evidence of radiopaque gallstones, gallbladder wall thickening, or obvious pericholecystic inflammatory changes. A phrygian cap is noted arising from the gallbladder fundus. A minute right-sided probable Bochdalek hernia contains a portion of the liver. The common bile duct again measures 8 mm in diameter. The proximal common bile duct measures 1.3 cm in diameter. PANCREAS: Unremarkable. The pancreatic duct is slightly prominent at 2.8 mm. SPLEEN: Unremarkable. A 1.5 cm diameter accessory spleen is due to the tip of the spleen. ADRENAL GLANDS: Unremarkable. KIDNEYS AND URETERS: Normal, no change. BLADDER: Partially filled and unremarkable. GASTROINTESTINAL TRACT: There are two significant findings of significance. First, the generalized mucosal enhancement and wall thickening of the colon consistent with the clinical impression of colitis. Has the patient been on recent antibiotic therapy? Small amounts of free fluid are seen in the cul-de- sac and the right paracolic gutter. This is a new finding. In addition, there is abnormal mucosal enhancement of the duodenal cap and evidence of a contained duodenal ulcer arising from the duodenal cap. Series 2, image 25. Please refer to Rowe images. There is edema of the wall of the duodenum and mild fat stranding in this location. The rest of the small intestine is normal. This could explain the adjacent mild prominence of the common bile duct ABDOMINAL WALL: No change. LYMPH NODES: Normal. VASCULAR: No change. PELVIC VISCERA: The thin-walled simple left ovarian cyst measures 5 cm in greatest diameter. OSSEOUS STRUCTURES: Degenerative disc disease and spondylolisthesis. IMPRESSION: 1. Findings indicative of a contained perforated duodenal ulcer arising from the duodenal cap. 2. Generalized mild colitis. Small fluid collections in the right pericolic gutter and cul-de-sac. 3. Stable left ovarian cyst. DICTATED BY: KAREN HOANG MD DATE/TIME DICTATED:09/13/161237 NURSING INFORMATION SYSTEMS COORDINATOR: CODY DATE/TIME TRANSCRIBED:09/13/161237 CONFIDENTIAL, DO NOT COPY WITHOUT APPROPRIATE AUTHORIZATION. <Electronically signed in Other Vendor System> SIGNED BY: KAREN HOANG MD 09/13/16 1316 Initial ED EKG: NSR Departure Departure Time of Disposition: 1440 Disposition: STILL A PATIENT Condition: Stable Clinical Impression Primary Impression: Diarrhea Secondary Impressions: Colitis Referrals: MINAL ACEVEDO,JOSE LUIS Valentin (PCP/Family) Departure Forms: Customer Survey General Discharge Information Admission Note Spoke With: TYLER BRADY MD Documentation of Exam: Documentation of any treatments & extenuating circumstances including Concerns Regarding Discharge (functional status, medication knowledge or non-compliance, living conditions, etc.) that warrant an admission rather than observation: [IV FLUIDS, IV ABX, NPO, SURGICAL CONSULT, GI CONSULTATION, F/U STOOL CULTURES]
--- NOTE | 2016-09-13 13:16 | CT SCAN REPORT ---
EXAMINATION: CT ABDOMEN AND PELVIS WITH CONTRAST CLINICAL INFORMATION: 76-year-old female with abdominal pain and diarrhea. COMPARISON: CT exams of the abdomen and pelvis on 08/22/2016 and 08/28/2016. Ultrasound of the right upper quadrant on 08/29/2016. TECHNIQUE: Multidetector volumetric imaging was performed of the abdomen and pelvis before and after the IV administration of unspecified mL of Optiray 320 intravenous contrast. Sagittal and coronal reformatted images were obtained on the technologist's workstation. DLP: 244 mGy-cm FINDINGS: SENIOR ESCROW OFFICER: No sign of intestinal obstruction. LUNG BASES: A nodular area of focal atelectasis is located in the posterior medial aspect of the left posterior costophrenic sulcus. This was not present on August 22. LIVER, GALLBLADDER, AND BILIARY TREE: The liver is normal in size, shape, and attenuation. No focal hepatic lesion or biliary ductal dilatation is present. The gallbladder is unremarkable with no evidence of radiopaque gallstones, gallbladder wall thickening, or obvious pericholecystic inflammatory changes. A phrygian cap is noted arising from the gallbladder fundus. A minute right-sided probable Bochdalek hernia contains a portion of the liver. The common bile duct again measures 8 mm in diameter. The proximal common bile duct measures 1.3 cm in diameter. PANCREAS: Unremarkable. The pancreatic duct is slightly prominent at 2.8 mm. SPLEEN: Unremarkable. A 1.5 cm diameter accessory spleen is due to the tip of the spleen. ADRENAL GLANDS: Unremarkable. KIDNEYS AND URETERS: Normal, no change. BLADDER: Partially filled and unremarkable. GASTROINTESTINAL TRACT: There are two significant findings of significance. First, the generalized mucosal enhancement and wall thickening of the colon consistent with the clinical impression of colitis. Has the patient been on recent antibiotic therapy? Small amounts of free fluid are seen in the cul-de-sac and the right paracolic gutter. This is a new finding. In addition, there is abnormal mucosal enhancement of the duodenal cap and evidence of a contained duodenal ulcer arising from the duodenal cap. Series 2, image 25. Please refer to Rowe images. There is edema of the wall of the duodenum and mild fat stranding in this location. The rest of the small intestine is normal. This could explain the adjacent mild prominence of the common bile duct ABDOMINAL WALL: No change. LYMPH NODES: Normal. VASCULAR: No change. PELVIC VISCERA: The thin-walled simple left ovarian cyst measures 5 cm in greatest diameter. OSSEOUS STRUCTURES: Degenerative disc disease and spondylolisthesis. IMPRESSION: 1. Findings indicative of a contained perforated duodenal ulcer arising from the duodenal cap. 2. Generalized mild colitis. Small fluid collections in the right pericolic gutter and cul-de-sac. 3. Stable left ovarian cyst.
[2016-09-13] MEDS ORDERED: TOPROL XL25 M1 PO (14:21)
[2016-09-13] MEDS ORDERED: NYSTATIN100000 UNI PO (14:21)
[2016-09-13] MEDS ORDERED: AUGMENTIN 875-1 EACH PO (14:22)
--- NOTE | 2016-09-13 15:23 | History & Physical ---
ANNIA CAMILO 09/13/16 1523: General Information and HPI MD Statement: I have seen and personally examined DYLAN RIVER and documented this H&P. The patient is a 76 year old F who presented with a patient stated chief complaint of diarrhea, abdominal pain for 10 days. Source of Information: patient, old records Exam Limitations: no limitations History of Present Illness: This is a 75-year-old female with past medical history significant for COPD on home oxygen 2 L, hypertension, low back pain, smoker quit 20 years ago, osteopenia, sinus tachycardia of unclear etiology, history of C. difficile colitis 7 years ago presented to the [facility] emergency department from [facility] care facility with chief complaint of nausea, diarrhea, abdominal pain for 10 days. She was discharged from [facility] on 08/30/2016 after being treated for thrombocytopenia, hyponatremia, hypoalbuminemia. She was sent to [facility] from [facility]. She was admitted and discharged from [facility] on August 18 after being treated for COPD exacerbation with steroids and azithromycin. After going to nursing care facility, she was started on Augmentin twice a day( not sure why she was started on antibiotics) after 3 days of going to SNF. She reports having diarrhea after starting on antibiotics, 2-3 episodes per day, loose, watery, not associated with any blood in stool. She was nauseous throughout the period, Without any vomiting. She does report some abdominal cramps. She continued to have diarrhea for a week. However she took antibiotics for a week even though she had diarrhea. After which she was started on Imodium at the [facility] care facility for ongoing diarrhea. Her last bowel movement was 2 days ago before coming to the emergency room. Also reports 9 pound weight loss during last 1 week. Patient reports generalized weakness and low appetite for one week. Patient denied any lightheadedness or dizziness. Denied any syncopal events. Denied any vision changes. She has history of COPD who is on oxygen 2L at baseline. Patient denies any chest pain, racing of heart, orthopnea, paroxysmal nocturnal dyspnea, difficulty breathing, cough, sputum production, vomiting, headache, weakness or sensory changes, numbness or tingling sensation, vision or gait abnormalities. She denies any fevr, chills, any sick contacts or travel history. Quit smoking 20 years ago. Denied any alcohol abuse, denied any illicit drug abuse. Allergies/Medications Allergies: Coded Allergies: cefuroxime (BLOTCHES BUT ALSO TOOK WITH PREDNISONE UNSURE WHICH ONE 08/16/16) CAUSED THE REACTION prednisone (UNKNOWN 09/13/16) Home Med list Albuterol Sulfate 2.5 MG/0.5 ML VIAL.NEB 1 Vial INH/HINA TID PRN COPD Budesonide/Formoterol Fumarate (Symbicort 160-4.5 Mcg Inhaler) 160 MCG-4.5 MCG/ ACTUATION HFA.AER.AD 2 PUF INH BID copd Calcium Carbonate/Vitamin D3 (Caltrate 600 + D Soft Chew Tab) 600 MG-800 TAB.CHEW 1 TAB PO DAILY SUPPLEMENT (Reported) Cholecalciferol (Vitamin D3) (Vitamin D) 2,000 UNIT TABLET 1 TAB PO DAILY SUPPLEMENT (Reported) Lactobacillus Acidophilus (Acidophilus) 1 EACH CAPSULE 1 CAP PO DAILY probiotic (Reported) Metoprolol Succ XL (Toprol XL) 25 MG TAB 1 TAB PO DAILY HEART (Reported) Nystatin 100,000 UNIT/ML ORAL.SUSP 15 ML PO DAILY antifungal (Reported) Tiotropium [place] (Spiriva Respimat) 2.5 MCG/ACTUATION MIST.INHAL 2 PUF INH DAILY SOB (Reported) Compliance With Home Meds: GOOD Past History Travel History Traveled to [place] past 21 day No Medical History Neurological: NONE EENT: NONE Cardiovascular: hypertension Respiratory: COPD, emphysema Gastrointestinal: colitis, C DIFF Hepatic: NONE Renal: NONE Musculoskeletal: OSTEOPOROSIS WEAKNESS LOW BACK PAIN Psychiatric: NONE Endocrine: NONE Blood Disorders: NONE Cancer(s): NONE CLINICAL ASSESSMENT MANAGER/Reproductive: NONE History of MRSA: No History of VRE: No History of CDIFF: No Surgical History Surgical History: non-contributory Past Family/Social History Psychosocial History Services at Home: Oxygen Smoking Status: Former Smoker ETOH Use: denies use Illicit Drug Use: denies illicit drug use Review of Systems Review of Systems Constitutional: Reports: weakness. Denies: diaphoresis, fever, malaise, unexplained weight loss. EENTM: Denies: see HPI. Cardiovascular: Denies: chest pain, edema, orthopena, palpitations, peripheral edema. Respiratory: Reports: short of breath. Denies: cough, hemoptysis, orthopnea, sputum production, stridor, wheezing. GI: Reports: bloating, diarrhea, nausea. Denies: melena, bloody stool, vomiting. Genitourinary: Denies: discharge, dysuria, frequency. Musculoskeletal: Denies: back pain, gout, joint pain. Neurological/Psychological: Denies: cognitive dysfunction, confusion, depressed, dementia, emotional problems, headache, numbness, tingling, tremors. Exam & Diagnostic Data Last 24 Hrs of Vital Signs/I&O Vital Signs Date Time Temp Pulse Resp B/P B/P Pulse O2 O2 Flow FiO2 Mean Ox Delivery Rate 09/13 1649 98.0 88 16 100/52 96 Nasal 2.0L Cannula 09/13 1423 97.0 88 16 106/64 94 Nasal 2.0L Cannula 09/13 1328 99.0 98 20 94/53 96 Room Air 09/13 1218 94/53 09/13 1216 97.0 108 20 94/52 94 Nasal 2.0L Cannula 09/13 1123 97.0 104 22 94/50 94 Nasal 2.0L Cannula 09/13 1031 98 Nasal 2.0L Cannula 09/13 1021 96.9 118 20 92/58 95 Nasal 2.0L Cannula Intake & Output 09/13 1600 09/13 0800 09/13 0000 Intake Total 1000 Output Total Balance 1000 Intake, IV 1000 Patient 48.988 kg Weight Physical Exam General Appearance Alert, Oriented X3, Cooperative, No Acute Distress Skin No Rashes, No Breakdown, No Significant Lesion HEENT Atraumatic, PERRLA, EOMI, Mucous Membr. moist/pink Neck Supple, No JVD Lymphatic Cervical nl Cardiovascular Normal S1, Normal S2 Lungs Normal Air Movement Abdomen Normal Bowel Sounds, diffuse tenderness and guarding Neurological Strength at 5/5 X4 Ext, Sensation Intact, Cranial Nerves 3-12 NL Extremities No Clubbing, No Cyanosis, No Edema Vascular Pulses Symmetrical Last 24 Hrs of Labs/Carlos: Laboratory Tests 09/13/16 1024: Anion Gap 9, Estimated GFR > 60, BUN/Creatinine Ratio 28.3 H, Glucose 122 H, Lactic Acid Pending, Calcium 8.2 L, Magnesium 1.8, Total Bilirubin 0.5, AST 18, ALT 28, Alkaline Phosphatase 89, Total Protein 5.3 L, Albumin 2.2 L, Globulin 3.1, Albumin/Globulin Ratio 0.7 L, Lipase 53, CBC w Diff MAN DIFF ORDERED, RBC 4.19 L, MCV 84.2, MCH 27.6, RDW 13.4, MPV 7.4, Gran % 87.4 H, Lymphocytes % 5.5 L, Monocytes % 6.8, Eosinophils % 0.1, Basophils % 0.2, Absolute Granulocytes 21.1 H, Segmented Neutrophils 81 H, Band Neutrophils 7 H, Absolute Lymphocytes 1.3, Lymphocytes 5 L, Monocytes 2, Absolute Monocytes 1.6 H, Absolute Eosinophils 0, Absolute Basophils 0, Metamyelocytes 4 H, Myelocytes 1 H, Platelet Estimate ADEQUATE, Hypochromic-Microcytic 1+, PUBS MCHC 32.8 L Microbiology 09/13 1111 STOOL: Clostridium difficile Toxin A & B - ORD Assessment/Plan Assessment: This is a 75-year-old female with past medical history significant for COPD on home oxygen 2 L, hypertension, low back pain, smoker quit 20 years ago, osteopenia, sinus tachycardia of unclear etiology, history of C. difficile colitis 7 years ago presented to the [facility] emergency department from nursing care facility with chief complaint of nausea, diarrhea, abdominal pain for 10 days. She was discharged from [facility] on 08/30/2016 after being treated for thrombocytopenia, hyponatremia, hypoalbuminemia. She was sent to [facility] from [facility]. Vitals on admission-afebrile, heart rate 118, blood pressure 92/58, respiratory rate 20, saturating at 95 on room air. Pertinent labs on admission WBC 24,000 with 7 bands, hemoglobin 11, hematocrit 35, platelets 371 Sodium 128 with normal kidney function tests. Albumin 2.2. CAT scan findings revealed IMPRESSION: 1. Findings indicative of a contained perforated duodenal ulcer arising from the duodenal cap. 2. Generalized mild colitis. Small fluid collections in the right pericolic gutter and cul-de-sac. 3. Stable left ovarian cyst. Problem list 1. presumed severe C. difficile colitis/diarrhea 2. Perforated duodenum ulcer per imaging 3. COPD on home oxygen 4. History of hypertension 5. Osteopenia 6. Chronic back pain 7. Leukocytosis 8. Hyponatremia Sepsis secondary to Severe C. difficile colitis/diarrhea Patient presented with ongoing diarrhea 3-4 episodes per day for 10 days. She started having diarrhea after using Augmentin. Also reports abdominal discomfort. Diarrhea most likely from recent antibiotic use. On admission she was found to have WBC count 24,000 with 7 bands, tachycardia. Fulfilled SIRS criteria on admission with possible source of infection colon. CAT scan findings suggestive of mild colitis and fluid in cul-de-sac. * She was admitted to general medicine floor for management of severe C. difficile colitis and diarrhea * Monitor vitals closely every shift * Monitor for fever, leukocytosis, worsening abdominal pain * Monitor closely for blood pressure as her blood pressure was borderline since admission, she is low threshold for ICU transfer * ID was consulted * Stool C. difficile was sent * Will follow up with stool C. difficile * She was started on IV antibiotics-IV Flagyl and by mouth vancomycin for severe C. difficile colitis * Started on IV ceftriaxone * Monitor CBCs in the morning * Lactic acid 3 on admission, will trend lactic acid * On IV fluids D5 normal saline with potassium chloride supplement as she had diarrhea. * Nothing by mouth for now. Perforated duodenum ulcer Patient presented with ongoing diarrhea, abdominal pain for 10 days. She uses Aleve for her back pain. Denies any history of peptic ulcer disease. * Admitted to general medicine floor for further management * Monitor vitals closely * Monitor for blood pressure, low threshold for ICU transfer * General surgeon on board * CAT scan findings suggestive of perforated duodenum ulcer from duodenum cup, * as presently there are no peritoneal signs, these changes at the duodenum may have been there and stabilized for some time actually, plan is to monitor for signs of worsening * Also would cover her empirically for upper GI pauline in light of the possibility of a perforation. * Started on IV ceftriaxone and IV Flagyl * May require total parenteral Nutrition as per surgery * No nsaids * Sucralfate suspension * IV fluids * Nothing by mouth Hyponatremia * Sodium 128 on admission * Most possibly from hypotension, dehydration, poor oral intake * Hypovolemic hyponatremia * Will provide gentle hydration IV fluid d5 normal saline 100 mL per hour * Will check serum osmolality * Will check urine osmolality and urine lites * Repeat BEP in the morning Generalized weakness * Most possibly from dehydration and hypotension * Patient does complain of low appetite for 1-2 weeks duration * Will get nutrition consult * PTOT consult Chronic low back pain She was discharged from [facility] emergency department on after being treated for back pain and she was given Vicodin. She took Vicodin for a couple of days and then she took Motrin 2 tablets every 4 hours for 4 days for her back pain after which pain came down. * on vitamin D and calcium supplements at home COPD Patient has COPD who uses 2 L oxygen. Not in COPD exacerbation. * Patient was discharged from [facility] on 08/18/2016 after being treated for COPD exacerbation * Will provide supplemental oxygen * Total respiratory care * Vitals every shift * Albuterol * Symbicort * No plan of steroids/antibiotics history of hypertension metoprolol on hold because of hypotension on admission DVT prophylaxis-alps Full code npo As Ranked By This Provider Problem List: 1. Diarrhea 2. Colitis Core Measures/Miscellaneous Acute Coronary Syndrome ACS Diagnosis: No Cerebrovascular Accident CVA/TIA Diagnosis: No Congestive Heart Failure CHF Diagnosis: No Venous Thromboembolism VTE Risk Factors: Age > 40 No [facility] VTE prophylaxis d/t: No contraindications No VTE Pharm Prophylaxis d/t: No contraindications VTE Diagnosis: No VTE Type: NONE VTE Confirmed by (Test): NONE Severe Sepsis Severe Sepsis Present: No Septic Shock Septic Shock Present: No Miscellaneous Documentation Attending Case Discussed With: TYLER BRADY MD Primary Care Physician: JOSE LUIS FONTAINE MD Patient sees these Specialists lung doctor Level of Patient Care: General Medicine BHARAT OCHOA 09/13/16 1524: Resident Review Statement Resident Statement: examined this patient, discussed with mba intern, agreed with mba intern, reviewed EMR data (avail) Other Findings: This is a 76 YO F w/PMH significant for COPD on 1 L nasal cannula oxygen, hypertension and osteopenia who presented to the ED w/nausea, diarrhea and abdominal discomfort for approx 10 days. Per patient, she developed diarrhea about 10 days ago in the rehabilitation facility. Reported approximately 2-3 episodes of bowel movement per day. Stool was sent for C. difficile at rehabilitation, results pending. She also had nausea, decreased appetite and abdominal discomfort. She was started on Imodium at rehabilitation facility 3 days ago when she had her last bowel movement. She reports previous history of C. difficile colitis(8 years prior). Physical exam on admission: Afebrile, Tachycardia, systolic blood pressure and low 100s, adequate saturation on 2 Sasha nasal cannula oxygen. NAD, Neck: Supple, no JVD, CV: RRR, no murmurs. Lungs: CTA BL. Abd: NL BS, Soft, generalized tenderness on palpation, mild guarding, ND. Ext: No edema or calf tenderness. Neurology: CN 3-12 wnl, normal sensation. Labs significant for leukocytosis to 24.1 with granulocytosis. Sodium 128, calcium 8.2, albumin 2.2, lipase 53, no transaminitis CT Abdomen/pelvis on admission: Paralyzed microcolitis with small fluid collection in the right pericolic gutter and cul-de-sac. contained perforated duodenal ulcer arising from the duodenal cap. Stable left ovarian cyst. Assessment: 1-presumed severe C. difficile colitis given clinical symptoms, imaging significant for colitis, leukocytosis to 24.1 and patient's age above 60 2-suspected perforated duodenal ulcer per imaging 3-Sepsis w/GI source 4-history of thrombocytopenia; now stable 5-left ovarian cyst: Stable/asymptomatic 6-H/O COPD Plan: * Monitor vitals every 4 hours, low threshold for ICU transfer Will start the patient on IV metronidazole and by mouth vancomycin(ok to have liquid form) for severe C. difficile colitis * Will keep the patient NPO and maintain her on IV fluids. * Will follow-up stool for C. difficile results from rehabilitation facility, ordered another C. difficile toxin today. * Follow-up lactic acid * Surgery was consulted, surgical team to review patient's images to assess if she needs emergent surgery for duodenal ulcer perforation. * ID consult appreciated. * Pt will need AB Tx for DU perforation; allergic to cefuroxime(hives) given cross reaction with ceftriaxone, would consider alternative such as IV cipro; await ID recs. * Will hold TALENT DIRECTOR BB given borderline BP. * TRC /Nebs PRN * DVT prophylaxis with Alps given history of thrombocytopenia * Patient is full code TYLER BRADY MD 09/13/16 1835: Attending Review Statement Attending Statement Attending MD Statement: examined this patient, discuss w/resident/PA/SCALLOP BINDER, agreed w/resident/PA/SCALLOP BINDER, reviewed EMR data (avail), discussed with nursing, reviewed images, amended to note Attending Assessment/Plan: The patient is a 75 yo female with h/o COPD (on 2L/min at home), HTN, chronic LBP, osteopenia, and C-difficile colitis (7 years ago) who was sent in for ED evaluation from nursing facility ([facility]) with c/o abdominal pain, diarrhea, nausea and weight loss x 10 days. She had recently been discharged from [facility] on 08/30/16 after treatment for thrombocytopenia/hyponatremia & hypoalbuminemia and also had prior admission 08/18/16 for COPD exacerbation (Rx with Zithromax). She did receive 3 day course of Augmentin at nursing facility prior to onset of diarrhea. CT scan in ED showed colitis and ?perforated DU. She denied any fever, chills, chest pain, hematemesis, blood per rectum. Physical Exam: VS: T 96.9, P 118-88, R 20-16, BP 92/58-106/64, PO 95-96% on 2L nasal HEENT: eyes- PERRLA, EOMI akua- dry mucosa Neck: no JVD or bruits Chest: decreased breath sounds, clear Cor: tachy, reg, nl S1, S2 w/o murm Abd: BS+, soft with diffuse mild tenderness, +/- guarding w/o rebound Ext: no edema Neuro: alert & oriented x 3, non-focal exam Labs/Tests- as above Impression/Plan: #Abdominal Pain- CT showing colitis (presume C-difficile) and also possible perforated duodenal ulcer (vs. diverticulum). May have had perforation 1 week prior. Plan: Will admit to medical floor- close observation and transfer to ICU if decompensates. Surgical and ID consultations. Treat underlying problems. #Sepsis- patient w/o fever, however has hypotension (resolve with fluid), significant leukocytosis, tachycardia. GI source (?colitis). Plan: Follow sepsis protocol. follow-up lactic acid level. Mcdowell culture and follow WBC. Check C-difficile. #Colitis- with recent courses of Abx (Zithromax/Augmentin) C-difficile needs to be considered. May explain leukocytosis/left shift. Plan: As per ID- ?po Vanco if Ok with surgery, IV Flagyl. #Possible Perforated Duodenal Ulcer- ? concern on CT. Await surgical evaluation. Plan: IV PPI, po Carafate suspension per surgery. Consider IV Abx (Cipro/Flagyl) to cover perforated viscus. #H/O Thrombocytopenia- platelet "adequate" per lab. Plan: Will monitor platelet levels. #COPD- stable at present on usual oxygen. Plan: Continue Albuterol/Spiriva/Symbicort. #HTN- BP low at present. Plan: Hold Metoprolol.
[2016-09-13 18:05] VITALS: BP 92/50
--- NOTE | 2016-09-13 18:05 | Cons- Infect Disease ---
General Information and HPI Consulting Request Date of Consult: 09/13/16 Requested By: TYLER BRADY MD Reason for Consult: Rule out C. difficile and perforated duodenal ulcer Source of Information: patient, family, old records History of Present Illness: This is a 76-year-old woman with COPD, maintained on 1 L of oxygen, osteopenia/ low back pain, for which she takes Aleve twice a day, and a history of C. difficile 12 years prior to admission, hospitalized 4 months and 1 month prior to admission for exacerbations of COPD, treated both times with antibiotics and steroids, most recently hospitalized 2 weeks prior to admission with thrombocytopenia, of unclear etiology, discharged after 3 days, with an increasing platelet count, to a longterm, where she was begun on Augmentin for unclear reasons, which was discontinued after several days because of the development of diarrhea, abdominal cramps, nausea without vomiting, anorexia with decreased po intake and a 9 pound weight loss, generalized weakness, and, more recently, fevers and chills, treated with Imodium several days prior to admission with cessation of her diarrhea, admitted today after she was referred to the emergency room for a CAT scan of the abdomen and pelvis which revealed colitis and a suggestion of a contained perforated duodenal ulcer. In the emergency room she was afebrile. Laboratory data revealed a white blood cell count of 24,000, platelet count 371,000, BUN/creatinine 17 and 0.6, sodium 128, lactic acid 3.0, albumin 2.2, with normal liver enzymes. In the ER she was begun on Ceftriaxone, Flagyl and po Vancomycin. Allergies/Medications Allergies: Coded Allergies: cefuroxime (BLOTCHES BUT ALSO TOOK WITH PREDNISONE UNSURE WHICH ONE 08/16/16) CAUSED THE REACTION prednisone (UNKNOWN 09/13/16) Home Med List: Albuterol Sulfate 2.5 MG/0.5 ML VIAL.NEB 1 Vial INH/HINA TID PRN COPD Budesonide/Formoterol Fumarate (Symbicort 160-4.5 Mcg Inhaler) 160 MCG-4.5 MCG/ ACTUATION HFA.AER.AD 2 PUF INH BID copd Calcium Carbonate/Vitamin D3 (Caltrate 600 + D Soft Chew Tab) 600 MG-800 TAB.CHEW 1 TAB PO DAILY SUPPLEMENT (Reported) Cholecalciferol (Vitamin D3) (Vitamin D) 2,000 UNIT TABLET 1 TAB PO DAILY SUPPLEMENT (Reported) Lactobacillus Acidophilus (Probiotic) (Unknown Strength) CAPSULE 1 CAP PO DAILY PROBIOTIC (Reported) Metoprolol Succ XL (Toprol XL) 25 MG TAB 1 TAB PO DAILY HEART (Reported) Nystatin 100,000 UNIT/ML ORAL.SUSP 15 ML PO DAILY UNKNOWN (Reported) Tiotropium [place] (Spiriva Respimat) 2.5 MCG/ACTUATION MIST.INHAL 2 PUF INH DAILY SOB (Reported) Past History Travel History Traveled to [place] past 21 day No Medical History Neurological: NONE EENT: NONE Cardiovascular: hypertension Respiratory: COPD, emphysema Gastrointestinal: C DIFF Hepatic: NONE Renal: NONE Musculoskeletal: osteoporosis Psychiatric: NONE Endocrine: NONE Blood Disorders: NONE 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 Respiratory: Denies: cough, short of breath. Genitourinary: Reports: no symptoms. All Other Systems: Reviewed and Negative Exam & Diagnostic Data Last 24 Hrs of Vital Signs/I&O Vital Signs Date Time Temp Pulse Resp B/P B/P Pulse O2 O2 Flow FiO2 Mean Ox Delivery Rate 09/13 1649 98.0 88 16 100/52 96 Nasal 2.0L Cannula 09/13 1423 97.0 88 16 106/64 94 Nasal 2.0L Cannula 09/13 1328 99.0 98 20 94/53 96 Room Air 09/13 1218 94/53 09/13 1216 97.0 108 20 94/52 94 Nasal 2.0L Cannula 09/13 1123 97.0 104 22 94/50 94 Nasal 2.0L Cannula 09/13 1031 98 Nasal 2.0L Cannula 09/13 1021 96.9 118 20 92/58 95 Nasal 2.0L Cannula Intake & Output 09/13 1600 09/13 0800 09/13 0000 Intake Total 1000 Output Total Balance 1000 Intake, IV 1000 Patient 108 lb Weight Physical Exam Other Physical Findings: She is awake and alert, chronically ill-appearing, but in no acute distress. She is afebrile. Skin reveals no rash. HEENT exam is negative. Neck is supple with no adenopathy. Lungs crackles at the right base. Heart regular rhythm with no murmur. Abdomen is distended, tender on palpation diffusely, with possible rebound, decreased bowel sounds. Back no CVA tenderness. Extremities no cyanosis, clubbing or edema. Neuro is without focality. Last 24 Hours of Lab Results: Laboratory Tests 09/13 1024 Chemistry Sodium (137 - 145 mmol/L) 128 L Potassium (3.5 - 5.1 mmol/L) 3.9 Chloride (98 - 107 mmol/L) 92 L Carbon Dioxide (22 - 30 mmol/L) 28 Anion Gap (5 - 16) 9 BUN (7 - 17 mg/dL) 17 Creatinine (0.5 - 1.0 mg/dL) 0.6 Estimated GFR (>60 ml/min) > 60 BUN/Creatinine Ratio (7 - 25 %) 28.3 H Glucose (65 - 99 mg/dL) 122 H Lactic Acid (0.7 - 2.1 mmol/L) 3.0 H Calcium (8.4 - 10.2 mg/dL) 8.2 L Magnesium (1.6 - 2.3 mg/dL) 1.8 Total Bilirubin (0.2 - 1.3 mg/dL) 0.5 AST (14 - 36 U/L) 18 ALT (9 - 52 U/L) 28 Alkaline Phosphatase (<127 U/L) 89 Total Protein (6.3 - 8.2 g/dL) 5.3 L Albumin (3.5 - 5.0 g/dL) 2.2 L Globulin (1.9 - 4.2 gm/dL) 3.1 Albumin/Globulin Ratio (1.1 - 2.2 %) 0.7 L Lipase (23 - 300 U/L) 53 Hematology CBC w Diff MAN DIFF ORDERED WBC (4.8 - 10.8 /CUMM) 24.1 H RBC (4.20 - 5.40 /CUMM) 4.19 L Hgb (12.0 - 16.0 G/DL) 11.6 L Hct (37 - 47 %) 35.3 L MCV (81.0 - 99.0 FL) 84.2 MCH (27.0 - 31.0 PG) 27.6 RDW (11.5 - 14.5 %) 13.4 Plt Count (130 - 400 /CUMM) 371 MPV (7.4 - 10.4 FL) 7.4 Gran % (42.2 - 75.2 %) 87.4 H Lymphocytes % (20.5 - 51.1 %) 5.5 L Monocytes % (1.7 - 9.3 %) 6.8 Eosinophils % (0 - 5 %) 0.1 Basophils % (0.0 - 2.0 %) 0.2 Absolute Granulocytes (1.4 - 6.5 /CUMM) 21.1 H Segmented Neutrophils (42.2 - 75.2 %) 81 H Band Neutrophils (0.0 - 5.0 %) 7 H Absolute Lymphocytes (1.2 - 3.4 /CUMM) 1.3 Lymphocytes (20.5 - 51.1 %) 5 L Monocytes (1.7 - 9.3 %) 2 Absolute Monocytes (0.10 - 0.60 /CUMM) 1.6 H Absolute Eosinophils (0.0 - 0.7 /CUMM) 0 Absolute Basophils (0.0 - 0.2 /CUMM) 0 Metamyelocytes (0.0 - 1.0 %) 4 H Myelocytes (0 - 0 %) 1 H Platelet Estimate (ADEQUATE) ADEQUATE Hypochromic-Microcytic 1+ PUBS MCHC (33.0 - 37.0 G/DL) 32.8 L Last 24 Hours of Carlos Results: Stool culture September 12 mixed pauline Diagnostic Data Recent Imaging Findings: CT of the abdomen and pelvis with IV contrast September 13 reveals generalized mucosal enhancement and wall thickening of the colon consistent with colitis, with a small amount of free fluid in the cul-de-sac and right paracolic gutter and abnormal mucosal enhancement of the duodena cap with evidence of a contained duodenal ulcer arising from the cap Assessment/Plan Assessment/Plan Impression: This is a 76-year-old woman with a remote history of C. difficile, chronic pain, for which she takes Aleve, typically twice a day, COPD, hospitalized twice in the past 4 months for exacerbations of COPD, treated with antibiotics and steroids, and more recently hospitalized with thrombocytopenia, of unclear etiology, discharged to a longterm where she was treated with another course of antibiotics, which was discontinued after several days because of the development of diarrhea, abdominal cramps, anorexia with decreased po intake and weight loss, admitted today after CAT scan of the abdomen and pelvis revealed colitis and a suggestion of a contained perforated duodenal ulcer. Her colitis is most likely secondary to C. difficile given her recent antibiotic use and she will need to be treated for moderate/severe C. difficile given her elevated white blood cell count pending results of the toxin test. The findings of a probable contained perforated duodenal ulcer is of concern and may well be secondary to her frequent use of Aleve. The role of antibiotics and surgery in this setting is not clear and will await surgical evaluation. Suggestion: 1. Await surgical evaluation 2. Stool for C. difficile 3. Would obtain a chest x-ray 4. Vancomycin 125 mg po every 6 hours if okay with Surgery to take po; if not, will need to begin Vancomycin enemas 500 mg every 6 hours 5. Can continue Ceftriaxone and Flagyl pending surgical evaluation Consult Acknowledgment - Thank you for your consult request.
--- NOTE | 2016-09-13 18:34 | RADIOLOGY REPORT ---
EXAMINATION: XR PORTABLE CHEST CLINICAL INFORMATION: Shortness of breath COMPARISON: 08/28/2016 TECHNIQUE: Portable frontal view of the chest was obtained. FINDINGS: The lungs are hyperexpanded with known severe emphysema. No consolidation, edema, or effusion. No pneumothorax. The cardiomediastinal silhouette is unchanged. No acute osseous abnormality. IMPRESSION: Severe emphysema. No definite acute process.
--- NOTE | 2016-09-13 18:35 | Admission Certification ---
Admission Certification Certification Statement - As attending physician, I certify that at the time of - admission, based on clinical presentation, severity of - symptoms, need for further diagnostic testing and - therapeutic interventions, and risk of adverse outcomes - without in-hospital treatment, in my clinical assessment, - this patient requires an acute hospital stay for a minimum - of two nights or longer. I have also considered psychsocial - factors such as support system, advanced age, financial - issues, cognitive issues, and failed out-patient treatments, - past re-admission history, safety of patient, and lack of - compliance as applicable. Specific rationale supporting this admission is: The patient presents with abdominal pain, diarrhea, leukocytosis, CT showing possible duodenal ulcer perforation and colitis (?C-difficile). Needs admission for IV fluids, Abx (?Cipro/Flagyl, po Vanco), Surgical consult, ID consult. Close monitoring with low threshold for transfer to ICU if decompensates.
--- NOTE | 2016-09-13 19:04 | Cons- General Surgery ---
See Addendum General Information and HPI Consulting Request Date of Consult: 09/13/16 Requested By: TYLER BRADY MD History of Present Illness: CC: Weakness HPI: 76-year-old nondiabetic ex-smoker on medications including beta charmaine, with COPD cachexia on home oxygen this is her third hospital decision about a month first one end of July was for COPD exacerbation she was given antibiotics and prednisone she also developed some back pain and was taking Aleve twice a day and she returned to the hospital with some weakness and then was discharged to rehab, where she developed some diarrhea and was brought back to the ER today. She has been taking some Imodium she denies any recent steroids were Aleve and denies any significant abdominal pain doesn't recall any epigastric discomfort recently either. No nausea no vomiting but according to the family and her she' s had very poor oral intake for at least a week. She denies any fevers sweats bleeding per rectum. I've reviewed the [facility]. No history of GERD, PUD, bleeding problems, heart disease or issues with anesthesia. On review she has a history of C. difficile colitis over 10 years ago. Allergies/Medications Allergies: Coded Allergies: cefuroxime (BLOTCHES BUT ALSO TOOK WITH PREDNISONE UNSURE WHICH ONE 08/16/16) CAUSED THE REACTION prednisone (UNKNOWN 09/13/16) Home Med List: Albuterol Sulfate 2.5 MG/0.5 ML VIAL.NEB 1 Vial INH/HINA TID PRN COPD Budesonide/Formoterol Fumarate (Symbicort 160-4.5 Mcg Inhaler) 160 MCG-4.5 MCG/ ACTUATION HFA.AER.AD 2 PUF INH BID copd Calcium Carbonate/Vitamin D3 (Caltrate 600 + D Soft Chew Tab) 600 MG-800 TAB.CHEW 1 TAB PO DAILY SUPPLEMENT (Reported) Cholecalciferol (Vitamin D3) (Vitamin D) 2,000 UNIT TABLET 1 TAB PO DAILY SUPPLEMENT (Reported) Lactobacillus Acidophilus (Probiotic) (Unknown Strength) CAPSULE 1 CAP PO DAILY PROBIOTIC (Reported) Metoprolol Succ XL (Toprol XL) 25 MG TAB 1 TAB PO DAILY HEART (Reported) Nystatin 100,000 UNIT/ML ORAL.SUSP 15 ML PO DAILY UNKNOWN (Reported) Tiotropium [place] (Spiriva Respimat) 2.5 MCG/ACTUATION MIST.INHAL 2 PUF INH DAILY SOB (Reported) Current Medications: I reviewed Current Medications Sig/Denice Start time Last Medication Dose Route Stop Time Status Admin Ceftriaxone Sodium 1,000 MG DAILY 09/13 1619 DC IV Dextrose/Sodium 1,000 ML Q13H 09/13 1530 DC 09/13 Chloride IV 1536 Metronidazole 500 MG IQ8 09/13 1600 AC N/A 1 UNIT IV Metronidazole 500 MG ONCE ONE 09/13 1415 DC 09/13 N/A 1 UNIT IV 09/13 1514 1443 Potassium Chloride 20 MEQ .Q10H 09/13 1815 AC Dextrose/Sodium 1,000 ML IV Chloride Sodium Chloride 1,000 ML Q13H 09/13 1530 DC IV Sodium Chloride 1,000 ML BOLUS ONE 09/13 1045 DC 09/13 IV 09/13 1144 1057 Sucralfate 1 GM Q8 09/13 1800 AC PO Vancomycin HCl 500 MG Q6 09/13 1815 CAN OK Vancomycin HCl 125 MG Q6 09/13 1815 AC PO Vancomycin HCl 125 MG Q6 09/13 1800 DC PO Past History Medical History Neurological: NONE EENT: NONE Cardiovascular: hypertension Respiratory: COPD, emphysema Gastrointestinal: C DIFF Hepatic: NONE Renal: NONE Musculoskeletal: osteoporosis Psychiatric: NONE Endocrine: NONE Blood Disorders: NONE 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 Surgical History Pertinent Surgical History: non-contributory Family History Relations & Conditions If Any: MOTHER FATHER *No pertinent family history Relation not specified for: Bone cancer FH: Alzheimers disease FH: colon cancer FH: diabetes mellitus Psychosocial History Services at Home: Oxygen Review of Systems Review of Systems: Constitutional: No fever, sweats or weight loss ENMT: No sore throat Cardiovascular: No chest pain, palpitations or leg swelling Respiratory: No new shortness of breath, cough, or sputum, and as above GI: No GERD or bleeding per rectum : No dysuria or hematuria Musculoskeletal: No new muscle weakness, bone or joint pain Skin / Breast: No jaundice, rashes or itching Psychiatric: No history of drug or alcohol abuse no depression or anxiety Hematologic / lymphatic system: No problems with excessive bleeding, bruising, or blood clots Exam & Diagnostic Data Vital Signs and I&O I reviewed Vital Signs Date Time Temp Pulse Resp B/P B/P Pulse O2 O2 Flow FiO2 Mean Ox Delivery Rate 09/13 180 97.9 107 20 92/50 95 Nasal 2.0L Cannula 09/13 1649 98.0 88 16 100/52 96 Nasal 2.0L Cannula 09/13 1423 97.0 88 16 106/64 94 Nasal 2.0L Cannula 09/13 1328 99.0 98 20 94/53 96 Room Air 09/13 1218 94/53 09/13 1216 97.0 108 20 94/52 94 Nasal 2.0L Cannula 09/13 1123 97.0 104 22 94/50 94 Nasal 2.0L Cannula 09/13 1031 98 Nasal 2.0L Cannula 09/13 1021 96.9 118 20 92/58 95 Nasal 2.0L Cannula I reviewed Intake & Output 09/13 1600 09/13 0800 09/13 0000 09/12 1600 09/12 0800 09/12 0000 Intake Total 1000 Output Total Balance 1000 Intake, IV 1000 Patient 108 lb Weight Physical Exam: Constitutional: pleasant, no acute distress, conversant Eyes: sclera anicteric ENMT: ears and nose atraumatic, moist mucous membranes, good dentition, no lip lesions Neck: Supple, trachea is midline, no cervical or supraclavicular adenopathy and no palpable thyromegaly Cardiovascular: S1, S2, no murmurs, no peripheral edema Respiratory: clear to auscultation with normal respiratory effort and no intercostal retractions GI: abdomen soft, nontender, nondistended, no palpable hepatosplenomegaly Extremities / lymphatics: symmetrically warm, free range of motion no peripheral edema, no cervical, supraclavicular, axillary, or inguinal adenopathy Musculoskeletal: Did not evaluate gait and station, no digital cyanosis, good muscle strength and tone no atrophy, motor grossly 5 out of 5 throughout Skin: no jaundice, no rashes warm, nondiaphoretic, no areas of erythema or induration Psychiatric: mood and affect are appropriate and alert and oriented to person place and time Last 24 Hours of Labs: I reviewed Laboratory Tests 09/13 1024 Chemistry Sodium (137 - 145 mmol/L) 128 L Potassium (3.5 - 5.1 mmol/L) 3.9 Chloride (98 - 107 mmol/L) 92 L Carbon Dioxide (22 - 30 mmol/L) 28 Anion Gap (5 - 16) 9 BUN (7 - 17 mg/dL) 17 Creatinine (0.5 - 1.0 mg/dL) 0.6 Estimated GFR (>60 ml/min) > 60 BUN/Creatinine Ratio (7 - 25 %) 28.3 H Glucose (65 - 99 mg/dL) 122 H Lactic Acid (0.7 - 2.1 mmol/L) 3.0 H Calcium (8.4 - 10.2 mg/dL) 8.2 L Magnesium (1.6 - 2.3 mg/dL) 1.8 Total Bilirubin (0.2 - 1.3 mg/dL) 0.5 AST (14 - 36 U/L) 18 ALT (9 - 52 U/L) 28 Alkaline Phosphatase (<127 U/L) 89 Total Protein (6.3 - 8.2 g/dL) 5.3 L Albumin (3.5 - 5.0 g/dL) 2.2 L Globulin (1.9 - 4.2 gm/dL) 3.1 Albumin/Globulin Ratio (1.1 - 2.2 %) 0.7 L Lipase (23 - 300 U/L) 53 Hematology CBC w Diff MAN DIFF ORDERED WBC (4.8 - 10.8 /CUMM) 24.1 H RBC (4.20 - 5.40 /CUMM) 4.19 L Hgb (12.0 - 16.0 G/DL) 11.6 L Hct (37 - 47 %) 35.3 L MCV (81.0 - 99.0 FL) 84.2 MCH (27.0 - 31.0 PG) 27.6 RDW (11.5 - 14.5 %) 13.4 Plt Count (130 - 400 /CUMM) 371 MPV (7.4 - 10.4 FL) 7.4 Gran % (42.2 - 75.2 %) 87.4 H Lymphocytes % (20.5 - 51.1 %) 5.5 L Monocytes % (1.7 - 9.3 %) 6.8 Eosinophils % (0 - 5 %) 0.1 Basophils % (0.0 - 2.0 %) 0.2 Absolute Granulocytes (1.4 - 6.5 /CUMM) 21.1 H Segmented Neutrophils (42.2 - 75.2 %) 81 H Band Neutrophils (0.0 - 5.0 %) 7 H Absolute Lymphocytes (1.2 - 3.4 /CUMM) 1.3 Lymphocytes (20.5 - 51.1 %) 5 L Monocytes (1.7 - 9.3 %) 2 Absolute Monocytes (0.10 - 0.60 /CUMM) 1.6 H Absolute Eosinophils (0.0 - 0.7 /CUMM) 0 Absolute Basophils (0.0 - 0.2 /CUMM) 0 Metamyelocytes (0.0 - 1.0 %) 4 H Myelocytes (0 - 0 %) 1 H Platelet Estimate (ADEQUATE) ADEQUATE Hypochromic-Microcytic 1+ PUBS MCHC (33.0 - 37.0 G/DL) 32.8 L Assessment/Plan Assessment/Plan I reviewed CT from today and compared on PACS myself with the one from August 28, there is some edema around the duodenum then too, on the current film was a question of whether some of the gas is extraluminal but overall there is no free air, there is also obvious edema throughout the colon. Colon itself is not particularly dilated. Impression is debilitated patient with COPD on home oxygen malnourished and dehydrated with obvious colitis at this point would avoid Imodium and culture her stool and treated empirically for C. difficile colitis but because of her acute illness she may have slow transit through her bowels so I would avoid relying on enteral antibiotics also given the suspicion for possible peptic ulcer which certainly is possible given the medical stress she's been under along with recent increased NSAID and steroid intake, I would avoid oral intake for that as well but may give Carafate suspension by mouth. Overall she is not a good (risky) surgical candidate she has to acute problems and hopefully they can be managed medically, we will follow, presently there are no peritoneal signs, these changes at the duodenum may have been there and stabilized for some time actually, it to monitor for signs of worsening also I recommend TPN. Also would cover her empirically for upper GI pauline in light of the possibility of a perforation. Problem List: 1. Colitis 2. Weakness 3. Malnutrition 4. Decompensated COPD with exacerbation (chronic obstructive pulmonary disease ) 5. Peptic ulcer Consult Acknowledgment - Thank you for your consult request.
[2016-09-13] MEDS ORDERED: ACIDOPHILUS1 EACH PO (19:05)
--- NOTE | 2016-09-13 21:28 | Event Note ---
Event Note Event Note: Was informed by nurse that patient has rash and itching after given ceftriaxone, I ordered benadryl IV PRN.
[2016-09-13 23:09] VITALS: BP 98/50
--- NOTE | 2016-09-14 07:02 | PN- General Surgery ---
Subjective Subjective: The patient was seen this morning. She reports feeling much better than the day prior and denies any current abdominal pain. She denies any nausea/vomiting and reports passing flatus but no bowel movement. She has no other complaints at the current time aside from being thirsty. Objective Vital Signs and I&Os Vital Signs Date Time Temp Pulse Resp B/P B/P Pulse O2 O2 Flow FiO2 Mean Ox Delivery Rate 09/14 0000 95 Nasal 2.0L Cannula 09/13 2309 97.9 93 18 98/50 95 Nasal 2.0L Cannula 09/13 2027 Nasal 2.0L Cannula 09/13 1805 97.9 107 20 92/50 95 Nasal 2.0L Cannula 09/13 1750 Nasal 2.0L Cannula 09/13 1649 98.0 88 16 100/52 96 Nasal 2.0L Cannula 09/13 1423 97.0 88 16 106/64 94 Nasal 2.0L Cannula 09/13 1328 99.0 98 20 94/53 96 Room Air 09/13 1218 94/53 09/13 1216 97.0 108 20 94/52 94 Nasal 2.0L Cannula 09/13 1123 97.0 104 22 94/50 94 Nasal 2.0L Cannula 09/13 1031 98 Nasal 2.0L Cannula 09/13 1021 96.9 118 20 92/58 95 Nasal 2.0L Cannula Intake & Output 09/14 0800 09/14 0000 09/13 1600 09/13 0800 09/13 0000 09/12 1600 Intake Total 712 712 7719 Output Total 500 Balance 840 -200 1000 Intake, IV 539 332 3280 Intake, Oral 40 0 Output, Urine 500 Patient 109 lb 108 lb Weight Weight Reported by Patient Measurement Method Physical Exam: Gen.: Alert and in obvious distress Skin: Warm and dry Abdomen: Soft, nontender, nondistended, bowel sounds positive. Extremities: Bilateral lower extremities warm without calf tenderness or significant edema. Assessment/Plan Assessment/Plan Assessment: 76-year-old female currently being worked up for abdominal pain and elevated white count. The patient reports feeling more comfortable today without pain and her exam is benign. Recommendations: Follow-up stool and laboratory studies Continue antibiotics per ID recommendations Out of bed and ambulate GI and DVT prophylaxis Continue care per primary team
[2016-09-14 07:42] VITALS: BP 99/43
[2016-09-14 08:00] VITALS: BP 100/50
--- NOTE | 2016-09-14 08:03 | PN- Housestaff ---
ANNIA CAMILO 09/14/16 0803: Subjective Follow-up For: Sepsis secondary to severe C. difficile colitis Perforated duodenal ulcer Complaints: pain scale (0-10) Subjective: Patient was seen and examined this morning. She is alert, awake and oriented to time place and person. She has no overnight events. She developed rash and itching after receiving IV ceftriaxone. iv benadryl was given after which itch and rash subsided. Ceftriaxone was stopped. She denies any nausea or vomiting, abdominal pain this morning. Denies any diarrhea. She denies any difficulty breathing, chest pain. She feels she is doing much better this morning. Offers no complaints Vitals stable. Afebrile, heart rate 102, respiratory rate 20, blood pressure 99 /43, saturating at 92 on 2 L. IV fluid 500 mL bolus was given after which blood pressure came up to 104/60. Review of Systems Constitutional: Denies: chills, diaphoresis, fever, malaise, weakness. Objective Last 24 Hrs of Vital Signs/I&O Vital Signs Date Time Temp Pulse Resp B/P B/P Pulse O2 O2 Flow FiO2 Mean Ox Delivery Rate 09/14 0932 20 92 Room Air 09/14 0918 97.9 90 20 104/50 95 Nasal 1.0L Cannula 09/14 0800 98 100/50 09/14 0800 95 Nasal 1.0L Cannula 09/14 0758 93 Nasal 1.0L Cannula 09/14 0742 98.5 102 20 99/43 92 Nasal 2.0L Cannula 09/14 0000 95 Nasal 2.0L Cannula 09/13 2309 97.9 93 18 98/50 95 Nasal 2.0L Cannula 09/13 2027 Nasal 2.0L Cannula 09/13 1805 97.9 107 20 92/50 95 Nasal 2.0L Cannula 09/13 1750 Nasal 2.0L Cannula 09/13 1649 98.0 88 16 100/52 96 Nasal 2.0L Cannula 09/13 1423 97.0 88 16 106/64 94 Nasal 2.0L Cannula Intake & Output 09/14 1600 09/14 0800 09/14 0000 Intake Total 500 840 300 Output Total 500 Balance 500 840 -200 Intake, IV 500 800 300 Intake, Oral 40 0 Output, Urine 500 Patient 49.4 kg 49.442 kg Weight Weight Reported by Patient Measurement Method Physical Exam General Appearance: Alert, Oriented X3, Cooperative, No Acute Distress Skin: No Rashes, No Breakdown, No Significant Lesion HEENT: Atraumatic, PERRLA, EOMI, Mucous Membr. moist/pink Neck: Supple, No JVD Lymphatic: Cervical nl Cardiovascular: Normal S1, Normal S2 Lungs: Normal Air Movement Abdomen: Normal Bowel Sounds, Soft, No Tenderness Neurological: Normal Speech, Strength at 5/5 X4 Ext, Sensation Intact, Cranial Nerves 3-12 NL Extremities: No Clubbing, No Cyanosis, No Edema, Normal Pulses Vascular: Normal Pulses Current Medications: Current Medications Sig/Denice Start time Last Medication Dose Route Stop Time Status Admin Albuterol Sulfate 3 ML EVERY 4 HRS/AWAKE 09/14 0800 09/14 INH 0747 Ceftriaxone Sodium 1,000 MG 2000 09/14 1999 NM 09/13 IV 2041 Ceftriaxone Sodium 1,000 MG DAILY 09/13 1619 NM IV Dextrose/Sodium 1,000 ML Q13H 09/13 1530 NM 09/13 Chloride IV 1536 Diphenhydramine HCl 50 MG Q6P PRN 09/13 2130 09/13 IV 2139 Epinephrine 0.15 MG ONCE PRN 09/13 2014 IM Fat Emulsion 150 ML Q24H 09/14 1900 AC Intravenous IV 09/15 1859 Metronidazole 500 MG IQ8 09/13 1600 09/14 N/A 1 UNIT IV 0914 Metronidazole 500 MG ONCE ONE 09/13 1415 NM 09/13 N/A 1 UNIT IV 09/13 1514 1443 Pantoprazole Sodium 40 MG DAILY 09/13 1912 09/14 IV 0815 Patient Medication 1 ED .STK-MED ONE 09/14 1313 NM Teaching ED 09/14 1314 Potassium Chloride 10 MEQ ONCE ONE 09/14 0930 NM 09/14 IV 09/14 0931 1053 Potassium Chloride 20 MEQ .Q10H 09/13 1815 09/14 Dextrose/Sodium 1,000 ML IV 0542 Chloride Sodium Chloride 500 ML BOLUS ONE 09/14 0815 NM 09/14 IV 09/14 0914 0815 Sodium Chloride 1,000 ML Q13H 09/13 1530 NM IV Sucralfate 1 GM Q8 09/13 1800 09/14 PO 0542 Total Parenteral 1 UNIT ONE 09/14 1900 Nutrition IV 09/15 1859 Vancomycin HCl 125 MG Q6H 09/14 1999 AC 09/14 PO 0815 Vancomycin HCl 500 MG Q6 09/13 181 CAN ME Vancomycin HCl 125 MG Q6 09/13 1815 DC PO Vancomycin HCl 125 MG Q6 09/13 1800 DC PO Last 24 Hrs of Lab/Carlos Results Last 24 Hrs of Labs/Mics: Laboratory Tests 09/14/16 0637: Anion Gap 6, Estimated GFR > 60, BUN/Creatinine Ratio 22.0, CBC w Diff MAN DIFF ORDERED, RBC 3.34 L, MCV 83.5, MCH 27.6, RDW 13.4, MPV 7.9, Gran % 84.6 H, Lymphocytes % 10.9 L, Monocytes % 3.9, Eosinophils % 0.2, Basophils % 0.4, Absolute Granulocytes 14.9 H, Segmented Neutrophils 78 H, Band Neutrophils 3, Absolute Lymphocytes 1.9, Lymphocytes 5 L, Monocytes 9, Absolute Monocytes 0.7 H, Absolute Eosinophils 0, Absolute Basophils 0.1, Metamyelocytes 4 H, Myelocytes 1 H, Platelet Estimate VERIFIED BY SMEAR, Normocytic RBCs VERIFIED, Normochromic RBCs VERIFIED, PUBS MCHC 33.0 09/13/162119: Urine Color YEL, Urine Clarity CLEAR, Urine pH 7.0, Ur Specific [place] <= 1.005 , Urine Protein TRACE H, Urine Ketones NEG, Urine Nitrite NEG, Urine Bilirubin NEG, Urine Urobilinogen 0.2, Ur Leukocyte Esterase NEG, Ur Microscopic SEDIMENT EXAMINED, Urine RBC RARE, Urine WBC RARE, Ur Epithelial Cells RARE, Urine Bacteria RARE H, Urine Hemoglobin TRACE-INTACT, Urine Glucose NEG 09/13/16 1845: Lactic Acid 1.1 09/13/16 1549: Lactic Acid Cancelled Microbiology 09/14 2119 URINE ROUT: Urine Culture - RES 09/13 2029 BLOOD: Blood Culture - RES 09/14 2019 BLOOD: Blood Culture - RES 09/13 191 STOOL: Stool Culture - COLB Assessment/Plan Assessment: This is a 75-year-old female with past medical history significant for COPD on home oxygen 2 L, hypertension, low back pain, smoker quit 20 years ago, osteopenia, sinus tachycardia of unclear etiology, history of C. difficile colitis 7 years ago presented to the [facility] emergency department from nursing care facility with chief complaint of nausea, diarrhea, abdominal pain for 10 days. She was discharged from [facility] on 08/30/2016 after being treated for thrombocytopenia, hyponatremia, hypoalbuminemia. She was sent to [facility] from [facility]. Vitals on admission-afebrile, heart rate 118, blood pressure 92/58, respiratory rate 20, saturating at 95 on room air. Pertinent labs on admission WBC 24,000 with 7 bands, hemoglobin 11, hematocrit 35, platelets 371 Sodium 128 with normal kidney function tests. Albumin 2.2. CAT scan findings revealed IMPRESSION: 1. Findings indicative of a contained perforated duodenal ulcer arising from the duodenal cap. 2. Generalized mild colitis. Small fluid collections in the right pericolic gutter and cul-de-sac. 3. Stable left ovarian cyst. Abdominal x-ray-no evidence of toxic megacolon Problem list 1. Sepsis secondary to presumed severe C. difficile colitis/diarrhea 2. Perforated duodenum ulcer per imaging 3. COPD on home oxygen 4. History of hypertension 5. Osteopenia 6. Chronic back pain 7. Leukocytosis 8. Hyponatremia Sepsis secondary to Severe C. difficile colitis/diarrhea Patient presented with ongoing diarrhea 3-4 episodes per day for 10 days. She started having diarrhea after using Augmentin. Also reports abdominal discomfort. Diarrhea most likely from recent antibiotic use. On admission she was found to have WBC count 24,000 with 7 bands, tachycardia. Fulfilled SIRS criteria on admission with possible source of infection colon. CAT scan findings suggestive of mild colitis and fluid in cul-de-sac. X-ray no evidence of toxic megacolon * She was admitted to general medicine floor for management of severe C. difficile colitis and diarrhea * Monitor vitals closely every shift * Monitor for fever, leukocytosis, worsening abdominal pain * Monitor closely for blood pressure as her blood pressure was borderline since admission, she is low threshold for ICU transfer * Serial abdominal exams * ID was consulted * Stool C. difficile was sent * Will follow up with stool C. difficile * She was started on IV antibiotics-IV Flagyl and by mouth vancomycin for severe C. difficile colitis day 2- * Started on IV ceftriaxone, later discontinued because of rash and itching * Monitor CBCs in the morning-WBC came down to 17,000. * Lactic acid 3 on admission, will trend lactic acid-came down to 1.1. * On IV fluids D5 normal saline with potassium chloride supplement as she had diarrhea. * Nothing by mouth for now. * Complete bowel rest * Total parent nutrition through PICC line-day 1 Perforated duodenum ulcer Patient presented with ongoing diarrhea, abdominal pain for 10 days. She uses Aleve for her back pain. Denies any history of peptic ulcer disease. * Admitted to general medicine floor for further management * Monitor vitals closely * Monitor for blood pressure, low threshold for ICU transfer * General surgeon on board * CAT scan findings suggestive of perforated duodenum ulcer from duodenum cup, * as presently there are no peritoneal signs, these changes at the duodenum may have been there and stabilized for some time actually, plan is to monitor for signs of worsening * Also would cover her empirically for upper GI pauline in light of the possibility of a perforation. * Started on IV ceftriaxone and IV Flagyl, however ceftriaxone discontinued because of rash and itch * No nsaids * Sucralfate suspension * IV fluids * Nothing by mouth * Bowel rest Hyponatremia * Sodium 128 on admission * Most possibly from hypotension, dehydration, poor oral intake * Hypovolemic hyponatremia * Will provide gentle hydration IV fluid d5 normal saline 100 mL per hour * Repeat BEP in the morning * Sodium improved-133 Generalized weakness * Most possibly from dehydration and hypotension * Patient does complain of low appetite for 1-2 weeks duration * nutrition consulted * Required TPN because of malnutrition and bowel rest * PTOT consult Chronic low back pain She was discharged from [facility] emergency department on after being treated for back pain and she was given Vicodin. She took Vicodin for a couple of days and then she took Motrin 2 tablets every 4 hours for 4 days for her back pain after which pain came down. * on vitamin D and calcium supplements at home COPD Patient has COPD who uses 2 L oxygen. Not in COPD exacerbation. * Patient was discharged from [facility] on 08/18/2016 after being treated for COPD exacerbation * Will provide supplemental oxygen * Total respiratory care * Vitals every shift * Albuterol * Symbicort * No plan of steroids/antibiotics history of hypertension metoprolol on hold because of hypotension on admission DVT prophylaxis-alps Full code npo Problem List: 1. Colitis 2. Diarrhea 3. Malnutrition 4. Weakness 5. Peptic ulcer Pain Ratin Pain Location: none Pain Goal: Remain pain free Pain Plan: morphine Tomorrow's Labs & Rationales: CBCs in the setting of C. difficile diarrhea and leukocytosis MICHAEL WELLS 09/14/16 1112: Attending MD Review Statement Attending Statement Attending MD Statement: examined this patient, discuss w/resident/PA/[employer], agreed w/resident/PA/SUPER[employer], discussed with family, reviewed EMR data (avail), discussed with nursing, discussed with case mgmt, reviewed images, amended to note Attending Assessment/Plan: Impression/Plan: #Abdominal Pain #Sepsis 2/2 colitis #Colitis 2/2 C DIFF #Possible Perforated Duodenal Ulcer BUT NO FREE AIR #H/O Thrombocytopenia #COPD not in exacerbation #HTN with hypotension #Hypoalbumenia #Poor Po intake/dehydration PLAN admitted to inpatient medical services NPO, IVF, bowel rest conservative management as per surgery ID and surgery following. c/w abx as per ID, GI notified Nutrition consult dietitian. PICC for tpn. monitor cbc, serial abdomen exams, xray abdomen. cont current care. hold bp meds for now. pain control gi/dvt prophyalxis full code
[2016-09-14 08:23] LABS: ABSOLUTE BASOPHIL COUNT 0.1 /CUMM (0.0-0.2); ABSOLUTE EOSINOPHIL COUNT 0 /CUMM (0.0-0.7); ABSOLUTE GRANULOCYTE CT 14.9 /CUMM (1.4-6.5); ABSOLUTE LYMPH COUNT 1.9 /CUMM (1.2-3.4); ABSOLUTE MONOCYTE COUNT 0.7 /CUMM (0.10-0.60); BASOPHIL % 0.4 % (0.0-2.0); EOSINOPHIL % 0.2 % (0-5); GRANULOCYTE % 84.6 % (42.2-75.2); MEAN CORPUSCULAR HGB 27.6 PG (27.0-31.0); MEAN CORPUSCULAR VOLUME 83.5 FL (81.0-99.0); MEAN PLATELET VOLUME 7.9 FL (7.4-10.4); PLATELET COUNT 337 /CUMM (130-400); RBC DISTRIBUTION WIDTH 13.4 % (11.5-14.5); RED BLOOD CELL CT 3.34 /CUMM (4.20-5.40); WHITE BLOOD CELL COUNT 17.7 /CUMM (4.8-10.8)
--- NOTE | 2016-09-14 08:53 | PN- Student ---
Subjective Subjective: This morning Mrs. Lynn is feeling much better. she states that her abdominal pain has subsided and that she is very comfortable this morning. She states that her urination has been regular although her urine was described as very yellow. She has not had a bowel movement during this hospital admission. She denies any fever, chills, headache, N/V, chest pain, breathing difficulty, or any extremity pain or sensation changes. Objective Objective: Vital Signs Date Time Temp Pulse Resp B/P B/P Pulse O2 O2 Flow FiO2 Mean Ox Delivery Rate 09/14 1435 98.2 98 20 108/62 92 Room Air 09/14 0932 20 92 Room Air 09/14 0918 97.9 90 20 104/50 95 Nasal 1.0L Cannula 09/14 0800 98 100/50 09/14 0800 95 Nasal 1.0L Cannula 09/14 0758 93 Nasal 1.0L Cannula 09/14 0742 98.5 102 20 99/43 92 Nasal 2.0L Cannula 09/14 0000 95 Nasal 2.0L Cannula 09/13 2309 97.9 93 18 98/50 95 Nasal 2.0L Cannula 09/13 2027 Nasal 2.0L Cannula 09/13 1805 97.9 107 20 92/50 95 Nasal 2.0L Cannula 09/13 1750 Nasal 2.0L Cannula 09/13 1649 98.0 88 16 100/52 96 Nasal 2.0L Cannula Intake & Output 09/14 1600 09/14 0800 09/14 0000 Intake Total 1300 840 300 Output Total 450 500 Balance 850 840 -200 Intake, IV 1300 800 300 Intake, Oral 0 40 0 Number 0 Bowel Movements Output, Urine 450 500 Patient 109 lb 109 lb Weight Weight Reported by Patient Measurement Method Notes: - CT scan -contained perforated duodenal ulcer arising from duodenal cap -generalized mild colitis, small fluid collection in right pericolic gutter and cul de sac -stable left ovarian cyst - CXR -severe emphysema, no acute process PE: general- AAO x 3, cooperative, resting comfortably in bed, NAD HEENT- atraumatic, PERRLA, membranes moist and pink Neck- supple, no JVD, no lymphadenopathy or thyromegaly, trachea is midline CV- S1 and S2 heard, RRR, no murmurs or rubs appreciated Chest- chest rise equal bilaterally, vesicular breath sounds heard throughout all cole, normal air movement, no distress. Abd- bowel sounds heard, soft and non-tender to palpation, pain greatly reduced since yesterday Ext- no edema present, motor and sensation grossly intact Skin- no lesions present, skin is intact, warm, dry and well perfused Results Results: Laboratory Tests 09/14/16 0637: Anion Gap 6, Estimated GFR > 60, BUN/Creatinine Ratio 22.0, CBC w Diff MAN DIFF ORDERED, RBC 3.34 L, MCV 83.5, MCH 27.6, RDW 13.4, MPV 7.9, Gran % 84.6 H, Lymphocytes % 10.9 L, Monocytes % 3.9, Eosinophils % 0.2, Basophils % 0.4, Absolute Granulocytes 14.9 H, Segmented Neutrophils 78 H, Band Neutrophils 3, Absolute Lymphocytes 1.9, Lymphocytes 5 L, Monocytes 9, Absolute Monocytes 0.7 H, Absolute Eosinophils 0, Absolute Basophils 0.1, Metamyelocytes 4 H, Myelocytes 1 H, Platelet Estimate VERIFIED BY SMEAR, Normocytic RBCs VERIFIED, Normochromic RBCs VERIFIED, PUBS MCHC 33.0 09/13/16 2120: Urine Color YEL, Urine Clarity CLEAR, Urine pH 7.0, Ur Specific [place] <= 1.005 , Urine Protein TRACE H, Urine Ketones NEG, Urine Nitrite NEG, Urine Bilirubin NEG, Urine Urobilinogen 0.2, Ur Leukocyte Esterase NEG, Ur Microscopic SEDIMENT EXAMINED, Urine RBC RARE, Urine WBC RARE, Ur Epithelial Cells RARE, Urine Bacteria RARE H, Urine Hemoglobin TRACE-INTACT, Urine Glucose NEG 09/13/16 1845: Lactic Acid 1.1 09/13/16 1549: Lactic Acid Cancelled 09/13/16 1024: Anion Gap 9, Estimated GFR > 60, BUN/Creatinine Ratio 28.3 H, Glucose 122 H, Lactic Acid 3.0 H, Calcium 8.2 L, Magnesium 1.8, Total Bilirubin 0.5, AST 18, ALT 28, Alkaline Phosphatase 89, Total Protein 5.3 L, Albumin 2.2 L, Globulin 3.1, Albumin/Globulin Ratio 0.7 L, Lipase 53, CBC w Diff MAN DIFF ORDERED, RBC 4.19 L, MCV 84.2, MCH 27.6, RDW 13.4, MPV 7.4, Gran % 87.4 H, Lymphocytes % 5.5 L, Monocytes % 6.8, Eosinophils % 0.1, Basophils % 0.2, Absolute Granulocytes 21.1 H, Segmented Neutrophils 81 H, Band Neutrophils 7 H, Absolute Lymphocytes 1.3, Lymphocytes 5 L, Monocytes 2, Absolute Monocytes 1.6 H, Absolute Eosinophils 0, Absolute Basophils 0, Metamyelocytes 4 H, Myelocytes 1 H, Platelet Estimate ADEQUATE, Hypochromic-Microcytic 1+, PUBS MCHC 32.8 L Microbiology 09/14 2119 URINE ROUT: Urine Culture - RES 09/13 2029 BLOOD: Blood Culture - RES 09/14 2019 BLOOD: Blood Culture - RES 09/13 1909 STOOL: Stool Culture - CAN Cancelled: SPECIMEN NOT RECEIVED IN LABORATORY 09/13 1111 STOOL: Clostridium difficile Toxin A & B - CAN Cancelled: SPECIMEN NOT RECEIVED IN LABORATORY Assessment/Plan Assessment: Mrs. Lynn is a 76 yo white woman with a PMH of COPD (on 2L nasal cannula at home), HTN, osteopenia, sinus tachycardia of uknown cause, and low back pain who presented to ED with abdominal pain, nausea, and diarrhea for 10 days. She has a history of C.Diff 7 years ago. She has past hospitalizations with [place] for COPD exacerbation (08/18/2016), as well as thrombocytopenia, hyponatremia, and hypalbuminemia (08/30/2016). Patient states that she was started on augmentin at [facility] for an uknown reason, she began having 2-3 loose watery stools per day, she continued on this antibiotic for 1 week before they gave her immodium for the diarrhea. This stopped the diarrhea and she has not had a bowel movement in over 2 days. The nursing facilty collected a stool sample and sent it to lab but have not yet obtained results. Patient has had generalized weakness and low appetite for 1 week and denies chest pain, vomiting, fever, chills, breathing or neurological difficulties. Her labs on admission were significant for WBC- 12444 with 7 bands, Lactic Acid- 3.0, H/H- 11/35, renal function normal. She was admitted to general medicine floor with possible C.Diff colitis. Today she seems much improved physically. she denies any pain in her abdomen, N/ V/D, fever, chills, headache, chest pain, breathing difficulty, or back/ extremity pain. Physical exam was insignificant. She is currently on metronidazole, vancomycin, and ceftriaxone (had rash last night, started on diphenhydramine). Vitals are stable and her latest labs show lactic acid- 1.1, WBC- 17.7, H/H- 9.2/27.9, BUN- 11, Clothes Designer- 0.5. Current Medications Sig/Denice Start time Last Medication Dose Route Stop Time Status Admin Albuterol Sulfate 3 ML EVERY 4 HRS/AWAKE 09/14 0800 AC 09/14 INH 0747 Ceftriaxone Sodium 1,000 MG 09/13 DC 09/13 IV 2041 Ceftriaxone Sodium 1,000 MG DAILY 09/13 1619 DC IV Dextrose/Sodium 1,000 ML Q13H 09/13 1530 DC 09/13 Chloride IV 1536 Diphenhydramine HCl 50 MG Q6P PRN 09/13 2130 AC 09/13 IV 2139 Epinephrine 0.15 MG ONCE PRN 09/13 2014 AC IM Fat Emulsion 150 ML Q24H 09/14 1900 AC Intravenous IV 09/15 1859 Metronidazole 500 MG IQ8 09/13 1600 09/14 N/A 1 UNIT IV 0914 Metronidazole 500 MG ONCE ONE 09/13 1415 DC 09/13 N/A 1 UNIT IV 09/13 1514 1443 Pantoprazole Sodium 40 MG DAILY 09/13 1912 09/14 IV 0815 Patient Medication 1 ED .STK-MED ONE 09/14 1313 DC Teaching ED 09/14 1314 Potassium Chloride 10 MEQ ONCE ONE 09/14 0930 DC 09/14 IV 09/14 0931 1053 Potassium Chloride 20 MEQ .Q10H 09/13 1815 AC 09/14 Dextrose/Sodium 1,000 ML IV 0542 Chloride Sodium Chloride 500 ML BOLUS ONE 09/14 0815 DC 09/14 IV 09/14 0914 0815 Sodium Chloride 1,000 ML Q13H 09/13 1530 DC IV Sucralfate 1 GM Q8 09/13 1800 AC 09/14 PO 0542 Total Parenteral 1 UNIT ONE 09/14 1900 AC Nutrition IV 09/15 1859 Vancomycin HCl 125 MG Q6H 09/13 2000 09/14 PO 0815 Vancomycin HCl 500 MG Q6 09/13 1815 CAN GA Vancomycin HCl 125 MG Q6 09/13 1815 DC PO Vancomycin HCl 125 MG Q6 09/13 1800 DC PO Plan: Surgery has seen patient and reviewed radiology scans to determine Mrs. Lynn as nonsurgical at this time. She will be closely monitored on the general medicine floor as we treat and await microbiology results. Ceftriaxone has been discontinued due to allergic reaction of puritic rash. Problem list: 1. Sepsis associated with severe C.Difficile infection/colitis- -continue treatment with Vancomycin 125 mg Q6H PO and metronidazole 500 mg Q8H IV per ID -replete fluids and electrolytes -continue to monitor vitals and labs(WBC-17.7, Lactic acid- 1.1) for any sign of worsening infection. -Patient is TPN for bowel rest, continue adequate nutrition. -Follow up with stool cultures for possible C.Diff -Serial abdominal exams and daily abdominal x-rays to monitor for toxic megacolon 2. Perforated duodenal ulcer- -CT showed no free air in abdomen. Findings of contained perforated ulcer could have been present and stable for some time. Patient denies past history of peptic ulcer disease. -continue sucralfate therapy and Pantoprazole 40mg IV daily -She is low threshold for ICU transfer is she deteriorates -Surgery recommends GI rest, TPN, and treatment of colitis with primary care team -Ceftriaxone was discontinued due to puritic rash reaction, will discuss with surgery the need for antibiotic treatment for this, ID recommendation. 3. Weakness- -most likely due to malnutrition and dehydration, patient is TPN and is receiving nutrition as well as IV fluid therapy. 3. Back pain- -patient was taking aleve for her back but states that back pain has been tolerable without medication since admission. 4. Hyponatremia- -continue to replete electrolytes and fluids 5. COPD- -continue albuterol treatment 6. Osteopenia- -continue calcium and vit. D3 supplementation
[2016-09-14 08:57] LABS: HEMATOCRIT 27.9 % (37-47)
[2016-09-14 09:18] VITALS: BP 104/50
--- NOTE | 2016-09-14 12:48 | RADIOLOGY REPORT ---
EXAMINATION: XR PORTABLE ABDOMEN CLINICAL INFORMATION: Severe C. difficile colitis. Suspected megacolon. Abdominal pain. COMPARISON: CT of the abdomen and pelvis done on 09/13/2016. TECHNIQUE: AP view of the abdomen. FINDINGS: Contrast is identified within the urinary bladder likely from prior CT study done yesterday. Ahaustral pattern is identified within the transverse colon as well as the descending colon, may represent inflammatory bowel disease, colitis, etc. The caliber of the large bowel is within normal limits. The small bowel loops are nondistended. IMPRESSION: No radiographic evidence of megacolon.
--- NOTE | 2016-09-14 14:21 | PN- Infect Dx ---
Subjective Subjective: Afebrile. She feels much improved with no further abdominal pain. She has had no bowel movements since admission. She did develop a pruritic rash last night after Ceftriaxone with no associated symptoms but has no further pruritus or rash this morning. Objective Last 24 Hrs of Vital Signs/I&O Vital Signs Date Time Temp Pulse Resp B/P B/P Pulse O2 O2 Flow FiO2 Mean Ox Delivery Rate 09/14 0932 20 92 Room Air 09/14 0918 97.9 90 20 104/50 95 Nasal 1.0L Cannula 09/14 0800 98 100/50 09/14 0800 95 Nasal 1.0L Cannula 09/14 0758 93 Nasal 1.0L Cannula 09/14 0742 98.5 102 20 99/43 92 Nasal 2.0L Cannula 09/14 0000 95 Nasal 2.0L Cannula 09/13 2309 97.9 93 18 98/50 95 Nasal 2.0L Cannula 09/13 2027 Nasal 2.0L Cannula 09/13 1805 97.9 107 20 92/50 95 Nasal 2.0L Cannula 09/13 1750 Nasal 2.0L Cannula 09/13 1649 98.0 88 16 100/52 96 Nasal 2.0L Cannula 09/13 1423 97.0 88 16 106/64 94 Nasal 2.0L Cannula Intake & Output 09/14 1600 09/14 0800 09/14 0000 Intake Total 500 840 300 Output Total 500 Balance 500 840 -200 Intake, IV 500 800 300 Intake, Oral 40 0 Output, Urine 500 Patient 109 lb 109 lb Weight Weight Reported by Patient Measurement Method Physical Exam Other Physical Findings: She appears more comfortable in no acute distress Lungs crackles at the left base Heart regular rhythm with no murmur Abdomen is soft, nontender with positive bowel sounds Extremities no cyanosis, clubbing or edema Results Last 24 Hours of Lab Results: Laboratory Tests 09/14 0637 Chemistry Sodium (137 - 145 mmol/L) 133 L Potassium (3.5 - 5.1 mmol/L) 3.4 L Chloride (98 - 107 mmol/L) 102 Carbon Dioxide (22 - 30 mmol/L) 24 Anion Gap (5 - 16) 6 BUN (7 - 17 mg/dL) 11 Creatinine (0.5 - 1.0 mg/dL) 0.5 Estimated GFR (>60 ml/min) > 60 BUN/Creatinine Ratio (7 - 25 %) 22.0 Hematology CBC w Diff MAN DIFF ORDERED WBC (4.8 - 10.8 /CUMM) 17.7 H RBC (4.20 - 5.40 /CUMM) 3.34 L Hgb (12.0 - 16.0 G/DL) 9.2 L Hct (37 - 47 %) 27.9 L MCV (81.0 - 99.0 FL) 83.5 MCH (27.0 - 31.0 PG) 27.6 RDW (11.5 - 14.5 %) 13.4 Plt Count (130 - 400 /CUMM) 337 MPV (7.4 - 10.4 FL) 7.9 Gran % (42.2 - 75.2 %) 84.6 H Lymphocytes % (20.5 - 51.1 %) 10.9 L Monocytes % (1.7 - 9.3 %) 3.9 Eosinophils % (0 - 5 %) 0.2 Basophils % (0.0 - 2.0 %) 0.4 Absolute Granulocytes (1.4 - 6.5 /CUMM) 14.9 H Segmented Neutrophils (42.2 - 75.2 %) 78 H Band Neutrophils (0.0 - 5.0 %) 3 Absolute Lymphocytes (1.2 - 3.4 /CUMM) 1.9 Lymphocytes (20.5 - 51.1 %) 5 L Monocytes (1.7 - 9.3 %) 9 Absolute Monocytes (0.10 - 0.60 /CUMM) 0.7 H Absolute Eosinophils (0.0 - 0.7 /CUMM) 0 Absolute Basophils (0.0 - 0.2 /CUMM) 0.1 Metamyelocytes (0.0 - 1.0 %) 4 H Myelocytes (0 - 0 %) 1 H Platelet Estimate (ADEQUATE) VERIFIED BY SMEAR Normocytic RBCs VERIFIED Normochromic RBCs VERIFIED PUBS MCHC (33.0 - 37.0 G/DL) 33.0 09/13 09/13 09/13 2120 1845 1549 Chemistry Lactic Acid (0.7 - 2.1 mmol/L) 1.1 Cancelled Urines Urine Color (YEL,AMB,STR) YEL Urine Clarity (CLEAR) CLEAR Urine pH (5.0 - 8.0) 7.0 Ur Specific [place] (1.001 - 1.035) <= 1.005 Urine Protein (NEG,<30 MG/DL) TRACE H Urine Ketones (NEG) NEG Urine Nitrite (NEG) NEG Urine Bilirubin (NEG) NEG Urine Urobilinogen (0.1 - 1.0 EU/dl) 0.2 Ur Leukocyte Esterase (NEG) NEG Ur Microscopic SEDIMENT EXAMINED Urine RBC (0 - 5 /HPF) RARE Urine WBC (0 - 2 /HPF) RARE Ur Epithelial Cells (NONE,FEW) RARE Urine Bacteria (NEG/NONE) RARE H Urine Hemoglobin (NEG) TRACE-INTACT Urine Glucose (N MG/DL) NEG Last 24 Hours of Carlos Results: Blood cultures 2 September 13 negative Urine culture September 13 negative Recent Imaging Studies: Chest x-ray September 13 no acute process Abdominal x-ray September 10 with no evidence of megacolon Assessment/Plan Impression: Improved with temperatures remaining normal and white blood cell count decreasing on po Vancomycin and IV Flagyl for presumed C. difficile, though no stool has been submitted. as she has had no bowel movements since admission. She was given Ceftriaxone last evening for what was felt on CT scan to be a contained perforated duodenal ulcer, though she developed a pruritic rash, and at this point it is not clear whether she needs to be continued on antibiotics for this process. This will be discussed further with Surgery. Given her allergic reaction to Ceftriaxone she will need to be considered allergic to cephalosporins. Suggestion: 1. Stool for C. difficile if she has any diarrhea 2. Surgical follow-up regarding need for antibiotic coverage for her presumed perforated ulcer 3. Continue po Vancomycin and IV Flagyl pending above
[2016-09-14 14:35] VITALS: BP 108/62
--- NOTE | 2016-09-14 14:43 | RADIOLOGY REPORT ---
EXAMINATION: XR PORTABLE CHEST CLINICAL INFORMATION: PICC line placement. COMPARISON: 09/13/2016 TECHNIQUE: Portable frontal view of the chest was obtained. FINDINGS: Right-sided PICC line terminates over the mid to lower SVC. The lungs are well expanded. Known emphysema. No consolidation, edema, or effusion. No pneumothorax. The cardiomediastinal silhouette is unchanged. No acute osseous abnormality. IMPRESSION: Right-sided PICC line terminating over the mid to lower SVC. Emphysema.
[2016-09-14 22:49] VITALS: BP 93/48
--- NOTE | 2016-09-15 07:23 | PN- Student ---
Subjective Subjective: Today Mrs. Lynn states that she feels about the same as yesterday. She reports that she had a small bowel movement today and that she slept okay through the night. This morning she complains of some difficulty breathing that has persisted since she woke up to be weighed. She also says that she had an episode of palpitations during the transfer to the [facility] and back but that they have subsided. She denies any abdominal pain, fever or chills, nausea or vomiting, headache, chest pain, palpitations, vision or hearing changes, extremity pain or discomfort. She still says that she feels generally weak despite the TPN and states that her mouth has been very dry and that she has to constantly use the swabs to moisten her lips and mouth. Objective Objective: Vital Signs Date Time Temp Pulse Resp B/P B/P Pulse O2 O2 Flow FiO2 Mean Ox Delivery Rate 09/15 0756 97 Nasal 2.0L Cannula 09/15 0741 97.7 103 18 127/71 92 Nasal 2.0L Cannula 09/15 0000 Nasal 1.0L Cannula 09/14 2249 98.2 108 18 93/48 92 Nasal 1.0L Cannula 09/14 1610 93 Room Air Room Air 09/14 1600 93 Room Air 09/14 1435 98.2 98 20 108/62 92 Room Air 09/14 0932 20 92 Room Air 09/14 0918 97.9 90 20 104/50 95 Nasal 1.0L Cannula Intake & Output 09/15 1600 09/15 0800 09/15 0000 Intake Total 1113.0 Output Total 300 Balance 813.0 Intake, IV 800 Intake, Lipid 188.0 Intake, Oral 0 Intake, 125 TPN/PPN Number 1 Bowel Movements Output, Urine 300 Notes: - CT scan -contained perforated duodenal ulcer arising from duodenal cap -generalized mild colitis, small fluid collection in right pericolic gutter and cul de sac -stable left ovarian cyst - CXR -severe emphysema, no acute process PE: general- AAO x 3, cooperative, resting comfortably in bed, NAD HEENT- atraumatic, PERRLA, membranes dry but pink Neck- supple, no JVD, no lymphadenopathy or thyromegaly, trachea is midline CV- S1 and S2 heard, RRR, no murmurs or rubs appreciated Chest- chest rise equal bilaterally, scattered expiratory wheezes auscultated, normal air movement, slightly labored breathing. Abd- bowel sounds heard, soft and non-tender to palpation, no pain since admission Ext- no edema present, motor and sensation grossly intact Skin- no lesions present, skin is intact, warm, dry and well perfused Results Results: Laboratory Tests 09/15/16 0600: Anion Gap 6, Estimated GFR > 60, BUN/Creatinine Ratio 20.0, CBC w Diff MAN DIFF ORDERED, RBC 3.21 L, MCV 84.4, MCH 27.8, RDW 13.4, MPV 8.5, Gran % 84.0 H, Lymphocytes % 11.0 L, Monocytes % 4.3, Eosinophils % 0.6, Basophils % 0.1, Absolute Granulocytes 15.8 H, Segmented Neutrophils 77 H, Band Neutrophils 1, Absolute Lymphocytes 2.1, Lymphocytes 10 L, Monocytes 7, Absolute Monocytes 0.8 H, Absolute Eosinophils 0.1, Absolute Basophils 0, Metamyelocytes 4 H, Myelocytes 1 H, Platelet Estimate VERIFIED BY SMEAR, Normocytic RBCs VERIFIED, Normochromic RBCs VERIFIED, PUBS MCHC 32.9 L 09/14/16 0637: Anion Gap 6, Estimated GFR > 60, BUN/Creatinine Ratio 22.0, CBC w Diff MAN DIFF ORDERED, RBC 3.34 L, MCV 83.5, MCH 27.6, RDW 13.4, MPV 7.9, Gran % 84.6 H, Lymphocytes % 10.9 L, Monocytes % 3.9, Eosinophils % 0.2, Basophils % 0.4, Absolute Granulocytes 14.9 H, Segmented Neutrophils 78 H, Band Neutrophils 3, Absolute Lymphocytes 1.9, Lymphocytes 5 L, Monocytes 9, Absolute Monocytes 0.7 H, Absolute Eosinophils 0, Absolute Basophils 0.1, Metamyelocytes 4 H, Myelocytes 1 H, Platelet Estimate VERIFIED BY SMEAR, Normocytic RBCs VERIFIED, Normochromic RBCs VERIFIED, PUBS MCHC 33.0 09/13/160: Urine Color YEL, Urine Clarity CLEAR, Urine pH 7.0, Ur Specific [place] <= 1.005 , Urine Protein TRACE H, Urine Ketones NEG, Urine Nitrite NEG, Urine Bilirubin NEG, Urine Urobilinogen 0.2, Ur Leukocyte Esterase NEG, Ur Microscopic SEDIMENT EXAMINED, Urine RBC RARE, Urine WBC RARE, Ur Epithelial Cells RARE, Urine Bacteria RARE H, Urine Hemoglobin TRACE-INTACT, Urine Glucose NEG 09/13/16 1845: Lactic Acid 1.1 09/13/16 1549: Lactic Acid Cancelled 09/13/16 1024: Anion Gap 9, Estimated GFR > 60, BUN/Creatinine Ratio 28.3 H, Glucose 122 H, Lactic Acid 3.0 H, Calcium 8.2 L, Magnesium 1.8, Total Bilirubin 0.5, AST 18, ALT 28, Alkaline Phosphatase 89, Total Protein 5.3 L, Albumin 2.2 L, Globulin 3.1, Albumin/Globulin Ratio 0.7 L, Lipase 53, CBC w Diff MAN DIFF ORDERED, RBC 4.19 L, MCV 84.2, MCH 27.6, RDW 13.4, MPV 7.4, Gran % 87.4 H, Lymphocytes % 5.5 L, Monocytes % 6.8, Eosinophils % 0.1, Basophils % 0.2, Absolute Granulocytes 21.1 H, Segmented Neutrophils 81 H, Band Neutrophils 7 H, Absolute Lymphocytes 1.3, Lymphocytes 5 L, Monocytes 2, Absolute Monocytes 1.6 H, Absolute Eosinophils 0, Absolute Basophils 0, Metamyelocytes 4 H, Myelocytes 1 H, Platelet Estimate ADEQUATE, Hypochromic-Microcytic 1+, PUBS MCHC 32.8 L Microbiology 09/15 1125 STOOL: Clostridium difficile Toxin A & B - RECD 09/14 2119 URINE ROUT: Urine Culture - COMP 09/13 2029 BLOOD: Blood Culture - RES 09/14 2019 BLOOD: Blood Culture - RES 09/13 1910 STOOL: Stool Culture - CAN Cancelled: SPECIMEN NOT RECEIVED IN LABORATORY 09/13 1111 STOOL: Clostridium difficile Toxin A & B - CAN Cancelled: SPECIMEN NOT RECEIVED IN LABORATORY Assessment/Plan Assessment: Mrs. Lynn is a 76 yo white woman with a PMH of COPD (on 2L nasal cannula at home), HTN, osteopenia, sinus tachycardia of uknown cause, and low back pain who presented to ED with abdominal pain, nausea, and diarrhea for 10 days. She has a history of C.Diff 7 years ago. She has past hospitalizations with [facility] for COPD exacerbation (08/18/2016), as well as thrombocytopenia, hyponatremia, and hypalbuminemia (08/30/2016). Patient states that she was started on augmentin at [facility] for an uknown reason, she began having 2-3 loose watery stools per day, she continued on this antibiotic for 1 week before they gave her immodium for the diarrhea. This stopped the diarrhea and she has not had a bowel movement in over 2 days. The nursing facilty collected a stool sample and sent it to lab but have not yet obtained results. Patient has had generalized weakness and low appetite for 1 week and denies chest pain, vomiting, fever, chills, breathing or neurological difficulties. Her labs on admission were significant for WBC- 53390 with 7 bands, Lactic Acid- 3.0, H/H- 11/35, renal function normal. She was admitted to general medicine floor with possible C.Diff colitis. Today she had some breathing difficulty with scattered wheezes heard on auscultation. This could be due to the large amount of fluids she is receiving via IV, her fluid balance is +3300 mL today. She did have a bowel movement however no sample was sent to the lab, will call [facility] this morning to see if they have received the results from their sample. She states that her lips and mouth are very dry and she constantly uses the swabs to moisten her mouth. Vitals are stable this morning. She is afebrile and normotensive, she is saturating at 92% on 2L nasal cannula. Labs today show WBC- 18.8, H/H-8.9/27.1, normal renal function. Her last abdominal x-ray was negative for megacolon. Current Medications Sig/Denice Start time Last Medication Dose Route Stop Time Status Admin Albuterol Sulfate 2 PUF Q4 09/15 0745 AC INH Albuterol Sulfate 3 ML EVERY 4 HRS/AWAKE 09/14 0800 AC 09/15 INH 0752 Budesonide/ 2 PUF BID 09/15 1000 AC Formoterol Fumarate INH Ceftriaxone Sodium 1,000 MG 09/13 DC 09/13 IV 204 Diphenhydramine HCl 50 MG Q6P PRN 09/13 2130 AC 09/13 IV 2139 Epinephrine 0.15 MG ONCE PRN 09/13 2014 AC IM Fat Emulsion 150 ML Q24H 09/14 1900 AC 09/14 Intravenous IV 09/15 1859 1950 Metronidazole 500 MG IQ8 09/13 1600 AC 09/15 N/A 1 UNIT IV 0832 Pantoprazole Sodium 40 MG BID 09/15 1000 AC 09/15 IV 0831 Pantoprazole Sodium 40 MG DAILY 09/13 1912 DC 09/14 IV 0815 Patient Medication 1 ED .STK-MED ONE 09/14 1313 DC Teaching ED 09/14 1314 Potassium Chloride 10 MEQ ONCE ONE 09/14 0930 DC 09/14 IV 09/14 0931 1053 Potassium Chloride 20 MEQ .Q20H 09/13 1815 AC 09/15 Dextrose/Sodium 1,000 ML IV 0831 Chloride Sodium Chloride 500 ML BOLUS ONE 09/14 0815 DC 09/14 IV 09/14 0914 0815 Sucralfate 1 GM Q8 09/13 1800 AC 09/15 PO 0612 Tiotropium [place] 2 PUF DAILY 09/15 0745 AC INH Total Parenteral 1 UNIT ONE 09/14 1900 AC Nutrition IV 09/15 1859 Vancomycin HCl 125 MG Q6H 09/14 2300 AC 09/15 PO 0612 Vancomycin HCl 125 MG Q6H 09/13 2000 DC 09/14 PO 1708 Plan: Continue with bowel rest and serial abdominal exams, x-rays (latest was negative for megacolon), and follow up on labs. Will call [facility] to obtain results for their stool sample labs (sample sent to [facility] but we have no record of receiving it, PCP states it was negative) Sent another sample to confirm. Reassess her respiratory status following her breathing treatment (greatly improved). Also started patient on albuterol, tiotropium, and budesonide therapy. Problem list: 1. Sepsis associated with severe C.Difficile infection/colitis- -continue treatment with Vancomycin 125 mg Q6H PO and metronidazole 500 mg Q8H IV per ID -replete fluids and electrolytes -continue to monitor vitals and labs(WBC-17.7, Lactic acid- 1.1) for any sign of worsening infection. -Patient is TPN for bowel rest, continue adequate nutrition. (Day 2 of bowel rest) -Follow up with stool cultures for possible C.Diff -Serial abdominal exams and daily abdominal x-rays to monitor for toxic megacolon 2. Perforated duodenal ulcer- -CT showed no free air in abdomen. Findings of contained perforated ulcer could have been present and stable for some time. Patient denies past history of peptic ulcer disease. -continue sucralfate therapy and Pantoprazole 40mg IV daily -She is low threshold for ICU transfer is she deteriorates -Surgery recommends GI rest, TPN, and treatment of colitis with primary care team -Ceftriaxone was discontinued due to puritic rash reaction. 3. Weakness- -most likely due to malnutrition and dehydration, patient is TPN and is receiving nutrition as well as IV fluid therapy. 3. Back pain- -patient was taking aleve for her back but states that back pain has been tolerable without medication since admission. 4. Hyponatremia- -continue to replete electrolytes and fluids 5. COPD- -continue albuterol, tiotropium, and budesonide treatments. 6. Osteopenia- -continue calcium and vit. D3 supplementation Code status- Full Diet- TPN DVT prophylaxis-Alps
[2016-09-15 07:41] VITALS: BP 127/71
--- NOTE | 2016-09-15 07:47 | PN- General Surgery ---
Subjective Subjective: Pt states she is feeling overall weak Reports having small watery stool once a shift Objective Vital Signs and I&Os Vital Signs Date Time Temp Pulse Resp B/P B/P Pulse O2 O2 Flow FiO2 Mean Ox Delivery Rate 09/15 0000 Nasal 1.0L Cannula 09/14 2249 98.2 108 18 93/48 92 Nasal 1.0L Cannula 09/14 1610 93 Room Air Room Air 09/14 1600 93 Room Air 09/14 1435 98.2 98 20 108/62 92 Room Air 09/14 0932 20 92 Room Air 09/14 0918 97.9 90 20 104/50 95 Nasal 1.0L Cannula 09/14 0800 98 100/50 09/14 0800 95 Nasal 1.0L Cannula 09/14 0758 93 Nasal 1.0L Cannula 09/14 0742 98.5 102 20 99/43 92 Nasal 2.0L Cannula Intake & Output 09/15 0800 09/15 0000 09/14 1600 09/14 0800 09/14 0000 09/13 1600 Intake Total 1113.0 1300 324 129 7939 Output Total 300 450 500 Balance 813.0 850 840 -200 1000 Intake, IV 800 1300 752 736 2199 Intake, Lipid 188.0 Intake, Oral 0 0 40 0 Intake, 125 TPN/PPN Number 1 0 Bowel Movements Output, Urine 300 450 500 Patient 109 lb 109 lb 108 lb Weight Weight Reported by Patient Measurement Method Alert, appropriate, orinted Cor regular Lungs with decreased breath sounds Abdomen mildly distended, not tympanitic, not tender to palpation or percussion Assessment/Plan Assessment/Plan 76 y o female admitted with poor PO intake, wekaness, diarrhea, abd. pain, leukocytosis. HD #3 Workup with leukocytosis, which has been trending down Adm. CT with duodenal ulcer / localized perf. and mild diffuse colon thickening / colitis. She has been treated with multiple abx ( rocephin, flagyl and vanco).Her abdominal exam is benign without tenderness. She has been treated for C. diff however there are no stool cx's sent Currently NPO , supported with TPN Duodenal ulcer/ perf. treated with Protonix/ Carafate. Consider Protonix dose 40 mg bid No surgical intervention indicated.No acute abdomen, pain essentially resolved.
--- NOTE | 2016-09-15 08:05 | PN- Housestaff ---
ANNIA CAMILO 09/15/16 0805: Subjective Follow-up For: Sepsis secondary to severe C. difficile colitis Perforated duodenal ulcer Complaints: pain scale (0-10) Tele-Events Since Last Visit: Patient was seen and examined this morning. She is alert, awake and oriented to time place and person. She has no overnight events. Reports difficulty breathing and wheezing this morning. After which she received respiratory treatment, inhaler and nebulizer treatment, after which she felt much better. Fluids were decreased from 100 mL to 50 mL per hour now She denies any nausea or vomiting, abdominal pain this morning. Denies any diarrhea. She denies any difficulty breathing, chest pain. She feels she is doing much better this morning. Offers no complaints She passed stool once-very little. Vitals stable. Afebrile, heart rate 103, respiratory rate 20, blood pressure 122/71, saturating at 92 on 2 L. Review of Systems Constitutional: Denies: chills, diaphoresis, fever, malaise, weakness, unexplained weight loss. Objective Last 24 Hrs of Vital Signs/I&O Vital Signs Date Time Temp Pulse Resp B/P B/P Pulse O2 O2 Flow FiO2 Mean Ox Delivery Rate 09/15 0800 94 Nasal 2.0L Cannula 09/15 0756 97 Nasal 2.0L Cannula 09/15 0741 97.7 103 18 127/71 92 Nasal 2.0L Cannula 09/15 0000 Nasal 1.0L Cannula 09/14 2249 98.2 108 18 93/48 92 Nasal 1.0L Cannula 09/14 1610 93 Room Air Room Air 09/14 1600 93 Room Air 09/14 1435 98.2 98 20 108/62 92 Room Air Intake & Output 09/15 1600 09/15 0800 09/15 0000 Intake Total 1193.6 1113.0 Output Total 300 300 Balance -300 1193.6 813.0 Intake, IV 810 800 Intake, Lipid 50.0 188.0 Intake, Oral 0 0 Intake, 333.6 125 TPN/PPN Number 1 1 1 Bowel Movements Output, Urine 300 300 Patient 52.645 kg Weight Weight Chair scale Measurement Method Physical Exam General Appearance: Alert, Oriented X3, Cooperative, No Acute Distress Skin: No Rashes, No Breakdown HEENT: Atraumatic, PERRLA, EOMI, Mucous Membr. moist/pink Neck: Supple, No JVD Lymphatic: Cervical nl Cardiovascular: Normal S1, Normal S2 Lungs: dec bs and wheezes Abdomen: Normal Bowel Sounds, Soft, No Tenderness Extremities: No Clubbing, No Cyanosis, No Edema Vascular: Normal Pulses Current Medications: Current Medications Sig/Denice Start time Last Medication Dose Route Stop Time Status Admin Albuterol Sulfate 2 PUF Q6P PRN 09/15 1000 AC INH Albuterol Sulfate 2 PUF Q4 09/15 0745 DC INH Albuterol Sulfate 3 ML EVERY 4 HRS/AWAKE 09/14 0800 AC 09/15 INH 1214 Budesonide/ 2 PUF BID 09/15 1000 AC 09/15 Formoterol Fumarate INH 1003 Diphenhydramine HCl 50 MG Q6P PRN 09/13 2130 AC 09/13 IV 2139 Epinephrine 0.15 MG ONCE PRN 09/13 2014 AC IM Fat Emulsion 150 ML Q24H 09/15 1900 DC Intravenous IV 09/16 1859 Fat Emulsion 200 ML Q24H 09/15 1900 AC Intravenous IV 09/16 1859 Fat Emulsion 150 ML Q24H 09/14 1900 AC 09/14 Intravenous IV 09/15 1859 1950 Metronidazole 500 MG IQ8 09/13 1600 AC 09/15 N/A 1 UNIT IV 0832 Pantoprazole Sodium 40 MG BID 09/15 1000 AC 09/15 IV 0831 Pantoprazole Sodium 40 MG DAILY 09/13 1912 DC 09/14 IV 0815 Potassium Chloride 20 MEQ .Q20H 09/13 1815 AC 09/15 Dextrose/Sodium 1,000 ML IV 0831 Chloride Sucralfate 1 GM Q8 09/13 1800 AC 09/15 PO 0612 Tiotropium [place] 2 PUF DAILY 09/15 0745 AC 09/15 INH 1002 Total Parenteral 1 UNIT ONE 09/15 190 AC Nutrition IV 09/16 1859 Total Parenteral 1 UNIT ONE 09/14 1900 AC Nutrition IV 09/15 1859 Vancomycin HCl 125 MG Q6H 09/14 2300 AC 09/15 PO 1127 Vancomycin HCl 125 MG Q6H 09/13 2000 DC 09/14 PO 1708 Last 24 Hrs of Lab/Carlos Results Last 24 Hrs of Labs/Mics: Laboratory Tests 09/15/16 0600: Anion Gap 6, Estimated GFR > 60, BUN/Creatinine Ratio 20.0, CBC w Diff MAN DIFF ORDERED, RBC 3.21 L, MCV 84.4, MCH 27.8, RDW 13.4, MPV 8.5, Gran % 84.0 H, Lymphocytes % 11.0 L, Monocytes % 4.3, Eosinophils % 0.6, Basophils % 0.1, Absolute Granulocytes 15.8 H, Segmented Neutrophils 77 H, Band Neutrophils 1, Absolute Lymphocytes 2.1, Lymphocytes 10 L, Monocytes 7, Absolute Monocytes 0.8 H, Absolute Eosinophils 0.1, Absolute Basophils 0, Metamyelocytes 4 H, Myelocytes 1 H, Platelet Estimate VERIFIED BY SMEAR, Normocytic RBCs VERIFIED, Normochromic RBCs VERIFIED, PUBS MCHC 32.9 L Microbiology 09/15 1125 STOOL: Clostridium difficile Toxin A & B - RECD Assessment/Plan Assessment: This is a 75-year-old female with past medical history significant for COPD on home oxygen 2 L, hypertension, low back pain, smoker quit 20 years ago, osteopenia, sinus tachycardia of unclear etiology, history of C. difficile colitis 7 years ago presented to the [facility] emergency department from nursing care facility with chief complaint of nausea, diarrhea, abdominal pain for 10 days. She was discharged from [facility] on 08/30/2016 after being treated for thrombocytopenia, hyponatremia, hypoalbuminemia. She was sent to [facility] from [facility]. Vitals on admission-afebrile, heart rate 118, blood pressure 92/58, respiratory rate 20, saturating at 95 on room air. Pertinent labs on admission WBC 24,000 with 7 bands, hemoglobin 11, hematocrit 35, platelets 371 Sodium 128 with normal kidney function tests. Albumin 2.2. CAT scan findings revealed IMPRESSION: 1. Findings indicative of a contained perforated duodenal ulcer arising from the duodenal cap. 2. Generalized mild colitis. Small fluid collections in the right pericolic gutter and cul-de-sac. 3. Stable left ovarian cyst. Abdominal x-ray-no evidence of toxic megacolon Problem list 1. Sepsis secondary to presumed severe C. difficile colitis/diarrhea 2. Perforated duodenum ulcer per imaging 3. COPD on home oxygen 4. History of hypertension 5. Osteopenia 6. Chronic back pain 7. Leukocytosis 8. Hyponatremia Sepsis secondary to Severe C. difficile colitis/diarrhea Patient presented with ongoing diarrhea 3-4 episodes per day for 10 days. She started having diarrhea after using Augmentin. Also reports abdominal discomfort. Diarrhea most likely from recent antibiotic use. On admission she was found to have WBC count 24,000 with 7 bands, tachycardia. Fulfilled SIRS criteria on admission with possible source of infection colon. CAT scan findings suggestive of mild colitis and fluid in cul-de-sac. X-ray no evidence of toxic megacolon * She was admitted to general medicine floor for management of severe C. difficile colitis and diarrhea * Monitor vitals closely every shift * Monitor for fever, leukocytosis, worsening abdominal pain * Monitor closely for blood pressure as her blood pressure was borderline since admission, she is low threshold for ICU transfer * Serial abdominal exams * ID was consulted * Stool C. difficile was sent * Will follow up with stool C. difficile * She was started on IV antibiotics-IV Flagyl and by mouth vancomycin for severe C. difficile colitis day3 * Started on IV ceftriaxone, later discontinued because of rash and itching * Monitor CBCs in the [id number] * Lactic acid 3 on admission, will trend lactic acid-came down to 1.1. * On IV fluids D5 normal saline with potassium chloride supplement as she had diarrhea. * Nothing by mouth for now. * Complete bowel rest * Total parent nutrition through PICC line-day2 Perforated duodenum ulcer Patient presented with ongoing diarrhea, abdominal pain for 10 days. She uses Aleve for her back pain. Denies any history of peptic ulcer disease. * Admitted to general medicine floor for further management * Monitor vitals closely * Monitor for blood pressure, low threshold for ICU transfer * General surgeon on board * CAT scan findings suggestive of perforated duodenum ulcer from duodenum cup, * as presently there are no peritoneal signs, these changes at the duodenum may have been there and stabilized for some time actually, plan is to monitor for signs of worsening * Also would cover her empirically for upper GI pauline in light of the possibility of a perforation. * Started on IV ceftriaxone and IV Flagyl, however ceftriaxone discontinued because of rash and itch * No nsaids * Sucralfate suspension * IV fluids * IV PPI * Nothing by mouth * Bowel rest Hyponatremia * Sodium 128 on admission * Most possibly from hypotension, dehydration, poor oral intake * Hypovolemic hyponatremia * on gentle hydration IV fluid d5 normal saline 100 mL per hour * Repeat BEP in the morning * Sodium improved-133 Generalized weakness * Most possibly from dehydration and hypotension * Patient does complain of low appetite for 1-2 weeks duration * nutrition consulted * Required TPN because of malnutrition and bowel rest * PTOT consult Chronic low back pain She was discharged from [facility] emergency department on after being treated for back pain and she was given Vicodin. She took Vicodin for a couple of days and then she took Motrin 2 tablets every 4 hours for 4 days for her back pain after which pain came down. * on vitamin D and calcium supplements at home COPD Patient has COPD who uses 2 L oxygen. Not in COPD exacerbation. * Patient was discharged from [facility] on 08/18/2016 after being treated for COPD exacerbation * Will provide supplemental oxygen * Total respiratory care * Vitals every shift * Albuterol * Symbicort * No plan of steroids/antibiotics history of hypertension metoprolol on hold because of hypotension on admission DVT prophylaxis-alps Full code npo Problem List: 1. Peptic ulcer 2. Diarrhea Pain Ratin Pain Location: abdomen Pain Goal: Remain pain free Pain Plan: tylinol Tomorrow's Labs & Rationales: cbc in the setting of leukocytosis and C. difficile diarrhea MICHAEL WELLS 09/15/16 1311: Attending MD Review Statement Attending Statement Attending MD Statement: examined this patient, discuss w/resident/PA/HEATER WORKER, agreed w/resident/PA/HEATER WORKER, discussed with family, reviewed EMR data (avail), discussed with nursing, discussed with case mgmt, reviewed images, amended to note Attending Assessment/Plan: Impression/Plan: #Abdominal Pain #Sepsis 2/2 colitis #Colitis 2/2 C DIFF #Possible Perforated Duodenal Ulcer BUT NO FREE AIR #H/O Thrombocytopenia #COPD not in exacerbation #HTN with hypotension #Hypoalbumenia #Poor Po intake/dehydration PLAN admitted to inpatient medical services NPO, IVF, bowel rest conservative management as per surgery, advance diet as per surgery ID and surgery following. c/w abx as per ID, GI notified Nutrition consult dietitian. PICC for tpn. monitor cbc, serial abdomen exams, xray abdomen stable. cont current care. hold bp meds for now. pain control gi/dvt prophyalxis full code
[2016-09-15 08:32] LABS: ABSOLUTE BASOPHIL COUNT 0 /CUMM (0.0-0.2); ABSOLUTE EOSINOPHIL COUNT 0.1 /CUMM (0.0-0.7); ABSOLUTE GRANULOCYTE CT 15.8 /CUMM (1.4-6.5); ABSOLUTE LYMPH COUNT 2.1 /CUMM (1.2-3.4); ABSOLUTE MONOCYTE COUNT 0.8 /CUMM (0.10-0.60); BASOPHIL % 0.1 % (0.0-2.0); EOSINOPHIL % 0.6 % (0-5); HEMATOCRIT 27.1 % (37-47); MEAN CORPUSCULAR HGB 27.8 PG (27.0-31.0); MEAN CORPUSCULAR HGB CONC 32.9 G/DL (33.0-37.0); MEAN CORPUSCULAR VOLUME 84.4 FL (81.0-99.0); MEAN PLATELET VOLUME 8.5 FL (7.4-10.4); PLATELET COUNT 322 /CUMM (130-400); RBC DISTRIBUTION WIDTH 13.4 % (11.5-14.5); RED BLOOD CELL CT 3.21 /CUMM (4.20-5.40); WHITE BLOOD CELL COUNT 18.8 /CUMM (4.8-10.8)
--- NOTE | 2016-09-15 12:52 | PN- General Surgery ---
See Addendum Subjective Subjective: Follow-up of duodenal perforation She started feeling better yesterday TPN started in the evening no overnight issues this morning still denies any abdominal pain no nausea but hasn't moved her bowels either just a little flatus, not hungry Objective Vital Signs and I&Os I reviewed Vital Signs Date Time Temp Pulse Resp B/P B/P Pulse O2 O2 Flow FiO2 Mean Ox Delivery Rate 09/15 0800 94 Nasal 2.0L Cannula 09/15 0756 97 Nasal 2.0L Cannula 09/15 0741 97.7 103 18 127/71 92 Nasal 2.0L Cannula 09/15 0000 Nasal 1.0L Cannula 09/14 2249 98.2 108 18 93/48 92 Nasal 1.0L Cannula 09/14 1610 93 Room Air Room Air 09/14 1600 93 Room Air 09/14 1435 98.2 98 20 108/62 92 Room Air I reviewed Intake & Output 09/15 1600 09/15 0800 09/15 0000 09/14 1600 09/14 0800 09/14 0000 Intake Total 1193.6 1113.0 1300 840 300 Output Total 300 300 450 500 Balance -300 1193.6 813.0 850 840 -200 Intake, IV 058 381 7145 800 300 Intake, Lipid 50.0 188.0 Intake, Oral 0 0 0 40 0 Intake, 333.6 125 TPN/PPN Number 1 1 1 0 Bowel Movements Output, Urine 300 300 450 500 Patient 116 lb 109 lb 109 lb Weight Weight Chair scale Reported by Patient Measurement Method Physical Exam: Constitutional: no acute distress no pain Eyes: sclera anicteric ENMT: moist mucous membranes Cardiovascular: S1-S2 no murmurs no peripheral edema Respiratory: clear to auscultation with normal respiratory effort and no intercostal retractions GI: abdomen soft nontender nondistended Extremities / lymphatics: free range of motion no peripheral edema Skin: no jaundice no rashes warm, nondiaphoretic Psychiatric: mood and affect are appropriate and alert and oriented to person place and time Current Medications: I reviewed Current Medications Sig/Denice Start time Last Medication Dose Route Stop Time Status Admin Albuterol Sulfate 2 PUF Q6P PRN 09/15 1000 AC INH Albuterol Sulfate 2 PUF Q4 09/15 0745 DC INH Albuterol Sulfate 3 ML EVERY 4 HRS/AWAKE 09/14 0800 AC 09/15 INH 1214 Budesonide/ 2 PUF BID 09/15 1000 AC 09/15 Formoterol Fumarate INH 1003 Diphenhydramine HCl 50 MG Q6P PRN 09/13 2130 AC 09/13 IV 2139 Epinephrine 0.15 MG ONCE PRN 09/13 2014 AC IM Fat Emulsion 150 ML Q24H 09/15 1900 DC Intravenous IV 09/16 1859 Fat Emulsion 200 ML Q24H 09/15 1900 AC Intravenous IV 09/16 1859 Fat Emulsion 150 ML Q24H 09/14 1900 AC 09/14 Intravenous IV 09/15 1859 1950 Metronidazole 500 MG IQ8 09/13 1600 AC 09/15 N/A 1 UNIT IV 0832 Pantoprazole Sodium 40 MG BID 09/15 1000 09/15 IV 0831 Pantoprazole Sodium 40 MG DAILY 09/13 191 DC 09/14 IV 0815 Patient Medication 1 ED .STK-MED ONE 09/14 1313 DC Teaching ED 09/14 1314 Potassium Chloride 20 MEQ .Q20H 09/13 1815 AC 09/15 Dextrose/Sodium 1,000 ML IV 0831 Chloride Sucralfate 1 GM Q8 09/13 1800 AC 09/15 PO 0612 Tiotropium [place] 2 PUF DAILY 09/15 0745 AC 09/15 INH 1002 Total Parenteral 1 UNIT ONE 09/15 190 AC Nutrition IV 09/16 1859 Total Parenteral 1 UNIT ONE 09/14 190 AC Nutrition IV 09/15 1859 Vancomycin HCl 125 MG Q6H 09/14 2300 AC 09/15 PO 1127 Vancomycin HCl 125 MG Q6H 09/13 2000 DC 09/14 PO 1708 Results Last 48 Hours of Labs: I reviewed Laboratory Tests 09/15 0600 Chemistry Sodium (137 - 145 mmol/L) 137 Potassium (3.5 - 5.1 mmol/L) 3.5 Chloride (98 - 107 mmol/L) 106 Carbon Dioxide (22 - 30 mmol/L) 24 Anion Gap (5 - 16) 6 BUN (7 - 17 mg/dL) 10 Creatinine (0.5 - 1.0 mg/dL) 0.5 Estimated GFR (>60 ml/min) > 60 BUN/Creatinine Ratio (7 - 25 %) 20.0 Hematology CBC w Diff MAN DIFF ORDERED WBC (4.8 - 10.8 /CUMM) 18.8 H RBC (4.20 - 5.40 /CUMM) 3.21 L Hgb (12.0 - 16.0 G/DL) 8.9 L Hct (37 - 47 %) 27.1 L MCV (81.0 - 99.0 FL) 84.4 MCH (27.0 - 31.0 PG) 27.8 RDW (11.5 - 14.5 %) 13.4 Plt Count (130 - 400 /CUMM) 322 MPV (7.4 - 10.4 FL) 8.5 Gran % (42.2 - 75.2 %) 84.0 H Lymphocytes % (20.5 - 51.1 %) 11.0 L Monocytes % (1.7 - 9.3 %) 4.3 Eosinophils % (0 - 5 %) 0.6 Basophils % (0.0 - 2.0 %) 0.1 Absolute Granulocytes (1.4 - 6.5 /CUMM) 15.8 H Segmented Neutrophils (42.2 - 75.2 %) 77 H Band Neutrophils (0.0 - 5.0 %) 1 Absolute Lymphocytes (1.2 - 3.4 /CUMM) 2.1 Lymphocytes (20.5 - 51.1 %) 10 L Monocytes (1.7 - 9.3 %) 7 Absolute Monocytes (0.10 - 0.60 /CUMM) 0.8 H Absolute Eosinophils (0.0 - 0.7 /CUMM) 0.1 Absolute Basophils (0.0 - 0.2 /CUMM) 0 Metamyelocytes (0.0 - 1.0 %) 4 H Myelocytes (0 - 0 %) 1 H Platelet Estimate (ADEQUATE) VERIFIED BY SMEAR Normocytic RBCs VERIFIED Normochromic RBCs VERIFIED PUBS MCHC (33.0 - 37.0 G/DL) 32.9 L 05/24 0637 Chemistry Sodium (137 - 145 mmol/L) 133 L Potassium (3.5 - 5.1 mmol/L) 3.4 L Chloride (98 - 107 mmol/L) 102 Carbon Dioxide (22 - 30 mmol/L) 24 Anion Gap (5 - 16) 6 BUN (7 - 17 mg/dL) 11 Creatinine (0.5 - 1.0 mg/dL) 0.5 Estimated GFR (>60 ml/min) > 60 BUN/Creatinine Ratio (7 - 25 %) 22.0 Hematology CBC w Diff MAN DIFF ORDERED WBC (4.8 - 10.8 /CUMM) 17.7 H RBC (4.20 - 5.40 /CUMM) 3.34 L Hgb (12.0 - 16.0 G/DL) 9.2 L Hct (37 - 47 %) 27.9 L MCV (81.0 - 99.0 FL) 83.5 MCH (27.0 - 31.0 PG) 27.6 RDW (11.5 - 14.5 %) 13.4 Plt Count (130 - 400 /CUMM) 337 MPV (7.4 - 10.4 FL) 7.9 Gran % (42.2 - 75.2 %) 84.6 H Lymphocytes % (20.5 - 51.1 %) 10.9 L Monocytes % (1.7 - 9.3 %) 3.9 Eosinophils % (0 - 5 %) 0.2 Basophils % (0.0 - 2.0 %) 0.4 Absolute Granulocytes (1.4 - 6.5 /CUMM) 14.9 H Segmented Neutrophils (42.2 - 75.2 %) 78 H Band Neutrophils (0.0 - 5.0 %) 3 Absolute Lymphocytes (1.2 - 3.4 /CUMM) 1.9 Lymphocytes (20.5 - 51.1 %) 5 L Monocytes (1.7 - 9.3 %) 9 Absolute Monocytes (0.10 - 0.60 /CUMM) 0.7 H Absolute Eosinophils (0.0 - 0.7 /CUMM) 0 Absolute Basophils (0.0 - 0.2 /CUMM) 0.1 Metamyelocytes (0.0 - 1.0 %) 4 H Myelocytes (0 - 0 %) 1 H Platelet Estimate (ADEQUATE) VERIFIED BY SMEAR Normocytic RBCs VERIFIED Normochromic RBCs VERIFIED PUBS MCHC (33.0 - 37.0 G/DL) 33.0 09/130 1845 1549 Chemistry Lactic Acid (0.7 - 2.1 mmol/L) 1.1 Cancelled Urines Urine Color (YEL,AMB,STR) YEL Urine Clarity (CLEAR) CLEAR Urine pH (5.0 - 8.0) 7.0 Ur Specific [place] (1.001 - 1.035) <= 1.005 Urine Protein (NEG,<30 MG/DL) TRACE H Urine Ketones (NEG) NEG Urine Nitrite (NEG) NEG Urine Bilirubin (NEG) NEG Urine Urobilinogen (0.1 - 1.0 EU/dl) 0.2 Ur Leukocyte Esterase (NEG) NEG Ur Microscopic SEDIMENT EXAMINED Urine RBC (0 - 5 /HPF) RARE Urine WBC (0 - 2 /HPF) RARE Ur Epithelial Cells (NONE,FEW) RARE Urine Bacteria (NEG/NONE) RARE H Urine Hemoglobin (NEG) TRACE-INTACT Urine Glucose (N MG/DL) NEG Assessment/Plan Assessment/Plan Impression Improved. #1 duodenitis with possible contained perforated ulcer given recent history of prednisone and Aleve this right now is stable I wouldn't try liquids by mouth until she shows signs of bowel function again, waiting for the Imodium to wear off. #2 diffuse colitis awaiting C. difficile repeat culture, this is probably what the leukocytosis reflects but overall would continue present care tried to reestablish nutrition with the TPN she needs the protein continue present care, antibiotics. Problem List: 1. Peptic ulcer 2. Colitis 3. Weakness 4. Malnutrition
[2016-09-15 13:38] VITALS: BP 116/60
--- NOTE | 2016-09-15 14:51 | PN- Infect Dx ---
Subjective Subjective: Afebrile. She feels well with no complaints of abdominal pain, nausea or vomiting. She had 1 semiformed stool this morning. Objective Last 24 Hrs of Vital Signs/I&O Vital Signs Date Time Temp Pulse Resp B/P B/P Pulse O2 O2 Flow FiO2 Mean Ox Delivery Rate 09/15 1338 97.9 92 20 116/60 95 Nasal 2.0L Cannula 09/15 0800 94 Nasal 2.0L Cannula 09/15 0756 97 Nasal 2.0L Cannula 09/15 0741 97.7 103 18 127/71 92 Nasal 2.0L Cannula 09/15 0000 Nasal 1.0L Cannula 09/14 2249 98.2 108 18 93/48 92 Nasal 1.0L Cannula 09/14 1610 93 Room Air Room Air 09/14 1600 93 Room Air Intake & Output 09/15 1600 09/15 0800 09/15 0000 Intake Total 784.0 1193.6 1113.0 Output Total 500 300 Balance 284.0 1193.6 813.0 Intake, IV 400 810 800 Intake, Lipid 50.4 50.0 188.0 Intake, Oral 0 0 0 Intake, 333.6 333.6 125 TPN/PPN Number 1 1 1 Bowel Movements Output, Urine 500 300 Patient 116 lb Weight Weight Chair scale Measurement Method Physical Exam Other Physical Findings: She appears comfortable in no acute distress Lungs decreased breath sounds bilaterally Heart regular rhythm with no murmur Abdomen soft, nontender with positive bowel sounds Results Last 24 Hours of Lab Results: Laboratory Tests 09/15 0600 Chemistry Sodium (137 - 145 mmol/L) 137 Potassium (3.5 - 5.1 mmol/L) 3.5 Chloride (98 - 107 mmol/L) 106 Carbon Dioxide (22 - 30 mmol/L) 24 Anion Gap (5 - 16) 6 BUN (7 - 17 mg/dL) 10 Creatinine (0.5 - 1.0 mg/dL) 0.5 Estimated GFR (>60 ml/min) > 60 BUN/Creatinine Ratio (7 - 25 %) 20.0 Hematology CBC w Diff MAN DIFF ORDERED WBC (4.8 - 10.8 /CUMM) 18.8 H RBC (4.20 - 5.40 /CUMM) 3.21 L Hgb (12.0 - 16.0 G/DL) 8.9 L Hct (37 - 47 %) 27.1 L MCV (81.0 - 99.0 FL) 84.4 MCH (27.0 - 31.0 PG) 27.8 RDW (11.5 - 14.5 %) 13.4 Plt Count (130 - 400 /CUMM) 322 MPV (7.4 - 10.4 FL) 8.5 Gran % (42.2 - 75.2 %) 84.0 H Lymphocytes % (20.5 - 51.1 %) 11.0 L Monocytes % (1.7 - 9.3 %) 4.3 Eosinophils % (0 - 5 %) 0.6 Basophils % (0.0 - 2.0 %) 0.1 Absolute Granulocytes (1.4 - 6.5 /CUMM) 15.8 H Segmented Neutrophils (42.2 - 75.2 %) 77 H Band Neutrophils (0.0 - 5.0 %) 1 Absolute Lymphocytes (1.2 - 3.4 /CUMM) 2.1 Lymphocytes (20.5 - 51.1 %) 10 L Monocytes (1.7 - 9.3 %) 7 Absolute Monocytes (0.10 - 0.60 /CUMM) 0.8 H Absolute Eosinophils (0.0 - 0.7 /CUMM) 0.1 Absolute Basophils (0.0 - 0.2 /CUMM) 0 Metamyelocytes (0.0 - 1.0 %) 4 H Myelocytes (0 - 0 %) 1 H Platelet Estimate (ADEQUATE) VERIFIED BY SMEAR Normocytic RBCs VERIFIED Normochromic RBCs VERIFIED PUBS MCHC (33.0 - 37.0 G/DL) 32.9 L Last 24 Hours of Carlos Results: Stool C. difficile September 15 pending Urine culture September 13 negative Blood cultures 2 September 13 negative Assessment/Plan Impression: Improved with temperatures remaining normal though white blood cell count has increased on po Vancomycin and IV Flagyl for presumed C. difficile, with her stool C. difficile toxin test pending. She is currently on no antibiotics for her presumed perforated duodenal ulcer which was felt on CAT scan to be contained and which does not appear to be producing any symptoms at this time. Have discussed with Surgery, who concurs that she can be followed off antibiotics at this time. Am concerned about the increased white blood cell count and, if it continues to increase, may need to consider a repeat CT scan of the abdomen and pelvis to follow up the presumed perforation. Suggestion: 1. Follow-up stool for C. difficile 2. Consider repeat CT of the abdomen and pelvis if white blood cell count does not decrease 3. Continue po Vancomycin and IV Flagyl pending above
[2016-09-15 21:58] VITALS: BP 116/54
[2016-09-16 06:45] VITALS: BP 117/63
[2016-09-16 06:50] VITALS: BP 117/63
[2016-09-16 07:25] VITALS: BP 112/70
[2016-09-16 07:57] LABS: ABSOLUTE BASOPHIL COUNT 0 /CUMM (0.0-0.2); ABSOLUTE EOSINOPHIL COUNT 0.2 /CUMM (0.0-0.7); ABSOLUTE GRANULOCYTE CT 15.2 /CUMM (1.4-6.5); ABSOLUTE LYMPH COUNT 2.5 /CUMM (1.2-3.4); ABSOLUTE MONOCYTE COUNT 1.1 /CUMM (0.10-0.60); BASOPHIL % 0.1 % (0.0-2.0); EOSINOPHIL % 1.1 % (0-5); GRANULOCYTE % 79.9 % (42.2-75.2); HEMATOCRIT 29.5 % (37-47); MEAN CORPUSCULAR HGB 28.1 PG (27.0-31.0); MEAN CORPUSCULAR VOLUME 85.1 FL (81.0-99.0); MEAN PLATELET VOLUME 7.9 FL (7.4-10.4); PLATELET COUNT 357 /CUMM (130-400); RED BLOOD CELL CT 3.46 /CUMM (4.20-5.40); WHITE BLOOD CELL COUNT 19.1 /CUMM (4.8-10.8)
--- NOTE | 2016-09-16 08:02 | PN- General Surgery ---
Subjective Subjective: Patient feeling better, states that she has no nausea and is experiencing hunger. Had bowel movement overnight. Denies abdominal pain presently. Denies chest pain, shortness of breath and difficulty breathing. Objective Vital Signs and I&Os Vital Signs Date Time Temp Pulse Resp B/P B/P Pulse O2 O2 Flow FiO2 Mean Ox Delivery Rate 09/16 0725 98 20 112/70 97 Nasal 2.0L Cannula 09/16 0650 98.2 113 20 117/63 97 Nasal 2.0L Cannula 09/16 0000 Nasal 2.0L Cannula 09/15 2158 98.4 107 17 116/54 95 Nasal 1.0L Cannula 09/15 1629 96 Nasal 1.0L Cannula 09/15 1600 Nasal 2.0L Cannula 09/15 1338 97.9 92 20 116/60 95 Nasal 2.0L Cannula 09/15 0800 94 Nasal 2.0L Cannula 09/15 0756 97 Nasal 2.0L Cannula Intake & Output 09/16 0800 09/16 0000 09/15 1600 09/15 0800 09/15 0000 09/14 1600 Intake Total 906.4 825.0 784.0 1193.6 1113.0 1300 Output Total 200 550 500 300 450 Balance 706.4 275.0 284.0 1193.6 813.0 850 Intake, IV 440 400 400 252 145 7600 Intake, Lipid 66.4 58.0 50.4 50.0 188.0 Intake, Oral 0 0 0 0 0 Intake, 400 367 333.6 333.6 125 TPN/PPN Number 2 1 1 1 1 0 Bowel Movements Output, Urine 200 550 500 300 450 Patient 116 lb 116 lb 109 lb Weight Weight Chair scale Chair scale Measurement Method Physical Exam: General: Alert and oriented x3, no acute distress Cardiac: RRR, s1s2 Pulmonary: CTA bilaterally Abdomen: Soft, non-tender, non-distended, bowel sounds ausculted in 4 quadrants Extremties: Moves all extremities, distal sensation intact. Calves soft and non -tender bilaterally Assessment/Plan Assessment/Plan This is a 76 year old hospital day 3 for contained perf vs c diff colitis, is npo on tpn -Continue tpn -Follow up c diff culture -Continue abx for now -Consider advancing to clears with improved bowel function -Will melissa Orellana
--- NOTE | 2016-09-16 08:08 | PN- Student ---
Subjective Subjective: This morning Mrs. Lynn states she is feeling better than yesterday. She states that she has a bit more energy today but that she is still trying not to overdo it. She reports no abdominal pain or breathing problems today, and states that she has had a few semi-solid stools that she describes as a good amount. She has some slight cramping prior to the bowel movement normally and says that her stool has been free of blood. She denies any chest pain, palpitations, Fever , chills, headache, joint pain, or changes in extremity sensations or urination. She stated this morning that she did not want a large group of people entering her room during rounds as it makes her uncomfortable. Objective Objective: Vital Signs Date Time Temp Pulse Resp B/P B/P Pulse O2 O2 Flow FiO2 Mean Ox Delivery Rate 09/16 0725 98 20 112/70 97 Nasal 2.0L Cannula 09/16 0650 98.2 113 20 117/63 97 Nasal 2.0L Cannula 09/16 0000 Nasal 2.0L Cannula 09/15 2158 98.4 107 17 116/54 95 Nasal 1.0L Cannula 09/15 1629 96 Nasal 1.0L Cannula 09/15 1600 Nasal 2.0L Cannula 09/15 1338 97.9 92 20 116/60 95 Nasal 2.0L Cannula Intake & Output 09/16 1600 09/16 0800 09/16 0000 Intake Total 906.4 825.0 Output Total 200 550 Balance 706.4 275.0 Intake, IV 440 400 Intake, Lipid 66.4 58.0 Intake, Oral 0 Intake, 400 367 TPN/PPN Number 2 1 Bowel Movements Output, Urine 200 550 Patient 116 lb Weight Weight Chair scale Measurement Method Notes on Admission: - CT scan -contained perforated duodenal ulcer arising from duodenal cap -generalized mild colitis, small fluid collection in right pericolic gutter and cul de sac -stable left ovarian cyst - CXR -severe emphysema, no acute process PE: general- AAO x 3, cooperative, resting comfortably in bed, NAD HEENT- atraumatic, PERRLA, membranes dry but pink Neck- supple, no JVD, no lymphadenopathy or thyromegaly, trachea is midline CV- S1 and S2 heard, RRR, no murmurs or rubs appreciated Chest- chest rise equal bilaterally, vesicular breath sounds in all lung cole, normal air movement Abd- bowel sounds heard, soft and non-tender to palpation, no distention or rebound tenderness, no pain since admission Ext- no edema present, motor and sensation grossly intact Skin- no lesions present, skin is intact, warm, dry and well perfused Results Results: Laboratory Tests 09/16/16 0605: Anion Gap 6, Estimated GFR > 60, BUN/Creatinine Ratio 20.0, CBC w Diff MAN DIFF ORDERED, RBC 3.46 L, MCV 85.1, MCH 28.1, RDW 14.0, MPV 7.9, Gran % 79.9 H, Lymphocytes % 13.2 L, Monocytes % 5.7, Eosinophils % 1.1, Basophils % 0.1, Absolute Granulocytes 15.2 H, Segmented Neutrophils 71, Band Neutrophils 2, Absolute Lymphocytes 2.5, Lymphocytes 15 L, Monocytes 6, Absolute Monocytes 1.1 H, Absolute Eosinophils 0.2, Absolute Basophils 0, Metamyelocytes 4 H, Myelocytes 2 H, Platelet Estimate VERIFIED BY SMEAR, Polychromasia , PUBS MCHC 33.0 09/15/16 0600: Anion Gap 6, Estimated GFR > 60, BUN/Creatinine Ratio 20.0, CBC w Diff MAN DIFF ORDERED, RBC 3.21 L, MCV 84.4, MCH 27.8, RDW 13.4, MPV 8.5, Gran % 84.0 H, Lymphocytes % 11.0 L, Monocytes % 4.3, Eosinophils % 0.6, Basophils % 0.1, Absolute Granulocytes 15.8 H, Segmented Neutrophils 77 H, Band Neutrophils 1, Absolute Lymphocytes 2.1, Lymphocytes 10 L, Monocytes 7, Absolute Monocytes 0.8 H, Absolute Eosinophils 0.1, Absolute Basophils 0, Metamyelocytes 4 H, Myelocytes 1 H, Platelet Estimate VERIFIED BY SMEAR, Normocytic RBCs VERIFIED, Normochromic RBCs VERIFIED, PUBS MCHC 32.9 L 09/14/16 0637: Anion Gap 6, Estimated GFR > 60, BUN/Creatinine Ratio 22.0, CBC w Diff MAN DIFF ORDERED, RBC 3.34 L, MCV 83.5, MCH 27.6, RDW 13.4, MPV 7.9, Gran % 84.6 H, Lymphocytes % 10.9 L, Monocytes % 3.9, Eosinophils % 0.2, Basophils % 0.4, Absolute Granulocytes 14.9 H, Segmented Neutrophils 78 H, Band Neutrophils 3, Absolute Lymphocytes 1.9, Lymphocytes 5 L, Monocytes 9, Absolute Monocytes 0.7 H, Absolute Eosinophils 0, Absolute Basophils 0.1, Metamyelocytes 4 H, Myelocytes 1 H, Platelet Estimate VERIFIED BY SMEAR, Normocytic RBCs VERIFIED, Normochromic RBCs VERIFIED, PUBS MCHC 33.0 09/13/162119: Urine Color YEL, Urine Clarity CLEAR, Urine pH 7.0, Ur Specific [place] <= 1.005 , Urine Protein TRACE H, Urine Ketones NEG, Urine Nitrite NEG, Urine Bilirubin NEG, Urine Urobilinogen 0.2, Ur Leukocyte Esterase NEG, Ur Microscopic SEDIMENT EXAMINED, Urine RBC RARE, Urine WBC RARE, Ur Epithelial Cells RARE, Urine Bacteria RARE H, Urine Hemoglobin TRACE-INTACT, Urine Glucose NEG 09/13/16 1845: Lactic Acid 1.1 09/13/16 1549: Lactic Acid Cancelled Microbiology 09/15 1125 STOOL: Clostridium difficile Toxin A & B - RECD 09/14 2119 URINE ROUT: Urine Culture - COMP 09/13 2029 BLOOD: Blood Culture - RES 09/14 2019 BLOOD: Blood Culture - RES 09/13 1909 STOOL: Stool Culture - CAN Cancelled: SPECIMEN NOT RECEIVED IN LABORATORY Assessment/Plan Assessment: Mrs. Lynn is a 76 yo white woman with a PMH of COPD (on 2L nasal cannula at home), HTN, osteopenia, sinus tachycardia of uknown cause, and low back pain who presented to ED with abdominal pain, nausea, and diarrhea for 10 days. She has a history of C.Diff 7 years ago. She has past hospitalizations with [facility] for COPD exacerbation (08/18/2016), as well as thrombocytopenia, hyponatremia, and hypalbuminemia (08/30/2016). Patient states that she was started on augmentin at [facility] for an uknown reason, she began having 2-3 loose watery stools per day, she continued on this antibiotic for 1 week before they gave her immodium for the diarrhea. This stopped the diarrhea and she has not had a bowel movement in over 2 days. The nursing facilty collected a stool sample and sent it to lab but have not yet obtained results. Patient has had generalized weakness and low appetite for 1 week and denies chest pain, vomiting, fever, chills, breathing or neurological difficulties. Her labs on admission were significant for WBC- 88077 with 7 bands, Lactic Acid- 3.0, H/H- 11/35, renal function normal. She was admitted to general medicine floor with possible C.Diff colitis. Today Mrs. Lynn's status seems to be improving. She has had no abdominal pain since admission and has been having frequent semi-solid stools the last two days. She reports no pain or problems other than being weak, and her lips being dry. She shows no sign of megacolon or peritonitis, she has normal bowel sounds, and she has had no fever or chills. Vitals are stable (temp-98.2, BP-117/63, SpO2-97% on 1L nasal cannula, slightly tachycardic at 113 but baseline is in the 90s). Today's labs show WBC-18.8 , H/H-9.7/29.5 , BUN-8, [employer]-0.4. Notes: - ID is concerned that WBC is still elevated and has recommended to get a repeat CT if it continues to be elevated. Will also follow up with stool sample for C. Diff this afternoon and continue PO vancomycin and IV flagyl. -Stool culture was positive for C. Diff. Current Medications Sig/Denice Start time Last Medication Dose Route Stop Time Status Admin Albuterol Sulfate 2 PUF Q6P PRN 09/15 1000 AC INH Albuterol Sulfate 2 PUF Q4 09/15 0745 DC INH Albuterol Sulfate 3 ML EVERY 4 HRS/AWAKE 09/14 0800 AC 09/16 INH 0803 Budesonide/ 2 PUF BID 09/15 1000 AC 09/15 Formoterol Fumarate INH 1920 Diphenhydramine HCl 50 MG Q6P PRN 09/13 2130 AC 09/13 IV 2139 Epinephrine 0.15 MG ONCE PRN 09/13 2014 AC IM Fat Emulsion 150 ML Q24H 09/15 1900 DC Intravenous IV 09/16 185 Fat Emulsion 200 ML Q24H 09/15 1900 AC 09/15 Intravenous IV 09/16 185 191 Fat Emulsion 150 ML Q24H 09/14 1900 DC 09/14 Intravenous IV 09/15 185 1950 Metronidazole 500 MG IQ8 09/13 1600 AC 09/15 N/A 1 UNIT IV 2335 Pantoprazole Sodium 40 MG BID 09/15 1000 AC 09/15 IV 2102 Pantoprazole Sodium 40 MG DAILY 09/13 191 DC 09/14 IV 0815 Potassium Chloride 20 MEQ .Q20H 09/13 1815 AC 09/16 Dextrose/Sodium 1,000 ML IV 0105 Chloride Sucralfate 1 GM Q8 09/13 1800 AC 09/16 PO 0555 Tiotropium Green 2 PUF DAILY 09/15 0745 AC 09/15 INH 1002 Total Parenteral 1 UNIT ONE 09/15 1900 AC 09/15 Nutrition IV 09/16 Total Parenteral 1 UNIT ONE 09/14 1900 DC Nutrition IV 09/15 1858 Vancomycin HCl 125 MG Q6H 09/14 2300 AC 09/16 PO 0555 Plan: Continue with bowel rest, latest x-ray was negative for megacolon, and follow up on labs. WBC still elevated so ordered repeat CT to assess for perforation. Called [facility] to obtain results for their stool sample labs (sample sent to [facility] but we have no record of receiving it, PCP states it was negative) Sent another sample to confirm which came back positive today for clostridium difficile. Patients breathing has been greatly improved on treatments. Continue patient on albuterol, tiotropium, and budesonide therapy. Problem list: 1. Sepsis associated with severe C.Difficile infection/colitis- -continue treatment with Vancomycin 125 mg Q6H PO and metronidazole 500 mg Q8H IV per ID -replete fluids and electrolytes -continue to monitor vitals and labs(WBC-19.1, Lactic acid- 1.1) for any sign of worsening infection. -Patient is TPN for bowel rest, continue adequate nutrition. (Day 3 of bowel rest) -Follow up with stool cultures for possible C.Diff (C.Diff positive) -Serial abdominal exams and daily abdominal x-rays to monitor for toxic megacolon 2. Perforated duodenal ulcer- -CT showed no free air in abdomen. Findings of contained perforated ulcer could have been present and stable for some time. Patient denies past history of peptic ulcer disease. -continue sucralfate therapy and Pantoprazole 40mg IV daily -She is low threshold for ICU transfer is she deteriorates -Surgery recommends GI rest, TPN, and treatment of colitis with primary care team -Ceftriaxone was discontinued due to puritic rash reaction. 3. Weakness- -most likely due to malnutrition and dehydration, patient is TPN and is receiving nutrition as well as IV fluid and electrolyte therapy. 3. Back pain- -patient was taking aleve for her back but states that back pain has been tolerable without medication since admission. 4. Hyponatremia- -continue to replete electrolytes and fluids 5. COPD- -continue albuterol, tiotropium, and budesonide treatments. 6. Osteopenia- -continue calcium and vit. D3 supplementation Code status- Full Diet- TPN DVT prophylaxis-Alps (patient has been removing them periodically)
--- NOTE | 2016-09-16 08:09 | PN- Housestaff ---
ANNIA CAMILO 09/16/16 0809: Subjective Follow-up For: Sepsis secondary to severe C. difficile colitis Perforated duodenal ulcer Complaints: pain scale (0-10) Subjective: Patient was seen and examined this morning. She is alert, awake and oriented to time place and person. She has no overnight events. She denies any nausea or vomiting, abdominal pain this morning. Denies any diarrhea. She had 3 bowel movements overnight. She denies any difficulty breathing, chest pain. She feels she is doing much better this morning. Offers no complaints. Vitals stable. Afebrile, heart rate 98, respiratory rate 20, blood pressure 112 /71, saturating at 92 on 2 L. Review of Systems Constitutional: Denies: chills, diaphoresis, fever, malaise, weakness. Objective Last 24 Hrs of Vital Signs/I&O Vital Signs Date Time Temp Pulse Resp B/P B/P Pulse O2 O2 Flow FiO2 Mean Ox Delivery Rate 09/16 0806 97 Nasal 1.0L Cannula 09/16 0725 98 20 112/70 97 Nasal 2.0L Cannula 09/16 0650 98.2 113 20 117/63 97 Nasal 2.0L Cannula 09/16 0000 Nasal 2.0L Cannula 09/15 2158 98.4 107 17 116/54 95 Nasal 1.0L Cannula 09/15 1629 96 Nasal 1.0L Cannula 09/15 1600 Nasal 2.0L Cannula 09/15 1338 97.9 92 20 116/60 95 Nasal 2.0L Cannula Intake & Output 09/16 1600 09/16 0800 09/16 0000 Intake Total 906.4 825.0 Output Total 200 550 Balance 706.4 275.0 Intake, IV 440 400 Intake, Lipid 66.4 58.0 Intake, Oral 0 Intake, 400 367 TPN/PPN Number 2 1 Bowel Movements Output, Urine 200 550 Patient 52.617 kg Weight Weight Chair scale Measurement Method Physical Exam General Appearance: Alert, Oriented X3, Cooperative, No Acute Distress Skin: No Rashes, No Breakdown HEENT: Atraumatic, PERRLA, EOMI, Mucous Membr. moist/pink Neck: Supple, No JVD, No thryomegaly Lymphatic: Cervical nl Cardiovascular: Normal S1, Normal S2 Lungs: wheezes bilaterally Abdomen: Normal Bowel Sounds, Soft, No Tenderness Extremities: No Clubbing, No Cyanosis, No Edema Vascular: Normal Pulses Current Medications: Current Medications Sig/Denice Start time Last Medication Dose Route Stop Time Status Admin Albuterol Sulfate 2 PUF Q6P PRN 09/15 1000 AC INH Albuterol Sulfate 2 PUF Q4 09/15 0745 DC INH Albuterol Sulfate 3 ML EVERY 4 HRS/AWAKE 09/14 0800 AC 09/16 INH 0803 Budesonide/ 2 PUF BID 09/15 1000 AC 09/15 Formoterol Fumarate INH 1920 Diphenhydramine HCl 50 MG Q6P PRN 09/13 2130 AC 09/13 IV 2139 Epinephrine 0.15 MG ONCE PRN 09/13 2015 AC IM Fat Emulsion 150 ML Q24H 09/15 1900 DC Intravenous IV 09/16 185 Fat Emulsion 200 ML Q24H 09/15 1900 AC 09/15 Intravenous IV 09/16 185 191 Fat Emulsion 150 ML Q24H 09/14 1900 DC 09/14 Intravenous IV 09/15 185 1950 Metronidazole 500 MG IQ8 09/13 1600 AC 09/15 N/A 1 UNIT IV 2335 Pantoprazole Sodium 40 MG BID 09/15 1000 AC 09/15 IV 2102 Potassium Chloride 20 MEQ .Q20H 09/13 1815 AC 09/16 Dextrose/Sodium 1,000 ML IV 0105 Chloride Sucralfate 1 GM Q8 09/13 1800 AC 09/16 PO 0555 Tiotropium [place] 2 PUF DAILY 09/15 0745 AC 09/15 INH 1002 Total Parenteral 1 UNIT ONE 09/15 1900 AC 09/15 Nutrition IV 09/16 185 191 Total Parenteral 1 UNIT ONE 09/14 1900 DC Nutrition IV 09/15 185 Vancomycin HCl 125 MG Q6H 09/14 2300 AC 09/16 PO 0555 Last 24 Hrs of Lab/Carlos Results Last 24 Hrs of Labs/Mics: Laboratory Tests 09/16/16 0605: Anion Gap 6, Estimated GFR > 60, BUN/Creatinine Ratio 20.0, CBC w Diff Pending, WBC Pending, RBC Pending, Hgb Pending, Hct Pending, MCV Pending, MCH Pending, RDW Pending, Plt Count Pending, MPV Pending, Gran % Pending, Lymphocytes % Pending, Monocytes % Pending, Eosinophils % Pending, Basophils % Pending, Absolute Granulocytes Pending, Absolute Lymphocytes Pending, Absolute Monocytes Pending, Absolute Eosinophils Pending, Absolute Basophils Pending, PUBS MCHC Pending Microbiology 09/15 1125 STOOL: Clostridium difficile Toxin A & B - RECD Assessment/Plan Assessment: This is a 75-year-old female with past medical history significant for COPD on home oxygen 2 L, hypertension, low back pain, smoker quit 20 years ago, osteopenia, sinus tachycardia of unclear etiology, history of C. difficile colitis 7 years ago presented to the [facility] emergency department from nursing care facility with chief complaint of nausea, diarrhea, abdominal pain for 10 days. She was discharged from [facility] on 08/30/2016 after being treated for thrombocytopenia, hyponatremia, hypoalbuminemia. She was sent to [facility] from [facility]. Vitals on admission-afebrile, heart rate 118, blood pressure 92/58, respiratory rate 20, saturating at 95 on room air. Pertinent labs on admission WBC 24,000 with 7 bands, hemoglobin 11, hematocrit 35, platelets 371 Sodium 128 with normal kidney function tests. Albumin 2.2. CAT scan findings revealed IMPRESSION: 1. Findings indicative of a contained perforated duodenal ulcer arising from the duodenal cap. 2. Generalized mild colitis. Small fluid collections in the right pericolic gutter and cul-de-sac. 3. Stable left ovarian cyst. Abdominal x-ray-no evidence of toxic megacolon Problem list 1. Sepsis secondary to presumed severe C. difficile colitis/diarrhea 2. Perforated duodenum ulcer per imaging 3. COPD on home oxygen 4. History of hypertension 5. Osteopenia 6. Chronic back pain 7. Leukocytosis 8. Hyponatremia Sepsis secondary to Severe C. difficile colitis/diarrhea Patient presented with ongoing diarrhea 3-4 episodes per day for 10 days. She started having diarrhea after using Augmentin. Also reports abdominal discomfort. Diarrhea most likely from recent antibiotic use. On admission she was found to have WBC count 24,000 with 7 bands, tachycardia. Fulfilled SIRS criteria on admission with possible source of infection colon. CAT scan findings suggestive of mild colitis and fluid in cul-de-sac. X-ray no evidence of toxic megacolon * She was admitted to general medicine floor for management of severe C. difficile colitis and diarrhea * Monitor vitals closely every shift * Monitor for fever, leukocytosis, worsening abdominal pain * Monitor closely for blood pressure as her blood pressure was borderline since admission, she is low threshold for ICU transfer * Serial abdominal exams * ID was consulted * Stool C. difficile was sent * Will follow up with stool C. difficile * She was started on IV antibiotics-IV Flagyl and by mouth vancomycin for severe C. difficile colitis day4 * Started on IV ceftriaxone, later discontinued because of rash and itching * Monitor CBCs -WBC-24240 * Lactic acid 3 on admission, will trend lactic acid-came down to 1.1. * On IV fluids D5 normal saline with potassium chloride supplement as she had diarrhea. * Nothing by mouth for now. * Complete bowel rest * Total parent nutrition through PICC line-day3 Perforated duodenum ulcer Patient presented with ongoing diarrhea, abdominal pain for 10 days. She uses Aleve for her back pain. Denies any history of peptic ulcer disease. * Admitted to general medicine floor for further management * Monitor vitals closely * Monitor for blood pressure, low threshold for ICU transfer * General surgeon on board * CAT scan findings suggestive of perforated duodenum ulcer from duodenum cup, * as presently there are no peritoneal signs, these changes at the duodenum may have been there and stabilized for some time actually, plan is to monitor for signs of worsening * Also would cover her empirically for upper GI pauline in light of the possibility of a perforation. * Started on IV ceftriaxone and IV Flagyl, however ceftriaxone discontinued because of rash and itch * No nsaids * Sucralfate suspension * IV fluids * IV PPI * Nothing by mouth * Bowel rest Hyponatremia * Sodium 128 on admission * Most possibly from hypotension, dehydration, poor oral intake * Hypovolemic hyponatremia * on gentle hydration IV fluid d5 normal saline 100 mL per hour * Repeat BEP in the morning * Sodium improved-133 Generalized weakness * Most possibly from dehydration and hypotension * Patient does complain of low appetite for 1-2 weeks duration * nutrition consulted * Required TPN because of malnutrition and bowel rest * PTOT consult Chronic low back pain She was discharged from [facility] emergency department on after being treated for back pain and she was given Vicodin. She took Vicodin for a couple of days and then she took Motrin 2 tablets every 4 hours for 4 days for her back pain after which pain came down. * on vitamin D and calcium supplements at home COPD Patient has COPD who uses 2 L oxygen. Not in COPD exacerbation. * Patient was discharged from [facility] on 08/18/2016 after being treated for COPD exacerbation * Will provide supplemental oxygen * Total respiratory care * Vitals every shift * Albuterol * Symbicort * No plan of steroids/antibiotics history of hypertension metoprolol on hold because of hypotension on admission DVT prophylaxis-alps Full code npo Problem List: 1. Diarrhea 2. Colitis 3. Peptic ulcer Pain Ratin Pain Location: n/a Pain Goal: Remain pain free Pain Plan: tylinol Tomorrow's Labs & Rationales: cbc in the setting of infection MICHAEL WELLS 09/16/16 1046: Attending MD Review Statement Attending Statement Attending MD Statement: examined this patient, discuss w/resident/PA/TEXTILE SCREEN PRINTER, agreed w/resident/PA/TEXTILE SCREEN PRINTER, discussed with family, reviewed EMR data (avail), discussed with nursing, discussed with case mgmt, reviewed images, amended to note Attending Assessment/Plan: Impression/Plan: #Abdominal Pain #Sepsis 2/2 colitis #Colitis 2/2 ?C DIFF #Possible Perforated Duodenal Ulcer BUT NO FREE AIR #H/O Thrombocytopenia #COPD not in exacerbation #HTN with hypotension #Hypoalbumenia #Poor Po intake/dehydration PLAN admitted to inpatient medical services NPO, IVF, TPN bowel rest conservative management as per surgery, advance diet as per surgery ID and surgery following. c/w abx as per ID, GI notified Nutrition consult dietitian. PICC for tpn. monitor cbc WBC 19,000 , plan to repeat CT scan abd/pelvis as per ID. f/u c diff cont current care. hold bp meds for now. pain control gi/dvt prophyalxis full code Plan of care d/wed patient bedside, Patient symtoms slowly improving, She says "She feels better". "She feels hungry" cont current care.
--- NOTE | 2016-09-16 13:02 | PN- Infect Dx ---
Subjective Subjective: Afebrile. She feels well with no abdominal pain or diarrhea. Objective Last 24 Hrs of Vital Signs/I&O Vital Signs Date Time Temp Pulse Resp B/P B/P Pulse O2 O2 Flow FiO2 Mean Ox Delivery Rate 09/16 0806 97 Nasal 1.0L Cannula 09/16 0800 96 Nasal 2.0L Cannula 09/16 0725 98 20 112/70 97 Nasal 2.0L Cannula 09/16 0650 98.2 113 20 117/63 97 Nasal 2.0L Cannula 09/16 0000 Nasal 2.0L Cannula 09/15 2158 98.4 107 17 116/54 95 Nasal 1.0L Cannula 09/15 1629 96 Nasal 1.0L Cannula 09/15 1600 Nasal 2.0L Cannula 09/15 1338 97.9 92 20 116/60 95 Nasal 2.0L Cannula Intake & Output 09/16 1600 09/16 0800 09/16 0000 Intake Total 906.4 825.0 Output Total 200 550 Balance 706.4 275.0 Intake, IV 440 400 Intake, Lipid 66.4 58.0 Intake, Oral 0 Intake, 400 367 TPN/PPN Number 1 2 1 Bowel Movements Output, Urine 200 550 Patient 116 lb Weight Weight Chair scale Measurement Method Physical Exam Other Physical Findings: She appears comfortable in no acute distress Lungs decreased breath sounds bilaterally Heart regular rhythm with no murmur Abdomen is soft, nontender with positive bowel sounds Extremities PICC in the right upper extremity with no inflammation at the site Results Last 24 Hours of Lab Results: Laboratory Tests 09/16 604 Chemistry Sodium (137 - 145 mmol/L) 135 L Potassium (3.5 - 5.1 mmol/L) 3.4 L Chloride (98 - 107 mmol/L) 105 Carbon Dioxide (22 - 30 mmol/L) 25 Anion Gap (5 - 16) 6 BUN (7 - 17 mg/dL) 8 Creatinine (0.5 - 1.0 mg/dL) 0.4 L Estimated GFR (>60 ml/min) > 60 BUN/Creatinine Ratio (7 - 25 %) 20.0 Hematology CBC w Diff MAN DIFF ORDERED WBC (4.8 - 10.8 /CUMM) 19.1 H RBC (4.20 - 5.40 /CUMM) 3.46 L Hgb (12.0 - 16.0 G/DL) 9.7 L Hct (37 - 47 %) 29.5 L MCV (81.0 - 99.0 FL) 85.1 MCH (27.0 - 31.0 PG) 28.1 RDW (11.5 - 14.5 %) 14.0 Plt Count (130 - 400 /CUMM) 357 MPV (7.4 - 10.4 FL) 7.9 Gran % (42.2 - 75.2 %) 79.9 H Lymphocytes % (20.5 - 51.1 %) 13.2 L Monocytes % (1.7 - 9.3 %) 5.7 Eosinophils % (0 - 5 %) 1.1 Basophils % (0.0 - 2.0 %) 0.1 Absolute Granulocytes (1.4 - 6.5 /CUMM) 15.2 H Segmented Neutrophils (42.2 - 75.2 %) 71 Band Neutrophils (0.0 - 5.0 %) 2 Absolute Lymphocytes (1.2 - 3.4 /CUMM) 2.5 Lymphocytes (20.5 - 51.1 %) 15 L Monocytes (1.7 - 9.3 %) 6 Absolute Monocytes (0.10 - 0.60 /CUMM) 1.1 H Absolute Eosinophils (0.0 - 0.7 /CUMM) 0.2 Absolute Basophils (0.0 - 0.2 /CUMM) 0 Metamyelocytes (0.0 - 1.0 %) 4 H Myelocytes (0 - 0 %) 2 H Platelet Estimate (ADEQUATE) VERIFIED BY SMEAR Polychromasia PUBS MCHC (33.0 - 37.0 G/DL) 33.0 Last 24 Hours of Carlos Results: Stool C. difficile September 15 pending Blood cultures 2 September 13 negative Assessment/Plan Impression: Improved with temperatures remaining normal and with resolution of her abdominal pain and diarrhea but with her white blood cell count remaining elevated on po Vancomycin and IV Flagyl, Day 3 of treatment for presumed C. difficile, with her stool C. difficile toxin test pending. She is currently on no antibiotics for her presumed perforated duodenal ulcer which was felt on CAT scan to be contained and which does not appear to be producing any symptoms, but the possibility of an intra-abdominal abscess must be considered given her persistent leukocytosis. Suggestion: 1. Repeat CT of the abdomen and pelvis 2. Follow-up stool for C. difficile 3. Continue po Vancomycin and IV Flagyl pending above
[2016-09-16 14:48] VITALS: BP 108/62
--- NOTE | 2016-09-16 16:18 | CT SCAN REPORT ---
EXAMINATION: CT ABDOMEN AND PELVIS WITH CONTRAST CLINICAL INFORMATION: Severe C. difficile colitis. COMPARISON: CT scan of the abdomen and pelvis dated 09/13/2016, 08/28/2016, 08/23/2016. TECHNIQUE: Multidetector CT volumetric acquisition of the abdomen and pelvis was performed after the administration of 94 mL of intravenous Optiray 320. The data set was reformatted in the sagittal and coronal planes and reviewed on an independent workstation. DLP: 278.21 mGy-cm. FINDINGS: LOWER CHEST: Bilateral small pleural effusions are noted, new from prior exam. Associated bibasilar subsegmental atelectasis is seen. LIVER, GALLBLADDER, BILIARY TREE: Liver normal size and attenuation. There is a tiny 0.6 x 0.4 cm low-attenuation mass seen in hepatic segment 8 and a 0.6 x 0.5 cm low-attenuation mass in segment 3, unchanged from prior exam, and both too small to characterize, but most consistent with benign findings, such as cysts. No intra-or extrahepatic ductal dilatation. Hepatic and portal veins patent. Gallbladder well distended with some layering sludge or thickened bile is seen in the dependent portions. No calcified gallstones, gallbladder wall thickening or pericholecystic fluid is seen. PANCREAS: Normal. No ductal dilatation, mass, or surrounding stranding. SPLEEN: Normal size and appearance. An incidental 1.6 cm accessory splenule is seen along the inferior margin of the spleen. Splenic vein patent. ADRENAL GLANDS AND KIDNEYS: Adrenal glands normal. Kidneys bilaterally symmetric in size and function. There are bilateral scattered tiny subcentimeter sized low-attenuation masses seen in the kidneys, too characterize but most consistent with scattered tiny cysts. No suspicious focal mass, hydronephrosis, nephrolithiasis or perinephric stranding. URETERS AND BLADDER: Ureters decompressed and within normal limits. Bladder decompressed, likely accounting for the diffusely thick walled appearance. PELVIC ORGANS: Uterus and right ovary unremarkable. Again seen is a thin-walled left adnexal cyst, measuring approximately 4.3 x 3.3 cm in size as compared to 4.8 x 3.4 cm previously. GASTROINTESTINAL TRACT: Again seen is diffuse thickening of the colon from the rectum to the cecum with mild mucosal hyperenhancement and submucosal edema. The distribution of the disease is similar to the previous exam but the extent of mucosal hyperenhancement and bowel wall thickening has diminished slightly compared to the prior exam. There is a small volume of free fluid present in the pelvis, increased in volume compared to the previous study. No evidence of pneumatosis or perforation/obstruction is seen. The terminal ileum appears unremarkable. Appendix is not discretely visualized. The previously described diverticular collection arising from the proximal duodenum/duodenal bulb is again seen with internal air-fluid level. The previously seen surrounding fluid has resolved and findings may be related to a duodenal diverticulum rather than perforated duodenal ulcer as previously suspected. Clinical correlation will be needed. LYMPHOVASCULAR STRUCTURES: Abdominal aorta normal in caliber. Moderate atherosclerotic calcification of the aorta is seen. No periaortic collections. No abdominal or pelvic adenopathy or free fluid collection. BONES: Diffuse osteopenia is present with severe degenerative disc disease throughout the lumbar spine with disc space narrowing, vertebral endplate sclerosis and spurring and vacuum disc phenomenon. Relative sparing of the L3-L4 disc space is seen. There is grade 1 anterolistheses of L4 on L5, likely on a degenerative basis. No definite pars defect is noted. Findings are unchanged from prior exam. IMPRESSION: 1. Pancolitis is seen with interval slight decrease in the mucosal hyperenhancement and the degree of bowel wall thickening. Findings are consistent with the clinical history of C. difficile colitis. No evidence of bowel perforation or obstruction is seen. 2. Small volume of free fluid in the pelvis, increased in volume compared to prior study. 3. Interval development of small bilateral pleural effusions with associated bibasilar subsegmental atelectasis. 4. 4.3 x 3.3 cm thin-walled left ovarian cyst is seen. No suspicious features are identified. However, given the size of the finding in a late postmenopausal patient, annual follow-up is recommended with ultrasound. 5. Tiny hepatic and bilateral renal lesions, most consistent with small cysts.
[2016-09-16 22:45] VITALS: BP 108/59
[2016-09-17 07:18] VITALS: BP 110/60
[2016-09-17 08:24] LABS: ABSOLUTE BASOPHIL COUNT 0.1 /CUMM (0.0-0.2); ABSOLUTE EOSINOPHIL COUNT 0.3 /CUMM (0.0-0.7); ABSOLUTE GRANULOCYTE CT 10.2 /CUMM (1.4-6.5); ABSOLUTE LYMPH COUNT 2.2 /CUMM (1.2-3.4); ABSOLUTE MONOCYTE COUNT 0.9 /CUMM (0.10-0.60); BASOPHIL % 0.8 % (0.0-2.0); EOSINOPHIL % 2.3 % (0-5); GRANULOCYTE % 74.4 % (42.2-75.2); HEMATOCRIT 29.1 % (37-47); MEAN CORPUSCULAR HGB CONC 32.9 G/DL (33.0-37.0); MEAN CORPUSCULAR VOLUME 85.3 FL (81.0-99.0); MEAN PLATELET VOLUME 8.3 FL (7.4-10.4); PLATELET COUNT 376 /CUMM (130-400); RBC DISTRIBUTION WIDTH 14.3 % (11.5-14.5); RED BLOOD CELL CT 3.42 /CUMM (4.20-5.40); WHITE BLOOD CELL COUNT 13.7 /CUMM (4.8-10.8)
--- NOTE | 2016-09-17 08:44 | PN- Housestaff ---
ANNIA CAMILO 09/17/16 0844: Subjective Follow-up For: Sepsis secondary to severe C. difficile colitis Perforated duodenal ulcer Complaints: no complaints Subjective: Patient was seen and examined this morning. She is alert, awake and oriented to time place and person. She has no overnight events. She denies any nausea or vomiting, abdominal pain this morning. Denies any diarrhea. She had 4 bowel movements overnight. She denies any difficulty breathing, chest pain. She feels she is doing much better this morning. Offers no complaints. Vitals stable. Afebrile, heart rate 98, respiratory rate 20, blood pressure 112 /71, saturating at 92 on 2 L. Review of Systems Constitutional: Denies: chills, diaphoresis, fever, malaise. Objective Last 24 Hrs of Vital Signs/I&O Vital Signs Date Time Temp Pulse Resp B/P B/P Pulse O2 O2 Flow FiO2 Mean Ox Delivery Rate 09/17 0911 99 Nasal 2.0L Cannula 09/17 0800 Nasal 2.0L Cannula 09/17 0718 98.1 97 18 110/60 83 Nasal 2.0L Cannula 09/17 0000 99 Nasal 2.0L Cannula 09/16 2245 97.8 95 20 108/59 98 Nasal 2.0L Cannula 09/16 1617 96 Nasal 1.0L Cannula 09/16 1600 Nasal 2.0L Cannula 09/16 1448 97.4 101 20 108/62 98 Nasal 2.0L Cannula Intake & Output 09/17 1600 09/17 0800 09/17 0000 Intake Total 983.2 368.7 Output Total 850 300 Balance 133.2 68.7 Intake, IV 400 150 Intake, Lipid 83.2 31.2 Intake, 500 187.5 TPN/PPN Number 1 Bowel Movements Output, Urine 850 300 Physical Exam General Appearance: Alert, Oriented X3, Cooperative, No Acute Distress Skin: No Rashes, No Breakdown HEENT: Atraumatic, PERRLA, EOMI, Mucous Membr. moist/pink Neck: Supple, No JVD Lymphatic: Cervical nl Cardiovascular: Normal S1, Normal S2 Lungs: Normal Air Movement Abdomen: Normal Bowel Sounds, Soft, No Tenderness Extremities: No Clubbing, No Cyanosis, No Edema Vascular: Pulses Symmetrical Current Medications: Current Medications Sig/Denice Start time Last Medication Dose Route Stop Time Status Admin Acetaminophen 1,000 MG ONCE ONE 09/17 0100 DC 09/17 N/A 1 UNIT IV 09/17 0114 0206 Albuterol Sulfate 3 ML BID 09/16 2200 AC 09/17 INH 0907 Albuterol Sulfate 2 PUF Q6P PRN 09/15 1000 AC INH Albuterol Sulfate 3 ML EVERY 4 HRS/AWAKE 09/14 0800 DC 09/16 INH 1614 Budesonide/ 2 PUF BID 09/15 1000 AC 09/17 Formoterol Fumarate INH 0908 Diphenhydramine HCl 50 MG Q6P PRN 09/13 2130 AC 09/13 IV 2139 Epinephrine 0.15 MG ONCE PRN 09/13 2014 AC IM Fat Emulsion 250 ML 09/17 1900 AC Intravenous IV 09/18 185 Fat Emulsion 250 ML 1900 09/16 1900 AC 09/16 Intravenous IV 09/17 185 194 Fat Emulsion 200 ML Q24H 09/15 1900 DC 09/15 Intravenous IV 09/16 185 191 Metronidazole 500 MG IQ8 09/13 1600 AC 09/17 N/A 1 UNIT IV 0908 Pantoprazole Sodium 40 MG BID 09/15 1000 09/17 IV 0908 Patient Medication 1 ED .STK-MED ONE 09/16 1317 DE Teaching ED 09/16 1318 Potassium Chloride 20 MEQ .Q20H 09/13 1815 DE 09/16 Dextrose/Sodium 1,000 ML IV 0105 Chloride Sucralfate 1 GM Q8 09/13 1800 09/17 PO 0602 Tiotropium Jackson 2 PUF DAILY 09/15 0745 09/17 INH 0909 Total Parenteral 1 UNIT 09/17 190 AC Nutrition IV 09/18 185 Total Parenteral 1 UNIT 09/16 1900 AC 09/16 Nutrition IV 09/17 185 194 Total Parenteral 1 UNIT ONE 09/15 1900 DE 09/15 Nutrition IV 09/16 185 191 Vancomycin HCl 125 MG Q6H 09/14 2300 09/17 PO 1025 Last 24 Hrs of Lab/Carlos Results Last 24 Hrs of Labs/Mics: Laboratory Tests 09/17/16 0610: Anion Gap 5, Estimated GFR > 60, BUN/Creatinine Ratio 17.5, CBC w Diff MAN DIFF ORDERED, RBC 3.42 L, MCV 85.3, MCH 28.0, RDW 14.3, MPV 8.3, Gran % 74.4, Lymphocytes % 16.0 L, Monocytes % 6.5, Eosinophils % 2.3, Basophils % 0.8, Absolute Granulocytes 10.2 H, Segmented Neutrophils 47, Band Neutrophils 12 H, Absolute Lymphocytes 2.2, Lymphocytes 19 L, Monocytes 7, Absolute Monocytes 0.9 H, Eosinophils 3, Absolute Eosinophils 0.3, Basophils 1, Absolute Basophils 0.1 , Metamyelocytes 8 H, Myelocytes 3 H, Anisocytosis 1+, PUBS MCHC 32.9 L Assessment/Plan Assessment: This is a 75-year-old female with past medical history significant for COPD on home oxygen 2 L, hypertension, low back pain, smoker quit 20 years ago, osteopenia, sinus tachycardia of unclear etiology, history of C. difficile colitis 7 years ago presented to the [facility] emergency department from nursing care facility with chief complaint of nausea, diarrhea, abdominal pain for 10 days. She was discharged from [facility] on 08/30/2016 after being treated for thrombocytopenia, hyponatremia, hypoalbuminemia. She was sent to [facility] from [facility]. Vitals on admission-afebrile, heart rate 118, blood pressure 92/58, respiratory rate 20, saturating at 95 on room air. Pertinent labs on admission WBC 24,000 with 7 bands, hemoglobin 11, hematocrit 35, platelets 371 Sodium 128 with normal kidney function tests. Albumin 2.2. CAT scan findings revealed IMPRESSION: 1. Findings indicative of a contained perforated duodenal ulcer arising from the duodenal cap. 2. Generalized mild colitis. Small fluid collections in the right pericolic gutter and cul-de-sac. 3. Stable left ovarian cyst. Abdominal x-ray-no evidence of toxic megacolon Problem list 1. Sepsis secondary to presumed severe C. difficile colitis/diarrhea 2. Perforated duodenum ulcer per imaging 3. COPD on home oxygen 4. History of hypertension 5. Osteopenia 6. Chronic back pain 7. Leukocytosis 8. Hyponatremia Sepsis secondary to Severe C. difficile colitis/diarrhea Patient presented with ongoing diarrhea 3-4 episodes per day for 10 days. She started having diarrhea after using Augmentin. Also reports abdominal discomfort. Diarrhea most likely from recent antibiotic use. On admission she was found to have WBC count 24,000 with 7 bands, tachycardia. Fulfilled SIRS criteria on admission with possible source of infection colon. CAT scan findings suggestive of mild colitis and fluid in cul-de-sac. X-ray no evidence of toxic megacolon * She was admitted to general medicine floor for management of severe C. difficile colitis and diarrhea * Monitor vitals closely every shift * Monitor for fever, leukocytosis, worsening abdominal pain * Monitor closely for blood pressure as her blood pressure was borderline since admission, she is low threshold for ICU transfer * Serial abdominal exams * ID was consulted * Stool C. difficile was sent * stool C. difficile- POSITIVE * She was started on IV antibiotics-IV Flagyl and by mouth vancomycin for severe C. difficile colitis day5 * Started on IV ceftriaxone, later discontinued because of rash and itching * Monitor CBCs -[id number] * Lactic acid 3 on admission, will trend lactic acid-came down to 1.1. * Total parent nutrition through PICC line-day4 * She was on bowel rest and IV fluids for 4 days, started clear liquids today repeat ct abd 1. Pancolitis is seen with interval slight decrease in the mucosal hyperenhancement and the degree of bowel wall thickening. Findings are consistent with the clinical history of C. difficile colitis. No evidence of bowel perforation or obstruction is seen. 2. Small volume of free fluid in the pelvis, increased in volume compared to prior study. Perforated duodenum ulcer Patient presented with ongoing diarrhea, abdominal pain for 10 days. She uses Aleve for her back pain. Denies any history of peptic ulcer disease. * Admitted to general medicine floor for further management * Monitor vitals closely * Monitor for blood pressure, low threshold for ICU transfer * General surgeon on board * CAT scan findings suggestive of perforated duodenum ulcer from duodenum cup, * as presently there are no peritoneal signs, these changes at the duodenum may have been there and stabilized for some time actually, plan is to monitor for signs of worsening * Also would cover her empirically for upper GI pauline in light of the possibility of a perforation. * Started on IV ceftriaxone and IV Flagyl, however ceftriaxone discontinued because of rash and itch * No nsaids * Sucralfate suspension * IV PPI * She was on bowel rest for 4 days, started clear liquids today Hyponatremia * Sodium 128 on admission * Most possibly from hypotension, dehydration, poor oral intake * Hypovolemic hyponatremia * on gentle hydration IV fluid d5 normal saline 100 mL per hour * Repeat BEP in the morning * Sodium improved-133 Generalized weakness * Most possibly from dehydration and hypotension * Patient does complain of low appetite for 1-2 weeks duration * nutrition consulted * Required TPN because of malnutrition and bowel rest * PTOT consult Chronic low back pain She was discharged from [facility] emergency department on after being treated for back pain and she was given Vicodin. She took Vicodin for a couple of days and then she took Motrin 2 tablets every 4 hours for 4 days for her back pain after which pain came down. * on vitamin D and calcium supplements at home COPD Patient has COPD who uses 2 L oxygen. Not in COPD exacerbation. * Patient was discharged from [facility] on 08/18/2016 after being treated for COPD exacerbation * Will provide supplemental oxygen * Total respiratory care * Vitals every shift * Albuterol * Symbicort * No plan of steroids/antibiotics history of hypertension metoprolol on hold because of hypotension on admission DVT prophylaxis-alps Full code clear liquids now Problem List: 1. Diarrhea 2. Colitis Pain Ratin Pain Location: abdomen Pain Goal: Remain pain free Pain Plan: tylinol Tomorrow's Labs & Rationales: cbc MICHAEL WLELS 09/17/16 1008: Attending MD Review Statement Attending Statement Attending MD Statement: examined this patient, discuss w/resident/PA/RECOVERY UNIT OPERATOR, agreed w/resident/PA/RECOVERY UNIT OPERATOR, discussed with family, reviewed EMR data (avail), discussed with nursing, discussed with case mgmt, reviewed images, amended to note Attending Assessment/Plan: Impression/Plan: #Abdominal Pain improved #Sepsis 2/2 colitis resolved #Colitis 2/2 C DIFF SLOWLY IMRPOVING #Possible Perforated Duodenal Ulcer BUT NO FREE AIR NO PERFORATION ON REPEAT CT #H/O Thrombocytopenia #COPD not in exacerbation #HTN with hypotension #Hypoalbumenia #Poor Po intake/dehydration PLAN admitted to inpatient medical services clear liquids, IVF,WEAN OFF TPN bowel rest conservative management as per surgery, advance diet as per surgery ID and surgery following. c/w abx as per ID, GI notified monitor cbc, c diff +, repeat CT consistent with pancolitis and diffuse wall thickening. cont current care. hold bp meds for now. pain control gi/dvt prophyalxis full code Plan of care d/mon patient bedside.
--- NOTE | 2016-09-17 09:42 | PN- Student ---
Subjective Subjective: This morning Mrs. Lynn says she feels good. She was cleared by surgery to start on clear fluids and has really enjoyed it. Her disposition has greatly improved since yesterday now that she can begin oral consumption again. She denies any abdominal pain, N/V, Headache, chest pain, breathing problems, or dysuria. She did complain of soreness and swelling of her feet today which is a new symptom. Objective Objective: Vital Signs Date Time Temp Pulse Resp B/P B/P Pulse O2 O2 Flow FiO2 Mean Ox Delivery Rate 09/17 0911 99 Nasal 2.0L Cannula 09/17 0718 98.1 97 18 110/60 83 Nasal 2.0L Cannula 09/17 0000 99 Nasal 2.0L Cannula 09/16 2245 97.8 95 20 108/59 98 Nasal 2.0L Cannula 09/16 1617 96 Nasal 1.0L Cannula 09/16 1600 Nasal 2.0L Cannula 09/16 1448 97.4 101 20 108/62 98 Nasal 2.0L Cannula Intake & Output 09/17 1600 09/17 0800 09/17 0000 Intake Total 983.2 368.7 Output Total 850 300 Balance 133.2 68.7 Intake, IV 400 150 Intake, Lipid 83.2 31.2 Intake, 500 187.5 TPN/PPN Number 1 Bowel Movements Output, Urine 850 300 Notes on Admission: - CT scan -contained perforated duodenal ulcer arising from duodenal cap -generalized mild colitis, small fluid collection in right pericolic gutter and cul de sac -stable left ovarian cyst - CXR -severe emphysema, no acute process PE: general- AAO x 3, cooperative, resting comfortably in bed, NAD HEENT- atraumatic, PERRLA, membranes moist and pink Neck- supple, no JVD, no lymphadenopathy or thyromegaly, trachea is midline CV- S1 and S2 heard, RRR, no murmurs or rubs appreciated Chest- chest rise equal bilaterally, vesicular breath sounds in all lung cole, normal air movement Abd- bowel sounds heard, soft and non-tender to palpation, no distention or rebound tenderness, no pain since admission Ext- 1+ edema present bilaterally of feet and ankles extending to mid cotter, associated soreness of the feet but no pain or soreness in calf at rest or on palpation, motor and sensation grossly intact Skin- no lesions present, skin is intact, warm, dry and well perfused Results Results: Laboratory Tests 09/17/16 0610: Anion Gap 5, Estimated GFR > 60, BUN/Creatinine Ratio 17.5, CBC w Diff MAN DIFF ORDERED, RBC 3.42 L, MCV 85.3, MCH 28.0, RDW 14.3, MPV 8.3, Gran % 74.4, Lymphocytes % 16.0 L, Monocytes % 6.5, Eosinophils % 2.3, Basophils % 0.8, Absolute Granulocytes 10.2 H, Segmented Neutrophils 47, Band Neutrophils 12 H, Absolute Lymphocytes 2.2, Lymphocytes 19 L, Monocytes 7, Absolute Monocytes 0.9 H, Eosinophils 3, Absolute Eosinophils 0.3, Basophils 1, Absolute Basophils 0.1 , Metamyelocytes 8 H, Myelocytes 3 H, Anisocytosis 1+, PUBS MCHC 32.9 L 09/16/16 0605: Anion Gap 6, Estimated GFR > 60, BUN/Creatinine Ratio 20.0, CBC w Diff MAN DIFF ORDERED, RBC 3.46 L, MCV 85.1, MCH 28.1, RDW 14.0, MPV 7.9, Gran % 79.9 H, Lymphocytes % 13.2 L, Monocytes % 5.7, Eosinophils % 1.1, Basophils % 0.1, Absolute Granulocytes 15.2 H, Segmented Neutrophils 71, Band Neutrophils 2, Absolute Lymphocytes 2.5, Lymphocytes 15 L, Monocytes 6, Absolute Monocytes 1.1 H, Absolute Eosinophils 0.2, Absolute Basophils 0, Metamyelocytes 4 H, Myelocytes 2 H, Platelet Estimate VERIFIED BY SMEAR, Polychromasia , PUBS MCHC 33.0 09/15/16 0600: Anion Gap 6, Estimated GFR > 60, BUN/Creatinine Ratio 20.0, CBC w Diff MAN DIFF ORDERED, RBC 3.21 L, MCV 84.4, MCH 27.8, RDW 13.4, MPV 8.5, Gran % 84.0 H, Lymphocytes % 11.0 L, Monocytes % 4.3, Eosinophils % 0.6, Basophils % 0.1, Absolute Granulocytes 15.8 H, Segmented Neutrophils 77 H, Band Neutrophils 1, Absolute Lymphocytes 2.1, Lymphocytes 10 L, Monocytes 7, Absolute Monocytes 0.8 H, Absolute Eosinophils 0.1, Absolute Basophils 0, Metamyelocytes 4 H, Myelocytes 1 H, Platelet Estimate VERIFIED BY SMEAR, Normocytic RBCs VERIFIED, Normochromic RBCs VERIFIED, PUBS MCHC 32.9 L Microbiology 09/15 1125 STOOL: Clostridium difficile Toxin A & B - COMP CLOSTRIDIUM DIFFICILE Assessment/Plan Assessment: Mrs. Lynn is a 76 yo white woman with a PMH of COPD (on 2L nasal cannula at home), HTN, osteopenia, sinus tachycardia of uknown cause, and low back pain who presented to ED with abdominal pain, nausea, and diarrhea for 10 days. She has a history of C.Diff 7 years ago. She has past hospitalizations with [facility] for COPD exacerbation (08/18/2016), as well as thrombocytopenia, hyponatremia, and hypalbuminemia (08/30/2016). Patient states that she was started on augmentin at [facility] for an uknown reason, she began having 2-3 loose watery stools per day, she continued on this antibiotic for 1 week before they gave her immodium for the diarrhea. This stopped the diarrhea and she has not had a bowel movement in over 2 days. The nursing facilty collected a stool sample and sent it to lab but have not yet obtained results. Patient has had generalized weakness and low appetite for 1 week and denies chest pain, vomiting, fever, chills, breathing or neurological difficulties. Her labs on admission were significant for WBC- [id number] with 7 bands, Lactic Acid- 3.0, H/H- 11/35, renal function normal. She was admitted to general medicine floor with possible C.Diff colitis which was later confirmed by stool sample. Today Mrs. Lynn appears to be doing better mentally and physically, however she has 1+ pitting edema of both lower extremities with associated soreness. She was not on alps when I walked in to examine her. The rest of physical exam was normal. She has been progressed to clear liquid diet which she greatly enjoys. Had a CT scan yesterday, results below. Her vitals are stable with temp-98.1, HR - 97, RR- 18, BP- 110/60, SpO2- 99% 2L nasal cannula. Labs showed WBC-13.7 w/ 12 bands, H/H- 9.6/29.1, Bun- 7, Milk Driver- 0.4. CT Scan Impression: 1. Pancolitis is seen with interval slight decrease in the mucosal hyperenhancement and the degree of bowel wall thickening. Findings are consistent with the clinical history of C. difficile colitis. No evidence of bowel perforation or obstruction is seen. 2. Small volume of free fluid in the pelvis, increased in volume compared to prior study. 3. Interval development of small bilateral pleural effusions with associated bibasilar subsegmental atelectasis. 4. 4.3 x 3.3 cm thin-walled left ovarian cyst is seen. No suspicious features are identified. However, given the size of the finding in a late postmenopausal patient, annual follow-up is recommended with ultrasound. 5. Tiny hepatic and bilateral renal lesions, most consistent with small cysts. Current Medications Sig/Denice Start time Last Medication Dose Route Stop Time Status Admin Acetaminophen 1,000 MG ONCE ONE 09/17 0100 DC 09/17 N/A 1 UNIT IV 09/17 0114 0206 Albuterol Sulfate 3 ML BID 09/16 2200 AC 09/17 INH 0907 Albuterol Sulfate 2 PUF Q6P PRN 09/15 1000 AC INH Albuterol Sulfate 3 ML EVERY 4 HRS/AWAKE 09/14 0800 DC 09/16 INH 1614 Budesonide/ 2 PUF BID 09/15 1000 AC 09/17 Formoterol Fumarate INH 0908 Diphenhydramine HCl 50 MG Q6P PRN 09/13 2130 AC 09/13 IV 2139 Epinephrine 0.15 MG ONCE PRN 09/13 2015 AC IM Fat Emulsion 250 ML 1900 09/17 1900 AC Intravenous IV 09/18 1859 Fat Emulsion 250 ML 1900 09/16 1900 AC 09/16 Intravenous IV 09/17 1859 1945 Fat Emulsion 200 ML Q24H 09/15 1900 DC 09/15 Intravenous IV 09/16 1859 1919 Metronidazole 500 MG IQ8 09/13 1600 AC 09/17 N/A 1 UNIT IV 0908 Pantoprazole Sodium 40 MG BID 09/15 1000 AC 09/17 IV 0908 Patient Medication 1 ED .STK-MED ONE 09/16 1317 [facility] 09/16 1318 Potassium Chloride 20 MEQ .Q20H 09/13 1815 [place] 09/16 Dextrose/Sodium 1,000 ML IV 0105 Chloride Sucralfate 1 GM Q8 09/13 1800 09/17 PO 0602 Tiotropium [place] 2 PUF DAILY 09/15 0745 AC 09/17 INH 0909 Total Parenteral 1 UNIT 09/17 AC Nutrition IV 09/18 1858 Total Parenteral 1 UNIT 09/16 AC 09/16 Nutrition IV 09/17 Total Parenteral 1 UNIT ONE 09/15 1899 DC 09/15 Nutrition IV 09/16 Vancomycin HCl 125 MG Q6H 09/14 2300 AC 09/17 PO 1025 Plan: Advanced to clear liquid diet today with TPN, latest x-ray was negative for megacolon, and follow up on labs. WBC still elevated so ordered repeat CT to assess for perforation. Called [facility] to obtain results for their stool sample labs (sample sent to [facility] but we have no record of receiving it, PCP states it was negative) Sent another sample to confirm which came back positive today for clostridium difficile. Patients breathing has been greatly improved on treatments. Continue patient on albuterol, tiotropium, and budesonide therapy. Will monitor patients lower extremity edema. Has been discontinued on IV fluid therapy. Problem list: 1. Sepsis associated with severe C.Difficile infection/colitis- -continue treatment with Vancomycin 125 mg Q6H PO and metronidazole 500 mg Q8H IV per ID -replete fluids and electrolytes -continue to monitor vitals and labs(WBC-13.7, Lactic acid- 1.1) for any sign of worsening infection. -Patient is on diet of clear fluids and TPN, continue adequate nutrition. (Had 4 days bowel rest) -Follow up with stool cultures for possible C.Diff (C.Diff positive) -Serial abdominal exams to monitor for toxic megacolon 2. Perforated duodenal ulcer- -CT showed no free air in abdomen. Patient denies past history of peptic ulcer disease. -continue sucralfate therapy and Pantoprazole 40mg IV daily -She is low threshold for ICU transfer is she deteriorates -Surgery recommends GI rest, clear fluids diet, and treatment of colitis with primary care team -Ceftriaxone was discontinued due to puritic rash reaction. 3. Weakness- -most likely due to malnutrition and dehydration, patient is on clear fluids diet. 3. Back pain- -patient was taking aleve for her back but states that back pain has been tolerable without medication since admission. 4. Hyponatremia- -discontinued fluid and electrolyte therapy 5. COPD- -continue albuterol, tiotropium, and budesonide treatments daily. 6. Osteopenia- -continue calcium and vit. D3 supplementation Code status- Full Diet- TPN DVT prophylaxis-Alps (patient has been removing them periodically)
--- NOTE | 2016-09-17 12:42 | PN- General Surgery ---
Subjective Subjective: Patient feeling better, is hungry , abdominal pain is less Objective Vital Signs and I&Os Vital Signs Date Time Temp Pulse Resp B/P B/P Pulse O2 O2 Flow FiO2 Mean Ox Delivery Rate 09/17 0911 99 Nasal 2.0L Cannula 09/17 0718 98.1 97 18 110/60 83 Nasal 2.0L Cannula 09/17 0000 99 Nasal 2.0L Cannula 09/16 2245 97.8 95 20 108/59 98 Nasal 2.0L Cannula 09/16 1617 96 Nasal 1.0L Cannula 09/16 1600 Nasal 2.0L Cannula 09/16 1448 97.4 101 20 108/62 98 Nasal 2.0L Cannula Intake & Output 09/17 1600 09/17 0800 09/17 0000 09/16 0809/16 0000 Intake Total 983.2 368.7 816.4 906.4 825.0 Output Total 850 300 500 200 550 Balance 133.2 68.7 316.4 706.4 275.0 Intake, IV 400 150 350 440 400 Intake, Lipid 83.2 31.2 66.4 66.4 58.0 Intake, Oral 0 0 Intake, 500 187.5 400 400 367 TPN/PPN Number 1 1 2 1 Bowel Movements Output, Urine 850 300 500 200 550 Patient 116 lb Weight Weight Chair scale Measurement Method Physical Exam: Well-developed well-nourished no apparent distress. HEENT: Atraumatic, extraocular motion intact Respiratory: No respiratory distress Abdomen: Soft, minimally tender Extremities: No edema, no calf pain Neuro: Alert and oriented x3 Psych: Mood affect normal, normal memory normal judgment. Skin: Warm and dry, no rash on exposed skin Assessment/Plan Assessment/Plan C. difficile colitis, no surgical intervention at this time, we'll sign off, please call with any questions
[2016-09-17 14:59] VITALS: BP 110/62
[2016-09-18 07:24] VITALS: BP 110/848
[2016-09-18 07:53] LABS: ABSOLUTE BASOPHIL COUNT 0.7 /CUMM (0.0-0.2); ABSOLUTE EOSINOPHIL COUNT 0.3 /CUMM (0.0-0.7); ABSOLUTE GRANULOCYTE CT 11.1 /CUMM (1.4-6.5); ABSOLUTE LYMPH COUNT 2.1 /CUMM (1.2-3.4); BASOPHIL % 4.6 % (0.0-2.0); MEAN CORPUSCULAR HGB 28.2 PG (27.0-31.0); MEAN CORPUSCULAR HGB CONC 33.5 G/DL (33.0-37.0); MEAN CORPUSCULAR VOLUME 84.1 FL (81.0-99.0); PLATELET COUNT 503 /CUMM (130-400); RBC DISTRIBUTION WIDTH 14.2 % (11.5-14.5); WHITE BLOOD CELL COUNT 15.2 /CUMM (4.8-10.8)
--- NOTE | 2016-09-18 08:21 | PN- Housestaff ---
ANNIA CAMILO 09/18/16 0821: Subjective Follow-up For: Sepsis secondary to severe C. difficile colitis Perforated duodenal ulcer Complaints: pain scale (0-10) Subjective: Patient was seen and examined this morning. She is alert, awake and oriented to time place and person. She has no overnight events. She denies any nausea or vomiting, abdominal pain this morning. Denies any diarrhea. She had 2 bowel movements overnight. She denies any difficulty breathing, chest pain. She feels she is doing much better this morning. Offers no complaints. Vitals stable. Afebrile, heart rate 98, respiratory rate 20, blood pressure 112 /71, saturating at 92 on 1 L. Review of Systems Constitutional: Denies: chills, diaphoresis, fever, malaise. Objective Last 24 Hrs of Vital Signs/I&O Vital Signs Date Time Temp Pulse Resp B/P B/P Pulse O2 O2 Flow FiO2 Mean Ox Delivery Rate 09/18 0914 94 Nasal 1.0L Cannula 09/18 0724 98.2 84 18 110/848 97 Nasal 2.0L Cannula 09/18 0000 Nasal 2.0L Cannula 09/17 1600 95 Nasal 2.0L Cannula 09/17 1459 97.7 105 20 110/62 95 Nasal 2.0L Cannula Intake & Output 09/18 1600 09/18 0800 09/18 0000 Intake Total 580 Output Total Balance 580 Intake, IV 580 Physical Exam General Appearance: Alert, Oriented X3, Cooperative, No Acute Distress Skin: No Rashes, No Breakdown HEENT: Atraumatic, PERRLA, EOMI, Mucous Membr. moist/pink Neck: Supple, No JVD Lymphatic: Cervical nl Cardiovascular: Regular Rate, Normal S1, Normal S2, No Murmurs Lungs: wheezesb b/l Abdomen: Normal Bowel Sounds, Soft, No Tenderness Extremities: No Clubbing, No Cyanosis, No Edema Vascular: Pulses Symmetrical Current Medications: Current Medications Sig/Denice Start time Last Medication Dose Route Stop Time Status Admin Albuterol Sulfate 3 ML BID 09/16 220 AC 09/18 INH 0913 Albuterol Sulfate 2 PUF Q6P PRN 09/15 1000 AC 09/17 INH 1319 Budesonide/ 2 PUF BID 09/15 1000 AC 09/18 Formoterol Fumarate INH 0846 Diphenhydramine HCl 50 MG Q6P PRN 09/13 2130 AC 09/13 IV 213 Epinephrine 0.15 MG ONCE PRN 09/13 2014 AC IM Fat Emulsion 250 ML 0 09/17 1900 AC 09/17 Intravenous IV 09/18 Fat Emulsion 250 ML 09/16 1900 DC 09/16 Intravenous IV 09/17 Metronidazole 500 MG IQ8 09/13 1600 AC 09/18 N/A 1 UNIT IV 0845 Pantoprazole Sodium 40 MG BID 09/15 1000 AC 09/18 IV 0845 Potassium Chloride 10 MEQ Q1H 09/18 0930 UNVr IV 09/18 1031 Potassium Chloride 20 MEQ .Q20H 09/13 1815 DC 09/16 Dextrose/Sodium 1,000 ML IV 0105 Chloride Sucralfate 1 GM Q8 09/13 1800 AC 09/18 PO 0531 Tiotropium [place] 2 PUF DAILY 09/15 0745 AC 09/18 INH 0847 Total Parenteral 1 UNIT 09/17 1900 AC 09/17 Nutrition IV 09/18 Total Parenteral 1 UNIT 09/16 1900 DC 09/16 Nutrition IV 09/17 Vancomycin HCl 125 MG Q6H 09/14 2300 AC 09/18 PO 0530 Last 24 Hrs of Lab/Carlos Results Last 24 Hrs of Labs/Mics: Laboratory Tests 09/18/16 0625: Anion Gap 7, Estimated GFR > 60, BUN/Creatinine Ratio 12.5, CBC w Diff NO MAN DIFF REQ, RBC 1.98 L, MCV 84.1, MCH 28.2, RDW 14.2, MPV 8.0, Gran % 73.0, Lymphocytes % 13.6 L, Monocytes % 6.8, Eosinophils % 2.0, Basophils % 4.6 H, Absolute Granulocytes 11.1 H, Absolute Lymphocytes 2.1, Absolute Monocytes 1.0 H, Absolute Eosinophils 0.3, Absolute Basophils 0.7, PUBS MCHC 33.5 Assessment/Plan Assessment: This is a 75-year-old female with past medical history significant for COPD on home oxygen 2 L, hypertension, low back pain, smoker quit 20 years ago, osteopenia, sinus tachycardia of unclear etiology, history of C. difficile colitis 7 years ago presented to the [facility] emergency department from nursing care facility with chief complaint of nausea, diarrhea, abdominal pain for 10 days. She was discharged from [facility] on 08/30/2016 after being treated for thrombocytopenia, hyponatremia, hypoalbuminemia. She was sent to [facility] from [facility]. Vitals on admission-afebrile, heart rate 118, blood pressure 92/58, respiratory rate 20, saturating at 95 on room air. Pertinent labs on admission WBC 24,000 with 7 bands, hemoglobin 11, hematocrit 35, platelets 371 Sodium 128 with normal kidney function tests. Albumin 2.2. CAT scan findings revealed IMPRESSION: 1. Findings indicative of a contained perforated duodenal ulcer arising from the duodenal cap. 2. Generalized mild colitis. Small fluid collections in the right pericolic gutter and cul-de-sac. 3. Stable left ovarian cyst. Abdominal x-ray-no evidence of toxic megacolon Problem list 1. Sepsis secondary to presumed severe C. difficile colitis/diarrhea 2. Perforated duodenum ulcer per imaging 3. COPD on home oxygen 4. History of hypertension 5. Osteopenia 6. Chronic back pain 7. Leukocytosis 8. Hyponatremia Sepsis secondary to Severe C. difficile colitis/diarrhea Patient presented with ongoing diarrhea 3-4 episodes per day for 10 days. She started having diarrhea after using Augmentin. Also reports abdominal discomfort. Diarrhea most likely from recent antibiotic use. On admission she was found to have WBC count 24,000 with 7 bands, tachycardia. Fulfilled SIRS criteria on admission with possible source of infection colon. CAT scan findings suggestive of mild colitis and fluid in cul-de-sac. X-ray no evidence of toxic megacolon * She was admitted to general medicine floor for management of severe C. difficile colitis and diarrhea * Monitor vitals closely every shift * Monitor for fever, leukocytosis, worsening abdominal pain * Monitor closely for blood pressure as her blood pressure was borderline since admission, she is low threshold for ICU transfer * Serial abdominal exams * ID was consulted * Stool C. difficile was sent * stool C. difficile- POSITIVE * She was started on IV antibiotics-IV Flagyl and by mouth vancomycin for severe C. difficile colitis day6 * Started on IV ceftriaxone, later discontinued because of rash and itching * Monitor CBCs -[id number] * Lactic acid 3 on admission, trended lactic acid-came down to 1.1. * Total parent nutrition through PICC line-for 4days-stopped on 09/18/2016 * She was on bowel rest, tpn and IV fluids for 4 days, started clear liquids and advance to regular diet mechanical soft thin liquids repeat ct abd 1. Pancolitis is seen with interval slight decrease in the mucosal hyperenhancement and the degree of bowel wall thickening. Findings are consistent with the clinical history of C. difficile colitis. No evidence of bowel perforation or obstruction is seen. 2. Small volume of free fluid in the pelvis, increased in volume compared to prior study. Perforated duodenum ulcer Patient presented with ongoing diarrhea, abdominal pain for 10 days. She uses Aleve for her back pain. Denies any history of peptic ulcer disease. * Admitted to general medicine floor for further management * Monitor vitals closely * Monitor for blood pressure, low threshold for ICU transfer * General surgeon on board * CAT scan findings suggestive of perforated duodenum ulcer from duodenum cup, * as presently there are no peritoneal signs, these changes at the duodenum may have been there and stabilized for some time actually, plan is to monitor for signs of worsening * Also would cover her empirically for upper GI pauline in light of the possibility of a perforation. * Started on IV ceftriaxone and IV Flagyl, however ceftriaxone discontinued because of rash and itch * No nsaids * Sucralfate suspension * IV PPI * She was on bowel rest for 4 days, now started with clear liquids and advanced to regular diet, mechanical soft and thin liquids Hypokalemia Potassium 3.2 this morning Received KCl 10 mEq 2 times We'll repeat potassium in the evening and replete accordingly Hyponatremia * Sodium 128 on admission * Most possibly from hypotension, dehydration, poor oral intake * Hypovolemic hyponatremia * on gentle hydration IV fluid d5 normal saline 100 mL per hour * Repeat BEP in the morning * Sodium improved-133 Generalized weakness * Most possibly from dehydration and hypotension * Patient does complain of low appetite for 1-2 weeks duration * nutrition consulted * Required TPN because of malnutrition and bowel rest * PTOT consult Chronic low back pain She was discharged from [facility] emergency department on after being treated for back pain and she was given Vicodin. She took Vicodin for a couple of days and then she took Motrin 2 tablets every 4 hours for 4 days for her back pain after which pain came down. * on vitamin D and calcium supplements at home COPD Patient has COPD who uses 2 L oxygen. Not in COPD exacerbation. * Patient was discharged from [facility] on 08/18/2016 after being treated for COPD exacerbation * Will provide supplemental oxygen * Total respiratory care * Vitals every shift * Albuterol * Symbicort * No plan of steroids/antibiotics history of hypertension metoprolol on hold because of hypotension on admission DVT prophylaxis-alps Full code advanced to mechanical soft and thin liquid diet today TPN stopped today, received for 4 days Hemoglobin dropped from 9 to 5.6 this morning, blood was drawn from piccline, will replete cbc again Problem List: 1. Diarrhea 2. Colitis 3. Peptic ulcer Pain Ratin Pain Location: n/a Pain Goal: Remain pain free Pain Plan: tylinol Tomorrow's Labs & Rationales: CbC in the setting of C. difficile diarrhea MICHAEL WELLS 09/18/16 0949: Attending MD Review Statement Attending Statement Attending MD Statement: examined this patient, discuss w/resident/PA/HOURLY SHIFT MANAGER, agreed w/resident/PA/HOURLY SHIFT MANAGER, discussed with family, reviewed EMR data (avail), discussed with nursing, discussed with case mgmt, reviewed images, amended to note Attending Assessment/Plan: Impression/Plan: #Abdominal Pain improved #Sepsis 2/2 colitis resolved #Colitis 2/2 C DIFF SLOWLY IMRPOVING #Possible Perforated Duodenal Ulcer BUT NO FREE AIR NO PERFORATION ON REPEAT CT #H/O Thrombocytopenia #COPD not in exacerbation #HTN with hypotension #Hypoalbumenia #Poor Po intake/dehydration with hypokalemia #abnormal cbc PLAN admitted to inpatient medical services advance diet to mech soft today, TPN stop. ID following and surgery signed off. c/w abx as per ID, GI notified monitor cbc, c diff +, repeat CT consistent with pancolitis and diffuse wall thickening. cont current care. hold bp meds for now. replace potassium as needed. repeat cbc. VITALS stable with no new complaints. pain control gi/dvt prophyalxis full code Plan of care d/wed patient bedside.
[2016-09-18 09:05] LABS: HEMATOCRIT 16.7 % (37-47); RED BLOOD CELL CT 1.98 /CUMM (4.20-5.40)
[2016-09-18 10:10] LABS: ABSOLUTE BASOPHIL COUNT 0 /CUMM (0.0-0.2); ABSOLUTE EOSINOPHIL COUNT 0.3 /CUMM (0.0-0.7); ABSOLUTE GRANULOCYTE CT 12.4 /CUMM (1.4-6.5); ABSOLUTE LYMPH COUNT 2.2 /CUMM (1.2-3.4); ABSOLUTE MONOCYTE COUNT 0.9 /CUMM (0.10-0.60); BASOPHIL % 0.3 % (0.0-2.0); GRANULOCYTE % 78.3 % (42.2-75.2); MEAN CORPUSCULAR HGB 28.1 PG (27.0-31.0); MEAN CORPUSCULAR HGB CONC 32.9 G/DL (33.0-37.0); MEAN CORPUSCULAR VOLUME 85.4 FL (81.0-99.0); MEAN PLATELET VOLUME 7.3 FL (7.4-10.4); PLATELET COUNT 469 /CUMM (130-400); RBC DISTRIBUTION WIDTH 14.6 % (11.5-14.5); WHITE BLOOD CELL COUNT 15.8 /CUMM (4.8-10.8)
[2016-09-18 10:21] LABS: HEMATOCRIT 29.2 % (37-47); RED BLOOD CELL CT 3.42 /CUMM (4.20-5.40)
--- NOTE | 2016-09-18 10:29 | PN- Infect Dx ---
Subjective Subjective: Afebrile. She feels well with no abdominal pain and tolerating a clear liquid diet. She continues to report loose stools, with some form. Objective Last 24 Hrs of Vital Signs/I&O Vital Signs Date Time Temp Pulse Resp B/P B/P Pulse O2 O2 Flow FiO2 Mean Ox Delivery Rate 09/18 0914 94 Nasal 1.0L Cannula 09/18 0724 98.2 84 18 110/848 97 Nasal 2.0L Cannula 09/18 0000 Nasal 2.0L Cannula 09/17 1600 95 Nasal 2.0L Cannula 09/17 1459 97.7 105 20 110/62 95 Nasal 2.0L Cannula Intake & Output 09/18 1600 09/18 0800 09/18 0000 Intake Total 580 Output Total Balance 580 Intake, IV 580 Physical Exam Other Physical Findings: She appears well in no acute distress Lungs decreased breath sounds bilaterally Heart regular rhythm with no murmur Abdomen is soft, nontender with positive bowel sounds Extremities PICC in the right upper extremity with no inflammation at the site Results Last 24 Hours of Lab Results: Laboratory Tests 09/18 09/18 0951 0625 Chemistry Sodium (137 - 145 mmol/L) 137 Potassium (3.5 - 5.1 mmol/L) 3.2 L Chloride (98 - 107 mmol/L) 104 Carbon Dioxide (22 - 30 mmol/L) 26 Anion Gap (5 - 16) 7 BUN (7 - 17 mg/dL) 5 L Creatinine (0.5 - 1.0 mg/dL) 0.4 L Estimated GFR (>60 ml/min) > 60 BUN/Creatinine Ratio (7 - 25 %) 12.5 Hematology CBC w Diff Pending MAN DIFF ORDERED WBC (4.8 - 10.8 /CUMM) Pending 15.2 H RBC (4.20 - 5.40 /CUMM) Pending 1.98 L Hgb (12.0 - 16.0 G/DL) Pending 5.6 *L Hct (37 - 47 %) Pending 16.7 *L MCV (81.0 - 99.0 FL) Pending 84.1 MCH (27.0 - 31.0 PG) Pending 28.2 RDW (11.5 - 14.5 %) Pending 14.2 Plt Count (130 - 400 /CUMM) Pending 503 H MPV (7.4 - 10.4 FL) Pending 8.0 Gran % (42.2 - 75.2 %) 73.0 Lymphocytes % (20.5 - 51.1 %) 13.6 L Monocytes % (1.7 - 9.3 %) 6.8 Eosinophils % (0 - 5 %) 2.0 Basophils % (0.0 - 2.0 %) 4.6 H Absolute Granulocytes (1.4 - 6.5 /CUMM) 11.1 H Segmented Neutrophils (42.2 - 75.2 %) 66 Band Neutrophils (0.0 - 5.0 %) 6 H Absolute Lymphocytes (1.2 - 3.4 /CUMM) 2.1 Lymphocytes (20.5 - 51.1 %) 12 L Monocytes (1.7 - 9.3 %) 3 Absolute Monocytes (0.10 - 0.60 /CUMM) 1.0 H Eosinophils (0 - 5.0 %) 1 Absolute Eosinophils (0.0 - 0.7 /CUMM) 0.3 Absolute Basophils (0.0 - 0.2 /CUMM) 0.7 Metamyelocytes (0.0 - 1.0 %) 12 H Anisocytosis 1+ PUBS MCHC (33.0 - 37.0 G/DL) Pending 33.5 Last 24 Hours of Carlos Results: Blood cultures 2 September 13 remain negative Stool C. difficile September 15 positive Recent Imaging Studies: CT of the abdomen and pelvis September 16 revealed pancolitis with slight decrease in the mucosal hyperenhancement and the degree of bowel wall thickening; interval development of small bilateral pleural effusions with bibasilar atelectasis; previously described diverticular collection arising from the proximal duodenum/ duodenal bulb is again seen with internal air fluid levels, suggesting the possibility of a duodenal diverticulum rather than a perforated duodenal ulcer Assessment/Plan Impression: Clinically improved with temperatures remaining normal and white blood cell count decreased, though slightly elevated today, with a marked decrease in her H &H, suggesting either an error or a significant bleed, possibly GI versus another source. She remains on po Vancomycin and IV Flagyl Day 5 of treatment for C. difficile. The repeat CT scan suggests that the abnormalities involving the duodenum may represent a diverticulum rather than a perforated ulcer. Suggestion: 1. Repeat CBC with further evaluation/management based on the H&H 2. Advance diet as tolerated 3. Discontinue Flagyl 4. Continue po Vancomycin
[2016-09-18 15:06] VITALS: BP 106/58
[2016-09-18 23:29] VITALS: BP 118/65
[2016-09-19 07:46] VITALS: BP 117/62
[2016-09-19 08:53] LABS: ABSOLUTE BASOPHIL COUNT 0.1 /CUMM (0.0-0.2); ABSOLUTE EOSINOPHIL COUNT 0.2 /CUMM (0.0-0.7); ABSOLUTE GRANULOCYTE CT 8.4 /CUMM (1.4-6.5); ABSOLUTE LYMPH COUNT 1.9 /CUMM (1.2-3.4); ABSOLUTE MONOCYTE COUNT 0.7 /CUMM (0.10-0.60); BASOPHIL % 0.6 % (0.0-2.0); EOSINOPHIL % 1.8 % (0-5); GRANULOCYTE % 74.4 % (42.2-75.2); HEMATOCRIT 27.4 % (37-47); MEAN CORPUSCULAR HGB 27.7 PG (27.0-31.0); MEAN CORPUSCULAR HGB CONC 32.3 G/DL (33.0-37.0); MEAN CORPUSCULAR VOLUME 85.8 FL (81.0-99.0); MEAN PLATELET VOLUME 8.3 FL (7.4-10.4); PLATELET COUNT 430 /CUMM (130-400); RBC DISTRIBUTION WIDTH 14.3 % (11.5-14.5); WHITE BLOOD CELL COUNT 11.3 /CUMM (4.8-10.8)
--- NOTE | 2016-09-19 09:14 | PN- Housestaff ---
DOROTHY ACEVEDO,[place] 09/19/16 0914: Subjective Follow-up For: Sepsis secondary to severe C. difficile colitis Perforated duodenal ulcer Complaints: no complaints Review of Systems Constitutional: Denies: see HPI. Objective Last 24 Hrs of Vital Signs/I&O Vital Signs Date Time Temp Pulse Resp B/P B/P Pulse O2 O2 Flow FiO2 Mean Ox Delivery Rate 09/19 1104 91 Room Air Room Air 09/19 1036 20 96 Room Air 09/19 1036 20 99 Nasal 2.0L Cannula 09/19 0746 98.1 100 20 117/62 98 Nasal Cannula 09/19 0735 96 Nasal 2.0L Cannula 09/19 0000 Nasal 2.0L Cannula 09/18 2329 97.4 112 18 118/65 93 Room Air 09/18 2124 95 Nasal 1.0L Cannula 09/18 1600 95 Room Air Room Air 09/18 1506 97.9 104 20 106/58 94 Room Air Intake & Output 09/19 1600 09/19 0800 09/19 0000 Intake Total 280 680 Output Total 375 Balance -95 680 Intake, IV 40 200 Intake, Oral 240 480 Number 3 4 Bowel Movements Output, Urine 375 Physical Exam General Appearance: Alert, Oriented X3, Cooperative, No Acute Distress HEENT: Mucous Membr. moist/pink Cardiovascular: Regular Rate, Normal S1, Normal S2 Lungs: Clear to Auscultation, Normal Air Movement Abdomen: Normal Bowel Sounds, Soft, No Tenderness Extremities: No Edema, Normal Pulses Current Medications: Current Medications Sig/Denice Start time Last Medication Dose Route Stop Time Status Admin Albuterol Sulfate 3 ML BID 09/16 2200 AC 09/19 INH 1100 Albuterol Sulfate 2 PUF Q6P PRN 09/15 1000 AC 09/17 INH 1319 Budesonide/ 2 PUF BID 09/15 1000 AC 09/19 Formoterol Fumarate INH 0957 Diphenhydramine HCl 50 MG Q6P PRN 09/13 2130 AC 09/13 IV 2139 Epinephrine 0.15 MG ONCE PRN 09/13 2014 AC IM Famotidine 20 MG BID 09/19 1015 AC IV Fat Emulsion 250 ML 1900 09/17 1900 DC 09/17 Intravenous IV 09/18 1859 1846 Lactobacillus 1 CAP BID 09/19 1346 AC Acidophilus PO Pantoprazole Sodium 40 MG BID 09/15 1000 DC 09/19 IV 0957 Potassium Chloride 10 MEQ Q1H 09/18 2130 DC 09/19 IV 09/18 2231 0018 Sucralfate 1 GM Q8 09/13 1800 AC 09/19 PO 1412 Tiotropium [place] 2 PUF DAILY 09/15 0745 AC 09/19 INH 0957 Vancomycin HCl 125 MG Q6H 09/14 2300 AC 09/19 PO 1135 Last 24 Hrs of Lab/Carlos Results Last 24 Hrs of Labs/Mics: Laboratory Tests 09/19/16 0530: Anion Gap 6, Estimated GFR > 60, BUN/Creatinine Ratio 12.5, CBC w Diff MAN DIFF ORDERED, RBC 3.20 L, MCV 85.8, MCH 27.7, RDW 14.3, MPV 8.3, Gran % 74.4, Lymphocytes % 16.8 L, Monocytes % 6.4, Eosinophils % 1.8, Basophils % 0.6, Absolute Granulocytes 8.4 H, Segmented Neutrophils 61, Band Neutrophils 4, Absolute Lymphocytes 1.9, Lymphocytes 16 L, Monocytes 7, Absolute Monocytes 0.7 H, Eosinophils 5, Absolute Eosinophils 0.2, Basophils 2, Absolute Basophils 0.1 , Metamyelocytes 4 H, Myelocytes 1 H, Platelet Estimate VERIFIED BY SMEAR, Polychromasia 1+, Basophilic Stippling 1+, PUBS MCHC 32.3 L 09/18/16 1850: Anion Gap 7, Estimated GFR > 60, BUN/Creatinine Ratio 15.0 Lines/Diet/Fluids Lines: peripheral lines Assessment/Plan Assessment: This is a 75-year-old female with past medical history significant for COPD on home oxygen 2 L, hypertension, low back pain, smoker quit 20 years ago, osteopenia, sinus tachycardia of unclear etiology, history of C. difficile colitis 7 years ago presented to the [facility] emergency department from nursing care facility with chief complaint of nausea, diarrhea, abdominal pain for 10 days. She was discharged from [facility] on 08/30/2016 after being treated for thrombocytopenia, hyponatremia, hypoalbuminemia. She was sent to [facility] from [facility]. Vitals on admission-afebrile, heart rate 118, blood pressure 92/58, respiratory rate 20, saturating at 95 on room air. Pertinent labs on admission WBC 24,000 with 7 bands, hemoglobin 11, hematocrit 35, platelets 371 Sodium 128 with normal kidney function tests. Albumin 2.2. CAT scan findings revealed IMPRESSION: 1. Findings indicative of a contained perforated duodenal ulcer arising from the duodenal cap. 2. Generalized mild colitis. Small fluid collections in the right pericolic gutter and cul-de-sac. 3. Stable left ovarian cyst. Abdominal x-ray-no evidence of toxic megacolon Problem list 1. Sepsis secondary to presumed severe C. difficile colitis/diarrhea 2. Perforated duodenum ulcer per imaging 3. COPD on home oxygen 4. History of hypertension 5. Osteopenia 6. Chronic back pain 7. Leukocytosis 8. Hyponatremia Sepsis secondary to Severe C. difficile colitis/diarrhea Patient presented with ongoing diarrhea 3-4 episodes per day for 10 days. She started having diarrhea after using Augmentin. Also reports abdominal discomfort. Diarrhea most likely from recent antibiotic use. On admission she was found to have WBC count 24,000 with 7 bands, tachycardia. Fulfilled SIRS criteria on admission with possible source of infection colon. CAT scan findings suggestive of mild colitis and fluid in cul-de-sac. X-ray no evidence of toxic megacolon * She was admitted to general medicine floor for management of severe C. difficile colitis and diarrhea * Monitor vitals closely every shift * Monitor for fever, leukocytosis, worsening abdominal pain * Monitor blood pressure * Serial abdominal exams * Continue oral vancomycin for severe C. difficile colitis * Monitor CBC-WBC improving; H&H dropped slightly * Tolerating low fiber diet Perforated duodenum ulcer * General surgery on board * CAT scan findings suggestive of perforated duodenum ulcer from duodenum cap, * Plan is to monitor for signs of worsening * No nsaids * Sucralfate suspension * Famotidine started (PPI discontinued due to risk of causing C.diff) * She was advanced to low fiber diet, mechanical soft and thin liquids and is tolerating them well Anemia Hb dropped to 8.9 today from 9.6 yesterday [place] neg Monitor H&H closely Hypokalemia Potassium 3.9 this morning One dose of 20mmEq of K given Monitor potassium and replete as needed Hyponatremia * Resolved; continue to monitor BEP Chronic low back pain * vitamin D and calcium supplements at home COPD Patient has COPD who uses 2 L oxygen. Not in COPD exacerbation. * Will provide supplemental oxygen as needed * Total respiratory care * Vitals every shift * Albuterol * Symbicort * No plan of steroids/antibiotics history of hypertension metoprolol on hold because of hypotension on admission BP stabilizing but still on the lower end of normal DVT prophylaxis-alps Full code Problem List: 1. Colitis Pain Ratin Pain Location: n/a Pain Goal: n/a Pain Plan: n/a Tomorrow's Labs & Rationales: CBC, BEP MICHAEL WELLS 09/19/16 1014: Attending Review Statement Attending Statement Attending MD Statement: examined this patient, discuss w/resident/PA/LIBRARIAN ASSISTANT, agreed w/resident/PA/LIBRARIAN ASSISTANT, discussed with family, reviewed EMR data (avail), discussed with nursing, discussed with case mgmt, reviewed images, amended to note Attending Assessment/Plan: Impression/Plan: #Abdominal Pain improved #Sepsis 2/2 colitis resolved #Colitis 2/2 C DIFF SLOWLY IMRPOVING #Possible Perforated Duodenal Ulcer BUT NO FREE AIR NO PERFORATION ON REPEAT CT #H/O Thrombocytopenia #COPD not in exacerbation #HTN with hypotension #Hypoalbumenia #Poor Po intake/dehydration with hypokalemia #abnormal cbc LAB ERROR PLAN admitted to inpatient medical services advance diet as tolerated, off TPN ID following and surgery signed off. c/w abx as per ID, GI notified monitor cbc, c diff +, repeat CT consistent with pancolitis and diffuse wall thickening. cont current care. hold bp meds for now. replace potassium as needed. repeat cbc. VITALS stable with no new complaints. pain control gi/dvt prophyalxis full code d/c planning.
[2016-09-19 14:46] VITALS: BP 120/68
--- NOTE | 2016-09-19 19:07 | Patient Discharge Instructions ---
See Addendum Discharge Instructions General Discharge Information You were seen/treated for: sepsis secondary to cdiff colitis perforated duodenal ulcer You had these procedures: none Special Instructions: please follow up your pcp in 2 weeks please f/u , surgeon in 1-2 weeks Diet Continue normal diet: Yes Activity Full Activity/No Limits: Yes Acute Coronary Syndrome Inclusion Criteria At DC or during hospital stay patient has or had the following: ACS DIAGNOSIS No Discharge Core Measures Meds if any: Prescribed or Continued at Discharge Meds if any: NOT Prescribed or Continued at Discharge Congestive Heart Failure Inclusion Criteria At DC or during hospital stay patient has or had the following: CHF DIAGNOSIS No Discharge Core Measures Meds if any: Prescribed or Continued at Discharge Meds if any: NOT Prescribed or Continued at Discharge Cerebrovascular accident Inclusion Criteria At DC or during hospital stay patient has or had the following: CVA/TIA Diagnosis No Discharge Core Measures Meds if any: Prescribed or Continued at Discharge Meds if any: NOT Prescribed or Continued at Discharge Venous thromboembolism Inclusion Criteria VTE Diagnosis No VTE Type NONE VTE Confirmed by (Test) NONE Discharge Core Measures - Per Current guidelines, there needs to be overlap - treatment for the first 5 days of Warfarin therapy. - If discharged on Warfarin prior to 5 days of - overlap therapy, the patient will need to be - assessed for post discharge needs including - *Post discharge parental anticoagulation - *Warfarin and/or parental anticoagulation education - *Follow up date to check INR post discharge At least 5 days overlap therapy as Inpatient No Meds if any: Prescribed or Continued at Discharge Note: Overlap Therapy is Warfarin and Anticoagulant Meds if any: NOT Prescribed or Continued at Discharge
[2016-09-19] MEDS ORDERED: OMEPRAZOLE40 M1 PO (19:08)
[2016-09-19 22:59] VITALS: BP 120/68
--- NOTE | 2016-09-20 07:13 | PN- Housestaff ---
ANNIA CAMILO 09/20/16 0713: Subjective Follow-up For: Sepsis secondary to severe C. difficile colitis Perforated duodenal ulcer Complaints: pain scale (0-10) Subjective: Patient was seen and examined this morning. She is alert, awake and oriented to time place and person. She has no overnight events. She denies any nausea or vomiting, abdominal pain this morning. Denies any diarrhea. She had 2 bowel movements overnight. She denies any difficulty breathing, chest pain. She feels she is doing much better this morning. Offers no complaints. Vitals stable. Afebrile, heart rate 98, respiratory rate 20, blood pressure 122 /71, saturating at 92 on 1 L. Review of Systems Constitutional: Denies: chills, diaphoresis, fever, malaise. Objective Last 24 Hrs of Vital Signs/I&O Vital Signs Date Time Temp Pulse Resp B/P B/P Pulse O2 O2 Flow FiO2 Mean Ox Delivery Rate 09/20 0718 97.9 95 20 124/62 93 Nasal 1.0L Cannula 09/20 0000 Nasal 1.0L Cannula 09/19 2259 98.1 99 18 120/68 98 Room Air 09/19 2110 92 Room Air Intake & Output 09/20 1600 09/20 0800 09/20 0000 Intake Total 400 60 800 Output Total 300 700 Balance 400 -240 100 Intake, IV 0 60 Intake, Oral 400 800 Number 2 2 Bowel Movements Output, Urine 300 700 Physical Exam General Appearance: Alert, Oriented X3, Cooperative, No Acute Distress Skin: No Rashes, No Breakdown HEENT: Atraumatic, PERRLA, EOMI, Mucous Membr. moist/pink Neck: Supple, No JVD Lymphatic: Cervical nl Cardiovascular: Normal S1, Normal S2 Lungs: Normal Air Movement Abdomen: Normal Bowel Sounds, Soft, No Tenderness Extremities: No Clubbing, No Cyanosis, No Edema Vascular: Normal Pulses, Pulses Symmetrical Current Medications: Current Medications Sig/Denice Start time Last Medication Dose Route Stop Time Status Admin Albuterol Sulfate 3 ML Q6PRN PRN 09/20 1100 DCD INH Albuterol Sulfate 3 ML BID 09/16 2200 DC 09/19 INH 1100 Albuterol Sulfate 2 PUF Q6P PRN 09/15 1000 DCD 09/17 INH 1319 Budesonide/ 2 PUF BID 09/15 1000 DCD 09/20 Formoterol Fumarate INH 1031 Diphenhydramine HCl 50 MG Q6P PRN 09/13 2130 DCD 09/13 IV 2139 Epinephrine 0.15 MG ONCE PRN 09/13 2014 DCD IM Famotidine 20 MG BID 09/19 1015 DCD 09/20 IV 0939 Guaifenesin 10 ML .STK-MED ONE 09/19 2147 DC PO 09/19 2148 Guaifenesin/ 10 ML Q6P PRN 09/19 2130 DCD 09/20 Dextromethorphan PO 0513 Lactobacillus 1 CAP BID 09/19 1346 DCD 09/20 Acidophilus PO 1031 Patient Medication 1 ED .STK-MED ONE 09/20 1346 DC Teaching ED 09/20 1347 Sucralfate 1 GM Q8 09/13 1800 DCD 09/20 PO 1340 Tiotropium [place] 2 PUF DAILY 09/15 0745 DCD 09/20 INH 1036 Vancomycin HCl 125 MG Q6H 09/14 2300 DCD 09/20 PO 1032 Last 24 Hrs of Lab/Carlos Results Last 24 Hrs of Labs/Mics: Laboratory Tests 09/20/16 0605: Anion Gap 4 L, Estimated GFR > 60, BUN/Creatinine Ratio 12.5, CBC w Diff MAN DIFF ORDERED, RBC 3.28 L, MCV 85.1, MCH 27.7, RDW 14.3, MPV 7.8, Gran % 74.0, Lymphocytes % 15.5 L, Monocytes % 7.3, Eosinophils % 2.4, Basophils % 0.8, Absolute Granulocytes 8.0 H, Segmented Neutrophils 73, Band Neutrophils 3, Absolute Lymphocytes 1.7, Lymphocytes 14 L, Monocytes 4, Absolute Monocytes 0.8 H, Eosinophils 6 H, Absolute Eosinophils 0.3, Absolute Basophils 0.1, Platelet Estimate VERIFIED BY SMEAR, Normocytic RBCs VERIFIED, Normochromic RBCs VERIFIED , PUBS MCHC 32.5 L Assessment/Plan Assessment: This is a 75-year-old female with past medical history significant for COPD on home oxygen 2 L, hypertension, low back pain, smoker quit 20 years ago, osteopenia, sinus tachycardia of unclear etiology, history of C. difficile colitis 7 years ago presented to the [facility] emergency department from nursing care facility with chief complaint of nausea, diarrhea, abdominal pain for 10 days. She was discharged from [facility] on 08/30/2016 after being treated for thrombocytopenia, hyponatremia, hypoalbuminemia. She was sent to [facility] from [facility]. Vitals on admission-afebrile, heart rate 118, blood pressure 92/58, respiratory rate 20, saturating at 95 on room air. Pertinent labs on admission WBC 24,000 with 7 bands, hemoglobin 11, hematocrit 35, platelets 371 Sodium 128 with normal kidney function tests. Albumin 2.2. CAT scan findings revealed IMPRESSION: 1. Findings indicative of a contained perforated duodenal ulcer arising from the duodenal cap. 2. Generalized mild colitis. Small fluid collections in the right pericolic gutter and cul-de-sac. 3. Stable left ovarian cyst. Abdominal x-ray-no evidence of toxic megacolon Problem list 1. Sepsis secondary to presumed severe C. difficile colitis/diarrhea 2. Perforated duodenum ulcer per imaging 3. COPD on home oxygen 4. History of hypertension 5. Osteopenia 6. Chronic back pain 7. Leukocytosis 8. Hyponatremia Sepsis secondary to Severe C. difficile colitis/diarrhea Patient presented with ongoing diarrhea 3-4 episodes per day for 10 days. She started having diarrhea after using Augmentin. Also reports abdominal discomfort. Diarrhea most likely from recent antibiotic use. On admission she was found to have WBC count 24,000 with 7 bands, tachycardia. Fulfilled SIRS criteria on admission with possible source of infection colon. CAT scan findings suggestive of mild colitis and fluid in cul-de-sac. X-ray no evidence of toxic megacolon * She was admitted to general medicine floor for management of severe C. difficile colitis and diarrhea * Monitor vitals closely every shift * Monitor for fever, leukocytosis, worsening abdominal pain * Monitor closely for blood pressure as her blood pressure was borderline since admission, she is low threshold for ICU transfer * Serial abdominal exams * ID was consulted * Stool C. difficile was sent * stool C. difficile- POSITIVE * She was started on IV antibiotics-IV Flagyl and by mouth vancomycin for severe C. difficile colitis. vanco day7 and flagyl discontinued after 6days. * Started on IV ceftriaxone, later discontinued because of rash and itching * Monitor CBCs -[id number] * Lactic acid 3 on admission, trended lactic acid-came down to 1.1. * Total parent nutrition through PICC line-for 4days-stopped on 09/18/2016 * She was on bowel rest, tpn and IV fluids for 4 days, started clear liquids and advance to low fiber diet mechanical soft thin liquids, tolerating well repeat ct abd 1. Pancolitis is seen with interval slight decrease in the mucosal hyperenhancement and the degree of bowel wall thickening. Findings are consistent with the clinical history of C. difficile colitis. No evidence of bowel perforation or obstruction is seen. 2. Small volume of free fluid in the pelvis, increased in volume compared to prior study. Perforated duodenum ulcer Patient presented with ongoing diarrhea, abdominal pain for 10 days. She uses Aleve for her back pain. Denies any history of peptic ulcer disease. * Admitted to general medicine floor for further management * Monitor vitals closely * Monitor for blood pressure, low threshold for ICU transfer * General surgeon on board * CAT scan findings suggestive of perforated duodenum ulcer from duodenum cup, * as presently there are no peritoneal signs, these changes at the duodenum may have been there and stabilized for some time actually, plan is to monitor for signs of worsening * Also would cover her empirically for upper GI pauline in light of the possibility of a perforation. * Started on IV ceftriaxone and IV Flagyl, however ceftriaxone discontinued because of rash and itch * No nsaids * Sucralfate suspension * IV PPI * She was on bowel rest for 4 days, now started with clear liquids and advanced to low fiber diet, mechanical soft and thin liquids Hypokalemia Potassium 3.4 this morning Received KCl 10 mEq 2 times We'll repeat potassium and replete accordingly Hyponatremia * Sodium 128 on admission * Most possibly from hypotension, dehydration, poor oral intake * Hypovolemic hyponatremia * on gentle hydration IV fluid d5 normal saline 100 mL per hour * Repeat BEP in the morning * Sodium improved-133 Generalized weakness * Most possibly from dehydration and hypotension * Patient does complain of low appetite for 1-2 weeks duration * nutrition consulted * Required TPN because of malnutrition and bowel rest * PTOT consult Chronic low back pain She was discharged from [facility] emergency department on after being treated for back pain and she was given Vicodin. She took Vicodin for a couple of days and then she took Motrin 2 tablets every 4 hours for 4 days for her back pain after which pain came down. * on vitamin D and calcium supplements at home COPD Patient has COPD who uses 2 L oxygen. Not in COPD exacerbation. * Patient was discharged from [facility] on 08/18/2016 after being treated for COPD exacerbation * Will provide supplemental oxygen * Total respiratory care * Vitals every shift * Albuterol * Symbicort * No plan of steroids/antibiotics history of hypertension metoprolol on hold because of hypotension on admission DVT prophylaxis-alps Full code advanced to mechanical soft and thin liquid diet . Patient was discharged today on oral vancomycin 125 mg every 6 hours for 7 more days-total 14 day course for severe cdiff. Problem List: 1. Diarrhea 2. Colitis Pain Ratin Pain Location: abdomen Pain Goal: Remain pain free Pain Plan: tylinol Tomorrow's Labs & Rationales: cbc MICHAEL WELLS 09/20/16 1159: Attending MD Review Statement Attending Statement Attending MD Statement: examined this patient, discuss w/resident/PA/CROSS TIE CUTTER, agreed w/resident/PA/CROSS TIE CUTTER, discussed with family, reviewed EMR data (avail), discussed with nursing, discussed with case mgmt, reviewed images, amended to note Attending Assessment/Plan: Impression/Plan: #Abdominal Pain improved #Sepsis 2/2 colitis resolved #Colitis 2/2 C DIFF SLOWLY IMRPOVING #Possible Perforated Duodenal Ulcer BUT NO FREE AIR NO PERFORATION ON REPEAT CT #H/O Thrombocytopenia #COPD not in exacerbation #HTN with hypotension #Hypoalbumenia #Poor Po intake/dehydration with hypokalemia #abnormal cbc LAB ERROR PLAN admitted to inpatient medical services PO diet tolerated well, off TPN ID following and surgery signed off. c/w abx as per ID monitor cbc, c diff +, repeat CT consistent with pancolitis and diffuse wall thickening. cont current care. held bp meds for now. replace potassium as needed. repeat cbc. VITALS stable with no new complaints. pain control gi/dvt prophyalxis full code d/c planning, wishes to go home, able to walk independently. f/u o/p PCP in 3-5 days of dc. Patient in agreement
[2016-09-20 07:18] VITALS: BP 124/62
[2016-09-20 07:55] LABS: ABSOLUTE BASOPHIL COUNT 0.1 /CUMM (0.0-0.2); ABSOLUTE EOSINOPHIL COUNT 0.3 /CUMM (0.0-0.7); ABSOLUTE LYMPH COUNT 1.7 /CUMM (1.2-3.4); ABSOLUTE MONOCYTE COUNT 0.8 /CUMM (0.10-0.60); BASOPHIL % 0.8 % (0.0-2.0); EOSINOPHIL % 2.4 % (0-5); HEMATOCRIT 27.9 % (37-47); MEAN CORPUSCULAR HGB 27.7 PG (27.0-31.0); MEAN CORPUSCULAR HGB CONC 32.5 G/DL (33.0-37.0); MEAN CORPUSCULAR VOLUME 85.1 FL (81.0-99.0); MEAN PLATELET VOLUME 7.8 FL (7.4-10.4); PLATELET COUNT 482 /CUMM (130-400); RBC DISTRIBUTION WIDTH 14.3 % (11.5-14.5); RED BLOOD CELL CT 3.28 /CUMM (4.20-5.40); WHITE BLOOD CELL COUNT 10.8 /CUMM (4.8-10.8)
--- NOTE | 2016-09-20 08:28 | PN- Student ---
Subjective Subjective: Today Mrs. Lynn states she is feeling well. She reports that her feet are still a bit sore and swollen but that they have improved since my last visit. She is still using her alps and still ambulates in her room well. She denies any abdominal pain, nausea, vomiting, Headaches, fevers, chills, urinary problems, chest pain, palpitations, or breathing problems. She reports 1-2 semisolid loose stools per day with occaisional cramps during the initiation of the bowel movement but quickly subsides following the movement. Objective Objective: Vital Signs Date Time Temp Pulse Resp B/P B/P Pulse O2 O2 Flow FiO2 Mean Ox Delivery Rate 09/20 0718 97.9 95 20 124/62 93 Nasal 1.0L Cannula 09/20 0000 Nasal 1.0L Cannula 09/19 2259 98.1 99 18 120/68 98 Room Air 09/19 2110 92 Room Air 09/19 1505 100 09/19 1446 98.2 110 18 120/68 93 Room Air 09/19 1104 91 Room Air Room Air 09/19 1036 20 96 Room Air 09/19 1036 20 99 Nasal 2.0L Cannula Intake & Output 09/20 1600 09/20 0800 09/20 0000 Intake Total 60 800 Output Total 300 700 Balance -240 100 Intake, IV 60 Intake, Oral 800 Number 2 Bowel Movements Output, Urine 300 700 Notes: -H/H dropped on to 5.6/16.7. Most likely bad blood draw. was repeated and was normal. Guaiac negative. -Potassium was low over the weekend but was repleted to 3.9 yesterday. Notes on Admission: - CT scan -contained perforated duodenal ulcer arising from duodenal cap -generalized mild colitis, small fluid collection in right pericolic gutter and cul de sac -stable left ovarian cyst - CXR -severe emphysema, no acute process PE: general- AAO x 3, cooperative, resting comfortably in bed, NAD HEENT- atraumatic, PERRLA, membranes moist and pink Neck- supple, no JVD, no lymphadenopathy or thyromegaly, trachea is midline CV- S1 and S2 heard, RRR, no murmurs or rubs appreciated Chest- chest rise equal bilaterally, vesicular breath sounds in all lung cole, normal air movement Abd- bowel sounds heard, soft and non-tender to palpation, no distention or rebound tenderness, no pain since admission Ext- 1+ edema present bilaterally of feet and ankles extending to lower cotter, associated soreness of the feet but no pain or soreness in calf at rest or on palpation, motor and sensation grossly intact Skin- no lesions present, skin is intact, warm, dry and well perfused Results Results: Laboratory Tests 09/20/16 0605: Anion Gap 4 L, Estimated GFR > 60, BUN/Creatinine Ratio 12.5, CBC w Diff MAN DIFF ORDERED, RBC 3.28 L, MCV 85.1, MCH 27.7, RDW 14.3, MPV 7.8, Gran % 74.0, Lymphocytes % 15.5 L, Monocytes % 7.3, Eosinophils % 2.4, Basophils % 0.8, Absolute Granulocytes 8.0 H, Segmented Neutrophils 73, Band Neutrophils 3, Absolute Lymphocytes 1.7, Lymphocytes 14 L, Monocytes 4, Absolute Monocytes 0.8 H, Eosinophils 6 H, Absolute Eosinophils 0.3, Absolute Basophils 0.1, Platelet Estimate VERIFIED BY SMEAR, Normocytic RBCs VERIFIED, Normochromic RBCs VERIFIED , [facility] MCHC 32.5 L 09/19/16 0530: Anion Gap 6, Estimated GFR > 60, BUN/Creatinine Ratio 12.5, CBC w Diff MAN DIFF ORDERED, RBC 3.20 L, MCV 85.8, MCH 27.7, RDW 14.3, MPV 8.3, Gran % 74.4, Lymphocytes % 16.8 L, Monocytes % 6.4, Eosinophils % 1.8, Basophils % 0.6, Absolute Granulocytes 8.4 H, Segmented Neutrophils 61, Band Neutrophils 4, Absolute Lymphocytes 1.9, Lymphocytes 16 L, Monocytes 7, Absolute Monocytes 0.7 H, Eosinophils 5, Absolute Eosinophils 0.2, Basophils 2, Absolute Basophils 0.1 , Metamyelocytes 4 H, Myelocytes 1 H, Platelet Estimate VERIFIED BY SMEAR, Polychromasia 1+, Basophilic Stippling 1+, PUBS MCHC 32.3 L 09/18/16 1850: Anion Gap 7, Estimated GFR > 60, BUN/Creatinine Ratio 15.0 09/18/16 0951: CBC w Diff MAN DIFF ORDERED, RBC 3.42 L, MCV 85.4, MCH 28.1, RDW 14.6 H, MPV 7.3 L, Gran % 78.3 H, Lymphocytes % 13.9 L, Monocytes % 5.5, Eosinophils % 2.0, Basophils % 0.3, Absolute Granulocytes 12.4 H, Segmented Neutrophils 61, Band Neutrophils 10 H, Absolute Lymphocytes 2.2, Lymphocytes 18 L, Monocytes 5 , Absolute Monocytes 0.9 H, Eosinophils 3, Absolute Eosinophils 0.3, Basophils 1, Absolute Basophils 0, Metamyelocytes 2 H, Poikilocytosis 1+, Anisocytosis 2+ , Ovalocytes 1+, PUBS MCHC 32.9 L 09/18/16 0625: Anion Gap 7, Estimated GFR > 60, BUN/Creatinine Ratio 12.5, CBC w Diff MAN DIFF ORDERED, RBC 1.98 L, MCV 84.1, MCH 28.2, RDW 14.2, MPV 8.0, Gran % 73.0, Lymphocytes % 13.6 L, Monocytes % 6.8, Eosinophils % 2.0, Basophils % 4.6 H, Absolute Granulocytes 11.1 H, Segmented Neutrophils 66, Band Neutrophils 6 H, Absolute Lymphocytes 2.1, Lymphocytes 12 L, Monocytes 3, Absolute Monocytes 1.0 H, Eosinophils 1, Absolute Eosinophils 0.3, Absolute Basophils 0.7, Metamyelocytes 12 H, Anisocytosis 1+, PUBS MCHC 33.5 Assessment/Plan Assessment: Mrs. Lynn is a 76 yo white woman with a PMH of COPD (on 2L nasal cannula at home), HTN, osteopenia, sinus tachycardia of uknown cause, and low back pain who presented to ED with abdominal pain, nausea, and diarrhea for 10 days. She has a history of C.Diff 7 years ago. She has past hospitalizations with [facility] for COPD exacerbation (08/18/2016), as well as thrombocytopenia, hyponatremia, and hypalbuminemia (08/30/2016). Patient states that she was started on augmentin at [facility] for an uknown reason, she began having 2-3 loose watery stools per day, she continued on this antibiotic for 1 week before they gave her immodium for the diarrhea. This stopped the diarrhea and she has not had a bowel movement in over 2 days. The nursing facilty collected a stool sample and sent it to lab but have not yet obtained results. Patient has had generalized weakness and low appetite for 1 week and denies chest pain, vomiting, fever, chills, breathing or neurological difficulties. Her labs on admission were significant for WBC- 29846 with 7 bands, Lactic Acid- 3.0, H/H- 11/35, renal function normal. She was admitted to general medicine floor with possible C.Diff colitis which was later confirmed by stool sample. Today Mrs. Lynn feels very well. She is still have 1-2 stools per day which she classifies as abnormal but not watery. She describes them as loose and semiformed. She is tolerating her mechanical soft diet and reports no abdominal pain. Physical exam was significant for bilateral lower extremity edema 1+ with some slight soreness on ambulation. Her vitals are stable today temp- 98.1, HR- 99, RR- 18, BP- 120/68, SpO2- 98% on 1 L nasal cannula. Labs showed WBC-10.8, H/ H-9.1/27.9, BUN-5, [employer]-0.4, K-3.4. Current Medications Sig/Denice Start time Last Medication Dose Route Stop Time Status Admin Albuterol Sulfate 3 ML Q6PRN PRN 09/20 1100 AC INH Albuterol Sulfate 3 ML BID 09/16 2200 DC 09/19 INH 1100 Albuterol Sulfate 2 PUF Q6P PRN 09/15 1000 AC 09/17 INH 1319 Budesonide/ 2 PUF BID 09/15 1000 AC 09/20 Formoterol Fumarate INH 1031 Diphenhydramine HCl 50 MG Q6P PRN 09/13 2130 AC 09/13 IV 2139 Epinephrine 0.15 MG ONCE PRN 09/13 2015 AC IM Famotidine 20 MG BID 09/19 1015 AC 09/20 IV 0939 Guaifenesin 10 ML .STK-MED ONE 09/19 2147 DC PO 09/19 2148 Guaifenesin/ 10 ML Q6P PRN 09/19 2130 AC 09/20 Dextromethorphan PO 0513 Lactobacillus 1 CAP BID 09/19 1346 AC 09/20 Acidophilus PO 1031 Potassium Chloride 20 MEQ .STK-MED ONE 09/19 1536 DC PO 09/19 1537 Potassium Chloride 20 MEQ ONCE ONE 09/19 1430 DC 09/19 PO 09/19 1431 1725 Sucralfate 1 GM Q8 05/23 1800 AC 09/20 PO 1340 Tiotropium [place] 2 PUF DAILY 09/15 0745 AC 09/20 INH 1036 Vancomycin HCl 125 MG Q6H 09/14 2300 AC 09/20 PO 1032 Plan: Patient's TPN has been discontinued, she has been tolerating mechanical soft diet very well. Will start lasix today to treat lower extremity edema. PT believes she does not need STR and can be discharged home, which she is okay with. Metronidazole was discontinued, she will be discharged home on PO vancomycin. Problem list: 1. Sepsis associated with severe C.Difficile infection/colitis- -Discharge home with Vancomycin 125 mg Q6H PO 2. Perforated duodenal ulcer- -CT showed no free air in abdomen. Patient denies past history of peptic ulcer disease. 3. Weakness- -most likely due to malnutrition and dehydration, patient is on clear fluids diet. 3. Back pain- -patient was taking aleve for her back but states that back pain has been tolerable without medication since admission. 4. Hyponatremia- -discontinued fluid and electrolyte therapy 5. COPD- -continue albuterol, tiotropium, and budesonide treatments daily. 6. Osteopenia- -discontinue calcium and vit. D3 supplementation while in hospital. may need supplementation once discharged. Code status- Full Diet- mechanical soft DVT prophylaxis-Alps (patient has been removing them periodically)
[2016-09-20] MEDS ORDERED: VANCOMYCIN HCL5 G1 PO (11:35)
--- NOTE | 2016-09-20 13:37 | PN- Infect Dx ---
Subjective Subjective: Afebrile. She feels well with stools semi-formed and with no abdominal complaints Objective Last 24 Hrs of Vital Signs/I&O Vital Signs Date Time Temp Pulse Resp B/P B/P Pulse O2 O2 Flow FiO2 Mean Ox Delivery Rate 09/20 0718 97.9 95 20 124/62 93 Nasal 1.0L Cannula 09/20 0000 Nasal 1.0L Cannula 09/19 2259 98.1 99 18 120/68 98 Room Air 09/19 2110 92 Room Air 09/19 1505 100 09/19 1446 98.2 110 18 120/68 93 Room Air Intake & Output 09/20 1600 09/20 0800 09/20 0000 Intake Total 60 800 Output Total 300 700 Balance -240 100 Intake, IV 60 Intake, Oral 800 Number 1 2 Bowel Movements Output, Urine 300 700 Physical Exam Other Physical Findings: She appears comfortable in no acute distress Lungs decreased breath sounds bilaterally Abdomen soft, nontender with positive bowel sounds Results Last 24 Hours of Lab Results: Laboratory Tests 09/20 06 Chemistry Sodium (137 - 145 mmol/L) 139 Potassium (3.5 - 5.1 mmol/L) 3.4 L Chloride (98 - 107 mmol/L) 106 Carbon Dioxide (22 - 30 mmol/L) 29 Anion Gap (5 - 16) 4 L BUN (7 - 17 mg/dL) 5 L Creatinine (0.5 - 1.0 mg/dL) 0.4 L Estimated GFR (>60 ml/min) > 60 BUN/Creatinine Ratio (7 - 25 %) 12.5 Hematology CBC w Diff MAN DIFF ORDERED WBC (4.8 - 10.8 /CUMM) 10.8 RBC (4.20 - 5.40 /CUMM) 3.28 L Hgb (12.0 - 16.0 G/DL) 9.1 L Hct (37 - 47 %) 27.9 L MCV (81.0 - 99.0 FL) 85.1 MCH (27.0 - 31.0 PG) 27.7 RDW (11.5 - 14.5 %) 14.3 Plt Count (130 - 400 /CUMM) 482 H MPV (7.4 - 10.4 FL) 7.8 Gran % (42.2 - 75.2 %) 74.0 Lymphocytes % (20.5 - 51.1 %) 15.5 L Monocytes % (1.7 - 9.3 %) 7.3 Eosinophils % (0 - 5 %) 2.4 Basophils % (0.0 - 2.0 %) 0.8 Absolute Granulocytes (1.4 - 6.5 /CUMM) 8.0 H Segmented Neutrophils (42.2 - 75.2 %) 73 Band Neutrophils (0.0 - 5.0 %) 3 Absolute Lymphocytes (1.2 - 3.4 /CUMM) 1.7 Lymphocytes (20.5 - 51.1 %) 14 L Monocytes (1.7 - 9.3 %) 4 Absolute Monocytes (0.10 - 0.60 /CUMM) 0.8 H Eosinophils (0 - 5.0 %) 6 H Absolute Eosinophils (0.0 - 0.7 /CUMM) 0.3 Absolute Basophils (0.0 - 0.2 /CUMM) 0.1 Platelet Estimate (ADEQUATE) VERIFIED BY SMEAR Normocytic RBCs VERIFIED Normochromic RBCs VERIFIED PUBS MCHC (33.0 - 37.0 G/DL) 32.5 L Last 24 Hours of Carlos Results: No recent cultures Assessment/Plan Impression: Doing well with temperatures remaining normal and white blood cell count now also normal on po Vancomycin Day 7 of treatment for C. difficile. Her CBC from September 18 a.m. was apparently an error, with the repeat CBC more consistent with her previous results. Suggestion: 1. Continue po Vancomycin for 1 more week
--- NOTE | 2016-09-20 16:17 | Discharge Summary ---
Visit Information Visit Dates Admission Date: 09/13/16 Discharge Date: 09/20/16 Hospital Course Course Attending Physician: MICHAEL WELLS MD Primary Care Physician: MINAL ACEVEDO,JOSE LUIS Valentin Consulting Request: 1 Consulting Specialty: General Surgery Consulting Request: 2 Consulting Specialty: Infectious Disease Hospital Course: This is a 75-year-old female with past medical history significant for COPD on home oxygen 2 L, hypertension, low back pain, smoker quit 20 years ago, osteopenia, sinus tachycardia of unclear etiology, history of C. difficile colitis 7 years ago presented to the [facility] emergency department from nursing care facility with chief complaint of nausea, diarrhea, abdominal pain for 10 days. She was discharged from [facility] on 08/30/2016 after being treated for thrombocytopenia, hyponatremia, hypoalbuminemia. She was sent to [facility] from [facility]. Vitals on admission-afebrile, heart rate 118, blood pressure 92/58, respiratory rate 20, saturating at 95 on room air. Pertinent labs on admission WBC 24,000 with 7 bands, hemoglobin 11, hematocrit 35, platelets 371 Sodium 128 with normal kidney function tests. Albumin 2.2. CAT scan findings revealed IMPRESSION: 1. Findings indicative of a contained perforated duodenal ulcer arising from the duodenal cap. 2. Generalized mild colitis. Small fluid collections in the right pericolic gutter and cul-de-sac. 3. Stable left ovarian cyst. Abdominal x-ray-no evidence of toxic megacolon Sepsis secondary to Severe C. difficile colitis/diarrhea Patient presented with ongoing diarrhea 3-4 episodes per day for 10 days. She started having diarrhea after using Augmentin. Diarrhea most likely from recent antibiotic use. On admission she was found to have WBC count 24,000 with 7 bands, tachycardia. Fulfilled SIRS criteria on admission with possible source of infection colon. CAT scan findings suggestive of mild colitis and fluid in cul-de-sac. X-ray no evidence of toxic megacolon She was admitted to general medicine floor for management of severe C. difficile colitis and diarrhea. Stool C. difficile positive. She was started on oral vancomycin for severe C. difficile infection she received 7 days oral vancomycin in the hospital and was discharged on 7 more days of vancomycin 125 mg orally every 6 hours. Perforated duodenum ulcer Patient presented with ongoing diarrhea, abdominal pain for 10 days. She uses Aleve for her back pain. Denied any history of peptic ulcer disease. Gen. surgeon on board. CAT scan findings suggestive of perforated duodenum ulcer from duodenum cup, as there are no peritoneal signs, these changes at the duodenum may have been there and stabilized for some time actually. Empirically covered for upper GI pauline with IV ceftriaxone and IV Flagyl however ceftriaxone was discontinued because of allergy. Flagyl was given for 7 days. Sucralfate suspension and IV PPI was given. Repeat CAT scan showed no evidence of perforation. She was on bowel rest for 4 days, after which she was started on clear liquids and advanced to low fiber diet, mechanical soft and thin liquids. repeat ct abd 1. Pancolitis is seen with interval slight decrease in the mucosal hyperenhancement and the degree of bowel wall thickening. Findings are consistent with the clinical history of C. difficile colitis. No evidence of bowel perforation or obstruction is seen. 2. Small volume of free fluid in the pelvis, increased in volume compared to prior study. Hypokalemia Potassium was low 3.1, received potassium supplementation. Potassium 3.6 at the time of discharge Hyponatremia Sodium 128 on admission, Most possibly from hypotension, dehydration, poor oral intake Hypovolemic hyponatremia improved after gentle hydration with IV fluids. Sodium 135 at the time of discharge Generalized weakness Most possibly from dehydration and hypotension Chronic low back pain She was discharged from [facility] emergency department on after being treated for back pain and she was given Vicodin. She took Vicodin for a couple of days and then she took Motrin 2 tablets every 4 hours for 4 days for her back pain after which pain came down. on vitamin D and calcium supplements at home COPD Patient has COPD who uses 2 L oxygen. Patient was discharged from [facility] on 08/18/2016 after being treated for COPD exacerbation. provided supplemental oxygen and total respiratory care. She received albuterol, Symbicort inhaler and nebulizer treatments. history of hypertension metoprolol on hold because of hypotension in the hospital disContinued metoprolol at the time of discharge DVT prophylaxis-alps Full code advanced to mechanical soft and thin liquid diet . Complications: none Allergies: Coded Allergies: cefuroxime (BLOTCHES BUT ALSO TOOK WITH PREDNISONE UNSURE WHICH ONE 08/16/16) CAUSED THE REACTION prednisone (UNKNOWN 09/13/16) Significant Procedures: picc line placement Pertinent Lab Results: ct abd IMPRESSION: 1. Findings indicative of a contained perforated duodenal ulcer arising from the duodenal cap. 2. Generalized mild colitis. Small fluid collections in the right pericolic gutter and cul-de-sac. 3. Stable left ovarian cyst. cxr IMPRESSION: Severe emphysema. No definite acute process. abd xry IMPRESSION: No radiographic evidence of megacolon. repeat ct IMPRESSION: 1. Pancolitis is seen with interval slight decrease in the mucosal hyperenhancement and the degree of bowel wall thickening. Findings are consistent with the clinical history of C. difficile colitis. No evidence of bowel perforation or obstruction is seen. 2. Small volume of free fluid in the pelvis, increased in volume compared to prior study. 3. Interval development of small bilateral pleural effusions with associated bibasilar subsegmental atelectasis. 4. 4.3 x 3.3 cm thin-walled left ovarian cyst is seen. No suspicious features are identified. However, given the size of the finding in a late postmenopausal patient, annual follow-up is recommended with ultrasound. 5. Tiny hepatic and bilateral renal lesions, most consistent with small cysts. Disposition Summary Disposition Principal Diagnosis: Sepsis secondary to severe C. difficile colitis Additional Diagnosis: Contained duodenal ulcer Hypokalemia Discharge Disposition: home health services Discharge Instructions General Discharge Information Code Status: Full Code Patient's Diet: As tolerated Patient's Activity: as tolerated Follow-Up Instructions/Appts: follow up with primary care doctor in 1-2 weeks Medications at Discharge Discharge Medications: Stop taking the following medications: Metoprolol Succ XL (Toprol XL) 25 MG TAB ORAL DAILY Continue taking these medications: Tiotropium [place] (Spiriva Respimat) 2.5 MCG/ACTUATION MIST.INHAL 2 Puff Inhale through mouth DAILY Qty = 12 Comments: Last Taken: 09/20/16 Time: 1030AM Albuterol Sulfate (Albuterol Sulfate) 2.5 MG/0.5 ML VIAL.NEB 1 Vial Inhale Solution THREE TIMES DAILY as needed for COPD Qty = 60 Comments: NOT GIVEN IN HOSPITAL Budesonide/Formoterol Fumarate (Symbicort 160-4.5 Mcg Inhaler) 160 MCG-4.5 MCG/ ACTUATION HFA.AER.AD 2 Puff Inhale through mouth TWICE DAILY Qty = 1 Comments: Last Taken: 09/20/16 Time: 1030AM Cholecalciferol (Vitamin D3) (Vitamin D) 2,000 UNIT TABLET 1 Tablet ORAL DAILY Comments: NOT GIVEN IN HOSPITAL Calcium Carbonate/Vitamin D3 (Caltrate 600 + D Soft Chew Tab) 600 MG-800 TAB.CHEW 1 Tablet ORAL DAILY Comments: NOT GIVEN IN HOSPITAL Nystatin (Nystatin) 100,000 UNIT/ML ORAL.SUSP 15 Milliliters ORAL DAILY Comments: NOT GIVEN IN HOSPITAL Lactobacillus Acidophilus (Acidophilus) 1 EACH CAPSULE 1 Capsule ORAL DAILY Comments: Last Taken: 09/20/16 Time: 1030AM Start taking the following new medications: Vancomycin HCl (Vancomycin HCl) 900 MCG/MG (NOT LESS THAN, SHELTER) POWDER 125 Milligram ORAL Q6H Qty = 28 No Refills Comments: Last Taken: 09/20/16 Time: 1030AM Copies To: MINAL ACEVEDO,JOSE LUIS Valentin
== END 2016-09-20 15:37 | disposition home health service (06) | DRG 871 ==
LOC: ERH 10:15 → 2NB 14:33 → ERHI 14:33 → ENRESERV 15:51 → ENTRNSPT 17:17 → 2NB 17:45 → CMPTRNSPT 09-14 07:20 → 2NB 09-14 19:47 → ENPENDDIS 09-20 12:05 → 2NB 09-20 15:37
PROVIDERS: Emergency Medicine; Internal Medicine; Student in an Organized Health Care Education/Training Program; ADMIT Internal Medicine
DX: A41.4 Sepsis due to anaerobes (principal); K26.5 Chronic or unspecified duodenal ulcer with perforation; A04.7 Enterocolitis due to Clostridium difficile; R64 Cachexia; E46 Unspecified protein-calorie malnutrition; E87.1 Hypo-osmolality and hyponatremia; J44.9 Chronic obstructive pulmonary disease, unspecified; Z99.81 Dependence on supplemental oxygen; E86.0 Dehydration; I10 Essential (primary) hypertension; Z87.891 Personal history of nicotine dependence; M81.0 Age-related osteoporosis without current pathological fracture; M54.5 Low back pain; E87.6 Hypokalemia; Z68.21 Body mass index [BMI] 21.0-21.9, adult
CPT/HCPCS: 2NBP; 74000; 74177; 81001; 82436; 87040; 87045; 87086; 93005; 93010; 96374; C1769; J0171; J0696; J1200; J3490; J7040; J7042; S5012